=== PATIENT | male | born 1945 | race Caucasian/White ===

== ENCOUNTER 2016-05-08 12:20 | Inpatient (IN) | payer OTHER ==
[~2016-05-08] VITALS: Ht 175.3 cm; Wt 114.0 kg
[~2016-05-08 12:20] MED LIST: AMIO0.1T PO; BRIM0.15 OPB; CHOL2000 PO; FERR325T5 PO; MAGN400T6 PO; MULT-506 PO
[2016-05-08] MEDS ORDERED: HYDROmorphone INJ 1 MG/ML SYR IV STA ×2 (12:33→18:11)
--- NOTE | 2016-05-08 12:38 | EMERGENCY ROOM VISIT NOTE ---
History Report prepared by Karina: Thee Archer Under the Supervision of: Dr. Alethea Haddad M.D. First contact with patient: 12:27 Chief Complaint: FALL History of Present Illness The patient is a 70 year old male who presents to the Emergency Room with complaints of a sudden fall that occurred prior to arrival today. Per the nursing staff, the patient was reaching for a piece of toast, and then slipped and fell on his left knee. The patient now has left knee pain and the knee is more swollen that it previously was and he cannot walk. The patient adds that there were 3 boxes of oranges and grapefruit that he tripped over. He had both knees drained last week due to excess swelling. The patient denies any other pain, and did not hurt or hit his head. He denies any chest pain or shortness of breath. The patient does have history of a torn meniscus. He also has a history of heart problems. Source of History: patient Onset: Prior to arrival today Position: other (global - fall) Quality: other (tripped on boxes in kitchen) Timing: other (sudden) Associated Symptoms: No SOB, No chest pain Note: Associated symptoms: Left knee pain, left knee more swollen that it was before. Cannot walk. Denies any other pain and denies hitting his head. Review of Systems See HPI for pertinent positives & negatives. A total of 10 systems reviewed and were otherwise negative. Past Medical & Surgical Medical Problems: (1) Chronic combined systolic and diastolic CHF (congestive heart failure) (2) Dyslipidemia (3) Esophageal dysmotility (4) Frequent PVCs (5) GERD (gastroesophageal reflux disease) (6) History of DVT (deep vein thrombosis) (7) Hypertension (8) Non-ischemic cardiomyopathy (9) Nonischemic cardiomyopathy (10) Pulmonary HTN (11) Pulmonary hypertension (12) Severe mitral regurgitation Surgical Problems: (1) Appendectomy (2) H/O cardiac radiofrequency ablation (3) H/O colonoscopy (4) Hernia repair (5) History of implantable cardioverter-defibrillator (ICD) placement (6) Hx of cardiac cath (7) S/P cholecystectomy (8) S/P lumbar discectomy (9) S/P tendon repair (10) Shoulder surgery Family History CHF (congestive heart failure) FATHER Diabetes mellitus FH: cancer FH: heart disease Lung disease Valvular heart disease MOTHER No Family History of: Seizures Social History Smoking Status: Former Smoker Alcohol Use: none Drug Use: none Marital Status: Housing Status: lives with significant other Occupation Status: retired Current/Historical Medications Scheduled Allopurinol (Zyloprim), 100 MG PO QPM Amiodarone Hcl (Amiodarone Hcl), 100 MG PO w/lunch Aspirin (Aspirin Ec), 81 MG PO HS Atorvastatin (Atorvastatin Calcium), 20 MG PO QAM Brimonidine Tartrate Oph (Alphagan P Oph), 1 DROP OPB TID Budesonide/Formoterol Fumarate (Symbicort 160/4.5 Inhaler), 2 PUFFS INH QAM Cholecalciferol (Vitamin D3), 4,000 UNITS PO DAILY Digoxin (Digoxin), 0.125 MG PO QAM Ferrous Sulfate (Kp Ferrous Sulfate), 1 TAB PO DAILY Losartan Potassium (Cozaar), 12.5 MG PO QAM Magnesium Oxide (Magnesium Oxide), 1 CAP PO DAILY Metoprolol Succ (Toprol Xl) (Toprol-Xl ), 100 MG PO QAM Omeprazole (Prilosec), 40 MG PO QAM Warfarin Sod (Jantoven), 5 MG PO 5XWEEK Warfarin Sod (Jantoven), 2.5 MG PO 2XWEEK Scheduled PRN Albuterol (Ventolin), 2 PUFFS INH QID PRN for Wheezing Nitroglycerin (Nitrostat), 0.4 MG UT UD PRN for Chest Pain Torsemide (Demadex), 20 MG PO PRN PRN for fluid Tramadol (Ultram), 50 MG PO Q6H PRN for Pain Allergies Coded Allergies: Promethazine (Verified Adverse Reaction, Intermediate, DELIRIUM, 05/08/16) pt was confused after getting pheneargan Physical Exam Vital Signs Date Time Temp Pulse Resp B/P Pulse Ox O2 Delivery O2 Flow Rate FiO2 05/08/16 19:24 36.8 87 18 115/64 94 05/08/16 19:05 87 18 115/64 94 05/08/16 18:20 87 18 117/72 94 05/08/16 16:22 95 18 122/81 95 05/08/16 15:30 97 18 120/77 95 05/08/16 14:14 93 18 125/71 96 05/08/16 12:27 36.8 88 22 142/83 98 Physical Exam CONSTITUTIONAL: Moderate painful distress. HEENT: No icterus, moist mucous membranes NECK: No meningismus, trachea is midline. CARDIOVASCULAR: Regular rate, normal perfusion RESPIRATORY: Unlabored breathing. Clear to auscultation. GASTROINTESTINAL: Non-tender GENITOURINARY: No flank tenderness MUSCULOSKELETAL: Limited range of motion to left knee secondary to pain. NEUROLOGIC: No acute gross focal deficits. PSYCHIATRIC: Normal affect SKIN: Edematous bruise to left knee. Medical Decision & Procedures ER Provider Diagnostic Interpretation: X-ray results as stated below per interpretation by me and the radiologist. LEFT KNEE 3 VIEWS CLINICAL HISTORY: Left knee pain status post fall. COMPARISON: None FINDINGS: There is a large left knee joint effusion. Lucency projecting over the medial tibial plateau suggests an acute fracture. No additional fractures are identified. There is mild arthritis within the left knee. IMPRESSION: 1. Suspected medial tibial plateau fracture which is mildly displaced and depressed. 2. Large left knee joint effusion. Electronically signed by: Toi Davies M.D. 05/08/2016 1:34 PM Dictated Date/Time: 05/08/2016 1:31 PM Laboratory Results 05/08/16 12:57 Red Blood Count 4.35, Mean Corpuscular Volume 89.7, Mean Corpuscular Hemoglobin 31.3, Mean Corpuscular Hemoglobin Concent 34.9, Mean Platelet Volume 10.6, Neutrophils (%) (Auto) 75.4, Lymphocytes (%) (Auto) 12.1, Monocytes (%) (Auto) 8.0, Eosinophils (%) (Auto) 2.9, Basophils (%) (Auto) 0.3, Neutrophils # (Auto) 6.60, Lymphocytes # (Auto) 1.06, Monocytes # (Auto) 0.70, Eosinophils # (Auto) 0.25, Basophils # (Auto) 0.03 05/08/16 12:57 Test 05/08/16 12:57 White Blood Count 8.75 K/uL (4.8-10.8) Red Blood Count 4.35 M/uL (4.7-6.1) Hemoglobin 13.6 g/dL (14.0-18.0) Hematocrit 39.0 % (42-52) Mean Corpuscular Volume 89.7 fL (80-100) Mean Corpuscular Hemoglobin 31.3 pg (25-34) Mean Corpuscular Hemoglobin Concent 34.9 g/dl (32-36) Platelet Count 129 K/uL (130-400) Mean Platelet Volume 10.6 fL (7.4-10.4) Neutrophils (%) (Auto) 75.4 % Lymphocytes (%) (Auto) 12.1 % Monocytes (%) (Auto) 8.0 % Eosinophils (%) (Auto) 2.9 % Basophils (%) (Auto) 0.3 % Neutrophils # (Auto) 6.60 K/uL (1.4-6.5) Lymphocytes # (Auto) 1.06 K/uL (1.2-3.4) Monocytes # (Auto) 0.70 K/uL (0.11-0.59) Eosinophils # (Auto) 0.25 K/uL (0-0.5) Basophils # (Auto) 0.03 K/uL (0-0.2) RDW Standard Deviation 48.5 fL (36.4-46.3) RDW Coefficient of Variation 14.9 % (11.5-14.5) Immature Granulocyte % (Auto) 1.3 % Immature Granulocyte # (Auto) 0.11 K/uL (0.00-0.02) Prothrombin Time 31.9 SECONDS (9.0-12.0) Prothromb Time International Ratio 2.9 (0.9-1.1) Activated Partial Thromboplast Time 39.2 SECONDS (21.0-31.0) Partial Thromboplastin Ratio 1.5 Anion Gap 9.0 mmol/L (3-11) Est Creatinine Clear Calc Drug Dose 71.3 ml/min Estimated GFR () 70.6 Estimated GFR (Non- 60.9 BUN/Creatinine Ratio 13.3 (10-20) Calcium Level 8.8 mg/dl (8.5-10.1) Labs reviewed by ED physician. Medications Administered Medications (Trade) Dose Ordered Sig/Joao Route Start Time Stop Time Status Last Admin Dose Admin Hydromorphone HCl (Dilaudid Inj) 1 mg PRN STAT IV 05/08/16 12:33 05/08/16 12:35 DC 05/08/16 13:00 1 MG Hydromorphone HCl (Dilaudid Inj) 1 mg PRN STAT IV 1/9/17 18:11 05/08/16 18:12 DC 05/08/16 18:19 1 MG ED Course 1230: Past medical records reviewed. The patient was evaluated in room C6. A complete history and physical examination was performed. 1233: Ordered Dilaudid Inj 1 mg IV. 1632: I reevaluated the patient and discussed the imaging results with him. 1634: I discussed the patient with Dr. Mehdi DORMAN orthopedic surgery - he will see the patient tomorrow morning at 0800. 1639: I reevaluated the patient and he is resting comfortably. He will talk to his family and then decide what he wants to do. 1647: The patient notified me that he wants to evaluated for further treatment for pain control. The patient verbally expressed agreement and understanding of the treatment plan. 1715: Ordered Morphine Sulfate Inj 4 mg IV PRN. 1755: I discussed the patient with Dr. Kiera Dodd break and load operator - he will evaluate the patient for further treatment. Medical Decision Differential diagnoses include: fracture, hematoma, effusion, contusion. 70-year-old on Coumadin presented to the emergency room after mechanical fall during which he sustained a left knee contusion and has been unable to ambulate since. He notes a recent arthrocentesis with orthopedics secondary to chronic effusions. Review of systems was otherwise negative. X-ray was concerning for tibial plateau fracture. Case d/w Mehdi Herrera who offered to see patient first thing tomorrow morning at 8am. However, states she is unable to care for patient as he cannot walk safely and notes he is on coumadin. Patient also noted continued pain despite multiple doses of opiates. For these reasons observation arranged with hospitalist service and consultation to be obtained with orthopedics in morning. Patient/ in agreement with this plan. Consults Time Called: 163 Consulting Physician: Dr. Mehdi DORMAN orthopedic surgery Returned Call: [phone] I discussed the patient with Dr. Mehdi DORMAN orthopedic surgery - he will see the patient tomorrow morning at 0800. Additional Consults: Time Called: 1747 Consulted Physician: Dr. Kiera Dodd break and load operator Returned Call: [phone] Additional Comments: I discussed the patient with Dr. Kiera Dodd break and load operator - he will evaluate the patient for further treatment. Impression Primary Impression: Ambulatory dysfunction Additional Impression: Tibial plateau fracture Scribe Attestation The scribe's documentation has been prepared under my direction and personally reviewed by me in its entirety. I confirm that the note above accurately reflects all work, treatment, procedures, and medical decision making performed by me. Departure Information Dispostion Being Evaluated By Hospitalist Referrals Rebecca Lee (PCP) Patient Instructions A Signature Page, My [facility]
[2016-05-08 13:07] LABS: BASO % 0.3 %; BASO ABS # 0.03 K/uL (0-0.2); COMPLETE YES; EOS % 2.9 %; IG% 1.3 %; LYMPH % 12.1 %; LYMPH ABS # 1.06 K/uL (1.2-3.4); MEAN CELL VOLUME 89.7 fL (80-100); MEAN CORPUSCULAR HEMOGLOBIN 31.3 pg (25-34); MEAN CORPUSCULAR HGB CONC 34.9 g/dl (32-36); MEAN PLATELET VOLUME 10.6 fL (7.4-10.4); NEUT % 75.4 %; PLATELET COUNT 129 K/uL (130-400); RED BLOOD COUNT 4.35 M/uL (4.7-6.1); WHITE BLOOD COUNT 8.75 K/uL (4.8-10.8)
[2016-05-08 13:21] LABS: INR 2.9 (0.9-1.1); PARTIAL THROMBOPLASTIN RATIO 1.5; PROTHROMBIN TIME (PATIENT) 31.9 SECONDS (9.0-12.0)
[2016-05-08 13:24] LABS: BUN/CREATININE RATIO 13.3 (10-20); CALCIUM 8.8 mg/dl (8.5-10.1); CREATININE 1.2 mg/dl (0.60-1.40); POTASSIUM 4.5 mmol/L (3.5-5.1)
--- NOTE | 2016-05-08 13:35 | DIAGNOSTIC IMAGING REPORT ---
LEFT KNEE 3 VIEWS CLINICAL HISTORY: Left knee pain status post fall. COMPARISON: None FINDINGS: There is a large left knee joint effusion. Lucency projecting over the medial tibial plateau suggests an acute fracture. No additional fractures are identified. There is mild arthritis within the left knee. IMPRESSION: 1. Suspected medial tibial plateau fracture which is mildly displaced and depressed. 2. Large left knee joint effusion. Electronically signed by: Toi Davies M.D. 05/08/2016 1:34 PM Dictated Date/Time: 05/08/2016 1:31 PM
[2016-05-08] MEDS ORDERED: METO1TAB69 PO (16:35)
[2016-05-08] MEDS ORDERED: ALLO100T PO (16:35)
[2016-05-08] MEDS ORDERED: LNX125 PO (16:35)
[2016-05-08] MEDS ORDERED: WARF2.5T8 PO (16:35)
[2016-05-08] MEDS ORDERED: LOSA1TAB PO (16:35)
[2016-05-08] MEDS ORDERED: TRAM-10 PO (16:37)
[2016-05-08] MEDS ORDERED: MoRPHine SULFATE 4 MG/ML 1 ML CARP\\VIAL IV PRN ×3 (17:15→19:00)
[2016-05-08] MEDS ORDERED: ONDANSETRON INJ 2 MG/ML 2 ML VIAL IV PRN (18:45)
[2016-05-08] MEDS ORDERED: ACETAMINOPHEN 325 MG TAB PO PRN (18:45)
[2016-05-08] MEDS ORDERED: CHOL20007 PO (18:51)
[2016-05-08] MEDS ORDERED: TORS20TA2 PO (18:51)
[2016-05-08] MEDS ORDERED: MAGN400C2 PO (18:51)
[2016-05-08] MEDS ORDERED: FERR1TAB13 PO (18:51)
[2016-05-08] MEDS ORDERED: DIGOXIN 0.125 MG TAB PO ONE (18:53)
[2016-05-08] MEDS ORDERED: AMIODARONE HCL 100 MG PO SCH (19:00)
[2016-05-08] MEDS ORDERED: OMEP40CA PO (19:13)
[2016-05-08] MEDS ORDERED: WARF5TAB7 PO (19:13)
[2016-05-08] MEDS ORDERED: ALBUAER2 INH (19:13)
[2016-05-08] MEDS ORDERED: SYMIN160 INH (19:13)
[2016-05-08] MEDS ORDERED: LPT40 PO (19:17)
[2016-05-08 19:30] VITALS: BP 132/74; PULSE 92; TEMP 36.6; O2SAT 97; Ht 175.3 cm; Wt 114.0 kg
--- NOTE | 2016-05-08 19:35 | History and Physical ---
History & Physical Date & Time of Service: May 08, 2016 at 19:17 Chief Complaint: Fall, Left Leg Pain Primary Care Physician: RAIN Arita ([place]) History of Present Illness 70 year old male who presents to the ER for evaluation of left leg pain after a fall today. Patient reports this morning he was making breakfast and when he reached for a piece of toast, he machine stripper over a box of oranges and fell to the ground. He denies striking his head or loss of consciousness. Patient reports it took him a long time to get off of the floor and he was having significant left lower leg pain. He continued then to drive his car for 30 miles and also unloaded firewood. The pain was worsening to the point where he could not bear weight on his leg. Patient denies any chest pain, shortness of breath, lightheadedness, dizziness, or diaphoresis associated with the fall. He reports he has been feeling well recently. He has chronic shortness of breath on exertion which has remained at baseline. Patient has history of CHF and reports he takes diuretics on an as needed basis. He usually takes it one time per week. Weight has been stable and he denies lower extremity edema or orthopnea. He denies abdominal pain, nausea, vomiting, or diarrhea. No fever or chills. He denies any urinary symptoms. Patient had both knees drained last week by Dr. Jimenez. In the ER, patient is found to have a suspected medial tibial plateau fracture which is mildly displaced and depressed. Vitals are stable and labs are unremarkable. Past Medical/Surgical History Medical Problems: (1) Chronic combined systolic and diastolic CHF (congestive heart failure) Permanent Comment: echo 05/03/16 - EF 27%, moderate - severe mitral regurgitation , grade I diastolic dysfunction Status: Chronic (2) Dyslipidemia Status: Chronic (3) Esophageal dysmotility Status: Chronic (4) Frequent PVCs Status: Chronic (5) GERD (gastroesophageal reflux disease) Status: Chronic (6) History of DVT (deep vein thrombosis) Status: Chronic (7) Hypertension Status: Chronic (8) Non-ischemic cardiomyopathy Status: Chronic (9) Nonischemic cardiomyopathy Permanent Comment: s/p AICD placement EF as low as 15% in the past, on echo 05/03/16 EF 27% Status: Chronic (10) Pulmonary HTN Permanent Comment: on echo from 10/2014 Status: Chronic (11) Pulmonary hypertension Status: Chronic (12) Severe mitral regurgitation Status: Chronic Surgical Problems: (1) Appendectomy Status: Chronic (2) H/O cardiac radiofrequency ablation Permanent Comment: 12/2014, for PVCs Status: Chronic (3) H/O colonoscopy Permanent Comment: with polypectomy Status: Chronic (4) Hernia repair Status: Chronic (5) History of implantable cardioverter-defibrillator (ICD) placement Permanent Comment: Biventricular ICD placed 05/07/2013, with revisions in 12/2013 and 01/2014 Status: Chronic (6) Hx of cardiac cath Permanent Comment: 01/2013- non obstructive CAD Status: Chronic (7) S/P cholecystectomy Status: Chronic (8) S/P lumbar discectomy Status: Chronic (9) S/P tendon repair Permanent Comment: for ruptured EPL Status: Chronic (10) Shoulder surgery Status: Chronic Family History CHF (congestive heart failure) FATHER Valvular heart disease MOTHER Social History Smoking Status: Former Smoker Alcohol Use: none Marital Status: Housing status: lives with family Immunizations History of Influenza Vaccine: Yes Influenza Vaccine Date: Feb 28, 2013 History of Tetanus Vaccine?: Yes Tetanus Immunization Date: Nov 11, 2015 History of Pneumococcal: Yes Pneumococcal Date: Feb 06, 2013 Multi-Drug Resistant Organisms History of MDRO: No Allergies Coded Allergies: Promethazine (Verified Adverse Reaction, Intermediate, DELIRIUM, 05/08/16) pt was confused after getting pheneargan Home Medications Scheduled Allopurinol (Zyloprim), 100 MG PO QPM Amiodarone Hcl (Amiodarone Hcl), 100 MG PO w/lunch Aspirin (Aspirin Ec), 81 MG PO HS Atorvastatin (Atorvastatin Calcium), 20 MG PO QAM Brimonidine Tartrate Oph (Alphagan P Oph), 1 DROP OPB TID Budesonide/Formoterol Fumarate (Symbicort 160/4.5 Inhaler), 2 PUFFS INH QAM Cholecalciferol (Vitamin D3), 4,000 UNITS PO DAILY Digoxin (Digoxin), 0.125 MG PO QAM Ferrous Sulfate (Kp Ferrous Sulfate), 1 TAB PO DAILY Losartan Potassium (Cozaar), 12.5 MG PO QAM Magnesium Oxide (Magnesium Oxide), 1 CAP PO DAILY Metoprolol Succ (Toprol Xl) (Toprol-Xl ), 100 MG PO QAM Omeprazole (Prilosec), 40 MG PO QAM Warfarin Sod (Jantoven), 5 MG PO 5XWEEK Warfarin Sod (Jantoven), 2.5 MG PO 2XWEEK Scheduled PRN Albuterol (Ventolin), 2 PUFFS INH QID PRN for Wheezing Nitroglycerin (Nitrostat), 0.4 MG UT UD PRN for Chest Pain Torsemide (Demadex), 20 MG PO PRN PRN for fluid Tramadol (Ultram), 50 MG PO Q6H PRN for Pain Review of Systems 10 point review of systems was completed with the pertinent positives and negatives noted per the HPI Physical Exam Vital Signs Date Time Temp Pulse Resp B/P Pulse Ox O2 Delivery O2 Flow Rate FiO2 05/08/16 19:05 87 18 115/64 94 05/08/16 18:20 87 18 117/72 94 05/08/16 16:22 95 18 122/81 95 05/08/16 15:30 97 18 120/77 95 05/08/16 14:14 93 18 125/71 96 05/08/16 12:27 36.8 88 22 142/83 98 General Appearance: no apparent distress Head: normocephalic Eyes: normal inspection ENT: hearing grossly normal Neck: supple, no JVD Respiratory/Chest: lungs clear, normal breath sounds, no respiratory distress Cardiovascular: regular rate, rhythm, no edema, normal peripheral pulses Abdomen/GI: normal bowel sounds, non tender, soft Extremities/Musculoskelatal: + pertinent finding (LLE in brace, CSM checks intact to LLE ) Neurologic/Psych: no motor/sensory deficits, alert, normal mood/affect, oriented x 3 Skin: normal color, warm/dry Diagnostics Laboratory Results Results Past 24 Hours Test 05/08/16 12:57 Range/Units White Blood Count 8.75 4.8-10.8 K/uL Red Blood Count 4.35 4.7-6.1 M/uL Hemoglobin 13.6 14.0-18.0 g/dL Hematocrit 39.0 42-52 % Mean Corpuscular Volume 89.7 80-100 fL Mean Corpuscular Hemoglobin 31.3 25-34 pg Mean Corpuscular Hemoglobin Concent 34.9 32-36 g/dl Platelet Count 129 130-400 K/uL Mean Platelet Volume 10.6 7.4-10.4 fL Neutrophils (%) (Auto) 75.4 % Lymphocytes (%) (Auto) 12.1 % Monocytes (%) (Auto) 8.0 % Eosinophils (%) (Auto) 2.9 % Basophils (%) (Auto) 0.3 % Neutrophils # (Auto) 6.60 1.4-6.5 K/uL Lymphocytes # (Auto) 1.06 1.2-3.4 K/uL Monocytes # (Auto) 0.70 0.11-0.59 K/uL Eosinophils # (Auto) 0.25 0-0.5 K/uL Basophils # (Auto) 0.03 0-0.2 K/uL RDW Standard Deviation 48.5 36.4-46.3 fL RDW Coefficient of Variation 14.9 11.5-14.5 % Immature Granulocyte % (Auto) 1.3 % Immature Granulocyte # (Auto) 0.11 0.00-0.02 K/uL Prothrombin Time 31.9 9.0-12.0 SECONDS Prothromb Time International Ratio 2.9 0.9-1.1 Activated Partial Thromboplast Time 39.2 21.0-31.0 SECONDS Partial Thromboplastin Ratio 1.5 Sodium Level 143 136-145 mmol/L Potassium Level 4.5 3.5-5.1 mmol/L Chloride Level 108 98-107 mmol/L Carbon Dioxide Level 26 21-32 mmol/L Anion Gap 9.0 3-11 mmol/L Blood Urea Nitrogen 16 7-18 mg/dl Creatinine 1.20 0.60-1.40 mg/dl Est Creatinine Clear Calc Drug Dose 71.3 ml/min Estimated GFR () 70.6 Estimated GFR (Non- 60.9 BUN/Creatinine Ratio 13.3 10-20 Random Glucose 136 70-99 mg/dl Calcium Level 8.8 8.5-10.1 mg/dl Diagnostic Radiology LEFT KNEE XR IMPRESSION: 1. Suspected medial tibial plateau fracture which is mildly displaced and depressed. 2. Large left knee joint effusion. Impression Assessment and Plan LEFT TIBIAL PLATEAU FRACTURE - admit to med/surg - case discussed with Dr. Harding - no plan for surgical intervention tomorrow; may be non operative; if patient does need surgery, will need cardio evaluation before surgery due to nonischemic cardiomyopathy and low EF - fall was mechanical - pain control - PT/OT when appropriate NON ISCHEMIC CARDIOMYOPATHY S/P AICD - appears euvolemic - only uses diuretics on a PRN basis - echo 05/03/16 - EF 27% - continue beta tyler and ARB ATRIAL FIBRILLATION - heart auscultates regular on exam, will check EKG - rate controlled on beta tyler and dig, rhythm controlled on amiodarone - continue all - on Coumadin, INR therapeutic - continue for now until surgical plan decided DVT PROPHYLAXIS - on Coumadin with therapeutic INR DISPO - In my clinical judgment this beneficiary meets acute admission criteria, established by [facility], that includes being hospitalized through two midnights. VTE Prophylaxis VTE Risk Assessment Done? Y/N: Yes Risk Level: Moderate Note ATTENDING ADDENDUM Record reviewed. Patient interviewed and examined in ED. Care coordinated with RAIN Erazo. Please refer to her documentation for patient's history. Briefly, 70 YO male with history of CHF, hypertension, DVT, and other problems as noted. Suffered mechanical fall and injured his left knee; no associated cardiac or neuro symptoms. EXAM: General- no acute distress VS- as noted HEENT- atraumatic Neck- no JVD Lungs- clear Heart- RRR, no gallop appreciated Abdomen- + BS, soft, nontender Extremities- trace pretibial edema; LLE immobilized Neuro- alert, oriented DATA: INR 2.9. Other lab studies as noted. LEFT KNEE 3 VIEWS CLINICAL HISTORY: Left knee pain status post fall. COMPARISON: None FINDINGS: There is a large left knee joint effusion. Lucency projecting over the medial tibial plateau suggests an acute fracture. No additional fractures are identified. There is mild arthritis within the left knee. IMPRESSION: 1. Suspected medial tibial plateau fracture which is mildly displaced and depressed. 2. Large left knee joint effusion. Electronically signed by: Toi Davies M.D. ASSESSMENT AND PLAN: LEFT TIBIAL PLATEAU FRACTURE / POSSIBLE HEMARTHROSIS Immobilize. Analgesics. Consult Ortho. Cardiac status compensated. Please refer to ESTRELLA Barton's documentation for discussion of other issues. Tj Qureshi MD .
[2016-05-08 20:00] VITALS: O2SAT 97
[2016-05-08] MEDS ORDERED: WARFARIN SOD 2.5 MG TAB PO SCH (20:00)
[2016-05-08 20:53] VITALS: BP 118/69; PULSE 96; O2SAT 97
[2016-05-08] MEDS: AMIODARONE 200 MG TAB PO SCH (20:55)
[2016-05-08] MEDS ORDERED: ASPIRIN 81 MG ECTAB PO SCH (21:00)
[2016-05-08] MEDS ORDERED: ALLOPURINOL 100 MG TAB PO SCH (21:00)
[2016-05-08] MEDS: BRIMONIDINE TARTRATE-P 0.15% 5 ML BTL OPB SCH (21:23)
[2016-05-08] MEDS: OXYCODONE/ACETAMINOPHEN 7.5-325 TAB PO PRN (21:29)
[2016-05-08] MEDS ORDERED: NITR0.4S UT (22:27)
[2016-05-08] MEDS ORDERED: ASPI81TA28 PO (22:27)
[2016-05-08 23:15] VITALS: BP 105/70; PULSE 90; TEMP 37; O2SAT 95
[2016-05-09] MEDS: OXYCODONE/ACETAMINOPHEN 7.5-325 TAB PO PRN ×2 (02:50→09:29)
[2016-05-09] MEDS ORDERED: TRAMADOL HCL 50 MG TAB PO STA (04:28)
[2016-05-09] MEDS ORDERED: TRAMADOL HCL 50 MG TAB ONE (04:30)
[2016-05-09 07:22] LABS: HEMATOCRIT 40.9 % (42-52); MEAN CELL VOLUME 91.1 fL (80-100); MEAN PLATELET VOLUME 11.2 fL (7.4-10.4); PLATELET COUNT 144 K/uL (130-400); RED BLOOD COUNT 4.49 M/uL (4.7-6.1); WHITE BLOOD COUNT 7.76 K/uL (4.8-10.8)
[2016-05-09 07:28] LABS: INR 1.9 (0.9-1.1); PROTHROMBIN TIME (PATIENT) 21.2 SECONDS (9.0-12.0)
[2016-05-09 07:45] VITALS: BP 129/79; PULSE 100; TEMP 36.8; O2SAT 97
[2016-05-09 07:50] LABS: BUN/CREATININE RATIO 12.6 (10-20); CALCIUM 8.8 mg/dl (8.5-10.1); CREATININE 1.3 mg/dl (0.60-1.40); POTASSIUM 4.2 mmol/L (3.5-5.1)
--- NOTE | 2016-05-09 07:58 | ORTHOPEDIC CONSULTATION ---
DATE OF CONSULTATION: 05/09/2016 CHIEF COMPLAINT: Left knee pain. HISTORY OF PRESENT ILLNESS: Mr. Bowden was admitted last night to the medical service. He had a ground level fall, suffered acute injury to his left lower extremity, left knee, particularly. He came to the Emergency Room and was diagnosed with a tibial plateau fracture on the left hand side. I was going to treat him conservatively and get him discharged from the ER last evening. His thought she could not quite handle him at home, pain being a factor, and he was appropriately admitted then to the hospital by the hospitalist service. I am seeing him this morning for evaluation and treatment. He is comfortable here on rounds sitting up taking p.o. He has minimal left knee pain. His x-rays are fairly benign. He has a minimally displaced approximately 3 mm fracture medial aspect of the tibial plateau. PAST MEDICAL HISTORY: Heart failure in the past, lipidemia, GERD, history of DVT, hypertension, cardiomyopathy. PAST SURGICAL HISTORY: Appendectomy, radiofrequency ablation cardiac, colonoscopy, hernia repair. He also had a lumbar spine discectomy, shoulder surgery, cholecystectomy and tendon repair as well by various surgeons in town. Most recently, he has had several injections and aspirations by Dr. Herrera in our office for bilateral knee issues. OBJECTIVE: Examination is a moderately benign. He has medial joint line tenderness. The pain is moderate. Range of motion decreased. No gross instability, mild effusion, no discoloration. Neurosensory intact. Vascular structures intact. Dorsiflex and plantarflex appropriately. X-RAYS: Reviewed demonstrating minimally displaced medial tibial plateau fracture. DISPOSITION: Will keep them in knee immobilizer and he can ice this down about every 30 minutes through the course of the day. A walker is also appropriate. He is allowed touch weightbearing on the left. I also prescribed a prescription for [place] for pain on his chart. He can be discharged later on this morning. This is a nonsurgical problem and will be approached that way. He will follow up in the office with Dr. Herrera or Dr. Sher next week. He is to call; he knows were the office is and he has our phone numbers. Hopefully, we can get the patient home later on today or tomorrow would be appropriate if he needs other medical workup.
[2016-05-09] MEDS: BRIMONIDINE TARTRATE-P 0.15% 5 ML BTL OPB SCH ×2 (08:02→13:22)
[2016-05-09] MEDS: AMIODARONE 200 MG TAB PO SCH (08:02)
[2016-05-09] MEDS ORDERED: FERROUS SULFATE 325 MG TAB PO SCH (09:00)
[2016-05-09] MEDS ORDERED: MAGNESIUM OXIDE 400 MG TAB PO SCH (09:00)
[2016-05-09] MEDS ORDERED: ATORVASTATIN 20 MG TAB PO SCH (09:00)
[2016-05-09] MEDS ORDERED: LOSARTAN POTASSIUM 25 MG TAB PO SCH (09:00)
[2016-05-09] MEDS ORDERED: METOPROLOL SUCC 50MG EXT REL TAB PO SCH (09:00)
[2016-05-09] MEDS ORDERED: BUDESONIDE/FORMOTEROL FUMARATE 160/4.5 60 PUFFS/INHALER INH SCH (09:00)
[2016-05-09] MEDS ORDERED: CHOLECALCIFEROL 1000 INTER.UNIT TAB PO SCH (09:00)
[2016-05-09] MEDS ORDERED: PANTOprazole SOD 40 MG TAB PO SCH (09:00)
[2016-05-09 11:20] VITALS: BP 129/79; PULSE 100; TEMP 36.8; O2SAT 97
--- NOTE | 2016-05-09 14:28 | Discharge Instructions ---
Discharge Instructions Admission Reason for Admission: Tibial Plateau Fracture Discharge Discharge Diagnosis / Problem: Intractable pain, tibial plateau fracture Discharge Goals Goal(s): Decrease discomfort Activity Recommendations Activity Limitations: as noted below Lifting Limitations: gradually increase as tolerated Weightbearing Status: Left weightbearing (as tolerated) . Instructions / Follow-Up Instructions / Follow-Up Please follow up with Orthopedics as advised Please follow up with your Primary Care physician in the next 1 week Current Hospital Diet Patient's current hospital diet: AHA Diet (Heart Healthy), Low Sodium Diet (2gm Na) Discharge Diet Recommended Diet: AHA Diet (Heart Healthy), Low Sodium Diet (2gm Na) Pending Studies Studies pending at discharge: no Medical Emergencies . Who to Call and When: Medical Emergencies: If at any time you feel your situation is an emergency, please call 911 immediately. . Non-Emergent Contact Non-Emergency issues call your: Primary Care Provider, Surgeon . . "Provider Documentation" section prepared by Rhiannon Condon. VTE Core Measure Inpt VTE Proph given/why not?: Warfarin (Coumadin)
[2016-05-09] MEDS ORDERED: DIGOXIN 0.125 MG TAB PO SCH (16:00)
[2016-05-09] MEDS ORDERED: WARFARIN SOD 5 MG TAB PO SCH (16:00)
--- NOTE | 2016-05-22 08:13 | Discharge Summary ---
Discharge Summary Admission Date: May 08, 2016 at 18:43 Discharge Date: May 09, 2016 Discharge Disposition: Home Principal Diagnosis: Tibial plateau fracture, intractable pain Pending Studies/Follow-Up: Ortho Medication Reconciliation Continued Medications: Albuterol (Ventolin) Inh 2 PUFFS INH QID PRN for Wheezing Allopurinol (Zyloprim) 100 Mg Tab 100 MG PO QPM, TAB Amiodarone Hcl (Amiodarone Hcl) 100 Mg Tab 100 MG PO w/lunch Aspirin (Aspirin Ec) 81 Mg Tab 81 MG PO HS Atorvastatin (Atorvastatin Calcium) 40 Mg Tab 20 MG PO QAM Brimonidine Tartrate Oph (Alphagan P Oph) 0.15 % Astrid 1 DROP OPB TID, BTL Budesonide/Formoterol Fumarate (Symbicort 160/4.5 Inhaler) 120 Puffs/ Aero 2 PUFFS INH QAM Cholecalciferol (Vitamin D3) 2,000 Unit Tab 4000 UNITS PO DAILY for 30 Days, TAB 5 Refills Digoxin (Digoxin) 0.125 Mg Tab 0.125 MG PO QAM Ferrous Sulfate (Kp Ferrous Sulfate) 325 Mg Tab 1 TAB PO DAILY for 30 Days, #30 TAB 3 Refills Losartan Potassium (Cozaar) 25 Mg Tab 12.5 MG PO QAM, TAB Magnesium Oxide (Magnesium Oxide) 400 Mg Cap 1 CAP PO DAILY for 30 Days, #30 CAP 3 Refills Metoprolol Succ (Toprol Xl) (Toprol-Xl ) 100 Mg Tabcr 100 MG PO QAM, TAB Nitroglycerin (Nitrostat) 0.4 Mg Sub 0.4 MG UT UD PRN for Chest Pain, BTL PLACE ONE TABLET UNDER THE TONGUE EVERY 5 MINUTES FOR UP TO 3 DOSES. Omeprazole (Prilosec) 40 Mg Capcr 40 MG PO QAM, CAP Torsemide (Demadex) 20 Mg Tab 20 MG PO PRN PRN for fluid, TAB Tramadol (Ultram) 50 Mg Tab 50 MG PO Q6H PRN for Pain, TAB Warfarin Sod (Jantoven) 5 Mg Tab 5 MG PO 5XWEEK SUNDAY,,,SAT,SUN Warfarin Sod (Jantoven) 2.5 Mg Tab 2.5 MG PO 2XWEEK, TAB Mondays Admission Information HPI (per Admitting provider): 70 year old male who presents to the ER for evaluation of left leg pain after a fall today. Patient reports this morning he was making breakfast and when he reached for a piece of toast, he wire stripper over a box of oranges and fell to the ground. He denies striking his head or loss of consciousness. Patient reports it took him a long time to get off of the floor and he was having significant left lower leg pain. He continued then to drive his car for 30 miles and also unloaded firewood. The pain was worsening to the point where he could not bear weight on his leg. Patient denies any chest pain, shortness of breath, lightheadedness, dizziness, or diaphoresis associated with the fall. He reports he has been feeling well recently. He has chronic shortness of breath on exertion which has remained at baseline. Patient has history of CHF and reports he takes diuretics on an as needed basis. He usually takes it one time per week. Weight has been stable and he denies lower extremity edema or orthopnea. He denies abdominal pain, nausea, vomiting, or diarrhea. No fever or chills. He denies any urinary symptoms. Patient had both knees drained last week by Dr. Jimenez. In the ER, patient is found to have a suspected medial tibial plateau fracture which is mildly displaced and depressed. Vitals are stable and labs are unremarkable. Physical Exam (per Admitting): General Appearance: no apparent distress Head: normocephalic Eyes: normal inspection ENT: hearing grossly normal Neck: supple, no JVD Respiratory/Chest: lungs clear, normal breath sounds, no respiratory distress Cardiovascular: regular rate, rhythm, no edema, normal peripheral pulses Abdomen/GI: normal bowel sounds, non tender, soft Extremities/Musculoskelatal: + pertinent finding (LLE in brace, CSM checks intact to LLE ) Neurologic/Psych: no motor/sensory deficits, alert, normal mood/affect, oriented x 3 Skin: normal color, warm/dry Hospital Course LEFT TIBIAL PLATEAU FRACTURE: -no plan for surgical intervention; knee immobilizer as per Ortho -secondary to mechanical fall -continue PRN pain control -PT/OT NON ISCHEMIC CARDIOMYOPATHY: S/P AICD -appears euvolemic, not in exacerbation -only uses diuretics on a PRN basis -echo 05/03/16 - EF 27% -continue beta tyler and ARB ATRIAL FIBRILLATION: -rate controlled on beta tyler and dig -rhythm appears controlled on amiodarone -on Coumadin, INR therapeutic PHYSICAL EXAM ON DAY OF DISCHARGE: GENERAL: Patient is in no acute distress. HEENT: No acute trauma, mucous membranes moist, no nasal congestion, no scleral icterus. NECK: No stridor, trachea is midline. LUNGS: Clear to auscultation bilaterally, no wheeze, no rhonchi, breath sounds equal. HEART: Without murmurs gallops or rubs, regular rate and rhythm. ABDOMEN: Soft, nontender, bowel sounds positive EXTREMITIES: No cyanosis or edema, left knee in brace NEUROLOGIC: Oriented x 3, no acute motor or sensory deficits, no focal weakness. SKIN: No rash, no jaundice, no diaphoresis. Total time spent on discharge = 35 This includes examination of the patient, discharge planning, medication reconciliation, and communication with other providers. Discharge Instructions See patient instructions
[2016-08-17] MEDS ORDERED: SACU1TAB PO (12:28)
[2016-08-17] MEDS ORDERED: TORS20TA2 PO (12:28)
[2016-10-09] MEDS ORDERED: SACU1TAB PO (08:32)
[2016-11-23] MEDS ORDERED: SACU1TAB (08:58)
== END 2016-05-09 16:00 | disposition home health service (06) | DRG 563 ==
LOC: ENRESERVDT → ENRESERVTM → EDBD 12:20 → C.EDC 12:23 → C.3E 18:43
PROVIDERS: ADMIT Hospitalist; ATTEND Internal Medicine
DX: S82.142A Displaced bicondylar fracture of left tibia, initial encounter for closed fracture (principal); I50.42 Chronic combined systolic (congestive) and diastolic (congestive) heart failure; M25.062 Hemarthrosis, left knee; I42.0 Dilated cardiomyopathy; W01.0XXA Fall on same level from slipping, tripping and stumbling without subsequent striking against object, initial encounter; I48.91 Unspecified atrial fibrillation; E78.5 Hyperlipidemia, unspecified; K22.4 Dyskinesia of esophagus; K21.9 Gastro-esophageal reflux disease without esophagitis; R26.89 Other abnormalities of gait and mobility; I27.2 Other secondary pulmonary hypertension; I11.0 Hypertensive heart disease with heart failure; Z98.1 Arthrodesis status; Z79.82 Long term (current) use of aspirin; Z86.718 Personal history of other venous thrombosis and embolism; Z95.810 Presence of automatic (implantable) cardiac defibrillator; Z87.891 Personal history of nicotine dependence; Z79.51 Long term (current) use of inhaled steroids; Z79.01 Long term (current) use of anticoagulants; Z79.891 Long term (current) use of opiate analgesic; Z79.899 Other long term (current) drug therapy

== ENCOUNTER 2016-06-21 08:18 | Emergency (ER) | payer OTHER ==
[~2016-06-21] VITALS: Ht 177.8 cm; Wt 100.0 kg
[~2016-06-21 08:18] MED LIST changes: +ALBUAER2 INH; +ALLO100T PO; +ASPI81TA28 PO; -CHOL2000 PO; +CHOL20007 PO; +FERR1TAB13 PO; -FERR325T5 PO; +LNX125 PO; +LOSA1TAB PO; +LPT40 PO; +MAGN400C2 PO; -MAGN400T6 PO; +METO1TAB69 PO; -MULT-506 PO; +NITR0.4S UT; +OMEP40CA PO; +SYMIN160 INH; +TORS20TA2 PO; +TRAM-10 PO; +WARF2.5T8 PO; +WARF5TAB7 PO
[2016-06-21 08:24] VITALS: Ht 177.8 cm; Wt 100.0 kg
[2016-06-21] MEDS ORDERED: PRLSR20 PO (08:46)
[2016-06-21] MEDS ORDERED: NF406 PO (08:46)
--- NOTE | 2016-06-21 08:47 | EMERGENCY ROOM VISIT NOTE ---
History Report prepared by Karina: Curry Alcantara Under the Supervision of: Dr. Caesar Aguilera M.D. First contact with patient: 08:27 Chief Complaint: FLU LIKE SX Stated Complaint: FLU History of Present Illness The patient is a 70 year old male who presents to the Emergency Room with complaints of persistent flu symptoms since being diagnosed four days ago. The patient was diagnosed with influenza by flu swab at [facility] in [place]. He was started on Tamiflu. The patient has been experiencing intermittent fevers and chills with his cough. The patient has not been taking Tylenol. He is using inhalers which have not helped. The patient is on Coumadin. He has a pacemaker and cardiac defibrillator. The patient takes Ultram from Dr. Herrera for a patella injury. The patient has not been on Prednisone recently. Source of History: patient Onset: four days ago Position: other (respiratory) Quality: other (flu symptoms) Timing: other (persistent) Associated Symptoms: + chills, + cough, + fevers Review of Systems See HPI for pertinent positives & negatives. A total of 10 systems reviewed and were otherwise negative. Past Medical & Surgical Medical Problems: (1) Chronic combined systolic and diastolic CHF (congestive heart failure) (2) Dyslipidemia (3) Esophageal dysmotility (4) Frequent PVCs (5) GERD (gastroesophageal reflux disease) (6) History of DVT (deep vein thrombosis) (7) Hypertension (8) Non-ischemic cardiomyopathy (9) Nonischemic cardiomyopathy (10) Pulmonary HTN (11) Pulmonary hypertension (12) Severe mitral regurgitation Surgical Problems: (1) Appendectomy (2) H/O cardiac radiofrequency ablation (3) H/O colonoscopy (4) Hernia repair (5) History of implantable cardioverter-defibrillator (ICD) placement (6) Hx of cardiac cath (7) S/P cholecystectomy (8) S/P lumbar discectomy (9) S/P tendon repair (10) Shoulder surgery Family History CHF (congestive heart failure) FATHER Valvular heart disease MOTHER Social History Smoking Status: Former Smoker Alcohol Use: none Marital Status: Housing Status: lives with significant other Current/Historical Medications Scheduled Albuterol Hfa (Ventolin Hfa), 2 PUFFS INH QID Allopurinol (Zyloprim), 100 MG PO QPM Amiodarone Hcl (Amiodarone Hcl), 100 MG PO w/lunch Aspirin (Aspirin Ec), 81 MG PO HS Atorvastatin (Atorvastatin Calcium), 20 MG PO QAM Brimonidine Tartrate Oph (Alphagan P Oph), 1 DROP OPB TID Budesonide/Formoterol Fumarate (Symbicort 160/4.5 Inhaler), 2 PUFFS INH QAM Cholecalciferol (Vitamin D3), 4,000 UNITS PO DAILY Digoxin (Digoxin), 0.125 MG PO QAM Doxycycline Monohydrate (Monodox), 100 MG PO BID Ferrous Sulfate (Kp Ferrous Sulfate), 1 TAB PO DAILY Losartan Potassium (Cozaar), 12.5 MG PO QAM Magnesium Oxide (Magnesium Oxide), 1 CAP PO DAILY Metoprolol Succ (Toprol Xl) (Toprol-Xl ), 100 MG PO QAM Omeprazole (Prilosec), 40 MG PO DAILY Oseltamivir Phosphate (Tamiflu), 1 CAP PO BID Prednisone (Prednisone Tab), 0 PO DAILY Warfarin Sod (Jantoven), 5 MG PO 5XWEEK Warfarin Sod (Jantoven), 2.5 MG PO 3XWEEK Scheduled PRN Nitroglycerin (Nitrostat), 0.4 MG UT UD PRN for Chest Pain Torsemide (Demadex), 20 MG PO PRN PRN for fluid Tramadol (Ultram), 50 MG PO Q6H PRN for Pain Allergies Coded Allergies: Promethazine (Verified Adverse Reaction, Intermediate, DELIRIUM, 06/21/16) pt was confused after getting pheneargan Physical Exam Vital Signs Date Time Temp Pulse Resp B/P Pulse Ox O2 Delivery O2 Flow Rate FiO2 06/21/16 10:39 37.0 90 28 113/66 95 Room Air 06/21/16 09:17 83 18 106/71 98 Nebulizer 06/21/16 08:52 84 16 96 Room Air 06/21/16 08:43 89 06/21/16 08:24 36.4 99 18 110/77 96 Room Air Physical Exam GENERAL: Patient is a healthy-appearing well-nourished HEAD: Normocephalic atraumatic EYES: Ocular movements intact pupils equal and react to light OROPHARYNX mucous membranes are moist no exudates present no erythema or edema present NECK: Supple no nuchal rigidity CHEST: Good equal expansion LUNGS: Bilateral wheezing noted throughout. CARDIAC: Normal S1 and S2 ABDOMEN: Soft nontender no guarding BACK: No CVA tenderness EXTREMITIES: No pain upon palpation normal muscle strength in all groups no clubbing cyanosis or edema NEURO: Patient is following commands is answering questions appropriately. Alert and oriented x3 Cranial Nerves 2-12 grossly intact Medical Decision & Procedures ER Provider Diagnostic Interpretation: X-ray results as stated below per interpretation by me and the radiologist: CHEST ONE VIEW PORTABLE CLINICAL HISTORY: Shortness of breath. COMPARISON STUDY: Chest radiograph August 23, 2015. FINDINGS: A left subclavian biventricular pacer/AICD is in place. Cardiomegaly is unchanged. There is hazy left upper lung opacity. There is no evidence of pulmonary edema. Minimal right basilar opacity is suggestive of atelectasis. The appearance of the chest is unchanged. IMPRESSION: No acute findings. Stable cardiomegaly. 1. Apparent hazy left upper lung opacity. This could reflect artifact although pneumonia could appear similar. Short-term radiographic follow up is recommended. 2. Stable cardiomegaly without evidence of pulmonary edema. Electronically signed by: Toi Davies M.D. 06/21/2016 9:46 AM Dictated Date/Time: 06/21/2016 9:40 AM Laboratory Results 06/21/16 08:40 Red Blood Count 4.51, Mean Corpuscular Volume 88.0, Mean Corpuscular Hemoglobin 30.2, Mean Corpuscular Hemoglobin Concent 34.3, Mean Platelet Volume 9.9, Neutrophils (%) (Auto) 69.0, Lymphocytes (%) (Auto) 17.7, Monocytes (%) (Auto) 8.3, Eosinophils (%) (Auto) 4.1, Basophils (%) (Auto) 0.4, Neutrophils # (Auto) 5.20, Lymphocytes # (Auto) 1.34, Monocytes # (Auto) 0.63, Eosinophils # (Auto) 0.31, Basophils # (Auto) 0.03 06/21/16 08:40 Test 06/21/16 08:40 06/21/16 08:45 White Blood Count 7.55 K/uL (4.8-10.8) Red Blood Count 4.51 M/uL (4.7-6.1) Hemoglobin 13.6 g/dL (14.0-18.0) Hematocrit 39.7 % (42-52) Mean Corpuscular Volume 88.0 fL (80-100) Mean Corpuscular Hemoglobin 30.2 pg (25-34) Mean Corpuscular Hemoglobin Concent 34.3 g/dl (32-36) Platelet Count 146 K/uL (130-400) Mean Platelet Volume 9.9 fL (7.4-10.4) Neutrophils (%) (Auto) 69.0 % Lymphocytes (%) (Auto) 17.7 % Monocytes (%) (Auto) 8.3 % Eosinophils (%) (Auto) 4.1 % Basophils (%) (Auto) 0.4 % Neutrophils # (Auto) 5.20 K/uL (1.4-6.5) Lymphocytes # (Auto) 1.34 K/uL (1.2-3.4) Monocytes # (Auto) 0.63 K/uL (0.11-0.59) Eosinophils # (Auto) 0.31 K/uL (0-0.5) Basophils # (Auto) 0.03 K/uL (0-0.2) RDW Standard Deviation 48.3 fL (36.4-46.3) RDW Coefficient of Variation 15.0 % (11.5-14.5) Immature Granulocyte % (Auto) 0.5 % Immature Granulocyte # (Auto) 0.04 K/uL (0.00-0.02) Prothrombin Time 24.4 SECONDS (9.0-12.0) Prothromb Time International Ratio 2.2 (0.9-1.1) Anion Gap 11.0 mmol/L (3-11) Est Creatinine Clear Calc Drug Dose 74.1 ml/min Estimated GFR () 78.4 Estimated GFR (Non- 67.7 BUN/Creatinine Ratio 10.4 (10-20) Calcium Level 8.3 mg/dl (8.5-10.1) Total Bilirubin 0.6 mg/dl (0.2-1) Aspartate Amino Transf (AST/SGOT) 14 U/L (15-37) Alanine Aminotransferase (ALT/SGPT) 18 U/L (12-78) Alkaline Phosphatase 118 U/L (45-117) Total Creatine Kinase 88 U/L (39-308) Creatine Kinase MB 0.9 ng/ml (0.5-3.6) Creatine Kinase MB Ratio 1.0 (0-3.0) Troponin I 0.015 ng/ml (0-0.045) Total Protein 7.3 gm/dl (6.4-8.2) Albumin 3.2 gm/dl (3.4-5.0) Globulin 4.1 gm/dl (2.5-4.0) Albumin/Globulin Ratio 0.8 (0.9-2) Influenza Type A (RT-PCR) POS for Influ A (NEG) Influenza Type A Antigen Neg for Influ A (NEG) Influenza Type B Antigen Neg for Influ B (NEG) Influenza Type B (RT-PCR) Neg for Influ B (NEG) Labs reviewed by ED physician. Medications Administered Medications (Trade) Dose Ordered Sig/Joao Route Start Time Stop Time Status Last Admin Dose Admin Methylprednisolone Sodium Succinate 125 mg 125 mg NOW STAT IV 06/21/16 08:54 06/21/16 08:55 DC 06/21/16 09:15 125 MG Sodium Chloride (Nss 500ml) 500 ml @ 999 mls/hr Q31M STAT IV 06/21/16 08:54 06/21/16 09:24 DC 06/21/16 09:15 999 MLS/HR Doxycycline Hyclate (Vibramycin Cap) 100 mg ONE STAT PO 06/21/16 09:59 06/21/16 10:01 DC 06/21/16 10:46 100 MG ECG Indication: other (cardiac history) Rate (beats per minute): 89 Rhythm: other (paced rhythm) Findings: no acute ischemic change, paced rhythm, no ectopy ED Course 0834: Past medical records reviewed. The patient was evaluated in room A2. A complete history and physical examination was performed. 0854: NSS 500 ml @ 999 mls/hr, Solu-Medrol 125 mg IV. 0900: DuoNeb 12 ml INH. 0959: Vibramycin 100 mg PO. 1016: Reassessed the patient. Discussed the findings with him. He verbalized understanding and agreement. The patient is ready for discharge. Medical Decision Prior records/ancillary studies reviewed. Triage Nursing notes reviewed. The patient's history was concerning for fever. Differential diagnosis: Etiologies such as viral syndrome, otitis, pharyngitis, pneumonia, influenza, meningitis, urinary tract infection, sepsis, bacteremia, as well as others were entertained. This is a 70-year-old male who tested positive for the flu and is early on Tamiflu presents emergency department complaining of shortness of breath. Patient was given an hour-long breathing treatment started on Solu-Medrol. He may have a slight touch of pneumonia on his chest x-ray and for this reason the patient was started on doxycycline. I offered the patient admission to the hospital however he wishes to be discharged home. I believe that this is reasonable. He doesn't have an elevation in his white blood count is afebrile here. He is feeling much better after treatments. Patient and are in agreement with the treatment plan. Impression Primary Impression: Pneumonia Scribe Attestation The scribe's documentation has been prepared under my direction and personally reviewed by me in its entirety. I confirm that the note above accurately reflects all work, treatment, procedures, and medical decision making performed by me. Departure Information Dispostion Home / Self-Care Prescriptions Doxycycline Monohydrate (Monodox) 100 Mg Cap 100 MG PO BID for 10 Days, #20 CAP Prov: Caesar Aguilera MD 06/21/16 Prednisone (Prednisone Tab) 20 Mg Tab 0 PO DAILY, #7 TAB 2 TABS DAILY FOR 2 DAYS, THEN 1 TAB DAILY FOR 2 DAYS, THEN 1/2 TAB DAILY FOR 2 DAYS. Prov: Caesar Aguilera MD 06/21/16 Referrals No Doctor, Assigned (PCP) Forms HOME CARE DOCUMENTATION FORM, IMPORTANT VISIT INFORMATION, School Instructions, Work Instructions Patient Instructions My [facility], Pneumonia Dc Additional Instructions Use inhaler twice every 6 hours You have been examined and treated today on an emergency basis only. This is not a substitute for, or an effort to provide, complete comprehensive medical care. It is impossible to recognize and treat all injuries or illnesses in a single emergency department visit. It is therefore important that you follow up closely with your PCP. Call as soon as possible for an appointment. Thank you for your time and consideration. I look forward to speaking with you again soon. Please don't hesitate to call us if you have any questions. Problem Qualifiers Primary Impression: Pneumonia Pneumonia type: due to unspecified organism Laterality: left Lung location : upper lobe of lung Qualified Codes: J18.1 - Lobar pneumonia, unspecified organism
[2016-06-21] MEDS ORDERED: VNTHFA/IN INH (08:50)
[2016-06-21 08:52] VITALS: PULSE 84; O2SAT 96
[2016-06-21 08:53] LABS: BASO % 0.4 %; BASO ABS # 0.03 K/uL (0-0.2); COMPLETE YES; EOS % 4.1 %; HEMATOCRIT 39.7 % (42-52); IG% 0.5 %; LYMPH % 17.7 %; LYMPH ABS # 1.34 K/uL (1.2-3.4); MEAN CORPUSCULAR HEMOGLOBIN 30.2 pg (25-34); MEAN CORPUSCULAR HGB CONC 34.3 g/dl (32-36); MEAN PLATELET VOLUME 9.9 fL (7.4-10.4); MONO % 8.3 %; PLATELET COUNT 146 K/uL (130-400); RED BLOOD COUNT 4.51 M/uL (4.7-6.1); WHITE BLOOD COUNT 7.55 K/uL (4.8-10.8)
[2016-06-21] MEDS ORDERED: SODIUM CHLORIDE 0.9% 500ML 500 ML IV STA (08:54)
[2016-06-21] MEDS ORDERED: METHYLPREDNISOLONE 125 MG VIAL IV STA (08:54)
[2016-06-21 09:00] LABS: INR 2.2 (0.9-1.1); PROTHROMBIN TIME (PATIENT) 24.4 SECONDS (9.0-12.0)
[2016-06-21] MEDS ORDERED: ALBUT/IPRATROP 3MG/0.5MG NEB 3 ML VIAL INH ONE (09:00)
[2016-06-21 09:12] LABS: BUN/CREATININE RATIO 10.4 (10-20); CALCIUM 8.3 mg/dl (8.5-10.1); CREATININE 1.1 mg/dl (0.60-1.40); POTASSIUM 4.1 mmol/L (3.5-5.1)
[2016-06-21 09:17] LABS: ALB/GLOB RATIO 0.8 (0.9-2)
--- NOTE | 2016-06-21 09:47 | DIAGNOSTIC IMAGING REPORT ---
CHEST ONE VIEW PORTABLE CLINICAL HISTORY: Shortness of breath. COMPARISON STUDY: Chest radiograph August 23, 2015. FINDINGS: A left subclavian biventricular pacer/AICD is in place. Cardiomegaly is unchanged. There is hazy left upper lung opacity. There is no evidence of pulmonary edema. Minimal right basilar opacity is suggestive of atelectasis. The appearance of the chest is unchanged. IMPRESSION: No acute findings. Stable cardiomegaly. 1. Apparent hazy left upper lung opacity. This could reflect artifact although pneumonia could appear similar. Short-term radiographic follow up is recommended. 2. Stable cardiomegaly without evidence of pulmonary edema. Electronically signed by: Toi Davies M.D. 06/21/2016 9:46 AM Dictated Date/Time: 06/21/2016 9:40 AM
[2016-06-21] MEDS ORDERED: DOXYCYCLINE HYCLATE 100 MG CAP PO STA (09:59)
[2016-06-21] MEDS ORDERED: DOXY100C76 PO (10:20)
[2016-06-21] MEDS ORDERED: PRED20TA2 PO (10:20)
[2016-06-21 10:39] VITALS: BP 113/66; PULSE 90; TEMP 37; O2SAT 95
[2016-06-21 10:51] LABS: INFLUENZA B PCR Neg for Influ B (NEG)
[2016-06-21 10:53] LABS: INFLUENZA A PCR POS for Influ A (NEG)
[2016-08-17] MEDS ORDERED: TORS20TA2 PO (12:28)
[2016-08-17] MEDS ORDERED: SACU1TAB PO (12:28)
[2016-10-09] MEDS ORDERED: SACU1TAB PO (08:32)
[2016-11-23] MEDS ORDERED: SACU1TAB (08:58)
== END 2016-06-21 10:48 | disposition home or self-care (01) ==
LOC: C.EDB 08:20 → C.EDA 10:48
DX: J18.1 Lobar pneumonia, unspecified organism (principal); Z79.01 Long term (current) use of anticoagulants; Z95.810 Presence of automatic (implantable) cardiac defibrillator; E78.5 Hyperlipidemia, unspecified; K21.9 Gastro-esophageal reflux disease without esophagitis; Z86.718 Personal history of other venous thrombosis and embolism; I10 Essential (primary) hypertension; I27.2 Other secondary pulmonary hypertension; I34.0 Nonrheumatic mitral (valve) insufficiency; I50.42 Chronic combined systolic (congestive) and diastolic (congestive) heart failure; Z90.49 Acquired absence of other specified parts of digestive tract; F17.210 Nicotine dependence, cigarettes, uncomplicated; Z79.82 Long term (current) use of aspirin; Z79.899 Other long term (current) drug therapy

== ENCOUNTER 2016-08-15 21:47 | Inpatient (IN) | payer OTHER ==
[~2016-08-15] VITALS: Ht 177.8 cm; Wt 70.0 kg
[~2016-08-15 21:47] MED LIST changes: -ALBUAER2 INH; +METO100T44 PO; -METO1TAB69 PO; +NF406 PO; -OMEP40CA PO; +PRED20TA2 PO; +PRLSR20 PO; +VNTHFA/IN INH
--- NOTE | 2016-08-15 22:41 | EMERGENCY ROOM VISIT NOTE ---
History Report prepared by Karina: Noreen Marks Under the Supervision of: Dr. Diana Meade D.O. First contact with patient: 22:28 Chief Complaint: SHORTNESS OF BREATH Stated Complaint: SOB, FATIQUE, Nursing Triage Summary: Increased SOB. "I can't walk more than 20 feet without getting SOB". PAtient of Dr. Munguia. 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 The patient states that he has been having fluid retention recently due his left ventricle valve not working properly. He states he was started on a new diuretic about 1 week ago that initially helped his breathing but then it worsened over the last week. The patient states that his shortness of breath is worse with exertion and today his SOB was so bad he was unable to walk to the bathroom.. He states that today he also had some sharp chest pain. He states that he occasionally gets this sharp pain, and that he took a nitroglycerin tonight. The patient states that he also had pneumonia about 1 month ago. 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 A total of 10 systems reviewed and were otherwise negative. Past Medical & Surgical Medical Problems: (1) Chronic combined systolic and diastolic CHF (congestive heart failure) (2) Dyslipidemia (3) Esophageal dysmotility (4) Frequent PVCs (5) GERD (gastroesophageal reflux disease) (6) History of DVT (deep vein thrombosis) (7) Hypertension (8) Non-ischemic cardiomyopathy (9) Nonischemic cardiomyopathy (10) Pulmonary HTN (11) Pulmonary hypertension (12) Severe mitral regurgitation (13) SOB (shortness of breath) Surgical Problems: (1) Appendectomy (2) H/O cardiac radiofrequency ablation (3) H/O colonoscopy (4) Hernia repair (5) History of implantable cardioverter-defibrillator (ICD) placement (6) Hx of cardiac cath (7) S/P cholecystectomy (8) S/P lumbar discectomy (9) S/P tendon repair (10) Shoulder surgery Family History CHF (congestive heart failure) FATHER Valvular heart disease MOTHER Social History Smoking Status: Former Smoker Alcohol Use: none Marital Status: Housing Status: lives with significant other Current/Historical Medications Scheduled Allopurinol (Zyloprim), 100 MG PO QPM Amiodarone Hcl (Amiodarone Hcl), 100 MG PO w/lunch Aspirin (Aspirin Ec), 81 MG PO HS Atorvastatin (Atorvastatin Calcium), 20 MG PO QAM Brimonidine Tartrate Oph (Alphagan P Oph), 1 DROP OPB TID Budesonide/Formoterol Fumarate (Symbicort 160/4.5 Inhaler), 2 PUFFS INH QAM Cholecalciferol (Vitamin D3), 4,000 UNITS PO DAILY Digoxin (Digoxin), 0.125 MG PO QAM Ferrous Sulfate (Kp Ferrous Sulfate), 325 MG PO DAILY Levothyroxine Sodium (Levothyroxine Sodium), 1 TAB PO DAILY Losartan Potassium (Cozaar), 12.5 MG PO QAM Magnesium Oxide (Magnesium Oxide), 400 MG PO DAILY Metoprolol Succ (Toprol Xl) (Toprol-Xl), 50 MG PO BID Multiple Vitamin (Multivitamin), 1 TAB PO DAILY Omeprazole (Prilosec), 40 MG PO DAILY Spironolactone (Spironolactone), 12.5 MG PO DAILY Warfarin Sod (Jantoven), 5 MG PO 5XWEEK Warfarin Sod (Jantoven), 2.5 MG PO 3XWEEK Scheduled PRN Albuterol Hfa (Ventolin Hfa), 2 PUFFS INH QID PRN for SOB/Wheezing Nitroglycerin (Nitrostat), 0.4 MG UT UD PRN for Chest Pain Torsemide (Demadex), 20 MG PO DAILY PRN for fluid Tramadol (Ultram), 50 MG PO Q6H PRN for Pain Miscellaneous Medications Sennosides-Docusate Sodium (Eq Senna-S), 1 TAB PO Allergies Coded Allergies: Promethazine (Verified Adverse Reaction, Intermediate, DELIRIUM, 08/16/16) pt was confused after getting pheneargan Physical Exam Vital Signs Date Time Temp Pulse Resp B/P Pulse Ox O2 Delivery O2 Flow Rate FiO2 08/16/16 01:13 97 08/16/16 00:37 92 16 98/69 95 Room Air 08/15/16 23:00 93 20 95/58 96 Room Air 08/15/16 21:58 104 08/15/16 21:57 36.9 101 24 99/63 97 Room Air 08/15/16 21:57 95 Physical Exam HEENT: Head - normocephalic and atraumatic Pupils are equal, round, and reactive to light. Extraocular eye muscles are intact, and sclera are anicteric. Nose - moist nasal mucosa without discharge. Mouth - moist buccal mucosa. Oropharynx is nonerythematous and there is no tonsillar exudate or edema noted. Neck: Supple; no JVD, nuchal rigidity, cervical lymphadenopathy. Heart: Tachycardic rate and regular rhythm. There is a normal S1 and S2 with no murmurs, clicks, or gallops appreciated. Lungs: Dimished breath sounds at both bases. Abdomen: Soft, completely nontender, nondistended, with good bowel sounds. There are no palpable pulsatile masses or hepatosplenomegaly. There is no guarding, rigidity, or rebound noted. Extremities: No evidence of cyanosis, clubbing, or edema. There are easily palpable peripheral pulses. Skin: warm and dry with good turgor and no rashes. Medical Decision & Procedures ER Provider Diagnostic Interpretation: X-ray results as stated below per interpretation by me: Chest X-ray: Cardiac pacemaker in place Significant cardiomegaly Interstitial lung disease bilaterally with questionable consolidation in the right lower lung Laboratory Results Test 08/15/16 22:55 Immature Granulocyte % (Auto) 0.3 % White Blood Count 7.65 K/uL (4.8-10.8) Red Blood Count 3.73 M/uL (4.7-6.1) Hemoglobin 11.3 g/dL (14.0-18.0) Hematocrit 34.5 % (42-52) Mean Corpuscular Volume 92.5 fL (80-100) Mean Corpuscular Hemoglobin 30.3 pg (25-34) Mean Corpuscular Hemoglobin Concent 32.8 g/dl (32-36) Platelet Count 161 K/uL (130-400) Mean Platelet Volume 10.3 fL (7.4-10.4) Neutrophils (%) (Auto) 73.9 % Lymphocytes (%) (Auto) 12.0 % Monocytes (%) (Auto) 8.5 % Eosinophils (%) (Auto) 4.6 % Basophils (%) (Auto) 0.7 % Neutrophils # (Auto) 5.66 K/uL (1.4-6.5) Lymphocytes # (Auto) 0.92 K/uL (1.2-3.4) Monocytes # (Auto) 0.65 K/uL (0.11-0.59) Eosinophils # (Auto) 0.35 K/uL (0-0.5) Basophils # (Auto) 0.05 K/uL (0-0.2) Immature Granulocyte # (Auto) 0.02 K/uL (0.00-0.02) Total Bilirubin 1.0 mg/dl (0.2-1) Aspartate Amino Transf (AST/SGOT) 8 U/L (15-37) Alanine Aminotransferase (ALT/SGPT) 16 U/L (12-78) Alkaline Phosphatase 100 U/L (45-117) Total Creatine Kinase 106 U/L (39-308) Pro-B-Type Natriuretic Peptide 5897 pg/ml (0-900) Total Protein 6.9 gm/dl (6.4-8.2) Albumin 3.5 gm/dl (3.4-5.0) Globulin 3.4 gm/dl (2.5-4.0) Albumin/Globulin Ratio 1.0 (0.9-2) Laboratory results per my review. ECG Indication: SOB/dyspnea Rate (beats per minute): 102 Rhythm: other (Atrial paced rhythm. ) Comparison ECG Date: June 21 2016 Change: no significant change ED Course 2237: Past medical records reviewed. The patient was evaluated in room A12. A complete history and physical exam was performed. laboratory studies were drawn as above. A twelve-lead EKG was obtained as described above. The patient went for a chest x-ray as described above. 0015: I reevaluated the patient and he was resting comfortably. He has had no further episodes of chest pain while here in the emergency department. I updated him with his results and about the possibility of admission. 0020: I discussed the case with Dr. Felicita Dodd Hospitalist. He agreed to evaluate the patient for further management and care. Medical Decision The patient is a 70 year old female who presents to the ED with shortness of breath. Differential diagnosis includes cardiac ischemia, pleurisy, angina, CHF , pneumonia, and pleural effusion. Labs: White cell count 7.7 Hemoglobin 11.3 BNP 5897 Troponin 0.039 Creatinine 1.6 Glucose 116 This is a 70-year-old male patient presents to the emergency department with an episode of chest pain for which he took nitroglycerin this evening. He has also noted increased exertional first of breath over the past week despite taking a new diuretic. The patient is chest pain-free here in the emergency department. His EKG was unchanged. Cardiac enzymes were negative. Consults Time Called: 0015 Consulting Physician: Dr. Felicita Dodd Hospitalist Returned Call: 0020 I discussed the case with Dr. Felicita Dodd Hospitalist. He agreed to evaluate the patient for further management and care. Impression Primary Impression: Left sided chest pain Additional Impression: Shortness of breath Scribe Attestation The scribe's documentation has been prepared under my direction and personally reviewed by me in its entirety. I confirm that the note above accurately reflects all work, treatment, procedures, and medical decision making performed by me. Departure Information Dispostion Being Evaluated By Hospitalist Referrals No Doctor, Assigned (PCP) Patient Instructions My [facility] Problem Qualifiers
[2016-08-15 23:09] LABS: BASO % 0.7 %; BASO ABS # 0.05 K/uL (0-0.2); COMPLETE YES; EOS % 4.6 %; HEMATOCRIT 34.5 % (42-52); IG% 0.3 %; LYMPH ABS # 0.92 K/uL (1.2-3.4); MEAN CELL VOLUME 92.5 fL (80-100); MEAN CORPUSCULAR HEMOGLOBIN 30.3 pg (25-34); MEAN CORPUSCULAR HGB CONC 32.8 g/dl (32-36); MEAN PLATELET VOLUME 10.3 fL (7.4-10.4); MONO % 8.5 %; NEUT % 73.9 %; PLATELET COUNT 161 K/uL (130-400); RED BLOOD COUNT 3.73 M/uL (4.7-6.1); WHITE BLOOD COUNT 7.65 K/uL (4.8-10.8)
[2016-08-15 23:33] LABS: BUN/CREATININE RATIO 11.5 (10-20); CALCIUM 8.4 mg/dl (8.5-10.1); CREATININE 1.6 mg/dl (0.60-1.40); POTASSIUM 4.2 mmol/L (3.5-5.1)
[2016-08-15 23:38] LABS: CKMB/CK RATIO 0.8 (0-3.0)
[2016-08-16] VITALS (10 sets, daily range): BP systolic 91–106; BP diastolic 61–73; PULSE 77–103; TEMP 36.5–36.9; O2SAT 90–97; Ht 177.8 cm; Wt 70.0 kg
[2016-08-16] MEDS ORDERED: NITROGLYCERIN 0.4 MG SL PER TAB CHARGE SL PRN (01:30)
[2016-08-16] MEDS ORDERED: LEVO25TA5 PO (03:10)
[2016-08-16] MEDS ORDERED: SPR25 PO (03:10)
[2016-08-16] MEDS ORDERED: METO50TA7 PO (03:10)
[2016-08-16] MEDS ORDERED: MULTTAB58 PO (03:17)
[2016-08-16] MEDS ORDERED: SENN1TAB PO (03:17)
--- NOTE | 2016-08-16 03:40 | History and Physical ---
History & Physical Date & Time of Service: Aug 16, 2016 at 03:22 Chief Complaint: SOB Primary Care Physician: Rebecca Lee History of Present Illness Source: patient, clinic records, hospital records 70 year old male with PMH of systolic heart failure, CKD stage 3, Afib, Dyslipidemia presents to the Emergency Room with complaints of worsening shortness for the last few days.Pt said that he SOB got worst to day when he cannot even walk to the bathroom. Pt also said that he had a sharp pain in his mid epigastric area, non radiating, grade 7/10 that resolved with nitro. Pt also said that he has a coughing with dark yellowish sputum.Denies any fever, palpitation, dizziness. Pt saw his cardiology Ezra GARRISON on 08/09 that started him on torsemide and spironolactone. Right now pt is free of chest pain. Past Medical/Surgical History Medical Problems: (1) Chronic combined systolic and diastolic CHF (congestive heart failure) Permanent Comment: echo 05/03/16 - EF 27%, moderate - severe mitral regurgitation , grade I diastolic dysfunction Status: Chronic (2) Dyslipidemia Status: Chronic (3) Esophageal dysmotility Status: Chronic (4) Frequent PVCs Status: Chronic (5) GERD (gastroesophageal reflux disease) Status: Chronic (6) History of DVT (deep vein thrombosis) Status: Chronic (7) Hypertension Status: Chronic (8) Non-ischemic cardiomyopathy Status: Chronic (9) Nonischemic cardiomyopathy Permanent Comment: s/p AICD placement EF as low as 15% in the past, on echo 05/03/16 EF 27% Status: Chronic (10) Pulmonary HTN Permanent Comment: on echo from 10/2014 Status: Chronic (11) Pulmonary hypertension Status: Chronic (12) Severe mitral regurgitation Status: Chronic Surgical Problems: (1) Appendectomy Status: Chronic (2) H/O cardiac radiofrequency ablation Permanent Comment: 12/2014, for PVCs Status: Chronic (3) H/O colonoscopy Permanent Comment: with polypectomy Status: Chronic (4) Hernia repair Status: Chronic (5) History of implantable cardioverter-defibrillator (ICD) placement Permanent Comment: Biventricular ICD placed 05/07/2013, with revisions in 12/2013 and 01/2014 Status: Chronic (6) Hx of cardiac cath Permanent Comment: 01/2013- non obstructive CAD Status: Chronic (7) S/P cholecystectomy Status: Chronic (8) S/P lumbar discectomy Status: Chronic (9) S/P tendon repair Permanent Comment: for ruptured EPL Status: Chronic (10) Shoulder surgery Status: Chronic Family History CHF (congestive heart failure) FATHER Valvular heart disease MOTHER Social History Smoking Status: Former Smoker Drug Use: none Marital Status: Housing status: lives with family Immunizations History of Influenza Vaccine: Yes Influenza Vaccine Date: Feb 28, 2013 History of Tetanus Vaccine?: Yes Tetanus Immunization Date: Nov 11, 2015 History of Pneumococcal: Yes Pneumococcal Date: Feb 06, 2013 Multi-Drug Resistant Organisms History of MDRO: No Allergies Coded Allergies: Promethazine (Verified Adverse Reaction, Intermediate, DELIRIUM, 08/16/16) pt was confused after getting pheneargan Home Medications Scheduled Allopurinol (Zyloprim), 100 MG PO QPM Amiodarone Hcl (Amiodarone Hcl), 100 MG PO w/lunch Aspirin (Aspirin Ec), 81 MG PO HS Atorvastatin (Atorvastatin Calcium), 20 MG PO QAM Brimonidine Tartrate Oph (Alphagan P Oph), 1 DROP OPB TID Budesonide/Formoterol Fumarate (Symbicort 160/4.5 Inhaler), 2 PUFFS INH QAM Cholecalciferol (Vitamin D3), 4,000 UNITS PO DAILY Digoxin (Digoxin), 0.125 MG PO QAM Ferrous Sulfate (Kp Ferrous Sulfate), 325 MG PO DAILY Levothyroxine Sodium (Levothyroxine Sodium), 1 TAB PO DAILY Losartan Potassium (Cozaar), 12.5 MG PO QAM Magnesium Oxide (Magnesium Oxide), 400 MG PO DAILY Metoprolol Succ (Toprol Xl) (Toprol-Xl), 50 MG PO BID Multiple Vitamin (Multivitamin), 1 TAB PO DAILY Omeprazole (Prilosec), 40 MG PO DAILY Spironolactone (Spironolactone), 12.5 MG PO DAILY Warfarin Sod (Jantoven), 5 MG PO 5XWEEK Warfarin Sod (Jantoven), 2.5 MG PO 3XWEEK Scheduled PRN Albuterol Hfa (Ventolin Hfa), 2 PUFFS INH QID PRN for SOB/Wheezing Nitroglycerin (Nitrostat), 0.4 MG UT UD PRN for Chest Pain Torsemide (Demadex), 20 MG PO DAILY PRN for fluid Tramadol (Ultram), 50 MG PO Q6H PRN for Pain Miscellaneous Medications Sennosides-Docusate Sodium (Eq Senna-S), 1 TAB PO Review of Systems Constitutional: No chills, No fever Eyes: No redness, No worsening of vision ENT: No hearing loss, No nasal symptoms, No unusual epistaxis Respiratory: + cough, + dyspnea on exertion, + shortness of breath, + sputum Cardiovascular: + chest pain, No edema Abdomen: No nausea, No pain, No vomiting Musculoskeletal: No calf pain, No swelling Genitourinary - Male: No dysuria, No hematuria Neurologic: No paralysis, No weakness Psychiatric: No substance abuse Hematologic / Lymphatic: No night sweats Integumentary: No itch, No rash Physical Exam Vital Signs Date Time Temp Pulse Resp B/P Pulse Ox O2 Delivery O2 Flow Rate FiO2 08/16/16 01:47 95 20 104/82 95 Nasal Cannula 2.0 08/16/16 01:13 97 08/16/16 00:37 92 16 98/69 95 Room Air 08/15/16 23:00 93 20 95/58 96 Room Air 08/15/16 21:58 104 08/15/16 21:57 36.9 101 24 99/63 97 Room Air 08/15/16 21:57 95 General Appearance: WD/WN, no apparent distress Head: normocephalic, atraumatic Eyes: normal inspection, PERRL, EOMI ENT: normal ENT inspection, hearing grossly normal Neck: supple, no JVD Respiratory/Chest: no accessory muscle use, + pertinent finding (poor air entry ) Cardiovascular: regular rate, rhythm, no JVD, + tachycardia Abdomen/GI: normal bowel sounds, non tender Back: normal inspection, no CVA tenderness Extremities/Musculoskelatal: no calf tenderness Neurologic/Psych: no motor/sensory deficits, alert, normal mood/affect, oriented x 3 Skin: normal color, warm/dry, no rash Diagnostics Laboratory Results Results Past 24 Hours Test 08/15/16 22:55 Range/Units White Blood Count 7.65 4.8-10.8 K/uL Red Blood Count 3.73 4.7-6.1 M/uL Hemoglobin 11.3 14.0-18.0 g/dL Hematocrit 34.5 42-52 % Mean Corpuscular Volume 92.5 80-100 fL Mean Corpuscular Hemoglobin 30.3 25-34 pg Mean Corpuscular Hemoglobin Concent 32.8 32-36 g/dl Platelet Count 161 130-400 K/uL Mean Platelet Volume 10.3 7.4-10.4 fL Neutrophils (%) (Auto) 73.9 % Lymphocytes (%) (Auto) 12.0 % Monocytes (%) (Auto) 8.5 % Eosinophils (%) (Auto) 4.6 % Basophils (%) (Auto) 0.7 % Neutrophils # (Auto) 5.66 1.4-6.5 K/uL Lymphocytes # (Auto) 0.92 1.2-3.4 K/uL Monocytes # (Auto) 0.65 0.11-0.59 K/uL Eosinophils # (Auto) 0.35 0-0.5 K/uL Basophils # (Auto) 0.05 0-0.2 K/uL RDW Standard Deviation 56.0 36.4-46.3 fL RDW Coefficient of Variation 16.5 11.5-14.5 % Immature Granulocyte % (Auto) 0.3 % Immature Granulocyte # (Auto) 0.02 0.00-0.02 K/uL Sodium Level 143 136-145 mmol/L Potassium Level 4.2 3.5-5.1 mmol/L Chloride Level 109 98-107 mmol/L Carbon Dioxide Level 27 21-32 mmol/L Anion Gap 7.0 3-11 mmol/L Blood Urea Nitrogen 18 7-18 mg/dl Creatinine 1.60 0.60-1.40 mg/dl Est Creatinine Clear Calc Drug Dose 53.4 ml/min Estimated GFR () 49.9 Estimated GFR (Non- 43.0 BUN/Creatinine Ratio 11.5 10-20 Random Glucose 116 70-99 mg/dl Calcium Level 8.4 8.5-10.1 mg/dl Total Bilirubin 1.0 0.2-1 mg/dl Aspartate Amino Transf (AST/SGOT) 8 15-37 U/L Alanine Aminotransferase (ALT/SGPT) 16 12-78 U/L Alkaline Phosphatase 100 45-117 U/L Total Creatine Kinase 106 39-308 U/L Creatine Kinase MB 0.9 0.5-3.6 ng/ml Creatine Kinase MB Ratio 0.8 0-3.0 Troponin I 0.039 0-0.045 ng/ml Pro-B-Type Natriuretic Peptide 5897 0-900 pg/ml Total Protein 6.9 6.4-8.2 gm/dl Albumin 3.5 3.4-5.0 gm/dl Globulin 3.4 2.5-4.0 gm/dl Albumin/Globulin Ratio 1.0 0.9-2 Diagnostic Radiology CXR reviewed by me did not show any infiltrate or pneumothorax Impression Assessment and Plan Worsening SOB Acute Decompensated Systolic Heart Failure Elevated pro BNP Was started on torsemide and spironolactone Will give lasix 20mg x 1 for now Consult cardiology Continue metoprolol Last ECHO on 05/16: The left ventricular cavity is severely dilated (LVED volume >100 ml/m^2). The left ventricular systolic function is severely reduced. Calculated LV ejection Fraction = 27% (biplane method of discs). There is severe diffuse left ventricular hypokinesis. Moderate to severe mitral regurgitation. The mitral regurgitation jet is eccentric. The left atrium is severely enlarged. The left ventricular diastolic function is mildly abnormal (grade I). Compared to prior study of 04/26/2015, there is no significant change. Chest pain EKG did not shown any ischemic change 1st troponin negative follow up CM on aspirin, metoprolol and statin continue monitor in Telemetry Acute on CKD stage 3 Creatine baseline 1.3 creatine 1.6 on admission hold losartan and spironolactone for now will wait for am BMP before diuresis AFIB rate is controlled continue amiodarone, digoxin, metoprolol continue coumadin check INR in am Lung disease? Continue Symbicort duoneb for respiratory treatment Productive Cough possible related to bronchitis Chest Xray negative CT chest pending check procalcitonin Hypothyroidism continue levothyroxine DVT px on Coumadin CODE STATUS FULL CODE Level of Care Telemetry Resuscitation Status FULL RESUSCITATION VTE Prophylaxis VTE Risk Assessment Done? Y/N: Yes Risk Level: Moderate Given or contraindicated: Warfarin (Coumadin)
[2016-08-16] MEDS ORDERED: NITROGLYCERIN 0.4 MG SL PER TAB CHARGE UT PRN (03:45)
[2016-08-16] MEDS ORDERED: TRAMADOL HCL 50 MG TAB PO PRN (03:45)
[2016-08-16] MEDS ORDERED: FUROSEMIDE INJ 20 MG in SYRINGE 0 ML IV STA (05:08)
[2016-08-16] MEDS: LEVOTHYROXINE 25 MCG TAB PO SCH (05:44)
[2016-08-16 06:06] LABS: HEMATOCRIT 34.7 % (42-52); MEAN CELL VOLUME 93.5 fL (80-100); MEAN CORPUSCULAR HEMOGLOBIN 30.5 pg (25-34); MEAN CORPUSCULAR HGB CONC 32.6 g/dl (32-36); MEAN PLATELET VOLUME 10.5 fL (7.4-10.4); PLATELET COUNT 154 K/uL (130-400); RED BLOOD COUNT 3.71 M/uL (4.7-6.1); WHITE BLOOD COUNT 6.64 K/uL (4.8-10.8)
[2016-08-16 06:27] LABS: INR 1.6 (0.9-1.1); PROTHROMBIN TIME (PATIENT) 17.6 SECONDS (9.0-12.0)
[2016-08-16 06:35] LABS: BLOOD UREA NITROGEN 17 mg/dl (7-18); BUN/CREATININE RATIO 10.9 (10-20); CALCIUM 8.4 mg/dl (8.5-10.1); CARBON DIOXIDE 28 mmol/L (21-32); CHLORIDE 108 mmol/L (98-107); GLUCOSE 116 mg/dl (70-99); POTASSIUM 4.2 mmol/L (3.5-5.1); SODIUM 143 mmol/L (136-145)
--- NOTE | 2016-08-16 07:41 | DIAGNOSTIC IMAGING REPORT ---
CHEST 2 VIEWS ROUTINE HISTORY: Short of breath. COMPARISON: Chest 06/21/2016. FINDINGS: Left-sided pacemaker/defibrillator. The heart remains mildly enlarged. No pleural effusions. No pneumothorax. Mild diffuse interstitial thickening remains unchanged. This may be chronic. No new focal lung consolidations IMPRESSION: No change in the cardiomegaly and mild interstitial thickening which is likely chronic. No acute process within the chest. Electronically signed by: Jairo Fontaine M.D. 08/16/2016 7:39 AM Dictated Date/Time: 08/16/2016 7:37 AM
[2016-08-16] MEDS: CHOLECALCIFEROL 1000 INTER.UNIT TAB PO SCH (07:56)
[2016-08-16] MEDS: BUDESONIDE/FORMOTEROL FUMARATE 160/4.5 60 PUFFS/INHALER INH SCH (07:56)
[2016-08-16] MEDS: PANTOprazole SOD 40 MG TAB PO SCH (07:56)
[2016-08-16] MEDS: BRIMONIDINE TARTRATE-P 0.15% 5 ML BTL OPB SCH ×3 (07:56→21:19)
[2016-08-16] MEDS: MAGNESIUM OXIDE 400 MG TAB PO SCH (07:56)
[2016-08-16] MEDS: ATORVASTATIN 20 MG TAB PO SCH (07:57)
[2016-08-16] MEDS: MULTIVITAMIN TAB PO SCH (07:57)
[2016-08-16] MEDS: AMIODARONE 200 MG TAB PO SCH (07:57)
[2016-08-16] MEDS: METOPROLOL SUCC 50MG EXT REL TAB PO SCH ×2 (07:57→21:00)
[2016-08-16] MEDS: FERROUS SULFATE 325 MG TAB PO SCH (07:57)
[2016-08-16] MEDS: ALBUT/IPRATROP 3MG/0.5MG NEB 3 ML VIAL INH SCH ×2 (07:58→11:22)
--- NOTE | 2016-08-16 08:21 | DIAGNOSTIC IMAGING REPORT ---
CHEST CT WITHOUT CONTRAST CT DOSE: 624.55 mGy.cm HISTORY: Short of breath. TECHNIQUE: Multiaxial CT images of the chest were performed without contrast. COMPARISON: Chest CTA 08/11/2014. FINDINGS: Old right-sided rib fractures. A 4 mm lipoma within the left subscapularis muscle, unchanged. No pleural effusions. No pneumothorax. Stable cardiomegaly and left-sided pacemaker. Incidental note is made of a small right azygos lobe. Subpleural reticulation within the lungs most pronounced at the lung bases. This favors chronic interstitial changes. There is also a focal area of scarring within the left upper lobe anteriorly which is not significantly changed. No new focal lung consolidations to suggest pneumonia. A 7 mm hypodense lesion within the right hepatic lobe which is too small to characterize. A 2.5 cm hypodense lesion within the splenic dome. Normal adrenal glands. Normal caliber thoracic aorta. No change in the multiple prominent mediastinal lymph nodes. IMPRESSION: 1. Mild peripheral interstitial thickening which is likely chronic. No focal lung consolidations to suggest pneumonia. 2. Stable cardiomegaly. 3. Additional findings are described above. Electronically signed by: Jairo Fontaine M.D. 08/16/2016 8:19 AM Dictated Date/Time: 08/16/2016 8:14 AM
--- NOTE | 2016-08-16 10:50 | Cardiology Consultation ---
Cardiology Consultation Date of Consultation: Aug 16, 2016 Requesting Physician: Felicita Attending Community Ambassador: Carolyn (Josue Munguia PA-C) History of Present Illness Mr. Bowden is a complex 70 year old male who is being seen at the request of Dr. Mims. Reason for consultation is congestive heart failure. Mr. 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 He was seen in routine follow-up on 08/09/2016 presenting at that time with acute on chronic dyspnea that was felt to represent acute decompensation of his chronic heart failure. He was started on Torsemide 20 mg twice a day and Spironolactone 12.5 mg/day with plans to utilize outpatient IV diuretics if no significant response to the above.. Following initiation of diuretic therapy he began to feel better until yesterday when he developed acute dyspnea, stating "I just couldn't get my wind." He notes calling his son and daughter in law (daughter in law is a nurse) then calling the ambulance. It should be noted that he describes a rattle in his lung and a cough productive of "thick yellow junk" without fevers, chills, sweats, or change in appetite. In the ER he was evaluated by Dr. Meade. He notes considerable improvement in his presenting complaints after the nebulizer treatment and use of supplemental oxygen therapy. This morning he received 20 mg IV furosemide with consider diuresis. He is currently laying flat without difficulty. No abdominal bloating. No scrotal edema. He denies chest pain. No palpitations. No ICD discharges. Weight is down. No lightheadedness, dizziness, near syncope, or true syncope. (Josue Munguia PA-C) History Past Medical/Surgical History: Idiopathic dilated nonischemic cardiomyopathy with LVEF of 15% January 31, 2013 diagnostic cardiac catheterization performed at [facility] by Dr. Slim Hernández DO demonstrated mild nonobstructive coronary disease (luminal irregularities only), moderate pulmonary hypertension , and elevated left ventricular filling pressures. NYHA Class IIIb dyspnea Status post BiV ICD implantation with diaphragmatic stimulation s/p left anterior thoracotomy for left ventricular lead placement on 01/26/14 with subsequent dislodgement requiring redo left ventricular lead with a bipolar system 02/23/14; moderate pericardial effusion was evacuated at that time. No significant improvement in LV function s/p BiV implantation Mitral regurgitation Moderate pulmonary hypertension Frequent PVCs. Repeat Holter monitor in June 2014 demonstrating very frequent ( >21,000) PVC's with patient referred back to EP. Patient evaluated by Dr. Juan on 10/02/2014 with the following recommendation "No antiarrhythmic drugs for suppression of the premature ventricular systole. Status post 01/19/2015 successful catheter ablation of the unifocal premature ventricular systoles arising from the left ventricular outflow tract located anteriorly just below the aortic valve by Dr. Juan. Symptomatic atrial fibrillation with a RVR, resultant acute decompensated heart failure exacerbation, status post October 2014 GABRIELE guided cardioversion and initiation of amiodarone therapy. Mild sleep apnea with significant nocturnal hypoxemia Chronic kidney disease Hypertension Dyslipidemia Swallowing difficulty - resolved Laparoscopic cholecystectomy Umbilical hernia repair Lumbar discectomy Appendectomy Colonoscopy with cold force polypectomy on 01/05/14 Family History: Father with CHF at 74. Mother underwent valvular surgery, with CHF at 78. He has two brothers without cardiac history. Social History: Reformed smoker, quit in the s. Alcohol: Quit post service. No illegal drug use. . Three grown children without cardiac issues. 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 (Josue Munguia PA-C) Review Of Systems Complete Review of Systems: Influenza in May. Treated and released from the [facility] ER on 06/21/2016 with pneumonia. Easy bruising; no epistaxis, hemoptysis , melena, hematochezia, or hematuria. Left knee pain. Complete review of systems is as stated above, negative, or noncontributory. (Josue Munguia PA-C) Allergies Coded Allergies: Promethazine (Verified Adverse Reaction, Intermediate, DELIRIUM, 08/16/16) pt was confused after getting pheneargan Medications Reported Home Medications Medications Dose Route/Sig Max Daily Dose Days Date Category Dose Instructions Multivitamin (Multiple Vitamin) 1 Tab Tab 1 Tab PO DAILY 08/16/16 Reported Eq Senna-S (Sennosides-Docusate Sodium) 1 Tab Tab 1 Tab PO 08/16/16 Reported Levothyroxine Sodium 25 Mcg Tab 1 Tab PO DAILY 30 08/16/16 Reported Spironolactone 25 Mg Tab 12.5 Mg PO DAILY 08/16/16 Reported Toprol-Xl (Metoprolol Succinate) 50 Mg Tabcr 50 Mg PO BID 08/16/16 Reported Ventolin Hfa (Albuterol) 200 Puffs/57730 Mcg Aers 2 Puffs INH QID PRN 06/21/16 Reported Prilosec (Omeprazole) 20 Mg Capcr 40 Mg PO DAILY 06/21/16 Reported Kp Ferrous Sulfate (Ferrous Sulfate) 325 Mg Tab 325 Mg PO DAILY 05/08/16 Reported Vitamin D3 (Cholecalciferol) 2,000 Unit Tab 4,000 Units PO DAILY 05/08/16 Reported Magnesium Oxide 400 Mg Cap 400 Mg PO DAILY 05/08/16 Reported Demadex (Torsemide) 20 Mg Tab 20 Mg PO DAILY PRN 05/08/16 Reported Ultram (Tramadol HCl) 50 Mg Tab 50 Mg PO Q6H PRN 01/27/16 Reported Digoxin 0.125 Mg Tab 0.125 Mg PO QAM 01/27/16 Reported Zyloprim (Allopurinol) 100 Mg Tab 100 Mg PO QPM 01/27/16 Reported Jantoven (Warfarin Sodium) 2.5 Mg Tab 2.5 Mg PO 3XWEEK 01/27/16 Reported MONDAYS and FRIDAYS Cozaar (Losartan Potassium) 25 Mg Tab 12.5 Mg PO QAM 01/27/16 Reported Amiodarone Hcl 100 Mg Tab 100 Mg PO W/LUNCH 08/23/15 Reported Atorvastatin Calcium (Atorvastatin) 40 Mg Tab 20 Mg PO QAM 12/02/14 Reported Jantoven (Warfarin Sodium) 5 Mg Tab 5 Mg PO 5XWEEK 12/02/14 Reported SUNDAY,,SUN, ,SAT,SUN Symbicort 160/4.5 Inhaler (Budesonide/Formoterol Fumarate) 120 Puffs/ Aero 2 Puffs INH QAM 12/02/14 Reported Alphagan P Oph (Brimonidine Tartrate) 0.15 % Astrid 1 Drop OPB TID 07/14/14 Reported Nitrostat (Nitroglycerin) 0.4 Mg Sub 0.4 Mg UT UD PRN 02/15/[address] ONE TABLET UNDER THE TONGUE EVERY 5 MINUTES FOR UP TO 3 DOSES. Aspirin Ec (Aspirin) 81 Mg Tab 81 Mg PO HS 02/15/13 Reported (Josue Munguia PA-C) Physical Exam Vital Signs (Last 8hrs): Last 8 Hrs Date Time Temp Pulse Resp B/P Pulse Ox O2 Delivery O2 Flow Rate FiO2 08/16/16 07:58 84 14 95 Room Air 08/16/16 07:28 36.6 103 20 99/68 95 Room Air 08/16/16 04:41 36.8 88 18 106/63 92 Room Air 08/16/16 03:12 36.5 99 16 102/73 Room Air General Appearance: A&Ox3. NAD. He actually looks more comfortable than when I saw him in the clinic on 08/09/2016. Head: Normocephalic Atraumatic. Eyes: PER, EOMI, Conjunctiva pink. Sclera clear Neck: Supple. No carotid bruits noted. No JVD. + HJR. Respiratory: Left anterior rhonchi. Diffuse expiratory wheezing. Faint bibasilar rales. Cardiovascular: Regular at 90 bpm. Grade II/ apical systolic murmur. No rub Abdomen: Obese. +BS. Soft. Nontender. No masses. No organomegaly Extremities: No edema. No clubbing. No cyanosis. Distal pulses 2/4 bilaterally. Neuro: No focal deficits. Psychiatric: Normal affect. (Josue Munguia PA-C) Data Last 24 Hours Test 08/15/16 22:55 08/16/16 04:44 08/16/16 05:40 White Blood Count 7.65 K/uL 6.64 K/uL Red Blood Count 3.73 M/uL 3.71 M/uL Hemoglobin 11.3 g/dL 11.3 g/dL Hematocrit 34.5 % 34.7 % Mean Corpuscular Volume 92.5 fL 93.5 fL Mean Corpuscular Hemoglobin 30.3 pg 30.5 pg Mean Corpuscular Hemoglobin Concent 32.8 g/dl 32.6 g/dl Platelet Count 161 K/uL 154 K/uL Mean Platelet Volume 10.3 fL 10.5 fL Neutrophils (%) (Auto) 73.9 % Lymphocytes (%) (Auto) 12.0 % Monocytes (%) (Auto) 8.5 % Eosinophils (%) (Auto) 4.6 % Basophils (%) (Auto) 0.7 % Neutrophils # (Auto) 5.66 K/uL Lymphocytes # (Auto) 0.92 K/uL Monocytes # (Auto) 0.65 K/uL Eosinophils # (Auto) 0.35 K/uL Basophils # (Auto) 0.05 K/uL RDW Standard Deviation 56.0 fL 57.6 fL RDW Coefficient of Variation 16.5 % 16.7 % Immature Granulocyte % (Auto) 0.3 % Immature Granulocyte # (Auto) 0.02 K/uL Sodium Level 143 mmol/L 143 mmol/L Potassium Level 4.2 mmol/L 4.2 mmol/L Chloride Level 109 mmol/L 108 mmol/L Carbon Dioxide Level 27 mmol/L 28 mmol/L Anion Gap 7.0 mmol/L 7.0 mmol/L Blood Urea Nitrogen 18 mg/dl 17 mg/dl Creatinine 1.60 mg/dl 1.60 mg/dl Est Creatinine Clear Calc Drug Dose 53.4 ml/min 51.9 ml/min Estimated GFR () 49.9 49.9 Estimated GFR (Non- 43.0 43.0 BUN/Creatinine Ratio 11.5 10.9 Random Glucose 116 mg/dl 116 mg/dl Calcium Level 8.4 mg/dl 8.4 mg/dl Total Bilirubin 1.0 mg/dl Aspartate Amino Transf (AST/SGOT) 8 U/L Alanine Aminotransferase (ALT/SGPT) 16 U/L Alkaline Phosphatase 100 U/L Total Creatine Kinase 106 U/L Creatine Kinase MB 0.9 ng/ml 1.0 ng/ml Creatine Kinase MB Ratio 0.8 Troponin I 0.039 ng/ml 0.031 ng/ml Pro-B-Type Natriuretic Peptide 5897 pg/ml Total Protein 6.9 gm/dl Albumin 3.5 gm/dl Globulin 3.4 gm/dl Albumin/Globulin Ratio 1.0 Prothrombin Time 17.6 SECONDS Prothromb Time International Ratio 1.6 Procalcitonin 0.10 ng/mL Digoxin Level 0.1 ng/ml March 2015 TTE Interpretation Summary: No significant change compared to previous study. Moderately enlarged LV chamber size. Severely reduced LV systolic function with severe global hypokinesis. Calculated LV ejection Fraction = 24% (bi-plane method of discs). Grade I diastolic dysfunction. At least moderate mitral regurgitation with a posteriorly directed/wall impinging jet. Severe left atrial enlargement. May 03, 2016 TTE Interpretation Summary (as per Dr. Hernández): The left ventricular cavity is severely dilated (LVED volume >100 ml/m^2). The left ventricular systolic function is severely reduced. Calculated LV ejection Fraction = 27% (biplane method of discs). There is severe diffuse left ventricular hypokinesis. Moderate to severe mitral regurgitation. The mitral regurgitation jet is eccentric. The left atrium is severely enlarged. The left ventricular diastolic function is mildly abnormal (grade I).Compared to prior study of 04/26/2015, there is no significant change. Device interrogation on 08/09/2016 demonstrated appropriate function with adequate battery reserve. Estimated remaining longevity was 3.3 years. Bi-V pacing 99.7%. Six episodes of NS-VT. PVC Counter: 2.9 per hour. Admission CXR: No change in the cardiomegaly and mild interstitial thickening which is likely chronic. No acute process within the chest. As per Dr. Fontaine. Noncontrast Chest CT Impression: Mild peripheral interstitial thickening which is likely chronic. No focal lung consolidations to suggest pneumonia. Stable cardiomegaly. Additional findings are described above. As per Dr. Fontaine. Admission EKG: Atrial-sensed ventricular-paced rhythm. Biventricular pacemaker detected. When compared with ECG of 21-JUN-2016 08:33, vent. rate has increased BY [address] Ayala. Telemetry: Atrial sensed, ventricular paced rhythm in the 90s. Rare to occasional PVC's. Rare fusion beat. (Josue Munguia PA-C) Assessment & Plan Complex 70 year old male presenting via ambulance with acute on chronic dyspnea. History and physical examination suggest multifactorial acute dyspnea including a possible acute obstructive pulmonary exacerbation (acute bronchitis ) and mild acute decompensated systolic congestive heart failure. Patient has experienced prompt improvement in presenting symptoms following a nebulizer treatment, supplemental oxygen (has at home), and low dose IV furosemide (20 mg) . Losartan has been held on presenting due to the creatinine of 1.6. Acute decompensated systolic congestive heart failure signs and symptoms. 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 NYHA Class III dyspnea. Status post BiV ICD implantation (see above) Received 20 mg IV furosemide this morning with prompt diuresis and some improvement in dyspnea Reassess need for additional IV furosemide in AM Update resting echocardiogram Interrogate device to assess for inciting events, ie arrhythmias. Discontinue Losartan. Need to wash out for at least 36 hours Resume spironolactone, 12.5 mg/day Transition to Entresto (Sacubitril 24 mg, Valsartan 26 mg) twice a day Continue evidenced based beta-tyler and digoxin (? complaint at home) Mild nonobstructive coronary disease Asymptomatic EKG without acute changes Troponin negative x 2 Continue Toprol XL, ASA, and statin. Paroxysmal atrial fibrillation Sinus rhythm maintained with Toprol XL and low dose amiodarone Continue chronic Coumadin anticoagulation. INR goal 2.0 to 3.0 Chronic kidney disease, likely with an element of cardiorenal syndrome. Sleep apnea with significant nocturnal hypoxemia, treated with CPAP and supplemental oxygen therapy. Hypertension Dyslipidemia Further recommendations pending the above, evaluation by Dr. Leon, and his ongoing hospitalization. (Josue Munguia PA-C) CARDIOLOGY ATTENDING ADDENDUM: The patient was seen and personally examined. Agree with Josue Munguia PA-C's findings and plans as documented above. I agree with transitioning patient over to Entresto would benefit him. (Yon Leon, DO)
--- NOTE | 2016-08-16 15:15 | Progress Note ---
Medicine Progress Note Date & Time of Visit: Aug 16, 2016 at 15:02. Subjective Patient seen and examined. Feels that his breathing has improved since early this morning, but not yet back to baseline. Denies any chest pain. Objective Last 8 Hrs Date Time Temp Pulse Resp B/P Pulse Ox O2 Delivery O2 Flow Rate FiO2 08/16/16 12:00 95 Room Air 08/16/16 11:26 36.6 85 18 91/61 97 Room Air 08/16/16 11:22 77 14 95 Room Air 08/16/16 08:00 95 Room Air 08/16/16 07:58 84 14 95 Room Air 08/16/16 07:28 36.6 103 20 99/68 95 Room Air Physical Exam: General-awake; alert; NAD Eyes-EOMI; no scleral icterus Neck-no stridor; trachea midline Lungs-slightly coarse breath sounds; no wheezes/crackles Heart-RRR Abdomen-soft; NTND; nBS Extremities-no c/c/e; no deformity Neuro-no focal deficits Laboratory Results: Last 24 Hours Test 08/15/16 22:55 08/16/16 04:44 08/16/16 05:40 08/16/16 10:55 White Blood Count 7.65 K/uL 6.64 K/uL Red Blood Count 3.73 M/uL 3.71 M/uL Hemoglobin 11.3 g/dL 11.3 g/dL Hematocrit 34.5 % 34.7 % Mean Corpuscular Volume 92.5 fL 93.5 fL Mean Corpuscular Hemoglobin 30.3 pg 30.5 pg Mean Corpuscular Hemoglobin Concent 32.8 g/dl 32.6 g/dl Platelet Count 161 K/uL 154 K/uL Mean Platelet Volume 10.3 fL 10.5 fL Neutrophils (%) (Auto) 73.9 % Lymphocytes (%) (Auto) 12.0 % Monocytes (%) (Auto) 8.5 % Eosinophils (%) (Auto) 4.6 % Basophils (%) (Auto) 0.7 % Neutrophils # (Auto) 5.66 K/uL Lymphocytes # (Auto) 0.92 K/uL Monocytes # (Auto) 0.65 K/uL Eosinophils # (Auto) 0.35 K/uL Basophils # (Auto) 0.05 K/uL RDW Standard Deviation 56.0 fL 57.6 fL RDW Coefficient of Variation 16.5 % 16.7 % Immature Granulocyte % (Auto) 0.3 % Immature Granulocyte # (Auto) 0.02 K/uL Sodium Level 143 mmol/L 143 mmol/L Potassium Level 4.2 mmol/L 4.2 mmol/L Chloride Level 109 mmol/L 108 mmol/L Carbon Dioxide Level 27 mmol/L 28 mmol/L Anion Gap 7.0 mmol/L 7.0 mmol/L Blood Urea Nitrogen 18 mg/dl 17 mg/dl Creatinine 1.60 mg/dl 1.60 mg/dl Est Creatinine Clear Calc Drug Dose 53.4 ml/min 51.9 ml/min Estimated GFR () 49.9 49.9 Estimated GFR (Non- 43.0 43.0 BUN/Creatinine Ratio 11.5 10.9 Random Glucose 116 mg/dl 116 mg/dl Calcium Level 8.4 mg/dl 8.4 mg/dl Total Bilirubin 1.0 mg/dl Aspartate Amino Transf (AST/SGOT) 8 U/L Alanine Aminotransferase (ALT/SGPT) 16 U/L Alkaline Phosphatase 100 U/L Total Creatine Kinase 106 U/L Creatine Kinase MB 0.9 ng/ml 1.0 ng/ml 0.8 ng/ml Creatine Kinase MB Ratio 0.8 Troponin I 0.039 ng/ml 0.031 ng/ml 0.042 ng/ml Pro-B-Type Natriuretic Peptide 5897 pg/ml Total Protein 6.9 gm/dl Albumin 3.5 gm/dl Globulin 3.4 gm/dl Albumin/Globulin Ratio 1.0 Prothrombin Time 17.6 SECONDS Prothromb Time International Ratio 1.6 Procalcitonin 0.10 ng/mL Digoxin Level 0.1 ng/ml Assessment & Plan Chest pain - resolved - EKG without ischemic change - cardiac enzymes negative - continue aspirin, metoprolol and atorvastatin for mild nonobstructive CAD Acute systolic heart failure exacerbation - h/o dilated nonischemic cardiomyopathy s/p BiV ICD - received furosemide 20mg IV x1 - TTE pending - losartan discontinued with plans to transition to Entresto - continue spironolactone MAXIM - baseline CKD stage 3 with creatinine ~1.3 - gentle diuresis Paroxysmal A fib - continue amiodarone, digoxin, metoprolol - continue warfarin Productive Cough - possibly related to bronchitis? - CT chest negative for pneumonia; mild chronic interstitial thickening - procalcitonin negative - no indication for antibiotics - continue nebulizers - continue Symbicort (no pulmonary pathology documented in outpatient chart) Hypothyroidism - continue levothyroxine DVT prophylaxis with Coumadin. Consultants: Cardiology Procedures: CT Chest 1. Mild peripheral interstitial thickening which is likely chronic. No focal lung consolidations to suggest pneumonia. 2. Stable cardiomegaly. Current Inpatient Medications: Current Inpatient Medications Medications (Trade) Dose Ordered Sig/Joao Route Start Time Stop Time Status Last Admin Dose Admin Nitroglycerin (Nitrostat Tab) 0.4 mg UD PRN SL 08/16/16 01:30 09/15/16 01:29 Allopurinol (Zyloprim Tab) 100 mg QPM PO 08/16/16 21:00 09/15/16 20:59 Aspirin (Ecotrin Tab) 81 mg HS PO 08/16/16 21:00 09/15/16 20:59 Atorvastatin Calcium (Lipitor Tab) 20 mg QAM PO 08/16/16 09:00 09/15/16 08:59 08/16/16 07:57 20 MG Brimonidine Tartrate (Alphagan-P 0.15% Oph Soln) 1 drops TID OPB 08/16/16 09:00 09/15/16 08:59 08/16/16 14:33 1 DROPS Budesonide/ Formoterol Fumarate (Symbicort 160/ 4.5 Inh) 2 puffs QAM INH 08/16/16 09:00 09/15/16 08:59 08/16/16 07:56 2 PUFFS Digoxin (Lanoxin Tab) 0.125 mg DAILY@1600 PO 08/16/16 16:00 09/15/16 15:59 Levothyroxine Sodium (Synthroid Tab) 25 mcg DAILYBB PO 08/16/16 06:30 09/15/16 06:29 08/16/16 05:44 25 MCG Metoprolol Succinate (Toprol Xl Tab) 50 mg BID PO 08/16/16 09:00 09/15/16 08:59 08/16/16 07:57 50 MG Multivitamins (Multivitamin Tab) 1 tab DAILY PO 08/16/16 09:00 09/15/16 08:59 08/16/16 07:57 1 TAB Tramadol HCl (Ultram Tab) 50 mg Q6H PRN PO 08/16/16 03:45 09/15/16 03:44 Warfarin Sodium (Coumadin Tab) 2.5 mg MoFr@1600 PO 08/18/16 16:00 09/17/16 15:59 Warfarin Sodium (Coumadin Tab) 5 mg SuTuWeThSa@1600 PO 08/16/16 16:00 09/15/16 15:59 Amiodarone HCl (Cordarone Tab) 100 mg QDL PO 08/16/16 12:00 09/15/16 11:59 08/16/16 07:57 100 MG Cholecalciferol (Vitamin D Tab) 4,000 inter.unit DAILY PO 08/16/16 09:00 09/15/16 08:59 08/16/16 07:56 4,000 INTER.UNIT Ferrous Sulfate (Feosol Tab) 325 mg DAILY PO 08/16/16 09:00 09/15/16 08:59 08/16/16 07:57 325 MG Magnesium Oxide (Mag-Ox Tab) 400 mg DAILY PO 08/16/16 09:00 09/15/16 08:59 08/16/16 07:56 400 MG Pantoprazole Sodium (Protonix Tab) 40 mg DAILY PO 08/16/16 09:00 09/15/16 08:59 08/16/16 07:56 40 MG Albuterol/ Ipratropium (Duoneb) 3 ml QIDR INH 08/16/16 08:00 09/15/16 07:59 08/16/16 11:22 3 ML Spironolactone (Aldactone Tab) 12.5 mg QAM PO 08/17/16 09:00 09/16/16 08:59
[2016-08-16] MEDS ORDERED: DIGOXIN 0.125 MG TAB PO SCH (16:00)
[2016-08-16] MEDS ORDERED: ALBUT/IPRATROP 3MG/0.5MG NEB 3 ML VIAL INH PRN (16:00)
[2016-08-16] MEDS ORDERED: WARFARIN SOD 5 MG TAB PO SCH (16:00)
[2016-08-16] MEDS ORDERED: COUGH DROP (SUGAR FREE) LOZ 24 LOZ/1 BOX PO PRN (16:15)
[2016-08-16] MEDS ORDERED: COUGH DROP (SUGAR FREE) LOZ 24 LOZ/1 BOX ONE (16:17)
--- NOTE | 2016-08-16 17:36 | ECHOCARDIOGRAM REPORT ---
*NOTICE TO RECEIVING DEMOCRAT AGENCY This information is strictly Confidential and protected under [place] law. [place] law prohibits you from making any further disclosure of this information unless further disclosure is expressly permitted by the written consent of the person to whom it pertains or is authorized by law. A general authorization for the release of medical or other information is not sufficient for this purpose. Hospital accepts no responsibility if the information is made available to any other person, INCLUDING THE PATIENT. Interpretation Summary * Name: FERNANDO GUPTA Study Date: 08/16/2016 11:16 AM BP: 91/61 mmHg * Patient Location: .[facility]\S\N281\S\2 HR: 85 * : 1945 (M/d/yyyy) Gender: Male Height: 70 in * Age: 70 yrs Ethnicity: [place] Weight: 229 lb * Ordering Physician: Josue Munguia * Referring Physician: Self, Referred * Performed By: Saima Villaseñor RCS * * Reason For Study: CHF * BSA: 2.2 m2 * -- Conclusions -- * The left ventricle is severely dilated. * There is global thinning of the left ventricular chaudhry. * Ejection Fraction = 20-25%. * The right ventricle is mild to moderately dilated. * The right ventricular systolic function is mild to moderately reduced. * The left atrium is moderately dilated. * The right atrium is moderately dilated. * The mitral regurgitant jet is eccentrically directed. * There is severe mitral regurgitation. * There is mild tricuspid regurgitation. Procedure Details * A complete two-dimensional transthoracic echocardiogram was performed (2D, M-mode, Doppler and color flow Doppler). Left Ventricle * The left ventricle is severely dilated. * There is global thinning of the left ventricular chaudhry. * Ejection Fraction = 20-25%. Right Ventricle * The right ventricle is mild to moderately dilated. * The right ventricular systolic function is mild to moderately reduced. Atria * The left atrium is moderately dilated. * The right atrium is moderately dilated. * The interatrial septum is intact with no evidence for an atrial septal defect. Mitral Valve * The mitral valve leaflets appear thickened, but open well. * The mitral regurgitant jet is eccentrically directed. * There is severe mitral regurgitation. Tricuspid Valve * The tricuspid valve is not well visualized, but is grossly normal. * There is mild tricuspid regurgitation. Aortic Valve * The aortic valve is trileaflet. * No hemodynamically significant valvular aortic stenosis. * There is no significant aortic regurgitation. Pulmonic Valve * The pulmonic valve is not well visualized. Great Vessels * The aortic root and proximal ascending aorta are normal sized. Pericardium/Pleural * There is no pericardial effusion. MMode 2D Measurements and Calculations IVSd 1.0 cm IVSs 1.3 cm LVIDd 7.9 cm LVIDs 7.1 cm LVPWd 1.0 cm LVPWs 1.2 cm IVS/LVPW 1.0 FS 10.0 % EDV(Teich) 330.4 ml ESV(Teich) 261.1 ml EF(Teich) 21.0 % EDV(cubed) 483.8 ml ESV(cubed) 353.2 ml EF(cubed) 27.0 % % IVS thick 20.5 % % LVPW thick 12.1 % LV mass(C)d 413.1 grams LV mass(C)dI 186.8 grams/m\S\2 LV mass(C)s 417.6 grams LV mass(C)sI 188.9 grams/m\S\2 CO(Teich) 5.8 l/min CI(Teich) 2.6 l/min/m\S\2 SV(Teich) 69.2 ml SI(Teich) 31.3 ml/m\S\2 CO(cubed) 11.0 l/min CI(cubed) 5.0 l/min/m\S\2 SV(cubed) 130.5 ml SI(cubed) 59.0 ml/m\S\2 Ao root diam 3.7 cm Ao root area 10.8 cm\S\2 ACS 2.0 cm LA dimension 5.2 cm LA/Ao 1.4 LVAd ap4 66.3 cm\S\2 LVLd ap4 11.1 cm EDV(MOD-sp4) 328.0 ml LVAs ap4 50.6 cm\S\2 LVLs ap4 10.1 cm ESV(MOD-sp4) 215.0 ml EF(MOD-sp4) 34.5 % LVAd ap2 68.4 cm\S\2 LVLd ap2 11.4 cm EDV(MOD-sp2) 352.0 ml LVAs ap2 54.5 cm\S\2 LVLs ap2 9.9 cm ESV(MOD-sp2) 255.0 ml EF(MOD-sp2) 27.6 % CO(MOD-sp4) 9.5 l/min CI(MOD-sp4) 4.3 l/min/m\S\2 SV(MOD-sp4) 113.0 ml SI(MOD-sp4) 51.1 ml/m\S\2 CO(MOD-sp2) 8.1 l/min CI(MOD-sp2) 3.7 l/min/m\S\2 SV(MOD-sp2) 97.0 ml SI(MOD-sp2) 43.9 ml/m\S\2 Doppler Measurements and Calculations MV E max janae 150.0 cm/sec MV A max janae 50.8 cm/sec MV E/A 3.0 MV P1/2t max janae 174.5 cm/sec MV P1/2t 44.8 msec MVA(P1/2t) 4.9 cm\S\2 MV dec slope 1139.9 cm/sec\S\2 MV dec time 0.14 sec Ao V2 max 107.8 cm/sec Ao max PG 4.6 mmHg Ao max PG (full) 1.1 mmHg AI max janae 417.7 cm/sec AI max PG 69.8 mmHg AI dec slope 338.9 cm/sec\S\2 AI P1/2t 361.0 msec LV V1 max PG 3.5 mmHg LV V1 max 93.8 cm/sec PA V2 max 83.5 cm/sec PA max PG 2.8 mmHg TR max janae 317.1 cm/sec
[2016-08-16] MEDS ORDERED: ASPIRIN 81 MG ECTAB PO SCH (21:00)
[2016-08-16] MEDS ORDERED: ALLOPURINOL 100 MG TAB PO SCH (21:00)
[2016-08-16] MEDS ORDERED: ACETAMINOPHEN 325 MG TAB PO PRN (21:15)
[2016-08-16] MEDS ORDERED: ACETAMINOPHEN 325 MG TAB ONE (21:22)
[2016-08-16 21:56] LABS: INR 1.5 (0.9-1.1); PARTIAL THROMBOPLASTIN RATIO 1.3; PROTHROMBIN TIME (PATIENT) 16.2 SECONDS (9.0-12.0)
[2016-08-16 22:08] LABS: MAGNESIUM 2.3 mg/dl (1.8-2.4)
[2016-08-17] VITALS: BP 81/58; PULSE 77; TEMP 37.2; O2SAT 94
[2016-08-17 00:39] VITALS: BP 90/52; PULSE 78
[2016-08-17 04:00] VITALS: BP 94/61; PULSE 78; TEMP 36.8; O2SAT 95
[2016-08-17 05:42] LABS: HEMATOCRIT 33.3 % (42-52); MEAN CELL VOLUME 94.3 fL (80-100); MEAN CORPUSCULAR HEMOGLOBIN 30.6 pg (25-34); MEAN CORPUSCULAR HGB CONC 32.4 g/dl (32-36); MEAN PLATELET VOLUME 10.4 fL (7.4-10.4); PLATELET COUNT 144 K/uL (130-400); RED BLOOD COUNT 3.53 M/uL (4.7-6.1)
[2016-08-17 05:48] LABS: INR 1.6 (0.9-1.1); PROTHROMBIN TIME (PATIENT) 17.1 SECONDS (9.0-12.0)
[2016-08-17 06:09] LABS: BUN/CREATININE RATIO 12.5 (10-20); CALCIUM 8.3 mg/dl (8.5-10.1); CREATININE 1.6 mg/dl (0.60-1.40)
[2016-08-17] MEDS: LEVOTHYROXINE 25 MCG TAB PO SCH (06:16)
[2016-08-17 07:17] VITALS: BP 109/65; PULSE 82; TEMP 36.9; O2SAT 95
[2016-08-17] MEDS: BUDESONIDE/FORMOTEROL FUMARATE 160/4.5 60 PUFFS/INHALER INH SCH (07:44)
[2016-08-17] MEDS: BRIMONIDINE TARTRATE-P 0.15% 5 ML BTL OPB SCH (07:44)
[2016-08-17] MEDS: PANTOprazole SOD 40 MG TAB PO SCH (07:46)
[2016-08-17] MEDS: METOPROLOL SUCC 50MG EXT REL TAB PO SCH (07:46)
[2016-08-17] MEDS: MAGNESIUM OXIDE 400 MG TAB PO SCH (07:46)
[2016-08-17] MEDS: MULTIVITAMIN TAB PO SCH (07:46)
[2016-08-17] MEDS: CHOLECALCIFEROL 1000 INTER.UNIT TAB PO SCH (07:46)
[2016-08-17] MEDS: ATORVASTATIN 20 MG TAB PO SCH (07:47)
[2016-08-17] MEDS: FERROUS SULFATE 325 MG TAB PO SCH (07:47)
[2016-08-17 08:00] VITALS: O2SAT 95
[2016-08-17] MEDS ORDERED: SPIRONOLACTONE 25 MG TAB PO SCH (09:00)
--- NOTE | 2016-08-17 09:50 | Cardiology Follow-Up ---
Subjective General Date of Service: Aug 17, 2016. Chief Complaint: Shortness of breath Pt evaluation today including: conversation w/ patient, physical exam, chart review, lab review, review of studies, review of inpatient medication list History of Present Illness Chest pain last night aided by acetaminophen. Feels 100% better in regards to presenting symptoms. Sinus congestion No abdominal bloating, scrotal edema, orthopnea, PND, or peripheral edema Telemetry: Atrial sensed, ventricular paced rhythm predominately. Occasional fusion beats. Occasional PVC's. No ventricular runs. August 16, 2016 TTE Interpretation Summary ([facility], as per Dr. Leon): The left ventricle is severely dilated. There is global thinning of the left ventricular chaudhry. Ejection Fraction = 20-25%. The right ventricle is mild to moderately dilated. The right ventricular systolic function is mild to moderately reduced. The left atrium is moderately dilated. The right atrium is moderately dilated. The mitral regurgitant jet is eccentrically directed. There is severe mitral regurgitation. There is mild tricuspid regurgitation. Allergies Coded Allergies: Promethazine (Verified Adverse Reaction, Intermediate, DELIRIUM, 08/16/16) pt was confused after getting pheneargan Social History Smoking Status: Former Smoker Hx Tobacco Use In Past Year?: No Hx Alcohol Use - Type And Amou: No Hx Substance Use - Type And Am: No Problem List Medical Problems: (1) Left sided chest pain Status: Acute (2) Pneumonia Status: Acute (3) Shortness of breath Status: Acute Physical Exam Vital Signs Last Vital Signs Documentation Date Time Temp Pulse Resp B/P Pulse Ox O2 Delivery O2 Flow Rate FiO2 08/17/16 08:00 95 Room Air 08/17/16 07:17 36.9 82 18 109/65 08/16/16 01:47 2.0 Physical Exam Constitutional: General Apperance: overweight Level of Distress: NAD Psychiatric: Mental Status: active & alert Orientation: to time, to place, to person Memory: recent memory normal, remote memory normal Head: normocephalic, atraumatic Eyes: Pupils: PERRLA Neck: supple, trachea midline, pertinent finding (Mildly elevated JVP. +HJR. ) Lungs: Auscultation: no wheezing, no rhonchi, deminished air movement, decreased breath sounds, rales/crackles on the right Cardiovascular: Heart Auscultation: RRR, normal S1, normal S2, III/ MAHI Peripheral Pulses: Dorsalis Pedis Pulse: decreased on the left, decreased on the right Abdomen: Bowel Sounds: normal Inspection & Palpation: soft, non-distended, no tenderness, guarding & rebound, no masses Extremities: no cyanosis, no edema, no clubbing Neurologic: Cranial Nerves: grossly intact Assessment and Plan Assessment and Plan Complex 70 year old male presenting via ambulance with acute on chronic dyspnea. History and physical examination suggest multifactorial acute dyspnea including possible acute obstructive pulmonary exacerbation and mild acute decompensated systolic congestive heart failure. Patient experienced prompt improvement in presenting symptoms following a nebulizer treatment, supplemental oxygen (has at home), and one dose of 20 mg IV furosemide. Losartan held on presentation. Acute decompensated systolic congestive heart failure signs and symptoms. 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 NYHA Class III dyspnea. Status post BiV ICD implantation (see above) 20 mg IV furosemide now along with 10 mEq potassium chloride. Transition back to oral Torsemide in AM of 08/18/2016 No Losartan, washing out for at least 36 hours Initiate Entresto (Sacubitril 24 mg, Valsartan 26 mg) twice a day ($20/month ) as an outpatient. Continue spironolactone, 12.5 mg/day Continue evidenced based beta-tyler and digoxin Mild nonobstructive coronary disease Atypical chest pain EKG without acute changes Troponin negative x 4 Continue Toprol XL, ASA, and statin. Paroxysmal atrial fibrillation Sinus rhythm maintained with Toprol XL and low dose amiodarone Continue chronic Coumadin anticoagulation. INR goal 2.0 to 3.0 Chronic kidney disease, likely with an element of cardiorenal syndrome. Sleep apnea with significant nocturnal hypoxemia, treated with CPAP and supplemental oxygen therapy. Hypertension. Hypotensive throughout hospitalization. Dyslipidemia. Continue statin. CARDIOLOGY ATTENDING ADDENDUM: The patient was seen and personally examined. Agree with Josue Munguia PA-C's findings and plans as documented above. Laboratory Results Last 24 Hours Test 08/16/16 10:55 08/16/16 21:35 08/17/16 05:23 Creatine Kinase MB 0.8 ng/ml Creatine Kinase MB Ratio Troponin I 0.042 ng/ml 0.040 ng/ml Prothrombin Time 16.2 SECONDS 17.1 SECONDS Prothromb Time International Ratio 1.5 1.6 Activated Partial Thromboplast Time 33.4 SECONDS Partial Thromboplastin Ratio 1.3 Lactic Acid Level 1.4 mmol/L Magnesium Level 2.3 mg/dl White Blood Count 6.80 K/uL Red Blood Count 3.53 M/uL Hemoglobin 10.8 g/dL Hematocrit 33.3 % Mean Corpuscular Volume 94.3 fL Mean Corpuscular Hemoglobin 30.6 pg Mean Corpuscular Hemoglobin Concent 32.4 g/dl RDW Standard Deviation 57.3 fL RDW Coefficient of Variation 16.8 % Platelet Count 144 K/uL Mean Platelet Volume 10.4 fL Sodium Level 143 mmol/L Potassium Level 4.0 mmol/L Chloride Level 107 mmol/L Carbon Dioxide Level 29 mmol/L Anion Gap 7.0 mmol/L Blood Urea Nitrogen 20 mg/dl Creatinine 1.60 mg/dl Est Creatinine Clear Calc Drug Dose 51.9 ml/min Estimated GFR () 49.9 Estimated GFR (Non- 43.0 BUN/Creatinine Ratio 12.5 Random Glucose 119 mg/dl Calcium Level 8.3 mg/dl
[2016-08-17] MEDS ORDERED: FUROSEMIDE INJ 20 MG in SYRINGE 0 ML IV ONE (11:00)
[2016-08-17] MEDS ORDERED: POTASSIUM CHLORIDE 10 MEQ TABCR PO ONE (11:00)
[2016-08-17 11:20] VITALS: BP 91/54; PULSE 91; TEMP 36.3; O2SAT 95
[2016-08-17] MEDS: AMIODARONE 200 MG TAB PO SCH (11:40)
--- NOTE | 2016-08-17 12:21 | Discharge Instructions ---
Discharge Instructions Date of Service Aug 17, 2016. Admission Reason for Admission: SOB Discharge Discharge Diagnosis / Problem: Heart failure exacerbation Discharge Goals Goal(s): Decrease discomfort Activity Recommendations Activity Limitations: resume your previous activity . Instructions / Follow-Up Instructions / Follow-Up You will be contacted regarding a follow up appointment with Cardiology Josue Munguia. Please stop taking Losartan. This will be replaced with Entresto. Your pharmacy will contact you when this medication is ready. Current Hospital Diet Patient's current hospital diet: Low Sodium Diet (2gm Na), AHA Diet (Heart Healthy) Discharge Diet Recommended Diet: AHA Diet (Heart Healthy), Low Sodium Diet (2gm Na) Pending Studies Studies pending at discharge: no Medical Emergencies . Who to Call and When: Medical Emergencies: If at any time you feel your situation is an emergency, please call 911 immediately. . Non-Emergent Contact Non-Emergency issues call your: Primary Care Provider, Circulation Assistant . . "Provider Documentation" section prepared by Dee Dee Rivera. . VTE Core Measure Inpt VTE Proph given/why not?: Warfarin (Coumadin)
[2016-08-17] MEDS ORDERED: SACU1TAB PO (12:28)
[2016-08-17] MEDS ORDERED: TORS20TA2 PO (12:28)
--- NOTE | 2016-08-17 16:15 | Discharge Summary ---
Discharge Summary Date of Service Aug 17, 2016. Discharge Summary Admission Date: Aug 16, 2016 at 01:21 Discharge Date: Aug 17, 2016 Discharge Disposition: Home Principal Diagnosis: Systolic heart failure exacerbation Procedures: CT Chest 1. Mild peripheral interstitial thickening which is likely chronic. No focal lung consolidations to suggest pneumonia. 2. Stable cardiomegaly. TTE * The left ventricle is severely dilated. * There is global thinning of the left ventricular chaudhry. * Ejection Fraction = 20-25%. * The right ventricle is mild to moderately dilated. * The right ventricular systolic function is mild to moderately reduced. * The left atrium is moderately dilated. * The right atrium is moderately dilated. * The mitral regurgitant jet is eccentrically directed. * There is severe mitral regurgitation. * There is mild tricuspid regurgitation. Consultations: Cardiology Medication Reconciliation New Medications: Sacubitril-Valsartan (Entresto 24-26 mg) 1 Tab Tab 1 TAB PO BID for 30 Days, #60 TABS Changed Medications: Torsemide (Demadex) 20 Mg Tab 20 MG PO BID for 30 Days (Changed from: DAILY; Removed Reason) Continued Medications: Albuterol Hfa (Ventolin Hfa) 200 Puffs/51101 Mcg Aers 2 PUFFS INH QID PRN for SOB/Wheezing Allopurinol (Zyloprim) 100 Mg Tab 100 MG PO QPM, TAB Amiodarone Hcl (Amiodarone Hcl) 100 Mg Tab 100 MG PO w/lunch Aspirin (Aspirin Ec) 81 Mg Tab 81 MG PO HS Atorvastatin (Atorvastatin Calcium) 40 Mg Tab 20 MG PO QAM Brimonidine Tartrate Oph (Alphagan P Oph) 0.15 % Astrid 1 DROP OPB TID, BTL Budesonide/Formoterol Fumarate (Symbicort 160/4.5 Inhaler) 120 Puffs/ Aero 2 PUFFS INH QAM Cholecalciferol (Vitamin D3) 2,000 Unit Tab 4000 UNITS PO DAILY, 5 Refills Digoxin (Digoxin) 0.125 Mg Tab 0.125 MG PO QAM Ferrous Sulfate (Kp Ferrous Sulfate) 325 Mg Tab 325 MG PO DAILY, 3 Refills Levothyroxine Sodium (Levothyroxine Sodium) 25 Mcg Tab 1 TAB PO DAILY for 30 Days, #30 TAB 5 Refills Magnesium Oxide (Magnesium Oxide) 400 Mg Cap 400 MG PO DAILY, 3 Refills Metoprolol Succ (Toprol Xl) (Toprol-Xl) 50 Mg Tabcr 50 MG PO BID, #30 TAB Multiple Vitamin (Multivitamin) 1 Tab Tab 1 TAB PO DAILY, TAB Nitroglycerin (Nitrostat) 0.4 Mg Sub 0.4 MG UT UD PRN for Chest Pain, BTL PLACE ONE TABLET UNDER THE TONGUE EVERY 5 MINUTES FOR UP TO 3 DOSES. Omeprazole (Prilosec) 20 Mg Capcr 40 MG PO DAILY, CAP Sennosides-Docusate Sodium (Eq Senna-S) 1 Tab Tab 1 TAB PO Spironolactone (Spironolactone) 25 Mg Tab 12.5 MG PO DAILY, TAB Tramadol (Ultram) 50 Mg Tab 50 MG PO Q6H PRN for Pain Warfarin Sod (Jantoven) 5 Mg Tab 5 MG PO 5XWEEK SUNDAY,,SUN, ,SAT,SUN Warfarin Sod (Jantoven) 2.5 Mg Tab 2.5 MG PO 3XWEEK, TAB MONDAYS and FRIDAYS Discontinued Medications: Losartan Potassium (Cozaar) 25 Mg Tab 12.5 MG PO QAM, TAB Admission Information HPI (per Admitting provider): 70 year old male with PMH of systolic heart failure, CKD stage 3, Afib, Dyslipidemia presents to the Emergency Room with complaints of worsening shortness for the last few days.Pt said that he SOB got worst to day when he cannot even walk to the bathroom. Pt also said that he had a sharp pain in his mid epigastric area, non radiating, grade 7/10 that resolved with nitro. Pt also said that he has a coughing with dark yellowish sputum.Denies any fever, palpitation, dizziness. [facility] him on torsemide and spironolactone. Right now pt is free of chest pain. Physical Exam (per Admitting): General Appearance: WD/WN, no apparent distress Head: normocephalic, atraumatic Eyes: normal inspection, PERRL, EOMI ENT: normal ENT inspection, hearing grossly normal Neck: supple, no JVD Respiratory/Chest: no accessory muscle use, + pertinent finding (poor air entry) Cardiovascular: regular rate, rhythm, no JVD, + tachycardia Abdomen/GI: normal bowel sounds, non tender Back: normal inspection, no CVA tenderness Extremities/Musculoskelatal: no calf tenderness Neurologic/Psych: no motor/sensory deficits, alert, normal mood/affect, oriented x 3 Skin: normal color, warm/dry, no rash Hospital Course Patient presented with chest pain and SOB. Cardiology was consulted. EKG and cardiac enzymes were negative for ischemia. Patient was continued aspirin, metoprolol and atorvastatin for mild nonobstructive CAD. Patient was diuresed with IV Lasix for acute systolic heart failure exacerbation. Patient symptomatically improved. Losartan was discontinued and the plan is for patient to start Entresto as an outpatient. Patient c/o a productive cough prior to presentation. This may possibly be related to bronchitis and was managed conservatively with improvement. CT chest was negative for pneumonia and showed mild chronic interstitial thickening. Procalcitonin was negative. There was no indication for antibiotics. Symbicort was continued. Patient was continued on the remainder of his home medications. Patient deemed stable for discharge with Cardiology follow up. PE on discharge: General- awake; alert; NAD Eyes- EOMI; no scleral icterus Neck- no stridor; trachea midline Lungs- CTA bilaterally; no wheezes/crackles Heart- RRR Abdomen- soft; NTND; nBS Back- no gross abnormalities Extremities- no c/c/e; no deformity Neuro- no focal deficits Skin- no appreciable rash . Total time spent on discharge = This includes examination of the patient, discharge planning, medication reconciliation, and communication with other providers. Discharge Instructions Discharge Instructions Date of Service Aug 17, 2016. Admission Reason for Admission: SOB Discharge Discharge Diagnosis / Problem: Heart failure exacerbation Discharge Goals Goal(s): Decrease discomfort Activity Recommendations Activity Limitations: resume your previous activity . Instructions / Follow-Up Instructions / Follow-Up You will be contacted regarding a follow up appointment with Cardiology Josue Munguia. Please stop taking Losartan. This will be replaced with Entresto. Your pharmacy will contact you when this medication is ready. Current Hospital Diet Patient's current hospital diet: Low Sodium Diet (2gm Na), AHA Diet (Heart Healthy) Discharge Diet Recommended Diet: AHA Diet (Heart Healthy), Low Sodium Diet (2gm Na) Pending Studies Studies pending at discharge: no Medical Emergencies . Who to Call and When: Medical Emergencies: If at any time you feel your situation is an emergency, please call 911 immediately. . Non-Emergent Contact Non-Emergency issues call your: Primary Care Provider, Retail Aide . . "Provider Documentation" section prepared by Dee Dee Rivera. . VTE Core Measure Inpt VTE Proph given/why not?: Warfarin (Coumadin) Additional Copies To Rebecca Lee
[2016-08-18] MEDS ORDERED: WARFARIN SOD 2.5 MG TAB PO SCH (16:00)
[2016-10-09] MEDS ORDERED: SACU1TAB PO (08:32)
[2016-11-23] MEDS ORDERED: SACU1TAB (08:58)
[2017-02-09] MEDS ORDERED: ATOR-22 PO (15:30)
[2017-02-09] MEDS ORDERED: SPIR25TA PO (15:30)
[2017-02-09] MEDS ORDERED: VITRON C PO (15:30)
[2017-02-09] MEDS ORDERED: MAGN400T6 PO (15:30)
[2017-02-09] MEDS ORDERED: SACU1TAB PO (15:30)
[2017-02-09] MEDS ORDERED: ALLO100T PO (15:30)
[2017-02-09] MEDS ORDERED: SYMIN160 INH (15:33)
[2017-02-09] MEDS ORDERED: ASPI81TA28 PO (15:33)
[2017-02-09] MEDS ORDERED: VNTHFA/IN INH (15:33)
[2017-02-09] MEDS ORDERED: MULT-506 PO (15:33)
[2017-02-09] MEDS ORDERED: CHOL20007 PO (15:33)
[2017-02-09] MEDS ORDERED: SENN-65 PO (15:33)
[2017-02-09] MEDS ORDERED: OXGN (15:40)
[2017-03-05] MEDS ORDERED: HYDR-5688 PO (07:53)
== END 2016-08-17 13:55 | disposition home or self-care (01) | DRG 291 ==
LOC: ENRESERVDT → ENRESERVTM → EDBD 21:47 → C.EDA 21:53 → C.MED 08-16 01:21
PROVIDERS: ADMIT Internal Medicine; ATTEND Internal Medicine
DX: I13.0 Hypertensive heart and chronic kidney disease with heart failure and stage 1 through stage 4 chronic kidney disease, or unspecified chronic kidney disease (principal); I50.23 Acute on chronic systolic (congestive) heart failure; N17.9 Acute kidney failure, unspecified; I42.9 Cardiomyopathy, unspecified; N18.3 Chronic kidney disease, stage 3 (moderate); E03.9 Hypothyroidism, unspecified; E78.5 Hyperlipidemia, unspecified; I48.0 Paroxysmal atrial fibrillation; J20.9 Acute bronchitis, unspecified; I25.10 Atherosclerotic heart disease of native coronary artery without angina pectoris; R09.02 Hypoxemia; G47.30 Sleep apnea, unspecified; I08.1 Rheumatic disorders of both mitral and tricuspid valves; K21.9 Gastro-esophageal reflux disease without esophagitis; J98.4 Other disorders of lung; K22.4 Dyskinesia of esophagus; I49.3 Ventricular premature depolarization; R79.89 Other specified abnormal findings of blood chemistry; I27.2 Other secondary pulmonary hypertension; Z98.1 Arthrodesis status; Z79.82 Long term (current) use of aspirin; Z79.51 Long term (current) use of inhaled steroids; Z95.810 Presence of automatic (implantable) cardiac defibrillator; Z86.718 Personal history of other venous thrombosis and embolism; Z87.891 Personal history of nicotine dependence; Z79.899 Other long term (current) drug therapy; Z79.891 Long term (current) use of opiate analgesic; Z79.01 Long term (current) use of anticoagulants

== ENCOUNTER → 2016-11-23 | Outpatient (CLI) | payer OTHER ==
[~2016-11-23] MED LIST changes: +AMIO200T4 PO; +ATOR-22 PO; +BRIM0.1S OPB; +CEPH500C PO; +DMD20 PO; +LEVO25TA5 PO; -LOSA1TAB PO; +MAGN400T6 PO; +METO-217 PO; -METO100T44 PO; +METO50TA7 PO; +MULT-506 PO; +MULTTAB58 PO; -NF406 PO; +NTRGSL/4 UT; +OMEP40CA41 PO; +OXGN; -PRED20TA2 PO; +SACU1TAB; +SACU1TAB PO; +SENN-65 PO; +SENN1TAB PO; +SPIR25TA PO; +SPR25 PO; +SULF-183 PO; +VITRON C PO
[2016-11-23 08:34] LABS: PROTHROMBIN TIME (PATIENT) 10.7 SECONDS (9.0-12.0)
== END | disposition home or self-care (01) ==
LOC: C.LAB 08:00
PROVIDERS: ATTEND Physician Assistant
DX: Z01.818 Encounter for other preprocedural examination (principal); M25.562 Pain in left knee; Z79.01 Long term (current) use of anticoagulants; I25.2 Old myocardial infarction; Z95.810 Presence of automatic (implantable) cardiac defibrillator; K21.9 Gastro-esophageal reflux disease without esophagitis; E78.5 Hyperlipidemia, unspecified; G47.33 Obstructive sleep apnea (adult) (pediatric); I25.10 Atherosclerotic heart disease of native coronary artery without angina pectoris; I10 Essential (primary) hypertension; J44.9 Chronic obstructive pulmonary disease, unspecified; M10.9 Gout, unspecified; Z87.81 Personal history of (healed) traumatic fracture; Z90.89 Acquired absence of other organs; Z90.49 Acquired absence of other specified parts of digestive tract; Z87.891 Personal history of nicotine dependence; Z88.8 Allergy status to other drugs, medicaments and biological substances; I48.2 Chronic atrial fibrillation; Z51.81 Encounter for therapeutic drug level monitoring

== ENCOUNTER 2016-12-25 10:48 | Emergency (ER) | payer OTHER ==
[~2016-12-25] VITALS: Ht 177.8 cm; Wt 108.6 kg
[~2016-12-25 10:48] MED LIST changes: -AMIO200T4 PO; -ATOR-22 PO; -BRIM0.1S OPB; -CEPH500C PO; -DMD20 PO; -MAGN400T6 PO; -METO-217 PO; -MULT-506 PO; -NTRGSL/4 UT; -OMEP40CA41 PO; -OXGN; -SENN-65 PO; -SPIR25TA PO; -SULF-183 PO; -VITRON C PO
[2016-12-25 10:51] VITALS: TEMP 37; Ht 177.8 cm; Wt 108.6 kg
[2016-12-25] MEDS ORDERED: CEFTRIAXONE SOD INJ 1 GM ADDVIAL IV STA (11:18)
[2016-12-25 11:52] LABS: BASO % 0.4 %; BASO ABS # 0.04 K/uL (0-0.2); COMPLETE YES; EOS % 2.3 %; HEMATOCRIT 42.3 % (42-52); IG% 0.6 %; LYMPH ABS # 1.26 K/uL (1.2-3.4); MEAN CELL VOLUME 94.4 fL (80-100); MEAN CORPUSCULAR HEMOGLOBIN 32.6 pg (25-34); MEAN CORPUSCULAR HGB CONC 34.5 g/dl (32-36); MEAN PLATELET VOLUME 11.3 fL (7.4-10.4); MONO % 3.9 %; NEUT % 78.8 %; PLATELET COUNT 127 K/uL (130-400); RED BLOOD COUNT 4.48 M/uL (4.7-6.1); WHITE BLOOD COUNT 8.99 K/uL (4.8-10.8)
--- NOTE | 2016-12-25 11:58 | DIAGNOSTIC IMAGING REPORT ---
LEFT ELBOW MIN 3 VIEWS ROUTINE CLINICAL HISTORY: L elbow cellulitis COMPARISON STUDY: None. FINDINGS: Soft tissue swelling at the posterior elbow/olecranon. No joint effusion. No fracture or dislocation within the left elbow. Tiny ossific density adjacent to the radial head favors an intra-articular loose body. Small calcifications at the common flexor and common extensor tendon attachment. This is consistent with calcific tendinitis. IMPRESSION: Posterior/olecranon soft tissue swelling consistent with a cellulitis/bursitis. No elbow effusion. Electronically signed by: Jairo Fontaine M.D. 12/25/2016 11:57 AM Dictated Date/Time: 12/25/2016 11:55 AM
[2016-12-25] MEDS ORDERED: NTRGSL/4 UT (12:00)
[2016-12-25] MEDS ORDERED: METO-217 PO (12:00)
[2016-12-25] MEDS ORDERED: SACU1TAB PO (12:00)
[2016-12-25] MEDS ORDERED: AMIO200T4 PO (12:00)
[2016-12-25] MEDS ORDERED: BRIM0.1S OPB (12:00)
[2016-12-25] MEDS ORDERED: DMD20 PO (12:00)
[2016-12-25] MEDS ORDERED: LNX125 PO (12:00)
[2016-12-25] MEDS ORDERED: OMEP40CA41 PO (12:00)
[2016-12-25] MEDS ORDERED: LEVO25TA5 PO (12:00)
[2016-12-25] MEDS ORDERED: WARF5TAB7 PO (12:00)
[2016-12-25] MEDS ORDERED: TRAM-10 PO (12:00)
[2016-12-25 12:01] LABS: INR 1.3 (0.9-1.1); PROTHROMBIN TIME (PATIENT) 14.6 SECONDS (9.0-12.0)
[2016-12-25 12:11] LABS: BUN/CREATININE RATIO 14.1 (10-20); CALCIUM 8.7 mg/dl (8.5-10.1); CREATININE 1.4 mg/dl (0.60-1.40); POTASSIUM 4.5 mmol/L (3.5-5.1)
[2016-12-25] MEDS ORDERED: CEPH500C PO (12:35)
[2016-12-25 12:45] VITALS: BP 118/70; PULSE 63; O2SAT 97
--- NOTE | 2016-12-25 13:06 | EMERGENCY ROOM VISIT NOTE ---
History First contact with patient: 11:01 Chief Complaint: ELBOW PAIN/INJURY Stated Complaint: LEFT ELBOW History of Present Illness The patient is a 71 year old male who presents to the Emergency Room with complaints of a painful red left elbow. The patient reports that he bumped his left elbow 4 days ago, and sustained a wound to the lateral aspect of the elbow. The patient reports that he is on Coumadin and bruises easily. The patient started to notice swelling yesterday, and redness last evening. He denies any fevers or chills. He also denies any significant pain with flexion or extension of the elbow. He denies any recent injury to the elbow, or risk of foreign body wound. Patient is [id number]. Tetanus immunization is within 10 years, but the patient is uncertain of the exact date. He currently rates his discomfort a 9 out of 10. Review of Systems HEENT: Denies dizziness, visual problems, hearing loss, tinnitus. Denies difficulty swallowing or oral lesions. PULMONARY: Denies cough, shortness of breath, sputum production or hemoptysis. CARDIOVASCULAR: Denies chest pain, palpitations, dyspnea on exertion, orthopnea or peripheral edema. GASTROINTESTINAL: Denies diarrhea, constipation, nausea, vomiting, or abdominal pain. GENITOURINARY: Denies dysuria, frequency, urgency or nocturia. NEUROLOGIC: Denies history of epilepsy, CVA, TIA or chronic headaches. MUSCULOSKELETAL: Denies history of joint tenderness/swelling. SKIN: Denies rashes or lesions. PSYCHIATRIC: Denies history of depression or mental illness. ENDOCRINE: Denies history of diabetes or thyroid disorders. Past Medical/Surgical History Medical Problems: (1) Chronic combined systolic and diastolic CHF (congestive heart failure) (2) Dyslipidemia (3) Esophageal dysmotility (4) Frequent PVCs (5) GERD (gastroesophageal reflux disease) (6) History of DVT (deep vein thrombosis) (7) Hypertension (8) Non-ischemic cardiomyopathy (9) Nonischemic cardiomyopathy (10) Pulmonary HTN (11) Pulmonary hypertension (12) Severe mitral regurgitation (13) SOB (shortness of breath) Surgical Problems: (1) Appendectomy (2) H/O cardiac radiofrequency ablation (3) H/O colonoscopy (4) Hernia repair (5) History of implantable cardioverter-defibrillator (ICD) placement (6) Hx of cardiac cath (7) S/P cholecystectomy (8) S/P lumbar discectomy (9) S/P tendon repair (10) Shoulder surgery Family History CHF (congestive heart failure) FATHER Valvular heart disease MOTHER Social History Smoking Status: Former Smoker Alcohol Use: none Drug Use: none Marital Status: Housing Status: lives with significant other Current/Historical Medications Scheduled Amiodarone Hcl (Cordarone), 100 MG PO DAILY Brimonidine Tartrate (Alphagan P Oph), 1 DROP OPB TID Cephalexin Monohydrate (Keflex), 500 MG PO QID Digoxin (Digoxin), 0.125 MG PO MWF Levothyroxine Sodium (Levothyroxine Sodium), 25 MCG PO QAM Metoprolol Succinate (Toprol Xl), 50 MG PO BID Nitroglycerin (Nitrostat), 0.4 MG UT PRN Omeprazole (Prilosec), 40 MG PO DAILY Sacubitril-Valsartan (Entresto 24-26 mg), 2 TABS PO BID Torsemide (Torsemide), 20 MG PO BID Warfarin Sod (Jantoven), 5 MG PO DAILY Scheduled PRN Tramadol (Ultram), 50 MG PO UD PRN for Pain Physical Exam Vital Signs Date Time Temp Pulse Resp B/P (MAP) Pulse Ox O2 Delivery O2 Flow Rate FiO2 12/25/16 12:45 63 18 118/70 97 12/25/16 10:51 37.0 65 20 101/67 98 Room Air Physical Exam CONSTITUTIONAL: Healthy and well nourished. Alert and oriented X 3 with positive affect. Patient does not appear in any acute distress on exam. HEENT: Normocephalic, atraumatic. Pupils equal, round and reactive. NECK: Full active range of motion without discomfort. RESPIRATORY: Clear to auscultation bilaterally with no wheezing, crackles, rhonchi or stridor. CARDIOVASCULAR: Regular rate and rhythm with no murmurs, rubs or gallops. GASTROINTESTINAL: Bowel sounds present in all quadrants. Soft and nontender to palpation. MUSCULOSKELETAL: Examination of the left lower region shows several open wounds. One wound on the lateral aspect of the elbow does have mild erythema. The majority of erythema, however, appears over the lateral and posterior aspect of the proximal forearm. There is no tenderness to palpation or significant bogginess of the olecranon bursa. Flexion and extension of the elbow or wrist does not worsen the patient's discomfort. Distal pulses are intact with capillary refill less than 2 seconds. INTEGUMENTARY: No rash or other significant dermatologic conditions noted. NEUROLOGIC: No focal neurologic deficits noted. Left hand and fingers are sensory intact. Medical Decision & Procedures ER Provider Diagnostic Interpretation: My interpretation of left elbow x-rays does not show any obvious fractures, joint effusion or radiopaque foreign bodies. Radiologist report is as follows: LEFT ELBOW MIN 3 VIEWS ROUTINE CLINICAL HISTORY: L elbow cellulitis COMPARISON STUDY: None. FINDINGS: Soft tissue swelling at the posterior elbow/olecranon. No joint effusion. No fracture or dislocation within the left elbow. Tiny ossific density adjacent to the radial head favors an intra-articular loose body. Small calcifications at the common flexor and common extensor tendon attachment. This is consistent with calcific tendinitis. IMPRESSION: Posterior/olecranon soft tissue swelling consistent with a cellulitis/bursitis. No elbow effusion. Laboratory Results 12/25/16 11:20 Red Blood Count 4.48, Mean Corpuscular Volume 94.4, Mean Corpuscular Hemoglobin 32.6, Mean Corpuscular Hemoglobin Concent 34.5, Mean Platelet Volume 11.3, Neutrophils (%) (Auto) 78.8, Lymphocytes (%) (Auto) 14.0, Monocytes (%) (Auto) 3.9, Eosinophils (%) (Auto) 2.3, Basophils (%) (Auto) 0.4, Neutrophils # (Auto) 7.08, Lymphocytes # (Auto) 1.26, Monocytes # (Auto) 0.35, Eosinophils # (Auto) 0.21, Basophils # (Auto) 0.04 12/25/16 11:20 Test 12/25/16 11:20 White Blood Count 8.99 K/uL (4.8-10.8) Red Blood Count 4.48 M/uL (4.7-6.1) Hemoglobin 14.6 g/dL (14.0-18.0) Hematocrit 42.3 % (42-52) Mean Corpuscular Volume 94.4 fL (80-100) Mean Corpuscular Hemoglobin 32.6 pg (25-34) Mean Corpuscular Hemoglobin Concent 34.5 g/dl (32-36) Platelet Count 127 K/uL (130-400) Mean Platelet Volume 11.3 fL (7.4-10.4) Neutrophils (%) (Auto) 78.8 % Lymphocytes (%) (Auto) 14.0 % Monocytes (%) (Auto) 3.9 % Eosinophils (%) (Auto) 2.3 % Basophils (%) (Auto) 0.4 % Neutrophils # (Auto) 7.08 K/uL (1.4-6.5) Lymphocytes # (Auto) 1.26 K/uL (1.2-3.4) Monocytes # (Auto) 0.35 K/uL (0.11-0.59) Eosinophils # (Auto) 0.21 K/uL (0-0.5) Basophils # (Auto) 0.04 K/uL (0-0.2) RDW Standard Deviation 51.6 fL (36.4-46.3) RDW Coefficient of Variation 15.0 % (11.5-14.5) Immature Granulocyte % (Auto) 0.6 % Immature Granulocyte # (Auto) 0.05 K/uL (0.00-0.02) Prothrombin Time 14.6 SECONDS (9.0-12.0) Prothromb Time International Ratio 1.3 (0.9-1.1) Anion Gap 9.0 mmol/L (3-11) Est Creatinine Clear Calc Drug Dose 59.7 ml/min Estimated GFR () 58.2 Estimated GFR (Non- 50.2 BUN/Creatinine Ratio 14.1 (10-20) Calcium Level 8.7 mg/dl (8.5-10.1) The above labs were reviewed and were grossly unremarkable. Glucose is 157. The patient has no leukocytosis. Medications Administered Medications (Trade) Dose Ordered Sig/Joao Route Start Time Stop Time Status Last Admin Dose Admin Ceftriaxone Sodium (Rocephin Inj) 1 gm NOW STAT IV 12/25/16 11:18 12/25/16 11:20 DC 12/25/16 11:31 1 GM Procedure IV antibiotics: Rocephin 1 g IV infusion ED Course Patient history and physical exam were performed. Nurse's notes were reviewed. Vital signs were reviewed and normal. The patient is afebrile. The patient does not appear in any acute distress. Clinical exam is concerning for a cellulitis of the left posterior elbow. IV access was established, and labs were drawn. The patient was administered Rocephin 1 g IV infusion. He refused any analgesics while in the emergency department. Review of labs did not show any significant leukocytosis. Blood glucose is elevated. I did have our Welfare Officer talk with the patient regarding a PCP. The patient was previously a patient at the [facility]. On his last visit, the physician recommended that the patient stop all of his heart medications and Coumadin. The patient was concerned, and called his affiliate marketing coordinator, Dr. Hernández and Josue Munguia PA-C who advised against doing so. At this point, the patient therefore does not have a PCP. The patient has been seen in the past by Dr. Herrera for a patella fracture. The patient reports that he was seen this morning by Dr. Goodman at Dr. Herrera's office, and was told that he would need a referral to be evaluated. The patient therefore came to the emergency department for treatment. The patient was scheduled to see MARELY Glaser in Dr. Asif's office tomorrow at 11:15 AM. The patient was also seen and examined by Dr. De Anda, ED attending physician, who agrees with ED workup and outpatient plan of care with oral Keflex antibiotics. The patient was advised that if he cannot be reevaluated by his assigned PCP or orthopedics within the next 48 hours, he should return to the emergency department for recheck. He was instructed to return to the emergency department sooner for any progressively worsening infection, fever or other concerns. The patient was happy with plan of care, and voiced understanding of all discharge instructions. Medical Decision Head Trauma Medication Reconcilliation Current Medication List: was personally reviewed by me Blood Pressure Screening Patient's blood pressure: Normal blood pressure Impression Primary Impression: Cellulitis of left elbow Additional Impression: long term care pharmacist (current) use of anticoagulants Departure Information Prescriptions Cephalexin Monohydrate (Keflex) 500 Mg Cap 500 MG PO QID for 7 Days, #28 CAP Prov: Nick Rush PA 12/25/16 Referrals No Doctor, Assigned (PCP) Patient Instructions My [facility] Problem Qualifiers
--- NOTE | 2016-12-25 13:13 | EMERGENCY ROOM VISIT NOTE ---
ED Visit Note First contact with patient: 11:01 The patient was seen and examined with Nick Rush PA-C. I agree with the history, physical and findings. Please see the note for disposition and details.
[2017-02-09] MEDS ORDERED: SPIR25TA PO (15:30)
[2017-02-09] MEDS ORDERED: ATOR-22 PO (15:30)
[2017-02-09] MEDS ORDERED: ALLO100T PO (15:30)
[2017-02-09] MEDS ORDERED: VITRON C PO (15:30)
[2017-02-09] MEDS ORDERED: MAGN400T6 PO (15:30)
[2017-02-09] MEDS ORDERED: SACU1TAB PO (15:30)
[2017-02-09] MEDS ORDERED: CHOL20007 PO (15:33)
[2017-02-09] MEDS ORDERED: SENN-65 PO (15:33)
[2017-02-09] MEDS ORDERED: SYMIN160 INH (15:33)
[2017-02-09] MEDS ORDERED: ASPI81TA28 PO (15:33)
[2017-02-09] MEDS ORDERED: MULT-506 PO (15:33)
[2017-02-09] MEDS ORDERED: VNTHFA/IN INH (15:33)
[2017-02-09] MEDS ORDERED: OXGN (15:40)
== END 2016-12-25 13:05 | disposition home or self-care (01) ==
LOC: C.EDB 10:50 → C.EDD 13:05
DX: L03.114 Cellulitis of left upper limb (principal); Z79.01 Long term (current) use of anticoagulants; E78.5 Hyperlipidemia, unspecified; K21.9 Gastro-esophageal reflux disease without esophagitis; Z86.718 Personal history of other venous thrombosis and embolism; I10 Essential (primary) hypertension; I42.9 Cardiomyopathy, unspecified; I27.2 Other secondary pulmonary hypertension; Z95.810 Presence of automatic (implantable) cardiac defibrillator; Z90.49 Acquired absence of other specified parts of digestive tract; Z82.49 Family history of ischemic heart disease and other diseases of the circulatory system; Z87.891 Personal history of nicotine dependence; Z79.899 Other long term (current) drug therapy

== ENCOUNTER 2016-12-27 11:10 | Emergency (ER) | payer OTHER ==
[~2016-12-27] VITALS: Ht 177.8 cm; Wt 108.9 kg
[~2016-12-27 11:10] MED LIST changes: -ALLO100T PO; -AMIO0.1T PO; +AMIO200T4 PO; -ASPI81TA28 PO; -BRIM0.15 OPB; +BRIM0.1S OPB; +CEPH500C PO; -CHOL20007 PO; +DMD20 PO; -FERR1TAB13 PO; -LPT40 PO; -MAGN400C2 PO; +METO-217 PO; -METO50TA7 PO; -MULTTAB58 PO; -NITR0.4S UT; +NTRGSL/4 UT; +OMEP40CA41 PO; -PRLSR20 PO; -SACU1TAB; -SENN1TAB PO; -SPR25 PO; -SYMIN160 INH; -TORS20TA2 PO; -VNTHFA/IN INH; -WARF2.5T8 PO
[2016-12-27 11:19] VITALS: TEMP 36.3; Ht 177.8 cm; Wt 108.9 kg
--- NOTE | 2016-12-27 12:09 | EMERGENCY ROOM VISIT NOTE ---
History Report prepared by Karina: Dina Oropeza Under the Supervision of: Dr. Glimar Grace M.D. First contact with patient: 11:54 Chief Complaint: WOUND INFECTION Stated Complaint: LEFT ELBOW Nursing Triage Summary: Left elbow pain with redness, swelling and warmth. Outlined from previous visit with extension. Seen here two days ago, was told to see a PCP, but can't get in until end of Dec. History of Present Illness The patient is a 71 year old male who presents to the Emergency Room with complaints of a persistent wound infection to his left elbow that began several days ago. He currently rates his discomfort as a 9/10 in severity. The patient states that he was evaluated in the emergency department on Sunday for persistent swelling and pain to his left arm. He states that he was placed on antibiotics. Per case management, the patient was set up with a primary care physician for Sunday, but notes that the patient cancelled the appointment. The patient states that he did not cancel the appointment and was not aware of any appointment. He states that he cannot get in to see his PCP until the end of December. The patient states that he has been chilled since his symptoms began. He states that he is on Coumadin. The patient denies any cough, cold, fever, abdominal pain, nausea or vomiting. Source of History: patient Onset: several days ago Position: elbow (left) Symptom Intensity: 9/10 Quality: other (wound infeciton) Timing: other (persistent) Associated Symptoms: + chills, No fevers, No cough, No nausea, No vomiting, No abdominal pain Note: Associated Symptoms: swelling and pain to left arm Review of Systems See HPI for pertinent positives and negatives. A total of ten systems were reviewed and were otherwise negative. Past Medical & Surgical Medical Problems: (1) Chronic combined systolic and diastolic CHF (congestive heart failure) (2) Dyslipidemia (3) Esophageal dysmotility (4) Frequent PVCs (5) GERD (gastroesophageal reflux disease) (6) History of DVT (deep vein thrombosis) (7) Hypertension (8) Non-ischemic cardiomyopathy (9) Nonischemic cardiomyopathy (10) Pulmonary HTN (11) Pulmonary hypertension (12) Severe mitral regurgitation (13) SOB (shortness of breath) Surgical Problems: (1) Appendectomy (2) H/O cardiac radiofrequency ablation (3) H/O colonoscopy (4) Hernia repair (5) History of implantable cardioverter-defibrillator (ICD) placement (6) Hx of cardiac cath (7) S/P cholecystectomy (8) S/P lumbar discectomy (9) S/P tendon repair (10) Shoulder surgery Family History CHF (congestive heart failure) FATHER Valvular heart disease MOTHER Social History Smoking Status: Never Smoker Alcohol Use: none Drug Use: none Marital Status: Housing Status: lives with significant other Current/Historical Medications Scheduled Amiodarone Hcl (Cordarone), 100 MG PO DAILY Brimonidine Tartrate (Alphagan P Oph), 1 DROP OPB TID Cephalexin Monohydrate (Keflex), 500 MG PO QID Digoxin (Digoxin), 0.125 MG PO MWF Levothyroxine Sodium (Levothyroxine Sodium), 25 MCG PO QAM Metoprolol Succinate (Toprol Xl), 50 MG PO BID Nitroglycerin (Nitrostat), 0.4 MG UT PRN Omeprazole (Prilosec), 40 MG PO DAILY Sacubitril-Valsartan (Entresto 24-26 mg), 2 TABS PO BID Sulfamethoxazole-Trimethoprim (Smz-Tmp Ds), 2 TAB PO BID Torsemide (Torsemide), 20 MG PO BID Warfarin Sod (Jantoven), 5 MG PO UD Warfarin Sod (Jantoven), 2.5 MG PO UD Scheduled PRN Tramadol (Ultram), 50 MG PO UD PRN for Pain Allergies Coded Allergies: Promethazine (Verified Adverse Reaction, Intermediate, DELIRIUM, 12/27/16) pt was confused after getting pheneargan Physical Exam Vital Signs Date Time Temp Pulse Resp B/P (MAP) Pulse Ox O2 Delivery O2 Flow Rate FiO2 12/27/16 14:38 68 18 118/74 96 12/27/16 11:19 36.3 71 20 112/73 94 Room Air Physical Exam GENERAL: Awake, alert, well-appearing, in no distress HENT: Normocephalic, atraumatic. Oropharynx unremarkable. EYES: Normal conjunctiva. Sclera non-icteric. NECK: FROM. No JVD. RESPIRATORY: Clear to auscultation. CARDIAC: Regular rate, normal rhythm. Extremities warm and well perfused. Pulses equal. ABDOMEN: Soft, non-distended. No tenderness to palpation. No rebound or guarding. No masses. RECTAL: Deferred. MUSCULOSKELETAL: Chest examination reveals no tenderness. The back is symmetrical on inspection without obvious abnormality. There is no CVA tenderness to palpation. Mild edema in the proximal aspect of his left dorsal forearm with some induration, no fluctuance, mild warmth. Passive range of motion does not cause pain, distal pulses intact. LOWER EXTREMITIES: Calves are equal size bilaterally and non-tender. No edema. No discoloration. NEURO: Normal sensorium. No sensory or motor deficits noted. SKIN: No rash or jaundice noted. Medical Decision & Procedures ER Provider Diagnostic Interpretation: Bedside US EM ultrasound: +cobblestoning c/w cellulitis, no discrete fluid collection. Laboratory Results 12/27/16 12:22 Red Blood Count 4.30, Mean Corpuscular Volume 93.5, Mean Corpuscular Hemoglobin 32.8, Mean Corpuscular Hemoglobin Concent 35.1, Mean Platelet Volume 11.0, Neutrophils (%) (Auto) 75.9, Lymphocytes (%) (Auto) 13.1, Monocytes (%) (Auto) 7.3, Eosinophils (%) (Auto) 2.4, Basophils (%) (Auto) 0.6, Neutrophils # (Auto) 6.12, Lymphocytes # (Auto) 1.06, Monocytes # (Auto) 0.59, Eosinophils # (Auto) 0.19, Basophils # (Auto) 0.05 12/27/16 12:22 Test 12/27/16 12:22 White Blood Count 8.07 K/uL (4.8-10.8) Red Blood Count 4.30 M/uL (4.7-6.1) Hemoglobin 14.1 g/dL (14.0-18.0) Hematocrit 40.2 % (42-52) Mean Corpuscular Volume 93.5 fL (80-100) Mean Corpuscular Hemoglobin 32.8 pg (25-34) Mean Corpuscular Hemoglobin Concent 35.1 g/dl (32-36) Platelet Count 128 K/uL (130-400) Mean Platelet Volume 11.0 fL (7.4-10.4) Neutrophils (%) (Auto) 75.9 % Lymphocytes (%) (Auto) 13.1 % Monocytes (%) (Auto) 7.3 % Eosinophils (%) (Auto) 2.4 % Basophils (%) (Auto) 0.6 % Neutrophils # (Auto) 6.12 K/uL (1.4-6.5) Lymphocytes # (Auto) 1.06 K/uL (1.2-3.4) Monocytes # (Auto) 0.59 K/uL (0.11-0.59) Eosinophils # (Auto) 0.19 K/uL (0-0.5) Basophils # (Auto) 0.05 K/uL (0-0.2) RDW Standard Deviation 50.9 fL (36.4-46.3) RDW Coefficient of Variation 14.9 % (11.5-14.5) Immature Granulocyte % (Auto) 0.7 % Immature Granulocyte # (Auto) 0.06 K/uL (0.00-0.02) Prothrombin Time 13.2 SECONDS (9.0-12.0) Prothromb Time International Ratio 1.2 (0.9-1.1) Anion Gap 7.0 mmol/L (3-11) Est Creatinine Clear Calc Drug Dose 69.8 ml/min Estimated GFR () 70.1 Estimated GFR (Non- 60.5 BUN/Creatinine Ratio 14.9 (10-20) Calcium Level 8.9 mg/dl (8.5-10.1) Laboratory results reviewed by me Medications Administered Medications (Trade) Dose Ordered Sig/Joao Route Start Time Stop Time Status Last Admin Dose Admin Trimethoprim/ Sulfamethoxazole (Septra Ds 800/ 160MG Tab) 2 tab NOW STAT PO 12/27/16 13:45 12/27/16 13:47 DC 12/27/16 14:28 2 TAB ED Course 1158: The patient was evaluated in room B11B. A complete history and physical exam was performed. 1335: I did an ultrasound on the patients elbow at this time. See diagnostic testing for further detail. I discussed all the exam findings with him and I discussed the treatment plan. He verbalized complete understanding and agreement. He is ready to go home shortly. 1345: Ordered Trimethoprim/Sulfamethoxazole 2 tab PO. Medical Decision Triage Nursing notes reviewed. The patient's presentation and history were concerning for Bursitis, infectious bursitis, hematoma, septic joint, cellulitis. I reviewed the patient's past medical history, medications, and the nursing notes as described above. She is a 71-year-old gentleman with a past medical history of CHF, CAD, DVT on Coumadin who presents to emergency department with worsening left elbow pain and swelling after being seen in the emergency department several days ago for the same for history of present illness. The patient is in no acute distress. Afebrile stable vital signs. Examination patient has mild edema, erythema, warmth around the left elbow predominantly at the dorsal proximal forearm. WBC within normal limits. INR subtherapeutic 1.2. Bedside ultrasound shows cobblestoning consistent with cellulitis however no discrete fluid collection concerning for abscess or discrete bursa fluid collection for aspiration. Findings and plan additional antibiotic coverage with Bactrim and for follow-up with PCP tomorrow d/w patient. Patient agreeable and d/c'd per discharge instructions. Medication Reconcilliation Current Medication List: was personally reviewed by me Blood Pressure Screening Patient's blood pressure: Normal blood pressure Blood pressure disposition: Did not require urgent referral Impression Primary Impression: Cellulitis Scribe Attestation The scribe's documentation has been prepared under my direction and personally reviewed by me in its entirety. I confirm that the note above accurately reflects all work, treatment, procedures, and medical decision making performed by me. Departure Information Dispostion Home / Self-Care Prescriptions Sulfamethoxazole-Trimethoprim (SMZ-TMP DS) 1 Tab Tab 2 TAB PO BID for 7 Days, #28 TAB Prov: Gilmar Grace M.D. 12/27/16 Referrals No Doctor, Assigned (PCP) Forms HOME CARE DOCUMENTATION FORM, IMPORTANT VISIT INFORMATION, WORK / SCHOOL INSTRUCTIONS Patient Instructions Cellulitis - [facility], Cellulitis [place], My [facility] Additional Instructions Please follow up with your primary care physician tomorrow, you will be seen by Trish Sher, as scheduled at 9:15 AM for reevaluation. Otherwise, your exam, lab results, and bedside ultrasound did not show signs of an emergent condition at this time. Continue your current antibiotic as prescribed and also begin your new antibiotic. You should also discussed with your doctor your Coumadin level which is below therapeutic range. Return to the emergency department for worsening symptoms as described in the accompanying instructions.
[2016-12-27] MEDS ORDERED: WARF5TAB7 PO (12:41)
[2016-12-27 12:42] LABS: BASO % 0.6 %; BASO ABS # 0.05 K/uL (0-0.2); COMPLETE YES; EOS % 2.4 %; HEMATOCRIT 40.2 % (42-52); IG% 0.7 %; LYMPH % 13.1 %; LYMPH ABS # 1.06 K/uL (1.2-3.4); MEAN CELL VOLUME 93.5 fL (80-100); MEAN CORPUSCULAR HEMOGLOBIN 32.8 pg (25-34); MEAN CORPUSCULAR HGB CONC 35.1 g/dl (32-36); MONO % 7.3 %; NEUT % 75.9 %; PLATELET COUNT 128 K/uL (130-400); WHITE BLOOD COUNT 8.07 K/uL (4.8-10.8)
[2016-12-27 12:47] LABS: INR 1.2 (0.9-1.1); PROTHROMBIN TIME (PATIENT) 13.2 SECONDS (9.0-12.0)
[2016-12-27 13:01] LABS: BUN/CREATININE RATIO 14.9 (10-20); CALCIUM 8.9 mg/dl (8.5-10.1); CREATININE 1.2 mg/dl (0.60-1.40); POTASSIUM 4.4 mmol/L (3.5-5.1)
[2016-12-27] MEDS ORDERED: SULF-183 PO (13:44)
[2016-12-27] MEDS ORDERED: SULFAMETHOXAZOLE/TRIMETHOPRIM DS 800/160MG TAB PO STA (13:45)
[2016-12-27 14:38] VITALS: BP 118/74; PULSE 68; O2SAT 96
[2017-02-09] MEDS ORDERED: SACU1TAB PO (15:30)
[2017-02-09] MEDS ORDERED: ALLO100T PO (15:30)
[2017-02-09] MEDS ORDERED: ATOR-22 PO (15:30)
[2017-02-09] MEDS ORDERED: VITRON C PO (15:30)
[2017-02-09] MEDS ORDERED: MAGN400T6 PO (15:30)
[2017-02-09] MEDS ORDERED: SPIR25TA PO (15:30)
[2017-02-09] MEDS ORDERED: CHOL20007 PO (15:33)
[2017-02-09] MEDS ORDERED: SYMIN160 INH (15:33)
[2017-02-09] MEDS ORDERED: ASPI81TA28 PO (15:33)
[2017-02-09] MEDS ORDERED: VNTHFA/IN INH (15:33)
[2017-02-09] MEDS ORDERED: MULT-506 PO (15:33)
[2017-02-09] MEDS ORDERED: SENN-65 PO (15:33)
[2017-02-09] MEDS ORDERED: OXGN (15:40)
== END 2016-12-27 14:41 | disposition home or self-care (01) ==
LOC: C.EDB 11:13
DX: L03.114 Cellulitis of left upper limb (principal); Z86.718 Personal history of other venous thrombosis and embolism; I25.10 Atherosclerotic heart disease of native coronary artery without angina pectoris; E78.5 Hyperlipidemia, unspecified; K21.9 Gastro-esophageal reflux disease without esophagitis; I11.0 Hypertensive heart disease with heart failure; I27.2 Other secondary pulmonary hypertension; Z82.49 Family history of ischemic heart disease and other diseases of the circulatory system; Z79.01 Long term (current) use of anticoagulants; Z79.899 Other long term (current) drug therapy

== ENCOUNTER → 2016-12-28 | Outpatient (CLI) | payer OTHER ==
[~2016-12-28] MED LIST changes: +ALLO100T PO; +ASPI81TA28 PO; +ATOR-22 PO; +CHOL20007 PO; +MAGN400T6 PO; +MULT-506 PO; +OXGN; +SENN-65 PO; +SPIR25TA PO; +SULF-183 PO; +SYMIN160 INH; +VITRON C PO; +VNTHFA/IN INH
== END | disposition home or self-care (01) ==
LOC: C.LAB1850 10:36
PROVIDERS: ATTEND Nurse Practitioner Adult Health
DX: M25.442 Effusion, left hand (principal)

== ENCOUNTER → 2017-01-29 | Outpatient (CLI) | payer OTHER ==
[~2017-01-29] MED LIST changes: -ALLO100T PO; -ASPI81TA28 PO; -ATOR-22 PO; -CEPH500C PO; -CHOL20007 PO; -MAGN400T6 PO; -MULT-506 PO; -OXGN; -SENN-65 PO; -SPIR25TA PO; -SULF-183 PO; -SYMIN160 INH; -VITRON C PO; -VNTHFA/IN INH
== END | disposition home or self-care (01) ==
LOC: C.CPL 11:08
PROVIDERS: ATTEND Orthopaedic Surgery
DX: M24.022 Loose body in left elbow (principal)

== ENCOUNTER → 2017-03-08 | Day surgery (SDC) | payer OTHER ==
[2017-02-09 15:34] VITALS: BMI 32.0
[2017-02-09 15:57] LABS: BASO % 0.9 %; BASO ABS # 0.05 K/uL (0-0.2); EOS % 2.3 %; EOS ABS # 0.13 K/uL (0-0.5); HEMATOCRIT 37.3 % (42-52); HEMOGLOBIN 12.8 g/dL (14.0-18.0); IG# 0.05 K/uL (0.00-0.02); LYMPH ABS # 1.15 K/uL (1.2-3.4); MEAN CELL VOLUME 93.7 fL (80-100); MEAN CORPUSCULAR HEMOGLOBIN 32.2 pg (25-34); MEAN CORPUSCULAR HGB CONC 34.3 g/dl (32-36); MEAN PLATELET VOLUME 10.6 fL (7.4-10.4); MONO % 5.4 %; MONO ABS # 0.31 K/uL (0.11-0.59); NEUT % 70.5 %; NEUT ABS # 4.06 K/uL (1.4-6.5); PLATELET COUNT 145 K/uL (130-400); RED CELL DISTRIBUTION WIDTH CV 14.7 % (11.5-14.5); RED CELL DISTRIBUTION WIDTH SD 50.9 fL (36.4-46.3); WHITE BLOOD COUNT 5.75 K/uL (4.8-10.8)
[2017-02-09 16:15] LABS: INR 2.7 (0.9-1.1); PTT PATIENT 39.7 SECONDS (21.0-31.0)
--- NOTE | 2017-02-09 16:25 | PAT Medication Instructions ---
Service Date Feb 09, 2017. Current Home Medication List Albuterol Hfa (Ventolin Hfa), 2 PUFFS INH Q6H PRN for PRN Allopurinol (Zyloprim), 100 MG PO 1400 Amiodarone Hcl (Cordarone), 100 MG PO 1400 Aspirin (Aspirin Ec), 81 MG PO QPM Atorvastatin (Lipitor), 20 MG PO QAM Brimonidine Tartrate (Alphagan P Oph), 1 DROP OPB TID Budesonide/Formoterol Fumarate (Symbicort 160/4.5 Inhaler ), 2 PUFFS INH BID Cholecalciferol (Vitamin D3), 4,000 UNITS PO QPM Digoxin (Digoxin), 0.125 MG PO MWF Home O2 Therapy (Oxygen), 4 LITERS NA PRN Levothyroxine Sodium (Levothyroxine Sodium), 25 MCG PO QAM Magnesium Oxide (Mag-Ox), 400 MG PO QPM Metoprolol Succinate (Toprol Xl), 50 MG PO BID Multivitamin (Multivitamin), 1 TAB PO QPM Nitroglycerin (Nitrostat), 0.4 MG UT PRN Omeprazole (Prilosec), 40 MG PO QAM Sacubitril-Valsartan (Entresto 24-26 mg), 1 TAB PO BID Senna/Docusate Sod (Senokot S), 1 TAB PO PRN Spironolactone (Aldactone), 12.5 MG PO 3XWEEK Torsemide (Torsemide), 20 MG PO BID Tramadol (Ultram), 50 MG PO UD PRN for Pain Warfarin Sod (Jantoven), 5 MG PO UD Warfarin Sod (Jantoven), 2.5 MG PO UD [Vitron C], 1 TAB PO QPM Medication Instructions For Your Scheduled Surgery -Continue as directed Home O2 Therapy (Oxygen), 4 LITERS NA PRN Nitroglycerin (Nitrostat), 0.4 MG UT PRN - Follow your surgeon and your prescriber's instructions for: Warfarin Sod (Jantoven), 5 MG PO UD Warfarin Sod (Jantoven), 2.5 MG PO UD Aspirin (Aspirin Ec), 81 MG PO QPM - Hold the following medications 24 hours prior to surgery (DO NOT TAKE THE NIGHT BEFORE OR THE MORNING OF THE SURGERY): Sacubitril-Valsartan (Entresto 24-26 mg), 1 TAB PO BID - Hold the following medications the morning of surgery: Senna/Docusate Sod (Senokot S), 1 TAB PO PRN Spironolactone (Aldactone), 12.5 MG PO 3XWEEK Torsemide (Torsemide), 20 MG PO BID Digoxin (Digoxin), 0.125 MG PO MWF (surgery is on a ) - Take the following medications the morning of surgery with a sip of water: Tramadol (Ultram), 50 MG PO UD PRN for Pain (if needed, can be taken up to 4 hours before the surgery) Omeprazole (Prilosec), 40 MG PO QAM Metoprolol Succinate (Toprol Xl), 50 MG PO BID Levothyroxine Sodium (Levothyroxine Sodium), 25 MCG PO QAM Budesonide/Formoterol Fumarate (Symbicort 160/4.5 Inhaler ), 2 PUFFS INH BID Atorvastatin (Lipitor), 20 MG PO QAM Albuterol Hfa (Ventolin Hfa), 2 PUFFS INH Q6H PRN for PRN (if needed, AND BRING WITH YOU THE DAY OF SURGERY) Brimonidine Tartrate (Alphagan P Oph), 1 DROP OPB TID - Take the following medications as scheduled the night before surgery: Metoprolol Succinate (Toprol Xl), 50 MG PO BID Multivitamin (Multivitamin), 1 TAB PO QPM Amiodarone Hcl (Cordarone), 100 MG PO 1400 Budesonide/Formoterol Fumarate (Symbicort 160/4.5 Inhaler ), 2 PUFFS INH BID [Vitron C], 1 TAB PO QPM Magnesium Oxide (Mag-Ox), 400 MG PO QPM Allopurinol (Zyloprim), 100 MG PO 1400 Albuterol Hfa (Ventolin Hfa), 2 PUFFS INH Q6H PRN for PRN (if needed) Brimonidine Tartrate (Alphagan P Oph), 1 DROP OPB TID Cholecalciferol (Vitamin D3), 4,000 UNITS PO QPM Senna/Docusate Sod (Senokot S), 1 TAB PO PRN If you have any questions please call us at [phone] or [phone] or [phone]
--- NOTE | 2017-02-09 17:00 | DIAGNOSTIC IMAGING REPORT ---
CHEST 2 VIEWS ROUTINE CLINICAL HISTORY: 71 years-old Male presenting with preoperative assessment. TECHNIQUE: PA and lateral views of the chest were obtained. COMPARISON: 08/15/2016. FINDINGS: Left-sided implanted cardiac defibrillator with leads to the right atrium, coronary sinus, and right ventricular apex. An additional lead may be epicardial along the superior left heart border. Atherosclerosis of aortic arch. Enlargement of the cardiac silhouette, unchanged. Lungs and pleural spaces clear. Mild anterior vertebral body height loss of a lower thoracic vertebral body. Cholecystectomy clips. IMPRESSION: 1. No acute cardiopulmonary disease. 2. Cardiomegaly with ICD. Electronically signed by: Akbar Grant M.D. 02/09/2017 4:58 PM Dictated Date/Time: 02/09/2017 4:56 PM
[2017-02-16 14:11] VITALS: Ht 177.8 cm; Wt 103.3 kg
[~2017-03-08] VITALS: Ht 177.8 cm; Wt 103.3 kg
[~2017-03-08] MED LIST changes: +ALLO100T PO; +ASPI81TA28 PO; +ATOR-22 PO; +CHOL20007 PO; +HYDR-5688 PO; +MAGN400T6 PO; +MULT-506 PO; +OXGN; +SENN-65 PO; +SPIR25TA PO; +SYMIN160 INH; +VITRON C PO; +VNTHFA/IN INH
== END | disposition home or self-care (01) ==
LOC: EDSTATUS 07:00 → C.PAT 11:54
PROVIDERS: ATTEND Orthopaedic Surgery
DX: M17.9 Osteoarthritis of knee, unspecified (principal); Z99.81 Dependence on supplemental oxygen; Z79.01 Long term (current) use of anticoagulants; Z95.810 Presence of automatic (implantable) cardiac defibrillator; Z79.82 Long term (current) use of aspirin; Z53.8 Procedure and treatment not carried out for other reasons

== ENCOUNTER 2017-04-11 12:52 | Emergency (ER) | payer OTHER ==
[~2017-04-11] VITALS: Ht 175.3 cm; Wt 103.9 kg
[2017-04-11 12:55] VITALS: TEMP 36.6; Ht 175.3 cm; Wt 103.9 kg
[2017-04-11 13:19] VITALS: O2SAT 92
[2017-04-11 13:43] LABS: BASO % 0.4 %; BASO ABS # 0.03 K/uL (0-0.2); COMPLETE YES; HEMATOCRIT 40.1 % (42-52); LYMPH % 15.3 %; LYMPH ABS # 1.03 K/uL (1.2-3.4); MEAN CELL VOLUME 92.2 fL (80-100); MEAN CORPUSCULAR HEMOGLOBIN 31.7 pg (25-34); MEAN CORPUSCULAR HGB CONC 34.4 g/dl (32-36); MEAN PLATELET VOLUME 10.8 fL (7.4-10.4); NEUT % 70.3 %; PLATELET COUNT 194 K/uL (130-400); RED BLOOD COUNT 4.35 M/uL (4.7-6.1); WHITE BLOOD COUNT 6.75 K/uL (4.8-10.8)
--- NOTE | 2017-04-11 13:46 | DIAGNOSTIC IMAGING REPORT ---
RIGHT KNEE 2 VIEWS HISTORY: fall, right knee pain COMPARISON: None. FINDINGS: The bones are osteopenic. No acute fracture or dislocation. Moderate to severe osteoarthritis at the lateral compartment of the knee. Large knee effusion. No radiopaque foreign bodies. IMPRESSION: 1. Large knee effusion. 2. No fracture or dislocation within the right knee. Electronically signed by: Jairo Fontaine M.D. 04/11/2017 1:45 PM Dictated Date/Time: 04/11/2017 1:43 PM
[2017-04-11 13:54] LABS: INR 2.5 (0.9-1.1); PARTIAL THROMBOPLASTIN RATIO 1.5; PROTHROMBIN TIME (PATIENT) 25.8 SECONDS (9.0-12.0)
[2017-04-11 14:03] LABS: ALT/SGPT 15 U/L (12-78); AST/SGOT 10 U/L (15-37); BLOOD UREA NITROGEN 12 mg/dl (7-18); BUN/CREATININE RATIO 11.6 (10-20); CALCIUM 8.5 mg/dl (8.5-10.1); CARBON DIOXIDE 27 mmol/L (21-32); CHLORIDE 107 mmol/L (98-107); CREATININE 1.03 mg/dl (0.60-1.40); GLUCOSE 141 mg/dl (70-99); MAGNESIUM 1.9 mg/dl (1.8-2.4); POTASSIUM 4.3 mmol/L (3.5-5.1); SODIUM 139 mmol/L (136-145)
--- NOTE | 2017-04-11 14:03 | DIAGNOSTIC IMAGING REPORT ---
CHEST ONE VIEW PORTABLE CLINICAL HISTORY: Fall. Weakness. Possible stroke. COMPARISON STUDY: Chest CT August 16, 2016 and chest radiograph February 09, 2017. FINDINGS: A left subclavian biventricular pacer/AICD is in place. Marked cardiomegaly is unchanged. There is no evidence of pulmonary edema. There is no consolidation. No pneumothorax or pleural effusion is present. IMPRESSION: No acute cardiopulmonary findings. Stable marked cardiomegaly. Electronically signed by: Toi Davies M.D. 04/11/2017 2:02 PM Dictated Date/Time: 04/11/2017 2:01 PM
--- NOTE | 2017-04-11 14:03 | DIAGNOSTIC IMAGING REPORT ---
CT HEAD WITHOUT CONTRAST (CT) CLINICAL HISTORY: syncope, weakness COMPARISON STUDY: 05/04/2013 TECHNIQUE: Axial CT of the brain is performed from the vertex to the skull base. IV contrast was not administered for this examination. A dose lowering technique was utilized adhering to the principles of ALARA. CT DOSE: 1459.56 mGycm FINDINGS: No intra or extra-axial mass lesions are visualized. There is no CT evidence of acute cortical infarction. There is no evidence of midline shift. There is no acute hemorrhage. No calvarial fractures are visualized. There are patchy white matter hypodensities likely on a small vessel basis. There are old bifrontal areas of infarction/encephalomalacia. There is no evidence of pathologic ventricular dilatation. There is no evidence of acute sinusitis IMPRESSION: 1. No acute intracranial findings 2. Chronic bifrontal encephalomalacia. Electronically signed by: Miguel Coats M.D. 04/11/2017 2:02 PM Dictated Date/Time: 04/11/2017 1:58 PM
[2017-04-11 14:14] LABS: ALKALINE PHOSPHATASE 100 U/L (45-117); CKMB/CK RATIO 1.2 (0-3.0); THYROID STIMULATING HORMONE 0.005 uIu/ml (0.300-4.500)
[2017-04-11 15:41] LABS: URINE APPEARANCE CLEAR (CLEAR); URINE BILIRUBIN NEG (NEG); URINE COLOR YELLOW; URINE NITRITE NEG (NEG); UROBILINOGEN NEG (NEG)
[2017-04-11 15:50] LABS: MANUAL MICROSCOPIC REQUIRED? NO; REVIEW REQ? NO
[2017-04-11 18:19] VITALS: BP 110/72; PULSE 92; O2SAT 94
--- NOTE | 2017-04-11 21:53 | EMERGENCY ROOM VISIT NOTE ---
History Report prepared by Karina: Cathryn Russell Under the Supervision of: Dr. Tj Torres M.D. First contact with patient: 13:01 Chief Complaint: TIA Stated Complaint: POSSIBLE STROKE Nursing Triage Summary: "They wanted me evaluated to see if I had a stroke yesterday" no symptoms at present time. I am stiff and sore because I fell. I take coumadin because I have a bad heart History of Present Illness The patient is a 71 year old male who presents to the Emergency Room with complaints of a possible TIA that occurred yesterday. The patient states that yesterday around lunch time, he experienced generalized weakness, causing him to fall. He notes that he does remember falling, he only remembers waking up on the floor. The patient states he has some discomfort and bruising, due to his fall. He notes that he scraped his knee and it has been hurting since the fall.The patient called his manager new product today, who suggested he come to the Emergency Department for further evaluation. He notes that he has a pacemaker and a [employer] defibrillator in place. The patient states he takes Coumadin and Aspirin. Pt denies headache, fevers, chills, diaphoresis, visual changes, neck pain, chest pain, breathing difficulties, nausea, vomiting, abdominal pain, back pain , melena, hematochezia, urinary symptoms, numbness, lymphadenopathy, rash, or other complaints. Source of History: patient Onset: yesterday Position: other (global ) Quality: other (possible TIA ) Timing: other (resolved) Review of Systems See HPI for pertinent positives and negatives. A total of ten systems were reviewed and were otherwise negative. Past Medical & Surgical Medical Problems: (1) Chronic combined systolic and diastolic CHF (congestive heart failure) (2) Dyslipidemia (3) Esophageal dysmotility (4) Frequent PVCs (5) GERD (gastroesophageal reflux disease) (6) History of DVT (deep vein thrombosis) (7) Hypertension (8) Non-ischemic cardiomyopathy (9) Nonischemic cardiomyopathy (10) Pulmonary HTN (11) Pulmonary hypertension (12) Severe mitral regurgitation (13) SOB (shortness of breath) Surgical Problems: (1) Appendectomy (2) H/O cardiac radiofrequency ablation (3) H/O colonoscopy (4) Hernia repair (5) History of implantable cardioverter-defibrillator (ICD) placement (6) Hx of cardiac cath (7) S/P cholecystectomy (8) S/P lumbar discectomy (9) S/P tendon repair (10) Shoulder surgery Family History CHF (congestive heart failure) FATHER Valvular heart disease MOTHER Social History Smoking Status: Never Smoker Alcohol Use: none Drug Use: none Marital Status: Housing Status: lives with significant other Current/Historical Medications Scheduled Allopurinol (Zyloprim), 100 MG PO 1400 Amiodarone Hcl (Cordarone), 100 MG PO 1400 Aspirin (Aspirin Ec), 81 MG PO QPM Atorvastatin (Lipitor), 20 MG PO QAM Brimonidine Tartrate (Alphagan P Oph), 1 DROP OPB TID Budesonide/Formoterol Fumarate (Symbicort 160/4.5 Inhaler ), 2 PUFFS INH BID Cholecalciferol (Vitamin D3), 4,000 UNITS PO QPM Digoxin (Digoxin), 0.125 MG PO MWF Home O2 Therapy (Oxygen), 4 LITERS NA PRN Levothyroxine Sodium (Levothyroxine Sodium), 25 MCG PO QAM Magnesium Oxide (Mag-Ox), 400 MG PO QPM Metoprolol Succinate (Toprol Xl), 50 MG PO BID Multivitamin (Multivitamin), 1 TAB PO QPM Nitroglycerin (Nitrostat), 0.4 MG UT PRN Omeprazole (Prilosec), 40 MG PO QAM Sacubitril-Valsartan (Entresto 24-26 mg), 1 TAB PO BID Senna/Docusate Sod (Senokot S), 1 TAB PO PRN Spironolactone (Aldactone), 12.5 MG PO 3XWEEK Torsemide (Torsemide), 20 MG PO BID Warfarin Sod (Jantoven), 5 MG PO UD Warfarin Sod (Jantoven), 2.5 MG PO UD [Vitron C], 1 TAB PO QPM Scheduled PRN Albuterol Hfa (Ventolin Hfa), 2 PUFFS INH Q6H PRN for PRN Hydrocodone/Acetaminophen 5MG/325MG ([place] 5MG/325MG), 1 TABLET PO Q6 PRN for Pain Tramadol (Ultram), 50 MG PO UD PRN for Pain Allergies Coded Allergies: Promethazine (Verified Adverse Reaction, Intermediate, DELIRIUM, 03/05/17) pt was confused after getting pheneargan Physical Exam Vital Signs Date Time Temp Pulse Resp B/P (MAP) Pulse Ox O2 Delivery O2 Flow Rate FiO2 04/11/17 18:19 92 18 110/72 94 04/11/17 17:42 76 18 119/71 95 Room Air 04/11/17 17:21 72 04/11/17 16:59 68 20 91/62 96 Room Air 04/11/17 15:07 62 18 107/50 95 Room Air 04/11/17 14:04 65 18 105/63 97 Room Air 04/11/17 13:19 92 Room Air 04/11/17 13:15 66 04/11/17 12:55 36.6 80 16 105/67 97 Room Air Physical Exam GENERAL: Awake, alert, tired appearing, no distress HENT: Normocephalic, atraumatic. TM's normal. Oropharynx unremarkable. EYES: PERRL. EOMI. Normal conjunctiva. Sclera non-icteric. NECK: Supple. No nuchal rigidity. FROM. No JVD or bruit. RESPIRATORY: CTA CARDIAC: RRR. No murmur. ABDOMEN: Soft, non distended. No tenderness to palpation. No rebound or guarding. No masses. RECTAL: Deferred. MUSCULOSKELETAL: Unremarkable. No edema. No discoloration. Gross motor strength symmetric. NEURO: Cranial nerves 2-12 grossly intact. Normal sensorium. No sensory or motor deficits noted. Speech normal. No pronator drift. Normal finger to nose. Normal heel to ferro. SKIN: No rash or jaundice noted. LYMPH: No adenopathy. LOWER EXTREMITIES: Right knee tenderness, mild bruising, and abrasions. Medical Decision & Procedures ER Provider Diagnostic Interpretation: Radiology results as stated below per my review and radiologist interpretation: RIGHT KNEE 2 VIEWS HISTORY: fall, right knee pain COMPARISON: None. FINDINGS: The bones are osteopenic. No acute fracture or dislocation. Moderate to severe osteoarthritis at the lateral compartment of the knee. Large knee effusion. No radiopaque foreign bodies. IMPRESSION: 1. Large knee effusion. 2. No fracture or dislocation within the right knee. Electronically signed by: Jairo Fontaine M.D. 04/11/2017 1:45 PM CHEST ONE VIEW PORTABLE CLINICAL HISTORY: Fall. Weakness. Possible stroke. COMPARISON STUDY: Chest CT August 16, 2016 and chest radiograph February 09, 2017. FINDINGS: A left subclavian biventricular pacer/AICD is in place. Marked cardiomegaly is unchanged. There is no evidence of pulmonary edema. There is no consolidation. No pneumothorax or pleural effusion is present. IMPRESSION: No acute cardiopulmonary findings. Stable marked cardiomegaly. Electronically signed by: Toi Davies M.D. 04/11/2017 2:[address] HEAD WITHOUT CONTRAST (CT) CLINICAL HISTORY: syncope, weakness COMPARISON STUDY: 05/04/2013 TECHNIQUE: Axial CT of the brain is performed from the vertex to the skull base. IV contrast was not administered for this examination. A dose lowering technique was utilized adhering to the principles of ALARA. CT DOSE: 1459.56 mGycm FINDINGS: No intra or extra-axial mass lesions are visualized. There is no CT evidence of acute cortical infarction. There is no evidence of midline shift. There is no acute hemorrhage. No calvarial fractures are visualized. There are patchy white matter hypodensities likely on a small vessel basis. There are old bifrontal areas of infarction/encephalomalacia. There is no evidence of pathologic ventricular dilatation. There is no evidence of acute sinusitis IMPRESSION: 1. No acute intracranial findings 2. Chronic bifrontal encephalomalacia. Electronically signed by: Miguel Coats M.D. 04/11/2017 2:02 PM Laboratory Results 04/11/17 13:15 Red Blood Count 4.35, Mean Corpuscular Volume 92.2, Mean Corpuscular Hemoglobin 31.7, Mean Corpuscular Hemoglobin Concent 34.4, Mean Platelet Volume 10.8, Neutrophils (%) (Auto) 70.3, Lymphocytes (%) (Auto) 15.3, Monocytes (%) (Auto) 9.0, Eosinophils (%) (Auto) 4.0, Basophils (%) (Auto) 0.4, Neutrophils # (Auto) 4.74, Lymphocytes # (Auto) 1.03, Monocytes # (Auto) 0.61, Eosinophils # (Auto) 0.27, Basophils # (Auto) 0.03 04/11/17 13:15 Test 04/11/17 00:00 04/11/17 13:15 Urine Color YELLOW Urine Appearance CLEAR (CLEAR) Urine pH 5.0 (4.5-7.5) Urine Specific [place] 1.020 (1.000-1.030) Urine Protein NEG (NEG) Urine Glucose (UA) NEG (NEG) Urine Ketones NEG (NEG) Urine Occult Blood NEG (NEG) Urine Nitrite NEG (NEG) Urine Bilirubin NEG (NEG) Urine Urobilinogen NEG (NEG) Urine Leukocyte Esterase NEG (NEG) White Blood Count 6.75 K/uL (4.8-10.8) Red Blood Count 4.35 M/uL (4.7-6.1) Hemoglobin 13.8 g/dL (14.0-18.0) Hematocrit 40.1 % (42-52) Mean Corpuscular Volume 92.2 fL (80-100) Mean Corpuscular Hemoglobin 31.7 pg (25-34) Mean Corpuscular Hemoglobin Concent 34.4 g/dl (32-36) Platelet Count 194 K/uL (130-400) Mean Platelet Volume 10.8 fL (7.4-10.4) Neutrophils (%) (Auto) 70.3 % Lymphocytes (%) (Auto) 15.3 % Monocytes (%) (Auto) 9.0 % Eosinophils (%) (Auto) 4.0 % Basophils (%) (Auto) 0.4 % Neutrophils # (Auto) 4.74 K/uL (1.4-6.5) Lymphocytes # (Auto) 1.03 K/uL (1.2-3.4) Monocytes # (Auto) 0.61 K/uL (0.11-0.59) Eosinophils # (Auto) 0.27 K/uL (0-0.5) Basophils # (Auto) 0.03 K/uL (0-0.2) RDW Standard Deviation 45.1 fL (36.4-46.3) RDW Coefficient of Variation 13.2 % (11.5-14.5) Immature Granulocyte % (Auto) 1.0 % Immature Granulocyte # (Auto) 0.07 K/uL (0.00-0.02) Prothrombin Time 25.8 SECONDS (9.0-12.0) Prothromb Time International Ratio 2.5 (0.9-1.1) Activated Partial Thromboplast Time 38.3 SECONDS (21.0-31.0) Partial Thromboplastin Ratio 1.5 Anion Gap 5.0 mmol/L (3-11) Est Creatinine Clear Calc Drug Dose 78.2 ml/min Estimated GFR () 84.3 Estimated GFR (Non- 72.7 BUN/Creatinine Ratio 11.6 (10-20) Calcium Level 8.5 mg/dl (8.5-10.1) Magnesium Level 1.9 mg/dl (1.8-2.4) Total Bilirubin 0.5 mg/dl (0.2-1) Direct Bilirubin 0.1 mg/dl (0-0.2) Aspartate Amino Transf (AST/SGOT) 10 U/L (15-37) Alanine Aminotransferase (ALT/SGPT) 15 U/L (12-78) Alkaline Phosphatase 100 U/L (45-117) Total Creatine Kinase 102 U/L (39-308) Creatine Kinase MB 1.2 ng/ml (0.5-3.6) Creatine Kinase MB Ratio 1.2 (0-3.0) Troponin I < 0.015 ng/ml (0-0.045) Total Protein 7.5 gm/dl (6.4-8.2) Albumin 3.1 gm/dl (3.4-5.0) Thyroid Stimulating Hormone (TSH) 0.005 uIu/ml (0.300-4.500) Free Thyroxine 2.14 ng/dl (0.80-1.60) Free Triiodothyronine 5.52 pg/ml (2.30-4.20) Laboratory results reviewed by me ECG Indication: other (possible TIA) Rate (beats per minute): 69 Findings: PVC, no acute ischemic change, paced rhythm Comparison ECG Date: no prior available ED Course 1309: The patient was evaluated in room C7. A complete history and physical exam was performed. 1450: I reevaluated the patient and he was resting comfortably. 1734: Discussed the patient's case. Dr. Orellana thinks that from a cardiac stand point things look well and recommends that the patient follows up in office. 1740: I reevaluated the patient. He ambulated and feels well. Discussed results and discharge instructions: He verbalized understanding and agreement. The patient is ready for discharge. Medical Decision Triage Nursing notes reviewed. The patient's presentation and history were concerning for weakness and possible syncope. Etiologies such as metabolic, infection, hypo/hyperglycemia, electrolyte abnormalities, cardiac sources, intracerebral event, toxicologic, neurologic, as well as others were entertained. The patient was evaluated. Clinically he was doing well. He had a nonfocal examination. He notes he was feeling better than yesterday. He notes no real prodrome prior to the event. He noted that his symptoms were very brief in duration although he was generally weak and felt kind of bruised after the fall. CT imaging of his head did not reveal any acute findings. The patient had an unremarkable chest x-ray. His pacemaker was interrogated and there was no evidence of any recent dysrhythmias or pacemaker malfunction. The patient had an unremarkable urinalysis.Monitoring did not reveal any issues in the emergency department. The patient was ambulated and did very well. I did consult with cardiology. As he has unremarkable laboratory testing and imaging with resolution of symptoms combined with the normal pacemaker interrogation it was felt that close follow-up in the office was reasonable. The patient feels very comfortable with this. He was provided a copy of his labs as he has an appointment with his risk management internship tomorrow. By the evaluation outlined above other emergent etiologies such as those listed in the differential, as well as others, were deemed relatively unlikely. The exact etiology of his symptoms is not obvious at this time but it does not appear to be stroke or a significant cardiac event. The patient is anticoagulated and had no pulmonary symptoms to suggest PE. The patient was educated about the findings as listed above. All questions were answered and the patient was pleased with the treatment. Return instructions were outlined and the patient was discharged in stable condition. The patient was referred to Cardiology for follow-up for a recheck of the current condition. Medication Reconcilliation Current Medication List: was personally reviewed by me Blood Pressure Screening Patient's blood pressure: Low blood pressure Blood pressure disposition: Did not require urgent referral Consults Time Called: 173 Consulting Physician: Dr. Orellana, [employer] Student Coordinator Returned Call: [phone] Discussed the patient's case. Dr. Orellana thinks that from a cardiac stand point things look well and recommends that the patient follows up in office. Impression Primary Impression: Syncope Scribe Attestation The scribe's documentation has been prepared under my direction and personally reviewed by me in its entirety. I confirm that the note above accurately reflects all work, treatment, procedures, and medical decision making performed by me. Departure Information Dispostion Home / Self-Care Referrals Trish Sher CRNP (PCP) Forms HOME CARE DOCUMENTATION FORM, IMPORTANT VISIT INFORMATION, WORK / SCHOOL INSTRUCTIONS Patient Instructions My [facility] [employer] Additional Instructions Continue current medications. Call your manager new product office tomorrow morning to set up a follow-up appointment. Follow-up with your kidney specialist as scheduled. Return to the ER for chest pain, headache, passing out, difficulty breathing, fevers, numbness, tingling, worsening of your condition, or as needed.
== END 2017-04-11 18:24 | disposition home or self-care (01) ==
LOC: C.EDB 12:53 → C.EDC 18:24
DX: R55 Syncope and collapse (principal); S80.01XA Contusion of right knee, initial encounter; S80.211A Abrasion, right knee, initial encounter; W19.XXXA Unspecified fall, initial encounter; I50.40 Unspecified combined systolic (congestive) and diastolic (congestive) heart failure; I27.20 Pulmonary hypertension, unspecified; I34.0 Nonrheumatic mitral (valve) insufficiency; Z82.49 Family history of ischemic heart disease and other diseases of the circulatory system; K21.9 Gastro-esophageal reflux disease without esophagitis; E78.5 Hyperlipidemia, unspecified; R03.1 Nonspecific low blood-pressure reading; Z95.0 Presence of cardiac pacemaker; Z86.718 Personal history of other venous thrombosis and embolism; Z79.82 Long term (current) use of aspirin; Z79.01 Long term (current) use of anticoagulants

== ENCOUNTER 2017-09-22 07:53 | Emergency (ER) | payer OTHER ==
[~2017-09-22 07:53] MED LIST changes: -HYDR-5688 PO
[2017-09-22 07:55] VITALS: TEMP 36.4; Ht 175.3 cm
[2017-09-22] MEDS ORDERED: OXYCODONE/ACETAMINOPHEN 5-325 TAB PO STA (08:15)
--- NOTE | 2017-09-22 08:22 | EMERGENCY ROOM VISIT NOTE ---
ED Visit Note First contact with patient: 08:03 CHIEF COMPLAINT: Left knee pain and swelling 2 days HISTORY OF PRESENT ILLNESS: Patient is a 77-year-old white male who presents the emergency department for evaluation of left knee pain and swelling. His symptoms started 2 days ago, he states after he was outside on his riding lawnmower for most of the day. 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 That evening, he noted that the knee became swollen. It was stiff and generally sore. He states that he applied ice, and took tramadol. He has had to use a cane for ambulation. He presently rates his discomfort a 9/10. He states that the pain radiates down into his calf and up into his medial thigh. He has a history of a left patellar fracture that was treated nonsurgically, he has also had multiple aspirations of the left knee and also states that he had a steroid injection in the bursa at one point. He has problems with both of his knees, but denies any other joint pain or swelling. No fever, chills or malaise. No unusual skin rashes. No recent tick bites. Patient is on warfarin for extensive cardiac history including atrial fibrillation, valvular heart disease, coronary artery disease and, and does have a history of DVT. He states that his last INR was checked about 2 weeks ago but he does not know the result. REVIEW OF SYSTEMS: Review of systems as per HPI. All other systems reviewed were negative. 10 systems reviewed. PMH: Electronic medical records are reviewed and summarized as above/below. See Problem List. SOCIAL HISTORY: Patient lives at home with his spouse. Retired. PHYSICAL EXAM: Vital Signs: Reviewed Nurse's notes. MENTAL STATUS: Patient is a pleasant well-appearing 71-year-old male who is awake and alert and in mild distress due to his knee pain. He is ambulatory with an antalgic gait using a cane. MUSCULOSKELETAL:Examination of the left knee notes moderate to large joint effusion, primarily suprapatellarly. The knee is globally tender to palpation, slightly warm although non-erythematous, non-cellulitic and not hot to the touch. He can extend fully, only flex to roughly 90 due to joint effusion. The patient has large, prominent varicosities noted the entire length of the left lower extremity, they are slightly tender to palpation in the medial thigh , across the medial aspect of the knee and into the proximal aspect of the calf. Calf itself is soft, but slightly tender. Trace pitting edema is noted in the pretibial area. In all, no overt cellulitic changes are appreciated. Skin is intact, no chronic venous stasis changes appreciated. Distal pulses are easily palpable. Left hip and ankle range of motion are full. EMERGENCY DEPARTMENT COURSE: The patient was seen and assessed as above. His old records were reviewed. His last INR was 1.7 on September 01. Old records also note that the patient sustained a left tibial plateau fracture in April 2016, not a patellar fracture as stated by him. Patient was medicated with 2 Percocet tablets orally. Left knee x-ray and left lower extremity ultrasounds were performed. X-rays noted marked degenerative changes and a joint effusion. Ultrasound noted a popliteal cyst, but no evidence for DVT. The patient was reassessed. He was made aware of the results of his diagnostic imaging studies. He did report good relief with the Percocet. Supportive care measures were discussed. Patient has had problems with joint effusions in the past, likely related to underlying osteoarthritis. The patient was wrapped with Dre wrap. He was given Percocet for pain. He is advised to follow-up with his established orthopedic surgeon for further care and evaluation. He may benefit from joint aspiration for symptomatic relief, but given his warfarin therapy it was felt that this would be best performed by orthopedics. He is established with Drs. Sher/Sharon/Rex and was advised to call them this week for follow-up. Differential diagnoses include sprain, osteoarthritis, synovitis, hemarthrosis, among others. DVT was felt to be less likely, and was excluded by ultrasound. Superficial thrombophlebitis was also considered. Medication reconciliation: I attest that I have personally reviewed the patient' s current medication list. Blood pressure screening : Patient was found to have low blood pressure on screening and does not require follow-up. Patient was reviewed in the [facility] Prescription Drug Monitoring Program, and there were no red flags noted. LEFT KNEE 3 VIEWS HISTORY: LEFT KNEE, PAIN AND SWELLING COMPARISON: Left knee 05/08/2016. FINDINGS: No acute fracture or dislocation. Chondrocalcinosis. Moderate knee effusion. No change in the small cortical defect seen within the medial femoral condyle measuring 6 mm. This is consistent with an osteochondral defect. No radiopaque foreign bodies. Old, healed medial tibial plateau fracture. IMPRESSION: 1. No acute fracture or dislocation within the left knee. 2. Moderate knee effusion. 3. No change in the 6 mm osteochondral defect at the medial femoral condyle. LEFT LOWER EXTREMITY VENOUS DOPPLER HISTORY: LEFT, EVAL DVT, LEG PAIN COMPARISON STUDY: None. FINDINGS: There is normal compressibility, flow, and augmentation within the left lower extremity deep venous system. Septated cystic lesion within the popliteal fossa measuring 8.2 x 3.2 x 2.2 cm. No associated color flow. This is consistent with a complex popliteal cyst. IMPRESSION: No DVT within the left lower extremity. Complex popliteal cyst. Problem List Medical Problems: (1) Chronic combined systolic and diastolic CHF (congestive heart failure) Permanent Comment: echo 05/03/16 - EF 27%, moderate - severe mitral regurgitation , grade I diastolic dysfunction Status: Chronic (2) Dyslipidemia Status: Chronic (3) Esophageal dysmotility Status: Chronic (4) Frequent PVCs Status: Chronic (5) GERD (gastroesophageal reflux disease) Status: Chronic (6) History of DVT (deep vein thrombosis) Status: Chronic (7) Hypertension Status: Chronic (8) Non-ischemic cardiomyopathy Status: Chronic (9) Nonischemic cardiomyopathy Permanent Comment: s/p AICD placement EF as low as 15% in the past, on echo 05/03/16 EF 27% Status: Chronic (10) Pulmonary HTN Permanent Comment: on echo from 10/2014 Status: Chronic (11) Pulmonary hypertension Status: Chronic (12) Severe mitral regurgitation Status: Chronic (13) Syncope Status: Resolved Surgical Problems: (1) Appendectomy Status: Chronic (2) H/O cardiac radiofrequency ablation Permanent Comment: 12/2014, for PVCs Status: Chronic (3) H/O colonoscopy Permanent Comment: with polypectomy Status: Chronic (4) Hernia repair Status: Chronic (5) History of implantable cardioverter-defibrillator (ICD) placement Permanent Comment: Biventricular ICD placed 05/07/2013, with revisions in 12/2013 and 01/2014 Status: Chronic (6) Hx of cardiac cath Permanent Comment: 01/2013- non obstructive CAD Status: Chronic (7) S/P cholecystectomy Status: Chronic (8) S/P lumbar discectomy Status: Chronic (9) S/P tendon repair Permanent Comment: for ruptured EPL Status: Chronic (10) Shoulder surgery Status: Chronic Current/Historical Medications Scheduled Allopurinol (Zyloprim), 100 MG PO 1400 Amiodarone Hcl (Cordarone), 100 MG PO 1400 Ascorbic Acid (Vitamin C), 1 TAB PO DAILY Aspirin (Aspirin Ec), 81 MG PO QPM Atorvastatin (Lipitor), 20 MG PO QAM Bimatoprost (Lumigan), 1 DROP OPB DAILY Budesonide/Formoterol Fumarate (Symbicort 160/4.5 Inhaler ), 2 PUFFS INH BID Cholecalciferol (Vitamin D3), 4,000 UNITS PO QPM Digoxin (Digoxin), 0.125 MG PO MWF Home O2 Therapy (Oxygen), 4 LITERS NA PRN Levothyroxine Sodium (Levothyroxine Sodium), 25 MCG PO QAM Magnesium Oxide (Mag-Ox), 400 MG PO QPM Metoprolol Succinate (Toprol Xl), 50 MG PO BID Multivitamin (Multivitamin), 1 TAB PO QPM Nitroglycerin (Nitrostat), 0.4 MG UT PRN Omeprazole (Prilosec), 40 MG PO QAM Sacubitril-Valsartan (Entresto 24-26 mg), 1 TAB PO BID Senna/Docusate Sod (Senokot S), 1 TAB PO PRN Spironolactone (Aldactone), 12.5 MG PO 3XWEEK Torsemide (Torsemide), 20 MG PO BID Warfarin Sod (Jantoven), 5 MG PO UD Warfarin Sod (Jantoven), 2.5 MG PO UD Scheduled PRN Albuterol Hfa (Ventolin Hfa), 2 PUFFS INH Q6H PRN for PRN Oxycodone/Acetaminophen 5MG/325MG (Percocet 5MG/325MG), 1-2 TABS PO Q4 PRN for Pain Tramadol (Ultram), 50 MG PO UD PRN for Pain Allergies Coded Allergies: Promethazine (Verified Adverse Reaction, Intermediate, DELIRIUM, 09/22/17) pt was confused after getting pheneargan Vital Signs Date Time Temp Pulse Resp B/P (MAP) Pulse Ox O2 Delivery O2 Flow Rate FiO2 09/22/17 10:19 66 89/49 96 Room Air 09/22/17 09:06 70 20 99/56 100 09/22/17 07:55 36.4 68 20 98/65 94 Room Air Medications Administered Medications (Trade) Dose Ordered Sig/Joao Route Start Time Stop Time Status Last Admin Dose Admin Oxycodone/ Acetaminophen (Percocet 5-325mg Tab) 2 tab NOW STAT PO 09/22/17 08:15 09/22/17 08:17 DC 09/22/17 08:22 2 TAB Departure Information Impression Primary Impression: Left knee pain Additional Impression: Effusion of left knee joint Prescriptions Oxycodone/Acetaminophen 5MG/325MG (PERCOCET 5MG/325MG) Tab 1-2 TABS PO Q4 Y for Pain, #20 TAB For Initial Treatment Prov: Ghislaine Luz PA 09/22/17 Referrals Trish Sher CRNP (PCP) Patient Instructions [facility] Additional Instructions DO NOT drive, drink alcohol, operate machinery, or perform dangerous activities today. You were given medications in the ER that can affect your ability to safely function or operate a vehicle. Percocet 5/325 mg: Take 1-2 pills every four hours as needed for breakthrough pain. Avoid alcohol, operating machinery or dangerous equipment, working on ladders or roofs, DRIVING, making important decisions, or situations where being under the influence may be dangerous. It is recommended to use an [id number] stool softener such as Colace, 100mg twice daily while taking this medication to avoid constipation. Read all the package inserts or medication information paperwork provided. If you have any questions or concerns call your primary provider, pharmacist or the ER for assistance. Ice compresses for 20 minutes at a time four times daily for 2-3 days. Use the cane as instructed. Rest and elevate your injury as discussed. Continue current medications. Return to the ER immediately for any numbness, tingling, severe pain, extreme swelling in the extremity or as needed. Follow up with [facility] next week for recheck of your knee pain. Problem Qualifiers Primary Impression: Left knee pain
--- NOTE | 2017-09-22 08:58 | DIAGNOSTIC IMAGING REPORT ---
LEFT KNEE 3 VIEWS HISTORY: LEFT KNEE, PAIN AND SWELLING COMPARISON: Left knee 05/08/2016. FINDINGS: No acute fracture or dislocation. Chondrocalcinosis. Moderate knee effusion. No change in the small cortical defect seen within the medial femoral condyle measuring 6 mm. This is consistent with an osteochondral defect. No radiopaque foreign bodies. Old, healed medial tibial plateau fracture. IMPRESSION: 1. No acute fracture or dislocation within the left knee. 2. Moderate knee effusion. 3. No change in the 6 mm osteochondral defect at the medial femoral condyle. Electronically signed by: Jairo Fontaine M.D. 09/22/2017 8:57 AM Dictated Date/Time: 09/22/2017 8:55 AM
--- NOTE | 2017-09-22 09:08 | DIAGNOSTIC IMAGING REPORT ---
LEFT LOWER EXTREMITY VENOUS DOPPLER HISTORY: LEFT, EVAL DVT, LEG PAIN COMPARISON STUDY: None. FINDINGS: There is normal compressibility, flow, and augmentation within the left lower extremity deep venous system. Septated cystic lesion within the popliteal fossa measuring 8.2 x 3.2 x 2.2 cm. No associated color flow. This is consistent with a complex popliteal cyst. IMPRESSION: No DVT within the left lower extremity. Complex popliteal cyst. Electronically signed by: Jairo Fontaine M.D. 09/22/2017 9:07 AM Dictated Date/Time: 09/22/2017 9:05 AM
[2017-09-22] MEDS ORDERED: BIMA0.01 OPB (09:13)
[2017-09-22] MEDS ORDERED: ASCO10003 PO (09:13)
[2017-09-22] MEDS ORDERED: OXYC-57 PO (09:52)
--- NOTE | 2017-09-22 10:09 | EMERGENCY ROOM VISIT NOTE ---
ED Visit Note First contact with patient: 10:03 The patient was seen and examined with lina. I agree with the history, physical and findings. Please see the note for disposition and details.
[2017-09-22 10:19] VITALS: BP 89/49; PULSE 66; O2SAT 96
== END 2017-09-22 10:33 | disposition home or self-care (01) ==
LOC: C.EDB 07:54
DX: M25.462 Effusion, left knee (principal); R03.1 Nonspecific low blood-pressure reading; I48.91 Unspecified atrial fibrillation; I50.40 Unspecified combined systolic (congestive) and diastolic (congestive) heart failure; I11.0 Hypertensive heart disease with heart failure; I25.10 Atherosclerotic heart disease of native coronary artery without angina pectoris; K21.9 Gastro-esophageal reflux disease without esophagitis; Z87.828 Personal history of other (healed) physical injury and trauma; Z86.718 Personal history of other venous thrombosis and embolism; Z79.01 Long term (current) use of anticoagulants; Z79.82 Long term (current) use of aspirin; Z79.899 Other long term (current) drug therapy

== ENCOUNTER 2018-10-02 10:15 | Inpatient (IN) ==
[2018-10-02 10:53] LABS: Basophils # (auto) 0.04 K/uL (0-0.2); Basophils % (auto) 0.5 %; Eosinophils # (auto) 0.07 K/uL (0-0.5); Eosinophils % (auto) 0.9 %; Hematocrit (blood only) 40.8 % (42-52); Hemoglobin 13.2 g/dL (14.0-18.0); Immature Granulocytes # (auto) 0.02 K/uL (0.00-0.02); Immature Granulocytes % (auto) 0.3 %; Lymphocytes # (auto) 0.95 K/uL (1.2-3.4); Mean Corpuscular Hgb Conc 32.4 g/dL (32-36); Mean Corpuscular Volume 88.5 fL (80-100); Mean Platelet Volume 12.4 fL (7.4-10.4); Monocytes # (auto) 0.62 K/uL (0.11-0.59); Monocytes % (auto) 7.8 %; Neutrophils # (auto) 6.21 K/uL (1.4-6.5); Neutrophils % (auto) 78.5 %; Platelet Count 165 K/uL (130-400); RDW Coefficient of Variation 17.5 % (11.5-14.5); RDW Standard Deviation 56.3 fL (36.4-46.3); Red Blood Count 4.61 M/uL (4.7-6.1); White Blood Count 7.91 K/uL (4.8-10.8)
--- NOTE | 2018-10-02 10:59 | XRay Report ---
XR chest 1V portable HISTORY: 72 years-old Male Dyspnea acute shortness of breath COMPARISON: Chest radiograph 09/21/2017 TECHNIQUE: Portable AP view of the chest FINDINGS: Cardiac silhouette is enlarged, unchanged. Stable positioning of left subclavian pacer/AICD. Mild pul monary vascular congestion. Mild blunting of the costophrenic angles without large pleural effusion. Minimal subsegmental bibasilar densities without pneumothorax. Degenerative changes of the shoulders and spine. IMPRESSION: 1. Cardiomegaly with pulmonary vascular congestion. 2. Suggestion of trace pleural effusions with mild bibasilar atelectasis. The above report was generated using voice recognition software. It may contain grammatical, syntax o r spelling errors. Electronically signed by: Arian Amador M.D. 10/02/2018 10:57 AM
[2018-10-02 11:01] LABS: Albumin Globulin Ratio 0.9 (0.9-2); Albumin Level 3.6 gm/dl (3.4-5.0); Bilirubin,Total 2.4 mg/dl (0.2-1); Calcium 9.5 mg/dl (8.5-10.1); Creatinine Clr Calc Pharmacy 35.5 ml/min; Est GFR (African American) 31.9; Est GFR (Non-African American) 27.5; Globulin 3.8 gm/dl (2.5-4.0); Magnesium 2.1 mg/dl (1.8-2.4); Potassium 4.6 mmol/L (3.5-5.1); Total Protein 7.4 gm/dl (6.4-8.2)
[2018-10-02 11:03] LABS: INR 1.3 (0.9-1.1); Partial Thromboplastin Ratio 0.9; Partial Thromboplastin Time 25.3 Seconds (21.0-31.0); Prothrombin Time 12.7 Seconds (9.0-12.0)
[2018-10-02 11:04] LABS: Troponin I 0.03 ng/ml (0-0.045)
--- NOTE | 2018-10-02 11:41 | CT Scan Report ---
HEAD CT NONCONTRAST CT DOSE: 729.78 mGycm HISTORY: syncope TECHNIQUE: Multiaxial CT images of the head were performed without the use of intravenous contrast. A utomated exposure control was utilized for this study. A dose lowering technique was utilized adheri ng to the principles of ALARA. Comparison: Head CT 04/11/2017. Findings: The paranasal sinuses and mastoid air cells are clear. The calvarium and skull base are int act. There is no mass, hematoma, midline shift, acute infarct. White matter hypodensity is nonspecifi c but suggestive of microvascular ischemic change. The ventricles and sulci demonstrate mild age-rela delfina involutional changes. Scattered areas of encephalomalacia seen within the frontal lobes and high convexities remain unchanged. This may be due to old trauma or old infarct. Impression: No significant change compared to the prior study. No acute intracranial abnormality. Electronically signed by: Jairo Fontaine M.D. 10/02/2018 11:40 AM
[2018-10-02] MEDS ORDERED: SODIUM CHLORIDE 0.9% 500 ML IV ONE ×3 (12:15→23:00)
--- NOTE | 2018-10-02 13:16 | History & Physical Report ---
Date of Service October 02, 2018 Assessment & Plan (1) Syncope: Syncope: CT head: No significant change compared to the prior study. No acute intracranial abnormality. Monitor in Telemetry for arrhythmia Check Orthostatics Received IV fluids in ED. Check ECHO Fall precautions Atrial Fib RVR H/O amiodarone induced lung toxicity Digoxin levels low Received IV cardizem en route to ER Missed his Morning meds Restart Metoprolol, Digoxin INR Subtherapeutic: 1.3 Continue Coumadin Heparin SQ till INR is therapeutic Cardiology consulted Acute Kidney Injury on CKD III Likely secondary to medications Hold home diuretics, JING/ARB Baseline Cr:1.4-1.5 Cr:2.29 Avoid nephro toxic agents Received IV fluids in ED Monitor renal function Dysphagia: H/O esophageal dysmotility Ongoing dysphagia since 1 year with both solids/liquids No Odynophagia Continue PPI Speech eval GI consulted Chronic systolic heart failure H/O Nonischemic cardiomyopathy H/O Severe Mitral regurgitation, Pulm.HTN ECHO on 03/26/19: EF: 20-25% Pacemaker interrogation done in ED unremarkable CXR:Cardiomegaly with pulmonary vascular congestion Clinically no signs of volume overload Diuretics/JING/ARB held due to MAXIM COPD Chronic Oxygen dependency--On 4 liters of Oxygen PRN No signs of exacerbation Continue home inhalers Nebs PRN Hypothyroidism: Continue levothyroxine Check TSH, Free T4 Prolonged QTC: Avoid QTC prolonging meds as able DVT Px: Coumadin Heparin SQ till INR is therapeutic Code Status Full Code Disposition: Monitor in Tele (2) MAXIM (acute kidney injury): (3) Dysphagia: History of Present Illness Chief Complaint: Dyspnea on exertion Syncope Primary Care Provider: Josue Munguia Patient is a 72-year-old male with 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 Patient is very poor historian. He also states having an episode of syncope--he states that he fell out of bed overnight when he was trying to go to the bathroom lost consciousness. Episode was unwitnessed. He currently does not remember any events of syncope. He denies any head trauma. Also denies any bowel bladder incontinence, tongue bite. He reports having dysphagia " food sticks" which has been ongoing since last 1 year. He has been drinking more fluids to help with swallowing. He denies any pain with swallowing. States solids or liquids can cause difficulty swallowing. He uses 4 L of supplemental oxygen as needed and currently has been using regularly due to difficulty breathing. He was found to be in A. fib RVR at the time of admission. He received IV Cardizem and fluids given by EMS which improved his heart rate. Denies any history of chest pain, SOB, palpitations, dizziness, pedal edema, cough, wheezing, fever, chills, head trauma, headache, weakness, numbness, change in vision, nausea, vomiting, abdominal pain, diarrhea, dysuria, hematuria. Allergies Allergy/AdvReac Type Severity Reaction Status Date / Time promethazine AdvReac Intermediate DELIRIUM Verified 10/02/18 10:57 Home Medications Home Medications Medication Instructions Recorded Confirmed Type albuterol sulfate 2 puff INHALATION Q6H PRN 09/21/18 10/02/18 History allopurinol 100 mg PO BID 09/21/18 10/02/18 History aspirin [Aspirin Low Dose] 81 mg PO DAILY 09/21/18 10/02/18 History atorvastatin 20 mg PO DAILY 09/21/18 10/02/18 History budesonide-formoterol [Symbicort] 2 puff INHALATION BID 09/21/18 10/02/18 History cholecalciferol (vitamin D3) 4,000 unit PO DAILY 09/21/18 10/02/18 History [Vitamin D3] digoxin [Digox] 125 mcg PO .Sun09/21/18 10/02/18 History levothyroxine 25 mcg PO DAILY 09/21/18 10/02/18 History magnesium oxide 400 mg PO DAILY 09/21/18 10/02/18 History metoprolol succinate 50 mg PO BID 09/21/18 10/02/18 History multivitamin 1 tab PO DAILY 09/21/18 10/02/18 History nitroglycerin 0.4 mg SUBLINGUAL DIRECTED 09/21/18 10/02/18 History omeprazole 40 mg PO DAILY 09/21/18 10/02/18 History sacubitril-valsartan 1 tab PO BID 09/21/18 10/02/18 History sennosides [senna] 8.6 mg PO BID 09/21/18 10/02/18 History spironolactone 12.5 mg PO .MON WED Sun09/21/18 10/02/18 History torsemide 20 mg PO DAILY 09/21/18 10/02/18 History warfarin [Jantoven] 5 mg PO DAILY 09/21/18 10/02/18 History Past Med/Surg History Medical History Chronic combined systolic and diastolic CHF (congestive heart failure) (Chronic) "echo 05/03/16 - EF 27%, moderate - severe mitral regurgitation, grade I diastolic dysfunction" On 11/22/14 15:23 Sharmaine Barton wrote "echo 10/2014 - EF 25-25%, severe mitral regurgitation, moderate tricuspid regurgitation" On 10/29/14 10:44 Rosalie Joseph wrote "EF 15-20%, grade III diastolic dysfunction, by echo 06/2014" On 10/29/14 10:34 Rosalie Joseph wrote "EF 15-20%" Nonischemic cardiomyopathy (Chronic) "s/p AICD placement EF as low as 15% in the past, on echo 05/03/16 EF 27%" On 11/22/14 15:22 Sharmaine Barton wrote "s/p AICD placement" On 10/29/14 10:54 Rosalie Joseph wrote "EF 15-20%, s/p ICD placement" On 10/29/14 10:44 Rosalie Joseph wrote On 10/29/14 10:35 Rosalie Joseph wrote "EF 15-20%" Severe mitral regurgitation (Chronic) On 10/29/14 10:44 Rosalie Joseph wrote "by echo 06/2014" Pulmonary hypertension (Chronic) Hypertension (Chronic) Frequent PVCs (Chronic) Dyslipidemia (Chronic) History of DVT (deep vein thrombosis) (Chronic) GERD (gastroesophageal reflux disease) (Chronic) Esophageal dysmotility (Chronic) Non-ischemic cardiomyopathy (Chronic) Pulmonary HTN (Chronic) "on echo from 10/2014" SOB (shortness of breath) Effusion of left knee joint (Acute) Left knee pain (Acute) Syncope (Resolved) Surgical History Hx of cardiac cath (Chronic) "01/2013- non obstructive CAD" History of implantable cardioverter-defibrillator (ICD) placement (Chronic) "Biventricular ICD placed 05/07/2013, with revisions in 12/2013 and 01/2014" On 10/29/14 10:33 Rosalie Juliusalicia wrote "05/07/2013" S/P cholecystectomy (Chronic) H/O colonoscopy (Chronic) "with polypectomy" S/P lumbar discectomy (Chronic) S/P tendon repair (Chronic) "for ruptured EPL" H/O cardiac radiofrequency ablation (Chronic) "12/2014, for PVCs" Family History Other Family history non-contributory Social History Preferred Language: Turkmen Communication Ability: Effective Travel Coordinator Required: No Beliefs That Will Affect Care: None marital status: Current Living Situation: Spouse current occupational status: retired Other Information That Helps Us Care for You: No Feels Safe at Home: Yes Safety Concerns: Feels Safe At This Time and Afraid for Self Smoking Status: Former smoker Hx Alcohol Use: No Hx Substance Use: No Review of Systems Review of Systems: All systems reviewed & are unremarkable except as noted in HPI & below Physical Exam Physical Exam: Physical Exam: Vitals signs as noted above General Appearance:Moderately built and nourished, no apparent distress Head: normocephalic, Atraumatic Eyes: normal inspection, EOMI Neck: supple, Trachea midline Respiratory/Chest: Normal breath sounds, CTA Cardiovascular: Irregularly Irregular, + murmur Abdomen/GI:Soft, Non tender, +abd hernia, Bowel sounds present Extremities/Musculoskelatal:normal inspection, Trace Pedal edema Neurologic/Psych:AAOX3, grossly no focal neurological deficits Skin: normal color, warm Results & Data Vital Signs (Past 12 Hours) Vital Signs Temp Pulse Pulse Resp BP BP Pulse Ox 10/02/18 12:59 110 H 24 95/56 L 96 06/05/19 11:45 98 H 18 79/55 L 98 10/02/18 10:44 98 10/02/18 10:15 37 C 102 H 24 80/56 L 98 Laboratory Results Short CBC 10/02/18 Range/Units 09:40 WBC 7.91 (4.8-10.8) K/uL Hgb 13.2 L (14.0-18.0) g/dL Hct 40.8 L (42-52) % Plt Count 165 (130-400) K/uL BMP 10/02/18 09:40 Sodium 141 Potassium 4.6 Chloride 108 H Carbon Dioxide 23 BUN 41 H Creatinine 2.29 H Glucose 117 H Calcium 9.5 Cardiac Enzymes 10/02/18 Range/Units 09:40 Troponin I 0.030 (0-0.045) ng/ml Liver Function 10/02/18 Range/Units 09:40 Total Bilirubin 2.4 H (0.2-1) mg/dl AST 33 (15-37) U/L ALT 40 (12-78) U/L Alkaline Phosphatase 111 (45-117) U/L Albumin 3.6 (3.4-5.0) gm/dl Diagnostic Findings CT head: No significant change compared to the prior study. No acute intracranial abnormality. CXR: 1. Cardiomegaly with pulmonary vascular congestion. 2. Suggestion of trace pleural effusions with mild bibasilar atelectasis. ECG Additional Comments: EKG: Ventricular paced rhythm, QTC :541 (1) Syncope Syncope type: unspecified Qualified Code(s): R55 - Syncope and collapse
--- NOTE | 2018-10-02 14:48 | Emergency Department Note ---
Entered by Aviva Lilly acting as a scribe for History of Present Illness General Chief complaint: Syncope Time Seen by Provider: 10/02/18 10:16 Source: patient Mode of arrival: EMS Limitations: no limitations History of Present Illness Onset (ago): hour(s) (0200) Location: head (syncope) Pain Consistency: + other (episode) Quality: + other (syncope) Associated symptoms: + shortness of breath, + syncope and + other (The patient complains of abdominal pain for 1 week. The patient denies rhinorrhea and diarrhea. ); no cough and no nausea/vomiting Treatments prior to arrival: other (Per EMS, the patient received 300 of fluid and 10 of Cardizem. ) The patient is a 72 year old male with a history of CHF, hypertension, atrial fibrillation, DVT, GERD, and ICD who presents to the ED via EMS with complaints of an episode of syncope that onset at 0200. Per nursing staff, the patient got up in the middle of the night to go bathroom and lost consciousness. He states that he does not remember this episode. The patient denies hitting his head. The patient reports that he has been increasingly short of breath for 2 weeks. The patient complains of abdominal pain for 1 week. The patient denies cough, rhi norrhea, nausea, vomiting, and diarrhea. Per EMS, the patient received 300 of fluid and 10mg of Cardizem. Home Medications Home Medications Medication Instructions Recorded Confirmed Type albuterol sulfate 2 puff INHALATION Q6H PRN 09/21/18 10/02/18 History allopurinol 100 mg PO BID 09/21/18 10/02/18 History aspirin [Aspirin Low Dose] 81 mg PO DAILY 09/21/18 10/02/18 History atorvastatin 20 mg PO DAILY 09/21/18 10/02/18 History budesonide-formoterol [Symbicort] 2 puff INHALATION BID 09/21/18 10/02/18 History cholecalciferol (vitamin D3) 4,000 unit PO DAILY 09/21/18 10/02/18 History [Vitamin D3] digoxin [Digox] 125 mcg PO .MON Sun09/21/18 10/02/18 History levothyroxine 25 mcg PO DAILY 09/21/18 10/02/18 History magnesium oxide 400 mg PO DAILY 09/21/18 10/02/18 History metoprolol succinate 50 mg PO BID 09/21/18 10/02/18 History multivitamin 1 tab PO DAILY 09/21/18 10/02/18 History nitroglycerin 0.4 mg SUBLINGUAL DIRECTED 09/21/18 10/02/18 History omeprazole 40 mg PO DAILY 09/21/18 10/02/18 History sacubitril-valsartan 1 tab PO BID 09/21/18 10/02/18 History sennosides [senna] 8.6 mg PO BID 09/21/18 10/02/18 History spironolactone 12.5 mg PO .MON Sun09/21/18 10/02/18 History torsemide 20 mg PO DAILY 09/21/18 10/02/18 History warfarin [Jantoven] 5 mg PO DAILY 09/21/18 10/02/18 History Allergies Allergy/AdvReac Type Severity Reaction Status Date / Time promethazine AdvReac Intermediate DELIRIUM Verified 10/02/18 10:57 Past Med/Surg History Medical History Chronic combined systolic and diastolic CHF (congestive heart failure) (Chronic) "echo 05/03/16 - EF 27%, moderate - severe mitral regurgitation, grade I diastolic dysfunction" On 11/22/14 15:23 Sharmaine Barton wrote "echo 10/2014 - EF 25-25%, severe mitral regurgitation, moderate tricuspid regurgitation" On 10/29/14 10:44 Rosalie Joseph wrote "EF 15-20%, grade III diastolic dysfunction, by echo 06/2014" On 10/29/14 10:34 Rosalie Joseph wrote "EF 15-20%" Nonischemic cardiomyopathy (Chronic) "s/p AICD placement EF as low as 15% in the past, on echo 05/03/16 EF 27%" On 11/22/14 15:22 Sharmaine Barton wrote "s/p AICD placement" On 10/29/14 10:54 Rosalie Joseph wrote "EF 15-20%, s/p ICD placement" On 10/29/14 10:44 Rosalie Joseph wrote On 10/29/14 10:35 Rosalie Joseph wrote "EF 15-20%" Severe mitral regurgitation (Chronic) On 10/29/14 10:44 Rosalie Joseph wrote "by echo 06/2014" Pulmonary hypertension (Chronic) Hypertension (Chronic) Frequent PVCs (Chronic) Dyslipidemia (Chronic) History of DVT (deep vein thrombosis) (Chronic) GERD (gastroesophageal reflux disease) (Chronic) Esophageal dysmotility (Chronic) Non-ischemic cardiomyopathy (Chronic) Pulmonary HTN (Chronic) "on echo from 10/2014" SOB (shortness of breath) Effusion of left knee joint (Acute) Left knee pain (Acute) Syncope (Resolved) Surgical History Hx of cardiac cath (Chronic) "01/2013- non obstructive CAD" History of implantable cardioverter-defibrillator (ICD) placement (Chronic) "Biventricular ICD placed 05/07/2013, with revisions in 12/2013 and 01/2014" On 10/29/14 10:33 Rosalie Joseph wrote "05/07/2013" S/P cholecystectomy (Chronic) H/O colonoscopy (Chronic) "with polypectomy" S/P lumbar discectomy (Chronic) S/P tendon repair (Chronic) "for ruptured EPL" H/O cardiac radiofrequency ablation (Chronic) "12/2014, for PVCs" Family History Other Family history non-contributory Social History marital status: Current Living Situation: Spouse current occupational status: retired Feels Safe at Home: Yes Smoking Status: Former smoker Review of Systems See HPI for pertinent positives & negatives. and A total of 10 systems reviewed and were otherwise negative Physical Exam Vital Signs Vital Signs - 24 hr 10/02/18 10:15 10/02/18 10:44 10/02/18 11:45 Temperature 37 C Temperature Source Oral Sepsis Recent Fever Within 48 Hours No Sepsis Action Taken by Nursing No Action Required Pulse Rate 102 H Pulse Rate [Left] 98 H Pulse Rhythm [Left] Irregular Pulse Strength [Left] Normal Respiratory Rate 24 18 Respiratory Effort / Characteristics Spontaneous Non-Labored Spontaneous Respiratory Depth Normal Normal Respiratory Pattern Regular Blood Pressure 80/56 L Blood Pressure [Right Arm] 79/55 L Blood Pressure Mean 64 Blood Pressure Mean [Right Arm] 63 Blood Pressure Position Lying Blood Pressure Position [Right Arm] Lying Pulse Oximetry 98 98 98 Oxygen Delivery Method Nasal Cannula Nasal Cannula Nasal Cannula Oxygen Flow Rate 2 2 2 10/02/18 12:59 Temperature Temperature Source Sepsis Recent Fever Within 48 Hours Sepsis Action Taken by Nursing Pulse Rate 110 H Pulse Rate [Left] Pulse Rhythm [Left] Pulse Strength [Left] Respiratory Rate 24 Respiratory Effort / Characteristics Respiratory Depth Respiratory Pattern Blood Pressure 95/56 L Blood Pressure [Right Arm] Blood Pressure Mean 69 Blood Pressure Mean [Right Arm] Blood Pressure Position Blood Pressure Position [Right Arm] Pulse Oximetry 96 Oxygen Delivery Method Nasal Cannula Oxygen Flow Rate 2 GENERAL: Sitting up in bed. Alert, chronically ill-appearing, well nourished, no acute distress, non-toxic HEAD: Normocephalic, atraumatic. EYE EXAM: Normal conjunctiva. OROPHARYNX: no exudate, no erythema, lips, buccal mucosa, and tongue normal and mucous membranes are moist NECK: supple, no nuchal rigidity, no adenopathy, non-tender CHEST: Pacemaker located in left upper chest wall. LUNGS: Clear to auscultation. Normal chest wall mechanics HEART: no murmurs, S1 normal and S2 normal ABDOMEN: abdomen soft, non-tender, normo-active bowel sounds, no masses, no rebound or guarding. BACK: Back is symmetrical on inspection and there is no deformity, no midline tenderness, no CVA tenderness. SKIN: no rashes and no bruising UPPER EXTREMITIES: upper extremities are grossly normal. LOWER EXTREMITIES: No pitting edema. NEURO EXAM: Normal sensorium, cranial nerves II-XII grossly intact, normal speech, no gross weakness of arms, no gross weakness of legs. Course 1020: Past medical records reviewed. The patient was evaluated in room B09. A complete history and physical examination was performed. 1235: The pacer has been resent for interrogation. 1236: I reviewed the patient's case with Dr. Reji Dodd. He will evaluate the patient for further management. 1323: I reviewed the patient's case with Dr. Ezra Leon - Cardiology. He recomm ends to not change anything at this point. Consultations Consultation #1: [id number]: I reviewed the patient's case with Dr. Mendoza Hospitalist Moncho Dodd. He will evaluate the patient for further management. Time: 12:36 Consultation #2: [id number]: I reviewed the patient's case with Dr. Ezra Leon - Cardiology. He recommends to not change anything at this point. Time: 13:23 Administered Medications Discontinued Medications Sodium Chloride (Nss) 500 mls @ 999 mls/hr IV .Q31M ONE Stop: 10/02/18 12:45 Last Infusion: 10/02/18 13:06 Dose: 0 mls/hr Documented by: [id number] Admin: 10/02/18 12:35 Dose: 999 mls/hr Documented by: [id number] Medical Decision Making Differential Diagnosis Differential diagnosis Vasovagal event, infection, hypoglycemia, electrolyte abnormalities, cardiac sources, intracerebral event, toxicologic, neurologic, as well as others etiologies were entertained. Medical Records Attestation: I reviewed the patient's medical records. Home Medications Current Medication List: was personally reviewed by me Laboratory Data Attestation: I reviewed the patient's lab results. Result diagrams: 10/02/18 09:40 10/02/18 09:40 Lab Results 10/02/18 10/02/18 10/02/18 Range/Units 09:40 09:40 09:40 WBC 7.91 (4.8-10.8) K/uL RBC 4.61 L (4.7-6.1) M/uL Hgb 13.2 L (14.0-18.0) g/dL Hct 40.8 L (42-52) % MCV 88.5 (80-100) fL MCH 28.6 (25-34) pg MCHC 32.4 (32-36) g/dL RDW Std Deviation 56.3 H (36.4-46.3) fL RDW Coeff of Amalia 17.5 H (11.5-14.5) % Plt Count 165 (130-400) K/uL MPV 12.4 H (7.4-10.4) fL Immature Gran % (Auto) 0.3 % Neut % (Auto) 78.5 % Lymph % (Auto) 12.0 % [place] % (Auto) 7.8 % Eos % (Auto) 0.9 % Baso % (Auto) 0.5 % Immature Gran # (Auto) 0.02 (0.00-0.02) K/uL Neut # (Auto) 6.21 (1.4-6.5) K/uL Lymph # (Auto) 0.95 L (1.2-3.4) K/uL [place] # (Auto) 0.62 H (0.11-0.59) K/uL Eos # (Auto) 0.07 (0-0.5) K/uL Baso # (Auto) 0.04 (0-0.2) K/uL PT 12.7 H (9.0-12.0) Seconds INR 1.3 H (0.9-1.1) APTT 25.3 (21.0-31.0) Seconds PTT Ratio 0.9 Sodium 141 (136-145) mmol/L Potassium 4.6 (3.5-5.1) mmol/L Chloride 108 H (98-107) mmol/L Carbon Dioxide 23 (21-32) mmol/L Anion Gap 11.0 (3-11) BUN 41 H (7-18) mg/dl Creatinine 2.29 H (0.6-1.4) mg/dl Est Cr Clr Drug Dosing 35.5 ml/min Est GFR ( Amer) 31.9 Est GFR (Non-Af Amer) 27.5 BUN/Creatinine Ratio 18.0 (10-20) Glucose 117 H (70-99) mg/dl Calcium 9.5 (8.5-10.1) mg/dl Magnesium 2.1 (1.8-2.4) mg/dl Total Bilirubin 2.4 H (0.2-1) mg/dl AST 33 (15-37) U/L ALT 40 (12-78) U/L Alkaline Phosphatase 111 (45-117) U/L Troponin I 0.030 (0-0.045) ng/ml Total Protein 7.4 (6.4-8.2) gm/dl Albumin 3.6 (3.4-5.0) gm/dl Globulin 3.8 (2.5-4.0) gm/dl Albumin/Globulin Ratio 0.9 (0.9-2) Digoxin (0.8-2.0) ng/ml 06/05/19 Range/Units 09:40 WBC (4.8-10.8) K/uL RBC (4.7-6.1) M/uL Hgb (14.0-18.0) g/dL Hct (42-52) % MCV (80-100) fL MCH (25-34) pg MCHC (32-36) g/dL RDW Std Deviation (36.4-46.3) fL RDW Coeff of Amalia (11.5-14.5) % Plt Count (130-400) K/uL MPV (7.4-10.4) fL Immature Gran % (Auto) % Neut % (Auto) % Lymph % (Auto) % [place] % (Auto) % Eos % (Auto) % Baso % (Auto) % Immature Gran # (Auto) (0.00-0.02) K/uL Neut # (Auto) (1.4-6.5) K/uL Lymph # (Auto) (1.2-3.4) K/uL [place] # (Auto) (0.11-0.59) K/uL Eos # (Auto) (0-0.5) K/uL Baso # (Auto) (0-0.2) K/uL PT (9.0-12.0) Seconds INR (0.9-1.1) APTT (21.0-31.0) Seconds PTT Ratio Sodium (136-145) mmol/L Potassium (3.5-5.1) mmol/L Chloride (98-107) mmol/L Carbon Dioxide (21-32) mmol/L Anion Gap (3-11) BUN (7-18) mg/dl Creatinine (0.6-1.4) mg/dl Est Cr Clr Drug Dosing ml/min Est GFR ( Amer) Est GFR (Non-Af Amer) BUN/Creatinine Ratio (10-20) Glucose (70-99) mg/dl Calcium (8.5-10.1) mg/dl Magnesium (1.8-2.4) mg/dl Total Bilirubin (0.2-1) mg/dl AST (15-37) U/L ALT (12-78) U/L Alkaline Phosphatase (45-117) U/L Troponin I (0-0.045) ng/ml Total Protein (6.4-8.2) gm/dl Albumin (3.4-5.0) gm/dl Globulin (2.5-4.0) gm/dl Albumin/Globulin Ratio (0.9-2) Digoxin 0.1 L (0.8-2.0) ng/ml Imaging Data Radiologist's Impression: Radiology results as stated below per my review and the radiologist's interpretation: XR chest 1V portable HISTORY: 72 years-old Male Dyspnea acute shortness of breath COMPARISON: Chest radiograph 09/21/2017 TECHNIQUE: Portable AP view of the chest FINDINGS: Cardiac silhouette is enlarged, unchanged. Stable positioning of left subclavian pacer/AICD. Mild pulmonary vascular congestion. Mild blunting of the costophrenic angles without large pleural effusion. Minimal subsegmental bibasilar densities without pneumothorax. Degenerative changes of the shoulders and spine. IMPRESSION: 1. Cardiomegaly with pulmonary vascular congestion. 2. Suggestion of trace pleural effusions with mild bibasilar atelectasis. The above report was generated using voice recognition software. It may contain grammatical, syntax or spelling errors. Electronically signed by: Arian Amador M.D. 10/02/2018 10:57 AM Dictated: 10/02/18 1056 Transcribed: 10/02/[address]AST CT DOSE: 729.78 mGycm HISTORY: syncope TECHNIQUE: Multiaxial CT images of the head were performed without the use of intravenous contrast. Automated exposure control was utilized for this study. A dose lowering technique was utilized adhering to the principles of ALARA. Comparison: Head CT 04/11/2017. Findings: The paranasal sinuses and mastoid air cells are clear. The calvarium and skull base are intact. There is no mass, hematoma, midline shift, acute infarct. White matter hypodensity is nonspecific but suggestive of microvascular ischemic change. The ventricles and sulci demonstrate mild age-related involutional changes. Scattered areas of encephalomalacia seen within the frontal lobes and high convexities remain unchanged. This may be due to old trauma or old infarct. Impression: No significant change compared to the prior study. No acute intracranial abnormality. Electronically signed by: Jairo Fontaine M.D. 10/02/2018 11:40 AM Dictated: 10/02/18 1134 Transcribed: 10/02/18 1134 ECG Data Attestation: I personally reviewed and interpreted this ECG as follows: Indication: syncope Rate (beats per minute): 99 Rhythm: atrial fibrillation Findings: + other (left axis deviation, nonspecific T wave depressions in the lateral and highlateral.) and + LBBB Comparison ECG Date: from (09/21/18) Change: no significant change (highlateral and lateral is old) Blood Pressure Blood Pressure Findings: Low blood pressure Blood Pressure Disposition: further management by hospitalist JEFFREY Narrative Patient is a 72-year-old male past medical history of nonischemic cardiomyopathy with CHF and pulmonary hypertension that presents the ER following a syncopal episode when he was getting up to go the bathroom at 2 AM in the morning. He denies any other complaints at this time with exception of feeling weak. Labs were obtained and showed no significant leukocytosis or anemia. INR was subtherapeutic at 1.3. BMP with a creatinine of 2.29 up from last month at 1.6 and a baseline of which appears to be around 1. LFTs and bilirubin show a T bili of 2.4. No transaminitis. Troponin was detectable but negative. Digoxin was low at 0.1. Chest x-ray shows mild congestive changes. Discussed with cardiology and the hospitalist. Will hold on any current med changes. Interrogation of pacemaker was unremarkable. Patient was given IV present 10 mg prior to arrival via EMS. Systolic blood pressures in the ER were in the low 80s to high 90s. Impression & Plan Syncope, MAXIM (acute kidney injury), Hypotension Discharge Plan Visit Data Chief Complaint: Syncope Other Complaint: Shortness of Breath/Dyspnea ED Provider: Fortino Willard Discharge Problem: Syncope, MAXIM (acute kidney injury), Hypotension Patient Disposition: Being Evaluated by Hospitalist Forms Stand Alone Forms: My [facility] Data Prescriptions Prescriptions: No Action multivitamin Tablet 1 tab PO DAILY RF: 0 sennosides [senna] 8.6 mg Tablet 8.6 mg PO BID RF: 0 atorvastatin 20 mg Tablet 20 mg PO DAILY RF: 0 torsemide 20 mg Tablet 20 mg PO DAILY RF: 0 metoprolol succinate 50 mg Tablet Extended Release 24 Hr 50 mg PO BID RF: 0 allopurinol 100 mg Tablet 100 mg PO BID RF: 0 omeprazole 40 mg Capsule,Delayed Release(Dr/Ec) 40 mg PO DAILY RF: 0 aspirin [Aspirin Low Dose] 81 mg Tablet,Delayed Release (Dr/Ec) 81 mg PO DAILY RF: 0 spironolactone 25 mg Tablet 12.5 mg PO .Sun RF: 0 levothyroxine 25 mcg Tablet 25 mcg PO DAILY RF: 0 warfarin [Jantoven] 5 mg Tablet 5 mg PO DAILY RF: 0 nitroglycerin 0.4 mg Tablet, Sublingual 0.4 mg sublingual DIRECTED RF: 0 digoxin [Digox] 125 mcg tablet 125 mcg PO .Sun RF: 0 albuterol sulfate 90 mcg/actuation Hfa Aerosol Inhaler 2 puff INHALATION Q6H PRN (Reason: Shortness Of Breath) RF: 0 Symbicort 160-4.5 mcg/actuation Hfa Aerosol Inhaler 2 puff INHALATION BID RF: 0 cholecalciferol (vitamin D3) [Vitamin D3] 2,000 unit Capsule 4,000 unit PO DAILY RF: 0 sacubitril-valsartan 24-26 mg Tablet 1 tab PO BID RF: 0 magnesium oxide 400 mg magnesium Tablet 400 mg PO DAILY RF: 0 Referrals Referrals: Josue Munguia [Primary Care Provider] - Discharge Problem: Syncope Qualifiers: Syncope type: unspecified Qualified Code(s): R55 - Syncope and collapse Hypotension Qualifiers: Hypotension type: unspecified hypotension type Qualified Code(s): I95.9 - Hypotension, unspecified The scribe's documentation has been prepared under my direction and personally reviewed by me in its entirety. I confirm that the note above accurately reflects all work, treatment, procedures, and medical decision making performed by me.
--- NOTE | 2018-10-02 16:21 | Cardiology Consultation ---
Date of Consultation October 02, 2018 Assessment & Plan (1) Nonischemic cardiomyopathy: (2) Systolic heart failure, ACC/AHA stage D: This patient has end-stage heart disease with dyspnea and shortness of breath with minimal activity. He has been treated extensively including evaluation at [facility] through the learning support specialist program. I do not believe that he is in extremis or in congestive heart failure. I think he is here today because he is having problems swallowing. (3) NYHA class 4 acute on chronic systolic heart failure: (4) Biventricular cardiac pacemaker in situ: (5) Dysphagia: At times during end-stage heart disease the heart becomes dilated and puts pressure on the esophagus and makes it difficult for patients to pass food. We will have the GI service see him for an evaluation. History of Present Illness History of Present Illness 72-year-old male patient follows with Josue Munguia and Dr. Ball through our office. He has a history of severe nonischemic cardiomyopathy diagnosed 6 to 7 years ago. His history is outlined as below. Recently he has been struggling with shortness of breath with minimal activity. He also has had difficulty swallowing and states that he has to drink a lot of water in order to get anything down through to his stomach. He has no history of esophagitis or GERD. No previous history of esophageal stricture. He does relate a history of previous back surgery in the when he had severe gastritis and peptic ulcer disease. He did have an EGD at that time. He has had no increased weight. In fact, he is actually lost about 30 pounds because he states that he has not been able to eat. He has had no lower extremity edema or increasing abdominal girth. Past Medical/Surgical History: 1. Idiopathic dilated nonischemic cardiomyopathy with LVEF initially 15% 2. January 31, 2013 diagnostic cardiac catheterization performed at [facility] by Dr. Slim Hernández DO demonstrated mild nonobstructive coronary disease (luminal irregularities only), moderate pulmonary hypertension, and elevated left ventricular filling pressures. 3. NYHA Class IIIb dyspnea 4. Status post BiV ICD implantation with diaphragmatic stimulation s/p left anterior thoracotomy for left ventricular lead placement on 01/26/14 with subsequent dislodgement requiring redo left ventricular lead with a bipolar system 02/23/14; moderate pericardial effusion was evacuated at that time. 5. No significant improvement in LV function s/p BiV implantation 6. Mitral regurgitation 7. Moderate pulmonary hypertension 8. Frequent PVCs. Repeat Holter monitor in June 2014 demonstrating very frequent (>21,000) PVC's. Status post 01/19/2015 successful catheter ablation of the unifocal premature ventricular systoles arising from the left ventricular outflow tract located anteriorly just below the aortic valve by Dr. Juan. 9. Symptomatic atrial fibrillation with a RVR, resultant acute decompensated heart failure exacerbation, status post October 2014 GABRIELE guided cardioversion and initiation of amiodarone therapy. Discontinuation of amiodarone therapy in January 2018 secondary to amiodarone induced pulmonary toxicity. 10. Mild sleep apnea with significant nocturnal hypoxemia. Intermittent noncompliance with CPAP and supplemental oxygen therapy. 11. Chronic kidney disease 12. Hypertension 13. Dyslipidemia 14. Laparoscopic cholecystectomy 15. Umbilical hernia repair 16. Lumbar discetomy 17. Appendectomy 18. Colonsocopy with cold force polypectomy on 01/05/14 Allergies Allergy/AdvReac Type Severity Reaction Status Date / Time promethazine AdvReac Intermediate DELIRIUM Verified 10/02/18 10:57 Home Medications Home Medications Medication Instructions Recorded Confirmed Type albuterol sulfate 2 puff INHALATION Q6H PRN 09/21/18 10/02/18 History allopurinol 100 mg PO BID 09/21/18 10/02/18 History aspirin [Aspirin Low Dose] 81 mg PO DAILY 09/21/18 10/02/18 History atorvastatin 20 mg PO DAILY 09/21/18 10/02/18 History budesonide-formoterol [Symbicort] 2 puff INHALATION BID 09/21/18 10/02/18 History cholecalciferol (vitamin D3) 4,000 unit PO DAILY 09/21/18 10/02/18 History [Vitamin D3] digoxin [Digox] 125 mcg PO .Sun09/21/18 10/02/18 History levothyroxine 25 mcg PO DAILY 09/21/18 10/02/18 History magnesium oxide 400 mg PO DAILY 09/21/18 10/02/18 History metoprolol succinate 50 mg PO BID 09/21/18 10/02/18 History multivitamin 1 tab PO DAILY 09/21/18 10/02/18 History nitroglycerin 0.4 mg SUBLINGUAL DIRECTED 09/21/18 10/02/18 History omeprazole 40 mg PO DAILY 09/21/18 10/02/18 History sacubitril-valsartan 1 tab PO BID 09/21/18 10/02/18 History sennosides [senna] 8.6 mg PO BID 09/21/18 10/02/18 History spironolactone 12.5 mg PO .MON WED Sun09/21/18 10/02/18 History torsemide 20 mg PO DAILY 09/21/18 10/02/18 History warfarin [Jantoven] 5 mg PO DAILY 09/21/18 10/02/18 History Patient History Medical History Chronic combined systolic and diastolic CHF (congestive heart failure) (Chronic) "echo 05/03/16 - EF 27%, moderate - severe mitral regurgitation, grade I diastolic dysfunction" On 11/22/14 15:23 Sharmaine Barton wrote "echo 10/2014 - EF 25-25%, severe mitral regurgitation, moderate tricuspid regurgitation" On 10/29/14 10:44 Rosalie Joseph wrote "EF 15-20%, grade III diastolic dysfunction, by echo 06/2014" On 10/29/14 10:34 Rosalie Joseph wrote "EF 15-20%" Nonischemic cardiomyopathy (Chronic) "s/p AICD placement EF as low as 15% in the past, on echo 05/03/16 EF 27%" On 11/22/14 15:22 Sharmaine Barton wrote "s/p AICD placement" On 10/29/14 10:54 Rosalie Joseph wrote "EF 15-20%, s/p ICD placement" On 10/29/14 10:44 Rosalie Joseph wrote On 10/29/14 10:35 Rosalie Joseph wrote "EF 15-20%" Severe mitral regurgitation (Chronic) On 10/29/14 10:44 Rosalie Joseph wrote "by echo 06/2014" Pulmonary hypertension (Chronic) Hypertension (Chronic) Frequent PVCs (Chronic) Dyslipidemia (Chronic) History of DVT (deep vein thrombosis) (Chronic) GERD (gastroesophageal reflux disease) (Chronic) Esophageal dysmotility (Chronic) Non-ischemic cardiomyopathy (Chronic) Pulmonary HTN (Chronic) "on echo from 10/2014" SOB (shortness of breath) Effusion of left knee joint (Acute) Left knee pain (Acute) Syncope (Resolved) Surgical History Hx of cardiac cath (Chronic) "01/2013- non obstructive CAD" History of implantable cardioverter-defibrillator (ICD) placement (Chronic) "Biventricular ICD placed 05/07/2013, with revisions in 12/2013 and 01/2014" On 10/29/14 10:33 Rosalie Opal wrote "05/07/2013" S/P cholecystectomy (Chronic) H/O colonoscopy (Chronic) "with polypectomy" S/P lumbar discectomy (Chronic) S/P tendon repair (Chronic) "for ruptured EPL" H/O cardiac radiofrequency ablation (Chronic) "12/2014, for PVCs" Family History Other Family history non-contributory Social History Preferred Language: Armenian Communication Ability: Effective Sales Representatives Required: No Beliefs That Will Affect Care: None marital status: Current Living Situation: Spouse current occupational status: retired Other Information That Helps Us Care for You: No Feels Safe at Home: Yes Safety Concerns: Feels Safe At This Time and Afraid for Self Smoking Status: Former smoker Hx Alcohol Use: No Hx Substance Use: No Review of Systems Review of Systems: All systems reviewed & are unremarkable except as noted in HPI & below Nothing additional Physical Exam Physical Exam: General: no acute distress and stated age Head: normocephalic, no masses, lesions, tenderness or abnormalities Eyes: conjunctiva are pink and non-injected, sclera clear Neck: supple, no adenopathy, no bruits, normal jugular venous pulse, no hepatojugular reflux Chest: normal shape and normal respiratory effort Lungs: clear to auscultation and percussion Cardiac Exam: - regular rate & rhythm, no murmurs gallops or rubs - normal S1, normal S2 Pulses: 2(+) throughout Abdomen: abdomen soft, non-tender, no abnormal masses and no hepatosplenomegaly Musculoskeletal: no gait disturbance, no joint inflammation, no deforming arthritis Extremities: no edema and no cyanosis Neuro: grossly normal exam Results & Data Vital Signs (Past 12 Hours) Vital Signs Temp Pulse Pulse Resp BP BP Pulse Ox 10/02/18 16:10 132 H 21 92 10/02/18 16:01 107 H 26 H 104/76 95 10/02/18 16:00 106 H 25 H 97 10/02/18 15:50 119 H 31 H 10/02/18 15:40 107 H 21 95 10/02/18 15:30 101 H 23 93/60 L 97 10/02/18 15:24 114 H 25 H 95/54 L 98 10/02/18 15:20 124 H 10/02/18 15:10 113 H 28 H 97 10/02/18 15:00 120 H 22 92 10/02/18 14:50 115 H 28 H 96 10/02/18 14:40 106 H 17 97 10/02/18 14:30 95 H 15 96 10/02/18 14:20 109 H 18 96 10/02/18 14:10 115 H 28 H 96 10/02/18 14:00 103 H 23 96 10/02/18 13:50 97 H 18 95 10/02/18 13:48 115 H 12 10/02/18 13:00 109 H 17 10/02/18 12:59 110 H 24 95/56 L 96 10/02/18 12:58 103 H 28 H 95/56 L 10/02/18 12:50 112 H 26 H 10/02/18 12:40 98 H 43 H 10/02/18 12:30 112 H 22 10/02/18 12:20 99 H 18 10/02/18 12:14 103 H 23 79/64 L 10/02/18 11:45 98 H 18 79/55 L 98 10/02/18 11:10 104 H 25 H 96 10/02/18 11:00 93 H 21 95 10/02/18 10:50 92 H 27 H 97 10/02/18 10:44 98 10/02/18 10:42 100 H 23 80/56 L 97 10/02/18 10:41 98 H 16 79/65 L 96 10/02/18 10:40 98 H 23 92 10/02/18 10:30 92 H 25 H 99 10/02/18 10:20 100 H 27 H 99 10/02/18 10:18 100 H 27 H 100 10/02/18 10:15 37 C 102 H 24 80/56 L 98 10/02/18 10:13 99 H 28 H 86/56 L 100 Laboratory Results Laboratory Results - last 24 hr 10/02/18 10/02/18 10/02/18 09:40 09:40 09:40 WBC 7.91 RBC 4.61 L Hgb 13.2 L Hct 40.8 L MCV 88.5 MCH 28.6 MCHC 32.4 RDW Std Deviation 56.3 H RDW Coeff of Amalia 17.5 H Plt Count 165 MPV 12.4 H Immature Gran % (Auto) 0.3 Neut % (Auto) 78.5 Lymph % (Auto) 12.0 [place] % (Auto) 7.8 Eos % (Auto) 0.9 Baso % (Auto) 0.5 Immature Gran # (Auto) 0.02 Neut # (Auto) 6.21 Lymph # (Auto) 0.95 L [place] # (Auto) 0.62 H Eos # (Auto) 0.07 Baso # (Auto) 0.04 PT 12.7 H INR 1.3 H APTT 25.3 PTT Ratio 0.9 Sodium 141 Potassium 4.6 Chloride 108 H Carbon Dioxide 23 Anion Gap 11.0 BUN 41 H Creatinine 2.29 H Est Cr Clr Drug Dosing 35.5 Est GFR ( Amer) 31.9 Est GFR (Non-Af Amer) 27.5 BUN/Creatinine Ratio 18.0 Glucose 117 H Calcium 9.5 Magnesium 2.1 Total Bilirubin 2.4 H AST 33 ALT 40 Alkaline Phosphatase 111 Troponin I 0.030 Total Protein 7.4 Albumin 3.6 Globulin 3.8 Albumin/Globulin Ratio 0.9 Digoxin 10/02/18 09:40 WBC RBC Hgb Hct MCV MCH MCHC RDW Std Deviation RDW Coeff of Amalia Plt Count MPV Immature Gran % (Auto) Neut % (Auto) Lymph % (Auto) [place] % (Auto) Eos % (Auto) Baso % (Auto) Immature Gran # (Auto) Neut # (Auto) Lymph # (Auto) [place] # (Auto) Eos # (Auto) Baso # (Auto) PT INR APTT PTT Ratio Sodium Potassium Chloride Carbon Dioxide Anion Gap BUN Creatinine Est Cr Clr Drug Dosing Est GFR ( Amer) Est GFR (Non-Af Amer) BUN/Creatinine Ratio Glucose Calcium Magnesium Total Bilirubin AST ALT Alkaline Phosphatase Troponin I Total Protein Albumin Globulin Albumin/Globulin Ratio Digoxin 0.1 L
[2018-10-02] MEDS ORDERED: ACETAMINOPHEN 325 MG TAB PO PRN (17:06)
[2018-10-02] MEDS ORDERED: NITROGLYCERIN SL 0.4 MG/TAB TAB SL PRN (17:06)
[2018-10-02] MEDS ORDERED: LEVALBUTEROL HCL 0.63 MG/3 ML NEB NEB PRN (17:06)
[2018-10-02] MEDS ORDERED: DIGOXIN 0.125 MG TAB PO ONE (17:06)
[2018-10-02] MEDS ORDERED: POLYETHYLENE (MIRALAX) 17 GM PACK PO PRN (17:06)
[2018-10-02] MEDS: LEVOTHYROXINE SODIUM 25 MCG TABLET PO SCH (17:39)
[2018-10-02] MEDS: METOPROLOL SUCC 50MG EXT REL TAB PO SCH ×3 (17:39→21:11)
[2018-10-02] MEDS: WARFARIN SOD 5 MG TAB PO SCH (18:35)
[2018-10-02 18:56] LABS: Appearance Urine Clear (Clear); Bacteria Urine Automated Negative (Negative); Bilirubin Urine Negative (Negative); Blood Urine Negative (Negative); Color Urine Yellow; Epithelial Cell Urine Auto 0-5 /lpf (0-5); Glucose Urine UA Negative (Negative); Ketones Urine Negative (Negative); Leukocyte Esterase Urine Negative (Negative); Nitrite Urine Negative (Negative); Protein Urine Trace (Negative); RBC Urine Automated 0-4 /hpf (0-4); Specific Gravity Urine 1.017 (1.000-1.030); Urobilinogen Urine Negative (Negative)
[2018-10-02] MEDS ORDERED: ALBUMIN 25% 50 ML IV ONE ×2 (20:31→21:42)
[2018-10-02] MEDS: SENNA 8.6 MG TAB PO SCH (20:58)
[2018-10-02] MEDS: ALLOPURINOL 100 MG TAB PO SCH (20:59)
[2018-10-02] MEDS: BUDESONIDE/FORMOTEROL FUMARATE 160/4.5 60 PUFFS/INHALER INH SCH (21:00)
[2018-10-02] MEDS: HEPARIN SOD 5,000 UNIT/0.5 ML VIAL SQ SCH (21:11)
[2018-10-02] MEDS ORDERED: DIGOXIN 250 MCG in SYRINGE 9 ML IV ONE (21:30)
[2018-10-03 02:16] LABS: Basophils # (auto) 0.04 K/uL (0-0.2); Basophils % (auto) 0.5 %; Eosinophils % (auto) 1.2 %; Hematocrit (blood only) 38.1 % (42-52); Hemoglobin 12.1 g/dL (14.0-18.0); Immature Granulocytes # (auto) 0.02 K/uL (0.00-0.02); Immature Granulocytes % (auto) 0.2 %; Lymphocytes # (auto) 1.15 K/uL (1.2-3.4); Lymphocytes % (auto) 14.3 %; Mean Corpuscular Hgb Conc 31.8 g/dL (32-36); Mean Corpuscular Volume 88.2 fL (80-100); Mean Platelet Volume 12.3 fL (7.4-10.4); Monocytes # (auto) 0.78 K/uL (0.11-0.59); Monocytes % (auto) 9.7 %; Neutrophils # (auto) 5.98 K/uL (1.4-6.5); Neutrophils % (auto) 74.1 %; Platelet Count 158 K/uL (130-400); RDW Coefficient of Variation 17.3 % (11.5-14.5); RDW Standard Deviation 55.8 fL (36.4-46.3); Red Blood Count 4.32 M/uL (4.7-6.1); White Blood Count 8.07 K/uL (4.8-10.8)
[2018-10-03 02:34] LABS: Calcium 8.6 mg/dl (8.5-10.1); Creatinine Clr Calc Pharmacy 30.3 ml/min; Est GFR (African American) 26.3; Est GFR (Non-African American) 22.7; Magnesium 2.1 mg/dl (1.8-2.4); Potassium 5.2 mmol/L (3.5-5.1)
[2018-10-03 02:37] LABS: INR 1.5 (0.9-1.1); Prothrombin Time 15.1 Seconds (9.0-12.0)
[2018-10-03 02:58] LABS: T4 Free Thyroxine 1.12 ng/dl (0.8-1.6)
[2018-10-03] MEDS: LEVOTHYROXINE SODIUM 25 MCG TABLET PO SCH (06:47)
[2018-10-03] MEDS: HEPARIN SOD 5,000 UNIT/0.5 ML VIAL SQ SCH ×3 (06:48→20:30)
[2018-10-03 06:49] LABS: BUN Creatinine Ratio 19.7 (10-20); Calcium 8.4 mg/dl (8.5-10.1); Creatinine Clr Calc Pharmacy 30.5 ml/min; Est GFR (African American) 26.5; Est GFR (Non-African American) 22.8; Potassium 5.3 mmol/L (3.5-5.1)
[2018-10-03] MEDS: CHOLECALCIFEROL 1,000 UNITS TAB PO SCH (07:51)
[2018-10-03] MEDS: MAGNESIUM OXIDE 400 MG TAB PO SCH (07:51)
[2018-10-03] MEDS: ALLOPURINOL 100 MG TAB PO SCH ×2 (07:51→20:30)
[2018-10-03] MEDS: SENNA 8.6 MG TAB PO SCH ×2 (07:52→20:30)
[2018-10-03] MEDS: PANTOprazole 40 MG TAB PO SCH (07:53)
[2018-10-03] MEDS: ASPIRIN 81 MG ECTAB PO SCH (07:53)
[2018-10-03] MEDS: METOPROLOL SUCC 50MG EXT REL TAB PO SCH ×2 (07:54→20:29)
[2018-10-03] MEDS: BUDESONIDE/FORMOTEROL FUMARATE 160/4.5 60 PUFFS/INHALER INH SCH ×2 (07:54→20:29)
[2018-10-03] MEDS: ATORVASTATIN 20 MG TAB PO SCH (07:54)
--- NOTE | 2018-10-03 09:21 | Gastrointestinal Consultation ---
Date of Consultation October 03, 2018 Assessment & Plan (1) Dysphagia: 72 year old male with history of CKD, HTN, dyslipidemia, AFIB, ischemic cardiomyopathy w/ EF 15 s/p biventricular pacer who presets through the ED w/ syncopal event, SOB admitted w/ afib in [facility] - GI asked to evaluate for dys phagia. This was last evaluated in 2014 endoscopically without any abnormality. He tolerated breakfast this AM. He is extremely high risk for endoscopic evaluation, I would recommend conservative management at this time. He is agreeable to [facility] evaluation and imaging. - Would recommend [facility] evaluation - Consider UGI series, barium swallow - Soft, slippery diet - Continue Omeprazole 40 mg daily Thank you for allowing us to participate in the care of this patient. Please call with any acute changes, questions or concerns. Please see addendum below with additional recommendation from my supervising physician. Present on Admission?: Yes Supervising Physician Co-Signing Physician Notes I have seen and examined the patient with RAIN Islas whose note reflects our findings and plan. 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 Pt was seen and evaluated, chart reviewed. Currently eating breakfast which he notes was tolerated well. For the past 5/6 years has had dysphagia. This is worse with solids but can occur with liquds. Will have sensation of food sticking (pointint to sternum) with nearly all solids. Does not last long. Typically passes spontaneously or with liquid. No cough after eating. No nausea, vomiting. Does have a history of GERD, maintained on PPI. No change in BM. No black/bloody stools. No unintentional weight loss. EGD 2014: normal Allergies Allergy/AdvReac Type Severity Reaction Status Date / Time promethazine AdvReac Intermediate DELIRIUM Verified 10/02/18 10:57 Home Medications Home Medications Medication Instructions Recorded Confirmed Type albuterol sulfate 2 puff INHALATION Q6H PRN 09/21/18 10/02/18 History allopurinol 100 mg PO BID 09/21/18 10/02/18 History aspirin [Aspirin Low Dose] 81 mg PO DAILY 09/21/18 10/02/18 History atorvastatin 20 mg PO DAILY 09/21/18 10/02/18 History budesonide-formoterol [Symbicort] 2 puff INHALATION BID 09/21/18 10/02/18 History cholecalciferol (vitamin D3) 4,000 unit PO DAILY 09/21/18 10/02/18 History [Vitamin D3] digoxin [Digox] 125 mcg PO .Sun09/21/18 10/02/18 History levothyroxine 25 mcg PO DAILY 09/21/18 10/02/18 History magnesium oxide 400 mg PO DAILY 09/21/18 10/02/18 History metoprolol succinate 50 mg PO BID 09/21/18 10/02/18 History multivitamin 1 tab PO DAILY 09/21/18 10/02/18 History nitroglycerin 0.4 mg SUBLINGUAL DIRECTED 09/21/18 10/02/18 History omeprazole 40 mg PO DAILY 09/21/18 10/02/18 History sacubitril-valsartan 1 tab PO BID 09/21/18 10/02/18 History sennosides [senna] 8.6 mg PO BID 09/21/18 10/02/18 History spironolactone 12.5 mg PO .Sun09/21/18 10/02/18 History torsemide 20 mg PO DAILY 09/21/18 10/02/18 History warfarin [Jantoven] 5 mg PO DAILY 09/21/18 10/02/18 History Patient History Medical History Chronic combined systolic and diastolic CHF (congestive heart failure) (Chronic) "echo 05/03/16 - EF 27%, moderate - severe mitral regurgitation, grade I diastolic dysfunction" On 11/22/14 15:23 Sharmaine Barton wrote "echo 10/2014 - EF 25-25%, severe mitral regurgitation, moderate tricuspid regurgitation" On 10/29/14 10:44 Rosalie Joseph wrote "EF 15-20%, grade III diastolic dysfunction, by echo 06/2014" On 10/29/14 10:34 Rosalie Joseph wrote "EF 15-20%" Nonischemic cardiomyopathy (Chronic) "s/p AICD placement EF as low as 15% in the past, on echo 05/03/16 EF 27%" On 11/22/14 15:22 Sharmaine Barton wrote "s/p AICD placement" On 10/29/14 10:54 Rosalie Jospeh wrote "EF 15-20%, s/p ICD placement" On 10/29/14 10:44 Rosalie Joseph wrote On 10/29/14 10:35 Rosalie Joseph wrote "EF 15-20%" Severe mitral regurgitation (Chronic) On 10/29/14 10:44 Rosalie Joseph wrote "by echo 06/2014" Pulmonary hypertension (Chronic) Hypertension (Chronic) Frequent PVCs (Chronic) Dyslipidemia (Chronic) History of DVT (deep vein thrombosis) (Chronic) GERD (gastroesophageal reflux disease) (Chronic) Esophageal dysmotility (Chronic) Non-ischemic cardiomyopathy (Chronic) Pulmonary HTN (Chronic) "on echo from 10/2014" SOB (shortness of breath) Effusion of left knee joint (Acute) Left knee pain (Acute) Syncope (Resolved) Surgical History Hx of cardiac cath (Chronic) "01/2013- non obstructive CAD" History of implantable cardioverter-defibrillator (ICD) placement (Chronic) "Biventricular ICD placed 05/07/2013, with revisions in 12/2013 and 01/2014" On 10/29/14 10:33 Rosalie Joseph wrote "05/07/2013" S/P cholecystectomy (Chronic) H/O colonoscopy (Chronic) "with polypectomy" S/P lumbar discectomy (Chronic) S/P tendon repair (Chronic) "for ruptured EPL" H/O cardiac radiofrequency ablation (Chronic) "12/2014, for PVCs" Family History Other Family history non-contributory Social History Preferred Language: Greenlandic Communication Ability: Effective Litigation Paralegal Required: No Beliefs That Will Affect Care: None marital status: Current Living Situation: Spouse current occupational status: retired Other Information That Helps Us Care for You: No Feels Safe at Home: Yes Safety Concerns: Feels Safe At This Time and Afraid for Self Smoking Status: Former smoker Hx Alcohol Use: No Hx Substance Use: No Review of Systems Constitutional: no fever and no chills Respiratory: + cough and + dyspnea Cardiovascular: no chest pain, no radiating jaw, neck or arm pain and no dyspnea on exertion Gastrointestinal: + dysphagia; no abdominal pain, no belching, no bloating, no early satiety, no heartburn, no nausea, no vomiting, no coffee ground emesis, no hematemesis, no cramping, no blood in stools and no melena Physical Exam Constitutional: + obese; no acute distress Neck: trachea midline Respiratory: normal respiratory effort; no respiratory distress Auscultation: + diminished lung sounds Cardiovascular: Rate/Rhythm: regular rate and regular rhythm Gastrointestinal (Abdomen): Inspection/Auscultation: normal bowel sounds Percussion/Palpation: abdomen soft; abdomen nontender, no guarding and abdomen not rigid Skin: no rashes, warm and dry Results & Data Vital Signs (Past 12 Hours) Vital Signs Temp Pulse Pulse Resp BP Pulse Ox 10/03/18 07:55 94/63 L 10/03/18 06:51 36.4 C L 99 H 24 84/66 L 93 10/03/18 04:00 36.4 C L 84 20 94/60 L 94 10/03/18 01:05 36.6 C 75 20 89/60 L 93 10/03/18 00:00 92 H 10/02/18 21:43 105 H Laboratory Results 10/03/18 10/03/18 10/03/18 Range/Units 06:09 06:06 02:04 WBC (4.8-10.8) K/uL RBC (4.7-6.1) M/uL Hgb (14.0-18.0) g/dL Hct (42-52) % MCV (80-100) fL MCH (25-34) pg MCHC (32-36) g/dL RDW Std Deviation (36.4-46.3) fL RDW Coeff of Amalia (11.5-14.5) % Plt Count (130-400) K/uL MPV (7.4-10.4) fL Immature Gran % (Auto) % Neut % (Auto) % Lymph % (Auto) % Leon % (Auto) % Eos % (Auto) % Baso % (Auto) % Immature Gran # (Auto) (0.00-0.02) K/uL Neut # (Auto) (1.4-6.5) K/uL Lymph # (Auto) (1.2-3.4) K/uL Leon # (Auto) (0.11-0.59) K/uL Eos # (Auto) (0-0.5) K/uL Baso # (Auto) (0-0.2) K/uL PT (9.0-12.0) Seconds INR (0.9-1.1) APTT (21.0-31.0) Seconds PTT Ratio Sodium 139 (136-145) mmol/L Potassium 5.3 H (3.5-5.1) mmol/L Chloride 108 H (98-107) mmol/L Carbon Dioxide 23 (21-32) mmol/L Anion Gap 8.0 (3-11) BUN 53 H (7-18) mg/dl Creatinine 2.67 H (0.6-1.4) mg/dl Est Cr Clr Drug Dosing 30.5 ml/min Est GFR ( Amer) 26.5 Est GFR (Non-Af Amer) 22.8 BUN/Creatinine Ratio 19.7 (10-20) Glucose 102 H (70-99) mg/dl Lactate 2.0 2.1 H* (0.4-2.0) mmol/L Calcium 8.4 L (8.5-10.1) mg/dl Magnesium (1.8-2.4) mg/dl Total Bilirubin (0.2-1) mg/dl AST (15-37) U/L ALT (12-78) U/L Alkaline Phosphatase (45-117) U/L Troponin I (0-0.045) ng/ml Total Protein (6.4-8.2) gm/dl Albumin (3.4-5.0) gm/dl Globulin (2.5-4.0) gm/dl Albumin/Globulin Ratio (0.9-2) TSH (0.300-4.500) uIu/ml Free T4 (0.8-1.6) ng/dl Urine Color Urine Appearance (Clear) Urine pH (4.5-7.5) Ur Specific [place] (1.000-1.030) Urine Protein (Negative) Urine Glucose (UA) (Negative) Urine Ketones (Negative) Urine Blood (Negative) Urine Nitrite (Negative) Urine Bilirubin (Negative) Urine Urobilinogen (Negative) Ur Leukocyte Esterase (Negative) Urine WBC (Auto) (0-5) /hpf Urine RBC (Auto) (0-4) /hpf U Hyaline Cast (Auto) (0-5) /lpf U Epithel Cells (Auto) (0-5) /lpf Urine Bacteria (Auto) (Negative) Digoxin (0.8-2.0) ng/ml 10/03/18 10/03/18 10/03/18 Range/Units 02:04 02:04 02:04 WBC 8.07 (4.8-10.8) K/uL RBC 4.32 L (4.7-6.1) M/uL Hgb 12.1 L (14.0-18.0) g/dL Hct 38.1 L (42-52) % MCV 88.2 (80-100) fL MCH 28.0 (25-34) pg MCHC 31.8 L (32-36) g/dL RDW Std Deviation 55.8 H (36.4-46.3) fL RDW Coeff of Amalia 17.3 H (11.5-14.5) % Plt Count 158 (130-400) K/uL MPV 12.3 H (7.4-10.4) fL Immature Gran % (Auto) 0.2 % Neut % (Auto) 74.1 % Lymph % (Auto) 14.3 % Leon % (Auto) 9.7 % Eos % (Auto) 1.2 % Baso % (Auto) 0.5 % Immature Gran # (Auto) 0.02 (0.00-0.02) K/uL Neut # (Auto) 5.98 (1.4-6.5) K/uL Lymph # (Auto) 1.15 L (1.2-3.4) K/uL Leon # (Auto) 0.78 H (0.11-0.59) K/uL Eos # (Auto) 0.10 (0-0.5) K/uL Baso # (Auto) 0.04 (0-0.2) K/uL PT 15.1 H (9.0-12.0) Seconds INR 1.5 H (0.9-1.1) APTT (21.0-31.0) Seconds PTT Ratio Sodium 138 (136-145) mmol/L Potassium 5.2 H (3.5-5.1) mmol/L Chloride 107 (98-107) mmol/L Carbon Dioxide 24 (21-32) mmol/L Anion Gap 7.0 (3-11) BUN 51 H (7-18) mg/dl Creatinine 2.68 H D (0.6-1.4) mg/dl Est Cr Clr Drug Dosing 30.3 ml/min Est GFR ( Amer) 26.3 Est GFR (Non-Af Amer) 22.7 BUN/Creatinine Ratio 19.0 (10-20) Glucose 82 (70-99) mg/dl Lactate (0.4-2.0) mmol/L Calcium 8.6 (8.5-10.1) mg/dl Magnesium 2.1 (1.8-2.4) mg/dl Total Bilirubin (0.2-1) mg/dl AST (15-37) U/L ALT (12-78) U/L Alkaline Phosphatase (45-117) U/L Troponin I (0-0.045) ng/ml Total Protein (6.4-8.2) gm/dl Albumin (3.4-5.0) gm/dl Globulin (2.5-4.0) gm/dl Albumin/Globulin Ratio (0.9-2) TSH 7.380 H (0.300-4.500) uIu/ml Free T4 1.12 (0.8-1.6) ng/dl Urine Color Urine Appearance (Clear) Urine pH (4.5-7.5) Ur Specific [place] (1.000-1.030) Urine Protein (Negative) Urine Glucose (UA) (Negative) Urine Ketones (Negative) Urine Blood (Negative) Urine Nitrite (Negative) Urine Bilirubin (Negative) Urine Urobilinogen (Negative) Ur Leukocyte Esterase (Negative) Urine WBC (Auto) (0-5) /hpf Urine RBC (Auto) (0-4) /hpf U Hyaline Cast (Auto) (0-5) /lpf U Epithel Cells (Auto) (0-5) /lpf Urine Bacteria (Auto) (Negative) Digoxin (0.8-2.0) ng/ml 10/02/18 10/02/18 10/02/18 Range/Units 20:54 18:36 09:40 WBC (4.8-10.8) K/uL RBC (4.7-6.1) M/uL Hgb (14.0-18.0) g/dL Hct (42-52) % MCV (80-100) fL MCH (25-34) pg MCHC (32-36) g/dL RDW Std Deviation (36.4-46.3) fL RDW Coeff of Amalia (11.5-14.5) % Plt Count (130-400) K/uL MPV (7.4-10.4) fL Immature Gran % (Auto) % Neut % (Auto) % Lymph % (Auto) % [place] % (Auto) % Eos % (Auto) % Baso % (Auto) % Immature Gran # (Auto) (0.00-0.02) K/uL Neut # (Auto) (1.4-6.5) K/uL Lymph # (Auto) (1.2-3.4) K/uL Leon # (Auto) (0.11-0.59) K/uL Eos # (Auto) (0-0.5) K/uL Baso # (Auto) (0-0.2) K/uL PT (9.0-12.0) Seconds INR (0.9-1.1) APTT (21.0-31.0) Seconds PTT Ratio Sodium (136-145) mmol/L Potassium (3.5-5.1) mmol/L Chloride (98-107) mmol/L Carbon Dioxide (21-32) mmol/L Anion Gap (3-11) BUN (7-18) mg/dl Creatinine (0.6-1.4) mg/dl Est Cr Clr Drug Dosing ml/min Est GFR ( Amer) Est GFR (Non-Af Amer) BUN/Creatinine Ratio (10-20) Glucose (70-99) mg/dl Lactate 2.8 H* (0.4-2.0) mmol/L Calcium (8.5-10.1) mg/dl Magnesium (1.8-2.4) mg/dl Total Bilirubin (0.2-1) mg/dl AST (15-37) U/L ALT (12-78) U/L Alkaline Phosphatase (45-117) U/L Troponin I (0-0.045) ng/ml Total Protein (6.4-8.2) gm/dl Albumin (3.4-5.0) gm/dl Globulin (2.5-4.0) gm/dl Albumin/Globulin Ratio (0.9-2) TSH 11.300 H (0.300-4.500) uIu/ml Free T4 (0.8-1.6) ng/dl Urine Color Yellow Urine Appearance Clear (Clear) Urine pH 5.0 (4.5-7.5) Ur Specific [place] 1.017 (1.000-1.030) Urine Protein Trace H (Negative) Urine Glucose (UA) Negative (Negative) Urine Ketones Negative (Negative) Urine Blood Negative (Negative) Urine Nitrite Negative (Negative) Urine Bilirubin Negative (Negative) Urine Urobilinogen Negative (Negative) Ur Leukocyte Esterase Negative (Negative) Urine WBC (Auto) 1-5 (0-5) /hpf Urine RBC (Auto) 0-4 (0-4) /hpf U Hyaline Cast (Auto) 1-5 (0-5) /lpf U Epithel Cells (Auto) 0-5 (0-5) /lpf Urine Bacteria (Auto) Negative (Negative) Digoxin (0.8-2.0) ng/ml 10/02/18 10/02/18 10/02/18 Range/Units 09:40 09:40 09:40 WBC (4.8-10.8) K/uL RBC (4.7-6.1) M/uL Hgb (14.0-18.0) g/dL Hct (42-52) % MCV (80-100) fL MCH (25-34) pg MCHC (32-36) g/dL RDW Std Deviation (36.4-46.3) fL RDW Coeff of Amalia (11.5-14.5) % Plt Count (130-400) K/uL MPV (7.4-10.4) fL Immature Gran % (Auto) % Neut % (Auto) % Lymph % (Auto) % [place] % (Auto) % Eos % (Auto) % Baso % (Auto) % Immature Gran # (Auto) (0.00-0.02) K/uL Neut # (Auto) (1.4-6.5) K/uL Lymph # (Auto) (1.2-3.4) K/uL Leon # (Auto) (0.11-0.59) K/uL Eos # (Auto) (0-0.5) K/uL Baso # (Auto) (0-0.2) K/uL PT 12.7 H (9.0-12.0) Seconds INR 1.3 H (0.9-1.1) APTT 25.3 (21.0-31.0) Seconds PTT Ratio 0.9 Sodium 141 (136-145) mmol/L Potassium 4.6 (3.5-5.1) mmol/L Chloride 108 H (98-107) mmol/L Carbon Dioxide 23 (21-32) mmol/L Anion Gap 11.0 (3-11) BUN 41 H (7-18) mg/dl Creatinine 2.29 H (0.6-1.4) mg/dl Est Cr Clr Drug Dosing 35.5 ml/min Est GFR ( Amer) 31.9 Est GFR (Non-Af Amer) 27.5 BUN/Creatinine Ratio 18.0 (10-20) Glucose 117 H (70-99) mg/dl Lactate (0.4-2.0) mmol/L Calcium 9.5 (8.5-10.1) mg/dl Magnesium 2.1 (1.8-2.4) mg/dl Total Bilirubin 2.4 H (0.2-1) mg/dl AST 33 (15-37) U/L ALT 40 (12-78) U/L Alkaline Phosphatase 111 (45-117) U/L Troponin I 0.030 (0-0.045) ng/ml Total Protein 7.4 (6.4-8.2) gm/dl Albumin 3.6 (3.4-5.0) gm/dl Globulin 3.8 (2.5-4.0) gm/dl Albumin/Globulin Ratio 0.9 (0.9-2) TSH (0.300-4.500) uIu/ml Free T4 (0.8-1.6) ng/dl Urine Color Urine Appearance (Clear) Urine pH (4.5-7.5) Ur Specific [place] (1.000-1.030) Urine Protein (Negative) Urine Glucose (UA) (Negative) Urine Ketones (Negative) Urine Blood (Negative) Urine Nitrite (Negative) Urine Bilirubin (Negative) Urine Urobilinogen (Negative) Ur Leukocyte Esterase (Negative) Urine WBC (Auto) (0-5) /hpf Urine RBC (Auto) (0-4) /hpf U Hyaline Cast (Auto) (0-5) /lpf U Epithel Cells (Auto) (0-5) /lpf Urine Bacteria (Auto) (Negative) Digoxin 0.1 L (0.8-2.0) ng/ml 10/02/18 Range/Units 09:40 WBC 7.91 (4.8-10.8) K/uL RBC 4.61 L (4.7-6.1) M/uL Hgb 13.2 L (14.0-18.0) g/dL Hct 40.8 L (42-52) % MCV 88.5 (80-100) fL MCH 28.6 (25-34) pg MCHC 32.4 (32-36) g/dL RDW Std Deviation 56.3 H (36.4-46.3) fL RDW Coeff of Amalia 17.5 H (11.5-14.5) % Plt Count 165 (130-400) K/uL MPV 12.4 H (7.4-10.4) fL Immature Gran % (Auto) 0.3 % Neut % (Auto) 78.5 % Lymph % (Auto) 12.0 % Leon % (Auto) 7.8 % Eos % (Auto) 0.9 % Baso % (Auto) 0.5 % Immature Gran # (Auto) 0.02 (0.00-0.02) K/uL Neut # (Auto) 6.21 (1.4-6.5) K/uL Lymph # (Auto) 0.95 L (1.2-3.4) K/uL Leon # (Auto) 0.62 H (0.11-0.59) K/uL Eos # (Auto) 0.07 (0-0.5) K/uL Baso # (Auto) 0.04 (0-0.2) K/uL PT (9.0-12.0) Seconds INR (0.9-1.1) APTT (21.0-31.0) Seconds PTT Ratio Sodium (136-145) mmol/L Potassium (3.5-5.1) mmol/L Chloride (98-107) mmol/L Carbon Dioxide (21-32) mmol/L Anion Gap (3-11) BUN (7-18) mg/dl Creatinine (0.6-1.4) mg/dl Est Cr Clr Drug Dosing ml/min Est GFR ( Amer) Est GFR (Non-Af Amer) BUN/Creatinine Ratio (10-20) Glucose (70-99) mg/dl Lactate (0.4-2.0) mmol/L Calcium (8.5-10.1) mg/dl Magnesium (1.8-2.4) mg/dl Total Bilirubin (0.2-1) mg/dl AST (15-37) U/L ALT (12-78) U/L Alkaline Phosphatase (45-117) U/L Troponin I (0-0.045) ng/ml Total Protein (6.4-8.2) gm/dl Albumin (3.4-5.0) gm/dl Globulin (2.5-4.0) gm/dl Albumin/Globulin Ratio (0.9-2) TSH (0.300-4.500) uIu/ml Free T4 (0.8-1.6) ng/dl Urine Color Urine Appearance (Clear) Urine pH (4.5-7.5) Ur Specific [place] (1.000-1.030) Urine Protein (Negative) Urine Glucose (UA) (Negative) Urine Ketones (Negative) Urine Blood (Negative) Urine Nitrite (Negative) Urine Bilirubin (Negative) Urine Urobilinogen (Negative) Ur Leukocyte Esterase (Negative) Urine WBC (Auto) (0-5) /hpf Urine RBC (Auto) (0-4) /hpf U Hyaline Cast (Auto) (0-5) /lpf U Epithel Cells (Auto) (0-5) /lpf Urine Bacteria (Auto) (Negative) Digoxin (0.8-2.0) ng/ml
--- NOTE | 2018-10-03 11:47 | Cardiology Progress Note ---
Date of Service October 03, 2018 Assessment & Plan (1) Nonischemic cardiomyopathy: (2) Systolic heart failure, ACC/AHA stage D: This patient has end-stage heart disease with dyspnea and shortness of breath with minimal activity. He is doing better today and actually ambulating in the hallway. I think we could discharge him today and have outpatient follow-up through our heart failure clinic. (3) NYHA class 4 acute on chronic systolic heart failure: (4) Biventricular cardiac pacemaker in situ: (5) Dysphagia: GI consult appreciated. He seems to be eating fine today. Subjective The patient is ambulating in the [place] today. He ate his breakfast and is currently having lunch. No new complaints today. Review of Systems Review of Systems: All systems reviewed & are unremarkable except as noted in HPI & below Nothing additional Physical Exam Physical Exam: General: no acute distress and stated age Head: normocephalic, no masses, lesions, tenderness or abnormalities Eyes: conjunctiva are pink and non-injected, sclera clear Neck: supple, no adenopathy, no bruits, normal jugular venous pulse, no hepatojugular reflux Chest: normal shape and normal respiratory effort Lungs: clear to auscultation and percussion Cardiac Exam: - regular rate & rhythm, no murmurs gallops or rubs - normal S1, normal S2 Pulses: 2(+) throughout Abdomen: abdomen soft, non-tender, no abnormal masses and no hepatosplenomegaly Musculoskeletal: no gait disturbance, no joint inflammation, no deforming arthritis Extremities: no edema and no cyanosis Neuro: grossly normal exam Results & Data Vital Signs (Past 12 Hours) Vital Signs Temp Pulse Pulse Resp BP BP Pulse Ox 10/03/18 11:14 36.5 C 75 18 81/56 L 97 10/03/18 10:34 10/03/18 07:55 94/63 L 10/03/18 06:51 36.4 C L 99 H 24 84/66 L 93 10/03/18 04:00 36.4 C L 84 20 94/60 L 94 10/03/18 01:05 36.6 C 75 20 89/60 L 93 10/03/18 00:00 92 H Pulse Ox 10/03/18 11:14 10/03/18 10:34 98 10/03/18 07:55 10/03/18 06:51 10/03/18 04:00 10/03/18 01:05 10/03/18 00:00 Laboratory Results Laboratory Results - last 24 hr 10/02/18 10/02/18 10/02/18 09:40 18:36 20:54 WBC RBC Hgb Hct MCV MCH MCHC RDW Std Deviation RDW Coeff of Amalia Plt Count MPV Immature Gran % (Auto) Neut % (Auto) Lymph % (Auto) [place] % (Auto) Eos % (Auto) Baso % (Auto) Immature Gran # (Auto) Neut # (Auto) Lymph # (Auto) [place] # (Auto) Eos # (Auto) Baso # (Auto) PT INR Sodium Potassium Chloride Carbon Dioxide Anion Gap BUN Creatinine Est Cr Clr Drug Dosing Est GFR ( Amer) Est GFR (Non-Af Amer) BUN/Creatinine Ratio Glucose Lactate 2.8 H* Calcium Magnesium TSH 11.300 H Free T4 Urine Color Yellow Urine Appearance Clear Urine pH 5.0 Ur Specific [place] 1.017 Urine Protein Trace H Urine Glucose (UA) Negative Urine Ketones Negative Urine Blood Negative Urine Nitrite Negative Urine Bilirubin Negative Urine Urobilinogen Negative Ur Leukocyte Esterase Negative Urine WBC (Auto) 1-5 Urine RBC (Auto) 0-4 U Hyaline Cast (Auto) 1-5 U Epithel Cells (Auto) 0-5 Urine Bacteria (Auto) Negative 10/03/18 10/03/18 10/03/18 02:04 02:04 02:04 WBC 8.07 RBC 4.32 L Hgb 12.1 L Hct 38.1 L MCV 88.2 MCH 28.0 MCHC 31.8 L RDW Std Deviation 55.8 H RDW Coeff of Amalia 17.3 H Plt Count 158 MPV 12.3 H Immature Gran % (Auto) 0.2 Neut % (Auto) 74.1 Lymph % (Auto) 14.3 [place] % (Auto) 9.7 Eos % (Auto) 1.2 Baso % (Auto) 0.5 Immature Gran # (Auto) 0.02 Neut # (Auto) 5.98 Lymph # (Auto) 1.15 L [place] # (Auto) 0.78 H Eos # (Auto) 0.10 Baso # (Auto) 0.04 PT 15.1 H INR 1.5 H Sodium 138 Potassium 5.2 H Chloride 107 Carbon Dioxide 24 Anion Gap 7.0 BUN 51 H Creatinine 2.68 H D Est Cr Clr Drug Dosing 30.3 Est GFR ( Amer) 26.3 Est GFR (Non-Af Amer) 22.7 BUN/Creatinine Ratio 19.0 Glucose 82 Lactate Calcium 8.6 Magnesium 2.1 TSH 7.380 H Free T4 1.12 Urine Color Urine Appearance Urine pH Ur Specific [place] Urine Protein Urine Glucose (UA) Urine Ketones Urine Blood Urine Nitrite Urine Bilirubin Urine Urobilinogen Ur Leukocyte Esterase Urine WBC (Auto) Urine RBC (Auto) U Hyaline Cast (Auto) U Epithel Cells (Auto) Urine Bacteria (Auto) 10/03/18 10/03/18 10/03/18 02:04 06:06 06:09 WBC RBC Hgb Hct MCV MCH MCHC RDW Std Deviation RDW Coeff of Amalia Plt Count MPV Immature Gran % (Auto) Neut % (Auto) Lymph % (Auto) [place] % (Auto) Eos % (Auto) Baso % (Auto) Immature Gran # (Auto) Neut # (Auto) Lymph # (Auto) [place] # (Auto) Eos # (Auto) Baso # (Auto) PT INR Sodium 139 Potassium 5.3 H Chloride 108 H Carbon Dioxide 23 Anion Gap 8.0 BUN 53 H Creatinine 2.67 H Est Cr Clr Drug Dosing 30.5 Est GFR ( Amer) 26.5 Est GFR (Non-Af Amer) 22.8 BUN/Creatinine Ratio 19.7 Glucose 102 H Lactate 2.1 H* 2.0 Calcium 8.4 L Magnesium TSH Free T4 Urine Color Urine Appearance Urine pH Ur Specific [place] Urine Protein Urine Glucose (UA) Urine Ketones Urine Blood Urine Nitrite Urine Bilirubin Urine Urobilinogen Ur Leukocyte Esterase Urine WBC (Auto) Urine RBC (Auto) U Hyaline Cast (Auto) U Epithel Cells (Auto) Urine Bacteria (Auto) Medications Administered Current Inpatient Medications Acetaminophen (Tylenol) 650 mg PO Q4H PRN PRN Reason: Pain or Fever Stop: 11/01/18 17:05 Allopurinol (Zyloprim) 100 mg PO BID [facility] Stop: 11/01/18 20:59 Last Admin: 10/03/18 07:51 Dose: 100 mg Documented by: Aspirin (Ecotrin Ectab) 81 mg PO DAILY [facility] Stop: 11/02/18 08:59 Last Admin: 10/03/18 07:53 Dose: 81 mg Documented by: Atorvastatin Calcium (Lipitor) 20 mg PO DAILY [facility] Stop: 11/02/18 08:59 Last Admin: 10/03/18 07:54 Dose: 20 mg Documented by: Budesonide/Formoterol Fumarate (Symbicort 160mcg/4.5mcg) 2 puffs INH BID [facility] Stop: 11/01/18 20:59 Last Admin: 10/03/18 07:54 Dose: 2 puffs Documented by: Digoxin (Lanoxin) 0.125 mg PO MoWeFr@1600 [facility] Stop: 11/03/18 15:59 Heparin Sodium (Porcine) (Heparin Sodium (Porcine)) 5,000 units SQ Q8 [facility] Stop: 11/01/18 21:59 Last Admin: 10/03/18 06:48 Dose: 5,000 units Documented by: Levalbuterol HCl (Xopenex 0.63 Mg/3 Ml Neb) 0.63 mg NEB Q6R PRN PRN Reason: Shortness Of Breath Or Wheezing Stop: 11/01/18 17:05 Levothyroxine Sodium (Synthroid) 25 mcg PO DAILYBB [facility] Stop: 11/01/18 17:05 Last Admin: 10/03/18 06:47 Dose: 25 mcg Documented by: Magnesium Oxide (Mag-Ox) 400 mg PO DAILY [facility] Stop: 11/02/18 08:59 Last Admin: 10/03/18 07:51 Dose: 400 mg Documented by: Metoprolol Succinate (Toprol Xl) 50 mg PO BID [facility] Stop: 11/01/18 17:05 Last Admin: 10/03/18 07:54 Dose: Not Given Documented by: Nitroglycerin (Nitrostat) 0.4 mg SL UD PRN PRN Reason: CHEST PAIN Stop: 11/01/18 17:05 Pantoprazole Sodium (Protonix) 40 mg PO DAILY [facility] Stop: 11/02/18 08:59 Last Admin: 10/03/18 07:53 Dose: 40 mg Documented by: Polyethylene Glycol (Miralax Powder Packet) 17 gm PO DAILY PRN PRN Reason: Constipation Stop: 11/01/18 17:05 Sennosides (Senokot) 8.6 mg PO BID [facility] Stop: 11/01/18 20:59 Last Admin: 10/03/18 07:52 Dose: 8.6 mg Documented by: Vitamin D (Vitamin D3) 4,000 units PO DAILY [facility] Stop: 11/02/18 08:59 Last Admin: 10/03/18 07:51 Dose: 4,000 units Documented by: Warfarin Sodium (Coumadin) 5 mg PO DAILY@1600 [facility] Stop: 11/01/18 17:05 Last Admin: 10/02/18 18:35 Dose: 5 mg Documented by:
[2018-10-03] MEDS: WARFARIN SOD 5 MG TAB PO SCH (15:45)
--- NOTE | 2018-10-03 16:16 | Discharge Summary ---
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 Patient is very poor historian. He also states having an episode of syncope--he states that he fell out of bed overnight when he was trying to go to the bathroom lost consciousness. Episode was unwitnessed. He currently does not remember any events of syncope. He denies any head trauma. Also denies any bowel bladder incontinence, tongue bite. He reports having dysphagia " food sticks" which has been ongoing since last 1 year. He has been drinking more fluids to help with swallowing. He denies any pain with swallowing. States solids or liquids can cause difficulty swallowing. He uses 4 L of supplemental oxygen as needed and currently has been using regularly due to difficulty breathing. He was found to be in A. fib RVR at the time of admission. He received IV Cardizem and fluids given by EMS which improved his heart rate. Denies any history of chest pain, SOB, palpitations, dizziness, pedal edema, cough, wheezing, fever, chills, head trauma, headache, weakness, numbness, change in vision, nausea, vomiting, abdominal pain, diarrhea, dysuria, hematuria. Admission Exam Per Admitting Provider General: chronic ill appearing, obese, mild distress with conversational SOB Head: normocephalic, atraumatic Eyes: PERRL, EOM's intact, conjunctiva non-injected, anicteric ENT: normal inspection external ears, nose, mucous membranes moist Neck: supple, trachea midline Lungs: clear, no respiratory distress CV: RRR, + JVD, 3+pretibial edema Abd: normal BS, soft, +ecchymosis lower abdomen, non-tender to palpation by this provider Ext: no cyanosis, no calf tenderness Neuro: A&O x 3, no focal deficits noted, normal affect Skin: warm, dry Principal Diagnosis Cardiorenal syndrome Atrial fibrillation Discharge Data Allergies Allergy/AdvReac Type Severity Reaction Status Date / Time promethazine AdvReac Intermediate DELIRIUM Verified 10/08/18 08:26 Consultations 10/02/18 12:15 ED Decision to Admit Stat 10/02/18 16:53 Consult Gastroenterology Routine 10/02/18 17:06 Consult Cardiology Routine Consult Case Management - Discharge Planning Routine Ordered Studies 10/02/18 10:36 CT head/brain wo con Stat Hospital Course (1) Cardiorenal syndrome: (2) Syncope: (3) MAXIM (acute kidney injury): (4) NYHA class 4 acute on chronic systolic heart failure: (5) Atrial fibrillation: (6) Dysphagia: 72-year-old man with severe 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 He was found to have acute kidney injury in the setting of CKD stage III thought secondary to medications versus end-stage heart disease. His creatinine was elevated to 2.3 with a baseline creatinine of 1.4- 1.7. He received some IV fluids overnight, however, his creatinine continue to rise with a peak of 2.68. Nephrology was consulted and recommended this was likely his new normal in the setting of cardiorenal syndrome. During the hospitalization he was found to be in atrial fibrillation which was a known issue for him in the past. He was therefore started on amiodarone prior to discharge home. He had been treated with amiodarone in 2014 secondary to frequent PVCs and this was subsequently discontinued secondary to nauseousness in August 2014. In October 2014 he developed new onset atrial fibrillation with rapid ventricular response and underwent transesophageal echocardiogram-guided cardioversion and was placed on amiodarone again. He subsequently underwent PVC ablation of the left ventricular outflow tract in December 2014 and improved significantly after this ablation. However, he had ongoing left ventricular systolic dysfunction and remained on amiodarone for PVC suppression and atrial fibrillation suppression up until fall 2017 at which time he was seen by pulmonary medicine and amiodarone was discontinued due to concerns of pulmonary toxicity. Device interrogation performed this hospital stay revealed the patient had reverted to atrial fibrillation 14 to 16 days prior to the admission. His overall biventric ular pacing frequency had reduced having been 99% of the past it was now down to 81% in the last few days. This was thought to be having a negative impact on him in terms of loss of atrial kick as well as the hemodynamic benefit of cardiac resynchronization therapy through biventricular pacing. He was started on an oral load of amiodarone and sent home in stable condition. He was euvolemic on physical exam. As an aside he also reported some dysphasia which cardiology felt was secondary to his enlarged heart in its end-stage pushing on the esophagus. Gastroenterology was consulted and recommended speech pathology evaluation. Speech pathology did make diet modification recommendations. They also recommended consideration of an upper GI series or barium swallow. He was continued on omeprazole 40 mg p.o. daily and no further work-up was pursued with resolution of symptoms per patient. At time of discharge he was hemodynamically stable and afebrile. He was oxygenating well on room air and was ambulating and mentating at baseline and tolerating p.o. He was sent home in stable condition with close cardiac and primary care follow-up recommended. Of note, there is also a social piece here which is likely playing a role. He had recently taken his into a residential, however, she was very unhappy and called him daily. At some point he brought her back into the home and is caring for her himself and his poor condition. Per family members this is likely taking a negative toll on the patient. Total Time Total Time Spent Total Time Spent (In Minutes): 60 Total Time Includes: Examination of the Patient, Discharge Planning, Medication Reconciliation, Communication With Other Providers and Other (schedule follow- up) Discharge Plan Discharge Items Patient Disposition: Home - Home Health Services Reason For Visit: AFIB RVR,SYNCOPE Discharge Diagnosis: Cardiorenal syndrome Atrial fibrillation Discharge Goals: Improve disease control and Improve function Activity: Resume your previous activity Non-emergency contact: Primary Care Provider Call non-emergency contact if: you have any medication questions, your symptoms worsen, your pain is not controlled and you have a fever Follow-up/Referrals: Yon Leon DO [Cafe Operator] - Addtl Provider Instructions: Please take all medications as instructed on discharge list below. You are being placed on amiodarone, which is a drug to help control your atrial fibrillation rhythm. This will require a loading dose of 400mg twice daily, followed by 200mg twice daily, then 200mg daily. You are being given the first 14 days and cardiology will provide further prescriptions for this medicine when they see you in follow-up next week. You have the following appointment with [facility] Cardiology next week: 10/07/2018 9:15 AM Yon Leon DO Cardiology, [facility] It is recommended that you follow-up with your primary care provider within 1 week of discharge. Please ensure close follow-up with the Coumadin clinic as you have been placed on amiodarone which can alter your INR. I would recommend an early follow-up no later than Sunday of next week. Prescriptions: New amiodarone 200 mg Tablet 400 mg PO BID 14 Days Qty: 56 RF: 0 Continued multivitamin Tablet 1 tab PO DAILY RF: 0 sennosides [senna] 8.6 mg Tablet 8.6 mg PO BID RF: 0 atorvastatin 20 mg Tablet 20 mg PO DAILY RF: 0 torsemide 20 mg Tablet 20 mg PO DAILY RF: 0 metoprolol succinate 50 mg Tablet Extended Release 24 Hr 50 mg PO BID RF: 0 allopurinol 100 mg Tablet 100 mg PO BID RF: 0 omeprazole 40 mg Capsule,Delayed Release(Dr/Ec) 40 mg PO DAILY RF: 0 aspirin [Aspirin Low Dose] 81 mg Tablet,Delayed Release (Dr/Ec) 81 mg PO DAILY RF: 0 levothyroxine 25 mcg Tablet 25 mcg PO DAILY RF: 0 warfarin [Jantoven] 5 mg Tablet 5 mg PO UD RF: 0 nitroglycerin 0.4 mg Tablet, Sublingual 0.4 mg sublingual DIRECTED RF: 0 albuterol sulfate 90 mcg/actuation Hfa Aerosol Inhaler 2 puff INHALATION Q6H PRN (Reason: Shortness Of Breath) RF: 0 Symbicort 160-4.5 mcg/actuation Hfa Aerosol Inhaler 2 puff INHALATION BID RF: 0 cholecalciferol (vitamin D3) [Vitamin D3] 2,000 unit Capsule 4,000 unit PO DAILY RF: 0 magnesium oxide 400 mg magnesium Tablet 400 mg PO DAILY RF: 0 Discontinued spironolactone 25 mg Tablet 12.5 mg PO .Sun RF: 0 digoxin [Digox] 125 mcg tablet 125 mcg PO .Sun RF: 0 sacubitril-valsartan 24-26 mg Tablet 1 tab PO BID RF: 0 No Action metolazone 5 mg Tablet 5 mg PO UD RF: 0 Vitron-C 65 mg iron- 125 mg Tablet,Delayed Release (Dr/Ec) 1 tab PO DAILY RF: 0 Stand-Alone Forms: My [facility] Discharge Orders: Discharge Order (Routine); Ordered 10/05/18 Ordered By: Mary Underwood Admission Data Admit Date/Time: 10/02/18 14:37 Attending Provider: Mary Underwood Admit Provider: Manuel Mendoza Primary Care Provider: Josue Munguia Other Providers: Yon Leon Service: Telemetry Other Interventions: Discharge Summary Assessment (RN) Last Done: 10/05/18 14:34 DC Date/Time DO NOT enter until pt leaves facility: 10/05/18 15:00
--- NOTE | 2018-10-03 16:26 | Hospitalist Progress Note ---
Date of Service October 03, 2018 Assessment & Plan (1) MAXIM (acute kidney injury): Rapid heart rate on arrival to the ER after a stressful event with a lactic acidosis . Suspect this caused the kidney injury seen via ATN or MAXIM. Cont to hold diuretics and Entresto at this time. Creat appears to have peaked on labwork this am. Trend in am. Will not add fluids at this time because of his end stage heart disease. (2) Syncope: resolved, uncertain etiology. Event was unwitnessed and there doesn't appear to be a sequelae. Telemetry monitoring has revealed chronic afib with a paced rhythm. Echo performed with chronic end-stage heart disease and known valvulopathies. Overall, with clinical improvement and these assessments, no further workup will be performed. He is ambulating at baseline without symptoms. (3) Dysphagia: Evaluated by GI who recommends daily protonix. RACK PULLER evaluation with diet modifications learned by the patient today. May be related to end stage heart disease as described above. (4) NYHA class 4 acute on chronic systolic heart failure: compensated, cleared by Cardiology for discharge with heart failure clinic follow-up. Holding Entresto, torsemide, metolazone. Cont lipitor, ASA, Toprol XL, digoxin. (5) Atrial fibrillation: RVR on admission improved with IV cardizem and IVF. Rate controlled with Toprol XL. Cont warfarin-INR subtherapeutic. (6) DVT prophylaxis: Heparin while INR subtherapeutic, warfarin daily Full Code Dispo-to home when renal function improves. Mary Underwood DO [facility] Hospitalist Subjective 72-year-old man with history of severe nonischemic cardia myopathy diagnosed 6 to 7 years ago presented to the emergency room with some worsening shortness of breath for the past couple of weeks in addition to difficulty swallowing. He was noted to have some weight loss because of his inability to eat. He also reported a syncopal episode and was admitted to telemetry for monitoring. Cardiology was consulted suggested his swallowing issue may be from the dilation of his end-stage heart putting pressure on the esophagus making it difficult for the patient's food to pass. The GI service was consulted to evaluate him and they recommended a speech pathology evaluation, consideration of upper GI series and consideration of barium swallow study. Speech pathology evaluated him and made recommendations for modification of diet and types of foods to eat. He verbalized understanding of these recommendations. Gastroenterology recommended omeprazole 40 mg every day. Regarding his syncopal episode, this took place overnight when the patient fell out of his bed and was an unwitnessed event. CT of head revealed no significant change compared to the prior study with no acute intracranial abnormality. There were no arrhythmias noted on telemetry during admission. An echocardiogram was performed revealing ejection fraction less than 15% with a dilated right ventricle severely reduced right ventricular systolic function biatrial dilation and severe mitral and tricuspid regurgitation. Today the patient was able to ambulate in the hallways and his shortness of breath was improved. Cardiology felt he was cleared for discharge from a cardiac perspective and can follow-up through the heart failure clinic as outpatient. After speech pathology evaluation the patient was able to eat without any difficulties and demonstrated understanding of the instructions. Regarding his shortness of breath is unclear why this was the case but he feels this issue is better. He did have a chest x-ray revealing some pulmonary vascular congestion but did not appear hypervolemic on exam. In the setting of MAXIM home diuretics and Entresto have been held. He was noted to be in atrial fibrillation with RVR and did receive IV Cardizem on route to the ER as well as some IV fluids ED after a syncopal episode. He reports feeling an improvement of shortness of breath after his heart rate was controlled. He does use home oxygen periodically and has a history of amiodarone induced lung toxicity. He had been using it more often in the last 2 weeks. Today he is feeling better and can be discharged from cardiac perspective however, he still has an MAXIM and will stay until this improves. He otherwise reports no symptoms and overall improvement since admission. Review of Systems Review of Systems: All systems reviewed & are unremarkable except as noted in HPI & below Physical Exam Physical Exam: CONSTITUTIONAL: WNWD, vitals as above, generally well- appearing EYES: normal conjuctivae, no scleral icterus ENT: MMM RESPIRATORY: clear to auscultation bilaterally, no crackles, rales or wheezes, normal respiratory effort CARDIOVASCULAR: regular rate and rhythm, S1 and 2 heard without murmurs, gallops or rubs, no JVD, no peripheral edema GASTROINTESTINAL: normal bowel sounds, soft, nontender, nondistended MUSCULOSKELETAL: strength 5/5 throughout, head is normocephalic and atraumatic, ambulatory SKIN: warm and dry NEUROLOGIC: no gross focal deficits. PSYCHIATRIC: alert cooperative and oriented to person, place and time. Results & Data Vital Signs (Past 12 Hours) Vital Signs Temp Pulse Resp BP BP Pulse Ox Pulse Ox 10/03/18 15:36 36.5 C 76 18 83/65 L 99 10/03/18 13:31 97 10/03/18 11:14 36.5 C 75 18 81/56 L 97 10/03/18 10:34 98 10/03/18 07:55 94/63 L 10/03/18 06:51 36.4 C L 99 H 24 84/66 L 93 Laboratory Results Short CBC 10/03/18 Range/Units 02:04 WBC 8.07 (4.8-10.8) K/uL Hgb 12.1 L (14.0-18.0) g/dL Hct 38.1 L (42-52) % Plt Count 158 (130-400) K/uL BMP 10/03/18 10/03/18 02:04 06:06 Sodium 138 139 Potassium 5.2 H 5.3 H Chloride 107 108 H Carbon Dioxide 24 23 BUN 51 H 53 H Creatinine 2.68 H D 2.67 H Glucose 82 102 H Calcium 8.6 8.4 L Urine 10/02/18 Range/Units 18:36 Urine Color Yellow Urine Appearance Clear (Clear) Urine pH 5.0 (4.5-7.5) Ur Specific [place] 1.017 (1.000-1.030) Urine Protein Trace H (Negative) Urine Glucose (UA) Negative (Negative) Medications Administered Current Inpatient Medications Acetaminophen (Tylenol) 650 mg PO Q4H PRN PRN Reason: Pain or Fever Stop: 11/01/18 17:05 Allopurinol (Zyloprim) 100 mg PO BID [facility] Stop: 11/01/18 20:59 Last Admin: 10/03/18 07:51 Dose: 100 mg Documented by: Aspirin (Ecotrin Ectab) 81 mg PO DAILY [facility] Stop: 11/02/18 08:59 Last Admin: 10/03/18 07:53 Dose: 81 mg Documented by: Atorvastatin Calcium (Lipitor) 20 mg PO DAILY [facility] Stop: 11/02/18 08:59 Last Admin: 10/03/18 07:54 Dose: 20 mg Documented by: Budesonide/Formoterol Fumarate (Symbicort 160mcg/4.5mcg) 2 puffs INH BID [facility] Stop: 11/01/18 20:59 Last Admin: 10/03/18 07:54 Dose: 2 puffs Documented by: Digoxin (Lanoxin) 0.125 mg PO MoWeFr@1600 [facility] Stop: 11/03/18 15:59 Heparin Sodium (Porcine) (Heparin Sodium (Porcine)) 5,000 units SQ Q8 [facility] Stop: 11/01/18 21:59 Last Admin: 10/03/18 13:29 Dose: 5,000 units Documented by: Levalbuterol HCl (Xopenex 0.63 Mg/3 Ml Neb) 0.63 mg NEB Q6R PRN PRN Reason: Shortness Of Breath Or Wheezing Stop: 11/01/18 17:05 Levothyroxine Sodium (Synthroid) 25 mcg PO DAILYBB [facility] Stop: 11/01/18 17:05 Last Admin: 10/03/18 06:47 Dose: 25 mcg Documented by: Magnesium Oxide (Mag-Ox) 400 mg PO DAILY [facility] Stop: 11/02/18 08:59 Last Admin: 10/03/18 07:51 Dose: 400 mg Documented by: Metoprolol Succinate (Toprol Xl) 50 mg PO BID [facility] Stop: 11/01/18 17:05 Last Admin: 10/03/18 07:54 Dose: Not Given Documented by: Nitroglycerin (Nitrostat) 0.4 mg SL UD PRN PRN Reason: CHEST PAIN Stop: 11/01/18 17:05 Pantoprazole Sodium (Protonix) 40 mg PO DAILY [facility] Stop: 11/02/18 08:59 Last Admin: 10/03/18 07:53 Dose: 40 mg Documented by: Polyethylene Glycol (Miralax Powder Packet) 17 gm PO DAILY PRN PRN Reason: Constipation Stop: 11/01/18 17:05 Sennosides (Senokot) 8.6 mg PO BID [facility] Stop: 11/01/18 20:59 Last Admin: 10/03/18 07:52 Dose: 8.6 mg Documented by: Vitamin D (Vitamin D3) 4,000 units PO DAILY [facility] Stop: 11/02/18 08:59 Last Admin: 10/03/18 07:51 Dose: 4,000 units Documented by: Warfarin Sodium (Coumadin) 5 mg PO DAILY@1600 [facility] Stop: 11/01/18 17:05 Last Admin: 10/03/18 15:45 Dose: 5 mg Documented by: (1) Syncope Syncope type: unspecified Qualified Code(s): R55 - Syncope and collapse
[2018-10-04 06:00] LABS: Hematocrit (blood only) 36.7 % (42-52); Hemoglobin 11.7 g/dL (14.0-18.0); Mean Corpuscular Hgb Conc 31.9 g/dL (32-36); Mean Corpuscular Volume 88.9 fL (80-100); Mean Platelet Volume 11.6 fL (7.4-10.4); Platelet Count 140 K/uL (130-400); RDW Coefficient of Variation 17.4 % (11.5-14.5); Red Blood Count 4.13 M/uL (4.7-6.1); White Blood Count 6.66 K/uL (4.8-10.8)
[2018-10-04] MEDS: HEPARIN SOD 5,000 UNIT/0.5 ML VIAL SQ SCH ×3 (06:02→22:50)
[2018-10-04] MEDS: LEVOTHYROXINE SODIUM 25 MCG TABLET PO SCH (06:02)
[2018-10-04 06:11] LABS: INR 1.8 (0.9-1.1); Prothrombin Time 17.3 Seconds (9.0-12.0)
[2018-10-04 06:40] LABS: BUN Creatinine Ratio 22.1 (10-20); Calcium 8.6 mg/dl (8.5-10.1); Creatinine Clr Calc Pharmacy 31.8 ml/min; Est GFR (African American) 27.7; Est GFR (Non-African American) 23.9; Potassium 4.7 mmol/L (3.5-5.1)
[2018-10-04] MEDS: SENNA 8.6 MG TAB PO SCH ×2 (07:33→20:59)
[2018-10-04] MEDS: ATORVASTATIN 20 MG TAB PO SCH (07:34)
[2018-10-04] MEDS: ASPIRIN 81 MG ECTAB PO SCH (07:34)
[2018-10-04] MEDS: MAGNESIUM OXIDE 400 MG TAB PO SCH (07:34)
[2018-10-04] MEDS: METOPROLOL SUCC 50MG EXT REL TAB PO SCH ×2 (07:35→20:57)
[2018-10-04] MEDS: PANTOprazole 40 MG TAB PO SCH (07:35)
[2018-10-04] MEDS: CHOLECALCIFEROL 1,000 UNITS TAB PO SCH (07:35)
[2018-10-04] MEDS: ALLOPURINOL 100 MG TAB PO SCH (07:36)
[2018-10-04] MEDS: BUDESONIDE/FORMOTEROL FUMARATE 160/4.5 60 PUFFS/INHALER INH SCH ×2 (07:36→20:58)
--- NOTE | 2018-10-04 11:09 | Gastroenterology Progress Note ---
Date of Service October 04, 2018 Assessment & Plan (1) Dysphagia: 72 year old male with history of CKD, HTN, dyslipidemia, AFIB, ischemic cardiomyopathy w/ EF 15 s/p biventricular pacer who presets through the ED w/ syncopal event, SOB admitted w/ afib in RVR - GI asked to evaluate for dysphagi a. This was last evaluated in 2014 endoscopically without any abnormality. He was evaluated by speech, tolerating slippery diet. He is extremely high risk for endoscopic evaluation, I would recommend conservative management at this time. 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 Thank you for allowing us to participate in the care of this patient. Please call with any acute changes, questions or concerns. Please see addendum below with additional recommendation from my supervising physician. Supervising Physician Co-Signing Physician Notes I have seen and examined our patient with RAIN Kovacs whose note reflects our findings and plan. Subjective Pt was seen and evaluated, chart reviewed. Less SOB today but still present. No abd pain. No nausea, vomiting. ROLLER MILL OPERATOR evaluated, recommend slippery diet. Denies any issues with swallowing since yesterday evaluation. Review of Systems Respiratory: + cough and + dyspnea Gastrointestinal: + dysphagia; no abdominal pain, no belching, no bloating, no early satiety, no heartburn, no nausea, no vomiting, no coffee ground emesis, no hematemesis, no cramping, no blood in stools and no melena Physical Exam Constitutional: + obese; no acute distress Neck: trachea midline Respiratory: normal respiratory effort; no respiratory distress Auscultation: + diminished lung sounds Cardiovascular: Rate/Rhythm: regular rate and regular rhythm Gastrointestinal (Abdomen): Inspection/Auscultation: normal bowel sounds Percussion/Palpation: abdomen soft; abdomen nontender, no guarding and abdomen not rigid Skin: no rashes, warm and dry Results & Data Vital Signs (Past 12 Hours) Vital Signs Temp Pulse Pulse Resp BP BP Pulse Ox 10/04/18 08:04 36.8 C 84 18 106/46 L 96 10/04/18 03:23 36.6 C 73 18 101/65 92 10/04/18 00:34 77
--- NOTE | 2018-10-04 11:43 | Cardiology Progress Note ---
Date of Service October 04, 2018 Assessment & Plan (1) Nonischemic cardiomyopathy: (2) Systolic heart failure, ACC/AHA stage D: This patient has end-stage heart disease with dyspnea and shortness of breath with minimal activity. He is doing better today and actually ambulating in the hallway. I think we could discharge him today and have outpatient follow-up through our heart failure clinic. (3) NYHA class 4 acute on chronic systolic heart failure: (4) Biventricular cardiac pacemaker in situ: (5) Dysphagia: GI consult appreciated. He seems to be eating fine today. (6) Cardiorenal syndrome: Nephrology was consulted by the hospitalist service today. Subjective The patient had an uneventful night. He has been ambulating in the hallways. Tolerating his diet. Review of Systems Review of Systems: All systems reviewed & are unremarkable except as noted in HPI & below No additional Physical Exam Physical Exam: General: no acute distress and stated age Head: normocephalic, no masses, lesions, tenderness or abnormalities Eyes: conjunctiva are pink and non-injected, sclera clear Neck: supple, no adenopathy, no bruits, normal jugular venous pulse, no hep atojugular reflux Chest: normal shape and normal respiratory effort Lungs: clear to auscultation and percussion Cardiac Exam: - regular rate & rhythm, no murmurs gallops or rubs - normal S1, normal S2 Pulses: 2(+) throughout Abdomen: abdomen soft, non-tender, no abnormal masses and no hepatosplenomegaly Musculoskeletal: no gait disturbance, no joint inflammation, no deforming arthritis Extremities: no edema and no cyanosis Neuro: grossly normal exam Results & Data Vital Signs (Past 12 Hours) Vital Signs Temp Pulse Pulse Resp BP BP Pulse Ox 10/04/18 08:04 36.8 C 84 18 106/46 L 96 10/04/18 03:23 36.6 C 73 18 101/65 92 10/04/18 00:34 77 Laboratory Results Laboratory Results - last 24 hr 10/04/18 10/04/18 10/04/18 05:45 05:45 05:45 WBC 6.66 RBC 4.13 L Hgb 11.7 L Hct 36.7 L MCV 88.9 MCH 28.3 MCHC 31.9 L RDW Std Deviation 56.0 H RDW Coeff of Amalia 17.4 H Plt Count 140 MPV 11.6 H PT 17.3 H INR 1.8 H Sodium 138 Potassium 4.7 Chloride 107 Carbon Dioxide 24 Anion Gap 7.0 BUN 57 H Creatinine 2.57 H Est Cr Clr Drug Dosing 31.8 Est GFR ( Amer) 27.7 Est GFR (Non-Af Amer) 23.9 BUN/Creatinine Ratio 22.1 H Glucose 88 Calcium 8.6 Medications Administered Current Inpatient Medications Acetaminophen (Tylenol) 650 mg PO Q4H PRN PRN Reason: Pain or Fever Stop: 11/01/18 17:05 Allopurinol (Zyloprim) 100 mg PO BID [facility] Stop: 11/01/18 20:59 Last Admin: 10/04/18 07:36 Dose: 100 mg Documented by: Aspirin (Ecotrin Ectab) 81 mg PO DAILY [facility] Stop: 11/02/18 08:59 Last Admin: 10/04/18 07:34 Dose: 81 mg Documented by: Atorvastatin Calcium (Lipitor) 20 mg PO DAILY [facility] Stop: 11/02/18 08:59 Last Admin: 10/04/18 07:34 Dose: 20 mg Documented by: Budesonide/Formoterol Fumarate (Symbicort 160mcg/4.5mcg) 2 puffs INH BID [facility] Stop: 11/01/18 20:59 Last Admin: 10/04/18 07:36 Dose: 2 puffs Documented by: Digoxin (Lanoxin) 0.125 mg PO MoWeFr@1600 [facility] Stop: 11/03/18 15:59 Heparin Sodium (Porcine) (Heparin Sodium (Porcine)) 5,000 units SQ Q8 [facility] Stop: 11/01/18 21:59 Last Admin: 10/04/18 06:02 Dose: Not Given Documented by: Levalbuterol HCl (Xopenex 0.63 Mg/3 Ml Neb) 0.63 mg NEB Q6R PRN PRN Reason: Shortness Of Breath Or Wheezing Stop: 11/01/18 17:05 Levothyroxine Sodium (Synthroid) 25 mcg PO DAILYBB [facility] Stop: 11/01/18 17:05 Last Admin: 10/04/18 06:02 Dose: 25 mcg Documented by: Magnesium Oxide (Mag-Ox) 400 mg PO DAILY [facility] Stop: 11/02/18 08:59 Last Admin: 10/04/18 07:34 Dose: 400 mg Documented by: Metoprolol Succinate (Toprol Xl) 50 mg PO BID [facility] Stop: 11/01/18 17:05 Last Admin: 10/04/18 07:35 Dose: 50 mg Documented by: Nitroglycerin (Nitrostat) 0.4 mg SL UD PRN PRN Reason: CHEST PAIN Stop: 11/01/18 17:05 Pantoprazole Sodium (Protonix) 40 mg PO DAILY [facility] Stop: 11/02/18 08:59 Last Admin: 10/04/18 07:35 Dose: 40 mg Documented by: Polyethylene Glycol (Miralax Powder Packet) 17 gm PO DAILY PRN PRN Reason: Constipation Stop: 11/01/18 17:05 Sennosides (Senokot) 8.6 mg PO BID [facility] Stop: 11/01/18 20:59 Last Admin: 10/04/18 07:33 Dose: 8.6 mg Documented by: Vitamin D (Vitamin D3) 4,000 units PO DAILY [facility] Stop: 11/02/18 08:59 Last Admin: 10/04/18 07:35 Dose: 4,000 units Documented by: Warfarin Sodium (Coumadin) 5 mg PO DAILY@1600 [facility] Stop: 11/01/18 17:05 Last Admin: 10/03/18 15:45 Dose: 5 mg Documented by:
[2018-10-04 11:48] LABS: Bacteria Urine Automated Negative (Negative); Epithelial Cell Urine Auto 0-5 /lpf (0-5); RBC Urine Automated 0-4 /hpf (0-4)
[2018-10-04] MEDS: WARFARIN SOD 5 MG TAB PO SCH (15:45)
[2018-10-04] MEDS ORDERED: DIGOXIN 0.125 MG TAB PO SCH (16:00)
--- NOTE | 2018-10-04 18:21 | Hospitalist Progress Note ---
Date of Service October 04, 2018 Assessment & Plan (1) MAXIM (acute kidney injury): Creat plateaued, Nephro recommends this may be a new baseline in setting of end stage heart failure. Pt is feeling well and is asymptomatic. Will restart his torsemide and cont to hold other diuretics until followed up as outpatient. (2) Syncope: Unwitnessed event. He has had stress related to taking care of his ill . He has also is noncompliant with medications and severe end stage heart disease. Event was unwitnessed and there doesn't appear to be a sequelae. Telemetry monitoring has revealed chronic afib with a paced rhythm. Echo performed with chronic end-stage heart disease and known valvulopathies. Overall, with clinical improvement and these assessments, no further workup will be performed. He is ambulating at baseline without symptoms. (3) Dysphagia: Evaluated by GI who recommends daily protonix. GUN NUMBER evaluation with diet modifications learned by the patient. May be related to end stage heart disease as described above. (4) NYHA class 4 acute on chronic systolic heart failure: compensated, cleared by Cardiology for discharge with heart failure clinic follow-up. Holding Entresto, torsemide, metolazone. Cont lipitor, ASA, Toprol XL, digoxin. Will plan to restart torsemide in the morning. (5) Atrial fibrillation: RVR on admission improved with IV cardizem and IVF. Rate controlled with Toprol XL. Cont warfarin-INR subtherapeutic. H/o noncompliance. (6) DVT prophylaxis: Heparin while INR subtherapeutic, warfarin daily Full Code Dispo-to home in am. Mary Underwood DO [facility] Hospitalist Subjective Feeling well Creatinine still elevated Nephro to see patient Review of Systems Review of Systems: All systems reviewed & are unremarkable except as noted in HPI & below Physical Exam Physical Exam: CONSTITUTIONAL: WNWD, vitals as above, generally well- appearing EYES: normal conjunctivae, no scleral icterus ENT: MMM RESPIRATORY: clear to auscultation bilaterally, no crackles, rales or wheezes, normal respiratory effort CARDIOVASCULAR: regular rate and rhythm, S1 and 2 heard without murmurs, gallops or rubs, no JVD, no peripheral edema GASTROINTESTINAL: normal bowel sounds, soft, nontender, nondistended MUSCULOSKELETAL: strength 5/5 throughout, head is normocephalic and atraumatic, ambulatory SKIN: warm and dry NEUROLOGIC: no gross focal deficits. PSYCHIATRIC: alert cooperative and oriented to person, place and time. Results & Data Vital Signs (Past 12 Hours) Vital Signs Temp Pulse Resp BP BP Pulse Ox 10/04/18 15:38 81 18 89/62 L 99 10/04/18 12:05 36.5 C 77 18 105/68 99 10/04/18 08:04 36.8 C 84 18 106/46 L 96 Laboratory Results Short CBC 10/04/18 Range/Units 05:45 WBC 6.66 (4.8-10.8) K/uL Hgb 11.7 L (14.0-18.0) g/dL Hct 36.7 L (42-52) % Plt Count 140 (130-400) K/uL BMP 10/04/18 05:45 Sodium 138 Potassium 4.7 Chloride 107 Carbon Dioxide 24 BUN 57 H Creatinine 2.57 H Glucose 88 Calcium 8.6 Medications Administered Current Inpatient Medications Acetaminophen (Tylenol) 650 mg PO Q4H PRN PRN Reason: Pain or Fever Stop: 11/01/18 17:05 Allopurinol (Zyloprim) 100 mg PO BID [facility] Stop: 11/01/18 20:59 Last Admin: 10/04/18 07:36 Dose: 100 mg Documented by: Aspirin (Ecotrin Ectab) 81 mg PO DAILY [facility] Stop: 11/02/18 08:59 Last Admin: 10/04/18 07:34 Dose: 81 mg Documented by: Atorvastatin Calcium (Lipitor) 20 mg PO DAILY [facility] Stop: 11/02/18 08:59 Last Admin: 10/04/18 07:34 Dose: 20 mg Documented by: Budesonide/Formoterol Fumarate (Symbicort 160mcg/4.5mcg) 2 puffs INH BID [facility] Stop: 11/01/18 20:59 Last Admin: 10/04/18 07:36 Dose: 2 puffs Documented by: Digoxin (Lanoxin) 0.125 mg PO MoWeFr@1600 [facility] Stop: 11/03/18 15:59 Heparin Sodium (Porcine) (Heparin Sodium (Porcine)) 5,000 units SQ Q8 [facility] Stop: 11/01/18 21:59 Last Admin: 10/04/18 15:45 Dose: 5,000 units Documented by: Levalbuterol HCl (Xopenex 0.63 Mg/3 Ml Neb) 0.63 mg NEB Q6R PRN PRN Reason: Shortness Of Breath Or Wheezing Stop: 11/01/18 17:05 Levothyroxine Sodium (Synthroid) 25 mcg PO DAILYBB [facility] Stop: 11/01/18 17:05 Last Admin: 10/04/18 06:02 Dose: 25 mcg Documented by: Magnesium Oxide (Mag-Ox) 400 mg PO DAILY [facility] Stop: 11/02/18 08:59 Last Admin: 10/04/18 07:34 Dose: 400 mg Documented by: Metoprolol Succinate (Toprol Xl) 50 mg PO BID [facility] Stop: 11/01/18 17:05 Last Admin: 10/04/18 07:35 Dose: 50 mg Documented by: Nitroglycerin (Nitrostat) 0.4 mg SL UD PRN PRN Reason: CHEST PAIN Stop: 11/01/18 17:05 Pantoprazole Sodium (Protonix) 40 mg PO DAILY [facility] Stop: 11/02/18 08:59 Last Admin: 10/04/18 07:35 Dose: 40 mg Documented by: Polyethylene Glycol (Miralax Powder Packet) 17 gm PO DAILY PRN PRN Reason: Constipation Stop: 11/01/18 17:05 Sennosides (Senokot) 8.6 mg PO BID [facility] Stop: 11/01/18 20:59 Last Admin: 10/04/18 07:33 Dose: 8.6 mg Documented by: Vitamin D (Vitamin D3) 4,000 units PO DAILY [facility] Stop: 11/02/18 08:59 Last Admin: 10/04/18 07:35 Dose: 4,000 units Documented by: Warfarin Sodium (Coumadin) 5 mg PO DAILY@1600 [facility] Stop: 11/01/18 17:05 Last Admin: 10/04/18 15:45 Dose: 5 mg Documented by: (1) Syncope Syncope type: unspecified Qualified Code(s): R55 - Syncope and collapse
--- NOTE | 2018-10-04 19:06 | Nephrology Consultation ---
Date of Consultation October 04, 2018 Assessment & Plan (1) MAXIM (acute kidney injury): Patient with MAXIM likely due to cardiorenal syndrome. He has end stage heart failure and an EF of less than 15% given pulmonary HTN and regurgitant valves. I reviewed his urine sediment and it was bland with a few WBCs/hpf and occasional granular casts. Sediment does not support ATN. Patient's renal function is likely going to get worse with worsening CHF. His electrolytes are stable. No indication INDUSTRIAL HYGIENE MANAGER and patient is not a good candidate for INDUSTRIAL HYGIENE MANAGER due to endstage CHF. Reintroduce his home diuretics one a time as BP allows. Patient can be discharged to follow up with nephrology outpatient (2) Congestive heart failure: Recommend resuming home torsemide 20mg po daily and BP allows he can be discharged on the same (3) Hypotension: Due to cardiomyopathy. Consider midodrine when systolic is below 70. History of Present Illness Reason for Consultation: MAXIM on CKD Requesting Physician: Mary Underwood DO Attending Physician: Mary Underwood, History of Present Illness This is a 72-year-old male with history of CKD 3, baseline cr of 1.4 being seen in consult for worsening renal function. He was admitted on 10/02/18 with worsening SOB. 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 Echo this admission showing markedly dilated heart chambers, multiple regurgitant valves and EF of 15%. He has been quite hypotensive since admission. Cr was 2.2 on 10/02, increased to 2.68 yesterday and at 2.57 today. he has been off his diuretics. I saw the patient during morning rounds. he denied SOB. He has been ambulating in the halls. No leg edema. No urinary symptoms. He wants to be discharged. Allergies Allergy/AdvReac Type Severity Reaction Status Date / Time promethazine AdvReac Intermediate DELIRIUM Verified 10/02/18 10:57 Home Medications Home Medications Medication Instructions Recorded Confirmed Type albuterol sulfate 2 puff INHALATION Q6H PRN 09/21/18 10/02/18 History allopurinol 100 mg PO BID 09/21/18 10/02/18 History aspirin [Aspirin Low Dose] 81 mg PO DAILY 09/21/18 10/02/18 History atorvastatin 20 mg PO DAILY 09/21/18 10/02/18 History budesonide-formoterol [Symbicort] 2 puff INHALATION BID 09/21/18 10/02/18 History cholecalciferol (vitamin D3) 4,000 unit PO DAILY 09/21/18 10/02/18 History [Vitamin D3] digoxin [Digox] 125 mcg PO .Sun09/21/18 10/02/18 History levothyroxine 25 mcg PO DAILY 09/21/18 10/02/18 History magnesium oxide 400 mg PO DAILY 09/21/18 10/02/18 History metoprolol succinate 50 mg PO BID 09/21/18 10/02/18 History multivitamin 1 tab PO DAILY 09/21/18 10/02/18 History nitroglycerin 0.4 mg SUBLINGUAL DIRECTED 09/21/18 10/02/18 History omeprazole 40 mg PO DAILY 09/21/18 10/02/18 History sacubitril-valsartan 1 tab PO BID 09/21/18 10/02/18 History sennosides [senna] 8.6 mg PO BID 09/21/18 10/02/18 History spironolactone 12.5 mg PO .Sun09/21/18 10/02/18 History torsemide 20 mg PO DAILY 09/21/18 10/02/18 History warfarin [Jantoven] 5 mg PO DAILY 09/21/18 10/02/18 History Patient History Medical History Chronic combined systolic and diastolic CHF (congestive heart failure) (Chronic) "echo 05/03/16 - EF 27%, moderate - severe mitral regurgitation, grade I diastolic dysfunction" On 11/22/14 15:23 Sharmaine Barton wrote "echo 10/2014 - EF 25-25%, severe mitral regurgitation, moderate tricuspid regurgitation" On 10/29/14 10:44 Rosalie Joseph wrote "EF 15-20%, grade III diastolic dysfunction, by echo 06/2014" On 10/29/14 10:34 Rosalie Joseph wrote "EF 15-20%" Nonischemic cardiomyopathy (Chronic) "s/p AICD placement EF as low as 15% in the past, on echo 05/03/16 EF 27%" On 11/22/14 15:22 Sharmaine Barton wrote "s/p AICD placement" On 10/29/14 10:54 Rosalie Joseph wrote "EF 15-20%, s/p ICD placement" On 10/29/14 10:44 Rosalie Joseph wrote On 10/29/14 10:35 Rosalie Joseph wrote "EF 15-20%" Severe mitral regurgitation (Chronic) On 10/29/14 10:44 Rosalie Joseph wrote "by echo 06/2014" Pulmonary hypertension (Chronic) Hypertension (Chronic) Frequent PVCs (Chronic) Dyslipidemia (Chronic) History of DVT (deep vein thrombosis) (Chronic) GERD (gastroesophageal reflux disease) (Chronic) Esophageal dysmotility (Chronic) Non-ischemic cardiomyopathy (Chronic) Pulmonary HTN (Chronic) "on echo from 10/2014" SOB (shortness of breath) Effusion of left knee joint (Acute) Left knee pain (Acute) Syncope (Resolved) Surgical History Hx of cardiac cath (Chronic) "01/2013- non obstructive CAD" History of implantable cardioverter-defibrillator (ICD) placement (Chronic) "Biventricular ICD placed 05/07/2013, with revisions in 12/2013 and 01/2014" On 10/29/14 10:33 Rosalie Joseph wrote "05/07/2013" S/P cholecystectomy (Chronic) H/O colonoscopy (Chronic) "with polypectomy" S/P lumbar discectomy (Chronic) S/P tendon repair (Chronic) "for ruptured EPL" H/O cardiac radiofrequency ablation (Chronic) "12/2014, for PVCs" Family History Other Family history non-contributory Social History Preferred Language: Kyrgyz Communication Ability: Effective Software Solutions Architect Required: No Beliefs That Will Affect Care: None marital status: Current Living Situation: Spouse current occupational status: retired Other Information That Helps Us Care for You: No Feels Safe at Home: Yes Safety Concerns: Feels Safe At This Time and Afraid for Self Smoking Status: Former smoker Hx Alcohol Use: No Hx Substance Use: No Review of Systems Review of Systems: All systems reviewed & are unremarkable except as noted in HPI & below Physical Exam Physical Exam: General exam: Appears comfortable, no acute distress HEENT: Pupils are equal and reactive to light Neck: No JVD, neck is supple trachea is midline Respiratory system: Crackles bilaterally. Gastrointestinal: Abdomen is soft, non distended, non tender, bowel sounds are present CVS: Regular rate and rhythm. No murmurs, rubs or gallops Musculoskeletal: No joint or muscle tenderness Extremities: Non tender, trace edema, peripheral pulses are present Neuro: Oriented, no tremors, no focal neurological deficits Skin: No rashes Results & Data Vital Signs (Past 12 Hours) Vital Signs Temp Pulse Resp BP BP Pulse Ox 10/04/18 15:38 81 18 89/62 L 99 10/04/18 12:05 36.5 C 77 18 105/68 99 10/04/18 08:04 36.8 C 84 18 106/46 L 96 Laboratory Results Laboratory Results - last 24 hr 10/04/18 10/04/18 10/04/18 05:45 05:45 05:45 WBC 6.66 RBC 4.13 L Hgb 11.7 L Hct 36.7 L MCV 88.9 MCH 28.3 MCHC 31.9 L RDW Std Deviation 56.0 H RDW Coeff of Amalia 17.4 H Plt Count 140 MPV 11.6 H PT 17.3 H INR 1.8 H Sodium 138 Potassium 4.7 Chloride 107 Carbon Dioxide 24 Anion Gap 7.0 BUN 57 H Creatinine 2.57 H Est Cr Clr Drug Dosing 31.8 Est GFR ( Amer) 27.7 Est GFR (Non-Af Amer) 23.9 BUN/Creatinine Ratio 22.1 H Glucose 88 Calcium 8.6 Urine WBC (Auto) Urine RBC (Auto) U Hyaline Cast (Auto) U Epithel Cells (Auto) Urine Bacteria (Auto) 10/04/18 10:30 WBC RBC Hgb Hct MCV MCH MCHC RDW Std Deviation RDW Coeff of Amalia Plt Count MPV PT INR Sodium Potassium Chloride Carbon Dioxide Anion Gap BUN Creatinine Est Cr Clr Drug Dosing Est GFR ( Amer) Est GFR (Non-Af Amer) BUN/Creatinine Ratio Glucose Calcium Urine WBC (Auto) 1-5 Urine RBC (Auto) 0-4 U Hyaline Cast (Auto) 1-5 U Epithel Cells (Auto) 0-5 Urine Bacteria (Auto) Negative (1) Congestive heart failure Heart failure chronicity: unspecified Heart failure type: unspecified Hernandez lified Code(s): I50.9 - Heart failure, unspecified (2) Hypotension Hypotension type: unspecified hypotension type Qualified Code(s): I95.9 - Hypotension, unspecified
[2018-10-05] MEDS: LEVOTHYROXINE SODIUM 25 MCG TABLET PO SCH (05:41)
[2018-10-05] MEDS: HEPARIN SOD 5,000 UNIT/0.5 ML VIAL SQ SCH ×2 (05:41→13:54)
[2018-10-05 06:48] LABS: INR 2.2 (0.9-1.1); Prothrombin Time 21.3 Seconds (9.0-12.0)
[2018-10-05 06:57] LABS: BUN Creatinine Ratio 22.9 (10-20); Calcium 8.7 mg/dl (8.5-10.1); Est GFR (African American) 25.9; Est GFR (Non-African American) 22.3; Potassium 4.4 mmol/L (3.5-5.1)
[2018-10-05] MEDS: MAGNESIUM OXIDE 400 MG TAB PO SCH (08:44)
[2018-10-05] MEDS: PANTOprazole 40 MG TAB PO SCH (08:44)
[2018-10-05] MEDS: ASPIRIN 81 MG ECTAB PO SCH (08:44)
[2018-10-05] MEDS: ATORVASTATIN 20 MG TAB PO SCH (08:45)
[2018-10-05] MEDS: METOPROLOL SUCC 50MG EXT REL TAB PO SCH (08:45)
[2018-10-05] MEDS: BUDESONIDE/FORMOTEROL FUMARATE 160/4.5 60 PUFFS/INHALER INH SCH (08:45)
[2018-10-05] MEDS: CHOLECALCIFEROL 1,000 UNITS TAB PO SCH (08:45)
[2018-10-05] MEDS: SENNA 8.6 MG TAB PO SCH (08:45)
[2018-10-05] MEDS ORDERED: TORSEMIDE 10 MG TAB PO SCH (09:00)
[2018-10-05] MEDS ORDERED: AMIODARONE 200 MG TAB PO SCH (10:30)
--- NOTE | 2018-10-05 11:30 | Cardiology Progress Note ---
Date of Service October 05, 2018 Assessment & Plan (1) Chronic combined systolic and diastolic CHF (congestive heart failure): (2) Atrial fibrillation: (3) Cardiorenal syndrome: (4) Severe mitral regurgitation: Mr. Bowden has an extremely complex cardiac history dating back to 2012. He has a long-standing history of a nonischemic dilated myopathy with cardiac catheterization in 2012 demonstrating mild nonobstructive coronary heart disease. Echocardiogram performed within the frestyl system in February 2019 revealed severe left ventricular systolic dysfunction with severe MR and TR, ejection fraction in the range of 20%. Repeat during this admission revealed ongoing severe left ventricular systolic dysfunction ejection fraction less than 20%. In 2013 he suffered a witnessed cardiac arrest and subsequently a biventricular AICD was implanted. He had difficulty with phrenic nerve stimulation and multiple left ventricular pacing configurations were utilized to try to avoid the phrenic nerve stimulation but ultimately he required transition to a left ventricular epicardial lead in December 2013. He once again developed phrenic nerve stimulation and underwent a second epicardial lead revision in 2014. He had been treated with amiodarone in 2014 due to frequent PVCs and amiodarone was subsequently discontinued due to nauseousness in August 2014. In October 2014 he developed new onset atrial fibrillation with rapid ventricular response. He underwent transesophageal echocardiogram guided cardioversion and was placed back on amiodarone. He subsequently underwent PVC ablation of the left ventricular outflow tract in December 2014. He improved significantly after this ablation. But has had ongoing severe left ventricular systolic dysfunction. He remained on amiodarone for PVC suppression and A. fib suppression up until the fall 2017 at which time he was seen by pulmonary medicine and amiodarone was discontinued due to concerns of amiodarone related pulmonary toxicity. Device interrogation performed this hospital stay reveals that the patient had reverted to atrial fibrillation 14 to 16 days prior to admission. His overall biventricular pacing frequency had reduced having been 99% in the past and is now down to 81% in the last few days. This is likely having a negative impact on him in terms of loss of atrial kick as well as the hemodynamic benefit of cardiac resynchronization through biventricular pacing. The patient is not a good candidate for repeat cardioversion, due to his severe LV systolic dysfunction, I would be very concerned with cardiac collapse with electrical cardioversion. In terms of rhythm control medications. Due to his underlying cardiomyopathy dofetilide and amiodarone are the only options. He is not a candidate for dofetilide due to his kidney insufficiency. We will therefore cautiously place him back on amiodarone. His TSH was elevated to 7 on admission. He is already on levothyroxine. There have been concerns regarding adherence. I think we can just follow this closely as an outpatient. We will start him on amiodarone 400 mg twice daily, with plans to transition him to 200 mg twice daily and then 200 mg daily after loading interval is completed. He will need close outpatient follow-up with the anticoagulation clinic to ensure that his INR does not become supratherapeutic on the amiodarone. Amiodarone is being utilized as possible rhythm control, and even if the ventricular rate is better controlled his frequency of biventricular pacing may subsequently increase. Other considerations include turning up his basal rate from 60 bpm to 65 bpm to promote more frequent pacing/cardiac resynchronization therapy. Acute kidney insufficiency is noted this admission. His baseline creatinine as an outpatient has been in the range of 1.3-1.8. He is 2.7 today. This is likely due to low cardiac output syndrome, cardiorenal syndrome. In addition his blood pressure is relatively low with systolic reading in the 90s. At this time, we will plan to place patient back on torsemide 20 mg daily as I believe he will become volume overloaded without diuretic therapy. His prior to hospital treatment with digoxin is on hold. Given his degree of kidney insufficiency, I do not think he will be a candidate for digoxin in the future. Spironolactone and Entresto are also on hold. Overall, patient has end-stage systolic heart failure. This has been a progressive illness for 5 years now. His prognosis is poor. Proceed with the medication changes as above. Patient states he is eager for discharge. He already has a follow-up visit tentatively plan with Dr. Leon next week. Case discussed with Dr Underwood. Subjective Chief complaint: Follow-up easy fatigability, difficulty swallowing Subjective: Patient seen and examined. He had been followed by Dr. Leon of our practice earlier this hospital stay. He has been followed closely in congestive heart failure clinic by Josue Munguia PA-C more recently. He has also been followed by Ju MANRIQUEZ and [place] [facility] [place] [facility] [place] states he feels better this morning. He tolerated breakfast without any swallowing difficulty and went for a brief walk in the unit. He denies lightheadedness or dizziness. Review of Systems Review of Systems: All systems reviewed & are unremarkable except as noted in HPI & below Physical Exam Physical Exam: General: no acute distress and stated age Eyes: conjunctiva are pink and non-injected, sclera clear Neck: normal jugular venous pulse, no hepatojugular reflux Chest: normal shape and normal respiratory effort Lungs: clear to auscultation and percussion Cardiac Exam: -Irregular rhythm, no murmur Abdomen: abdomen soft, non-tender, no abnormal masses and no hepatosplenomegaly Extremities: no edema and no cyanosis Neuro:awake, coversant, follows commands, no focal motor deficits Psych: appropriate affect and insight. Results & Data Vital Signs (Past 12 Hours) Vital Signs Temp Pulse Pulse Resp BP BP Pulse Ox 10/05/18 09:00 79 95/65 L 10/05/18 07:04 36.8 C 95 H 16 84/51 L 97 10/05/18 03:45 36.5 C 85 16 94/62 L 99 10/04/18 23:39 36.5 C 74 16 92/63 L 95 Laboratory Results Coagulation INR this morning 2.2, increased from 1.8 yesterday. 10/05/18 Range/Units 06:08 PT 21.3 H (9.0-12.0) Seconds Comprehensive Metabolic Panel 10/05/18 Range/Units 06:08 Sodium 136 (136-145) mmol/L Potassium 4.4 (3.5-5.1) mmol/L Chloride 106 (98-107) mmol/L Carbon Dioxide 22 (21-32) mmol/L BUN 62 H (7-18) mg/dl Creatinine 2.72 H (0.6-1.4) mg/dl Glucose 103 H (70-99) mg/dl Calcium 8.7 (8.5-10.1) mg/dl Intake and Output 10/04/18 10/05/18 10/05/18 22:59 06:59 14:59 Intake Total 120 / 600 Balance 120 / 100 Intake: Oral 120 / 600 Other: Weight 108.4 kg
== END 2018-10-05 15:00 | disposition home health service (06) | DRG 292 ==
LOC: ED 10:15 → 2E 14:37
DX: E03.9 Hypothyroidism, unspecified; I13.0 Hypertensive heart and chronic kidney disease with heart failure and stage 1 through stage 4 chronic kidney disease, or unspecified chronic kidney disease; Z79.82 Long term (current) use of aspirin; N17.9 Acute kidney failure, unspecified; I50.42 Chronic combined systolic (congestive) and diastolic (congestive) heart failure; Z99.81 Dependence on supplemental oxygen; N18.3 Chronic kidney disease, stage 3 (moderate); Z79.01 Long term (current) use of anticoagulants; I45.81 Long QT syndrome; R13.10 Dysphagia, unspecified; J44.9 Chronic obstructive pulmonary disease, unspecified; I48.91 Unspecified atrial fibrillation; R55 Syncope and collapse

== ENCOUNTER 2018-10-08 07:52 | Inpatient (IN) ==
[2018-10-08] MEDS ORDERED: HYDROmorphone INJ 0.5 MG/0.5 ML SYR IV PRN (08:16)
[2018-10-08 08:27] LABS: Basophils # (auto) 0.03 K/uL (0-0.2); Basophils % (auto) 0.4 %; Eosinophils # (auto) 0.12 K/uL (0-0.5); Eosinophils % (auto) 1.7 %; Hematocrit (blood only) 36.7 % (42-52); Hemoglobin 12.1 g/dL (14.0-18.0); Immature Granulocytes # (auto) 0.02 K/uL (0.00-0.02); Immature Granulocytes % (auto) 0.3 %; Lymphocytes # (auto) 0.93 K/uL (1.2-3.4); Lymphocytes % (auto) 13.2 %; Mean Corpuscular Volume 87.4 fL (80-100); Mean Platelet Volume 12.1 fL (7.4-10.4); Monocytes # (auto) 0.71 K/uL (0.11-0.59); Monocytes % (auto) 10.1 %; Neutrophils # (auto) 5.21 K/uL (1.4-6.5); Neutrophils % (auto) 74.3 %; Platelet Count 139 K/uL (130-400); RDW Coefficient of Variation 17.6 % (11.5-14.5); RDW Standard Deviation 55.8 fL (36.4-46.3); White Blood Count 7.02 K/uL (4.8-10.8)
[2018-10-08 08:33] LABS: INR 2.3 (0.9-1.1); Prothrombin Time 22.2 Seconds (9.0-12.0)
[2018-10-08 08:34] LABS: Albumin Level 3.6 gm/dl (3.4-5.0); BUN Creatinine Ratio 26.9 (10-20); Calcium 9.3 mg/dl (8.5-10.1); Creatinine Clr Calc Pharmacy 35.8 ml/min; Est GFR (Non-African American) 27.6; Potassium 4.4 mmol/L (3.5-5.1)
--- NOTE | 2018-10-08 08:35 | XRay Report ---
XR chest 1V portable CLINICAL HISTORY: Chest pain and shortness of breath. COMPARISON STUDY: Chest radiograph October 02, 2018. FINDINGS: Left subclavian biventricular pacer/AICD is in place. Marked cardiomegaly is again noted. T here is a trace right pleural effusion. No pneumothorax is present. There is minimal left midlung opa city. There is pulmonary vascular congestion. IMPRESSION: 1. Marked cardiomegaly with pulmonary vascular congestion. 2. Trace right pleural effusion. 3. Minimal left midlung opacity. Electronically signed by: Toi Davies M.D. 10/08/2018 8:34 AM
[2018-10-08 08:39] LABS: Bilirubin,Total 3.3 mg/dl (0.2-1); Globulin 3.4 gm/dl (2.5-4.0); Troponin I 0.045 ng/ml (0-0.045)
[2018-10-08 08:44] LABS: iSTAT Creatinine 2.2 mg/dl (0.6-1.3); iSTAT Hemoglobin 12.2 g/dl (14.0-18.0); iSTAT Ionized Calcium 1.12 mmol/l (1.12-1.32); iSTAT Potassium 4.4 mEq/L (3.3-5.0)
[2018-10-08 08:44] LABS: iSTAT Creatinine 2.2 mg/dl (0.6-1.3); iSTAT Hemoglobin 12.9 g/dl (14.0-18.0); iSTAT Ionized Calcium 1.14 mmol/l (1.12-1.32); iSTAT Potassium 4.4 mEq/L (3.3-5.0)
[2018-10-08] MEDS ORDERED: FUROSEMIDE 40 MG/4 ML VIAL IV STA (09:34)
--- NOTE | 2018-10-08 10:08 | CT Scan Report ---
CT abd pelvis wo con CLINICAL HISTORY: 72 years-old Male presenting with Pt c/o left sided abd pain, left upper and lower abdominal pain since 6:00 PM yesterday, history of pancreatitis and diverticulitis, history of cardia c arrest. TECHNIQUE: Multidetector CT of the abdomen and pelvis was performed without the use of intravenous co ntrast. IV contrast: None. One or more dose lowering techniques were used consistent with the princip les of ALA (as low as reasonably achievable), including automatic exposure control, mA or kV adjust ment to individual patient size, and/or use of iterative reconstruction. COMPARISON: 10/28/2014. CT DOSE (mGy.cm): The estimated cumulative dose is 1584.62. FINDINGS: [employer] topogram: Left subclavian implanted cardiac defibrillator with leads to the right atrium, coron shahab sinus, and right ventricular apex. Epicardial pacing wires may also be present. Cardiomegaly. Cho lecystectomy clips. Lung bases: Multichamber enlargement of the heart. Coronary artery calcification. Small right pleural effusion. Dependent groundglass and reticular opacities. Interlobular septal thickening. Added densi ty of the lung parenchyma the lung bases. Liver: Normal morphology. Density consistent with hepatic steatosis. Biliary: No gross biliary ductal dilatation allowing for noncontrast technique. Gallbladder surgicall y absent. Pancreas: Moderate parenchymal atrophy. Spleen: Round hypodense 3.4 cm lesion in the spleen is new from prior exam. Adrenal glands: Normal noncontrast appearance. Kidneys and ureters: Multiple renal cysts suggested. No nephrolithiasis or hydronephrosis. Nonspecifi c moderate perinephric fat infiltration. Ureters nondistended. Bladder: Incompletely evaluated secondary to underdistention. Circumferential bladder wall thickening may be present. Pelvic organs: Normal noncontrast appearance. Bowel: Diverticulosis of the sigmoid and descending colon. No wall thickening or pericolonic inflamma tory change. The appendix is not visualized. No bowel obstruction. Peritoneal cavity: Small perihepatic ascites, which is grossly simple appearing. Trace ascites in the superior pelvis. No free intraperitoneal gas. Lymph nodes: No gross lymphadenopathy allowing for noncontrast technique. Vasculature: Atherosclerosis of the normal caliber abdominal aorta. Abdominal wall: Mild diffuse body wall edema. Fat-containing inguinal hernias, right greater than lef t. Musculoskeletal: Degenerative changes of the spine. Old posterior right rib fractures noted. Minimal height loss of L1. Superior endplate concavity of L3. The finding at L1 is unchanged since prior exam . The appearance of the superior plate of L3 is new. IMPRESSION: 1. Interval development of a 3.4 cm lesion in the spleen. Given the history of pancreatitis, one of the primary differential considerations include a pseudocyst. No current evidence of pancreatitis. Be nign lesions are largely congenital, and the interval appearance of the lesion is not compatible with these entities. Other differential considerations are significantly less likely, including metastasi s if there is a history of malignancy, or lymphoma. 2. Small right pleural effusion. 3. Cardiomegaly with congestive change and mild pulmonary edema at the lung bases. 4. Hepatic steatosis. 5. Small ascites and body wall edema. This likely is a manifestation of volume overload. 6. Diverticulosis coli. No evidence of diverticulitis. 7. Superior endplate compression deformity of L3 new since 2014. Correlate for point tenderness to a ssess for acuity. Electronically signed by: Akbar Grant M.D. 10/08/2018 10:07 AM
--- NOTE | 2018-10-08 10:15 | CT Scan Report ---
CT chest wo con CT DOSE: 1584.62 mGy.cm CLINICAL HISTORY: 72 years-old Male with Pt c/o left sided chest pain. Acute left-sided chest pain TECHNIQUE: Multiaxial CT images of the chest were performed without contrast. A dose lowering techni que was utilized adhering to the principles of ALARA. COMPARISON: CT abdomen and pelvis of same day, chest CT 08/16/2016 FINDINGS: No focal thyroid nodule. Enlarged mediastinal and hilar lymph nodes. Right paratracheal lymph node me asures 1.5 cm, image 113 series 6, previously 8 mm. 1.9 cm subcarinal lymph node previously measured 1.2 cm. Moderate to extensive multichamber cardiac enlargement. Left subclavian pacer is noted with l shannan overlying the atria and right ventricle. Coronary arterial calcifications are noted. No thoracic aortic aneurysm. Dilation of the pulmonary arteries suggestive arterial hypertension. Trace left and small right pleural effusions. Azygos lobe and fissure. No pneumothorax. Subpleural re ticular opacities bilaterally are suggestive of chronic fibrosis, not significantly changed from comp arison. Mild bilateral bronchial wall thickening. Mild bilateral mosaic attenuation. Mild bilateral t racheobronchial secretions with subsegmental bibasilar atelectasis. No lobar airspace consolidation t o suggest pneumonia. Mild intralobular septal thickening. Suggested hepatic steatosis. Trace. Hepatic ascites. Mild generalized body wall edema. Bones appear t o be intact. Subscapularis lipoma on the left, 4.7 x 3.7 x 6.2 cm. IMPRESSION: 1. Cardiomegaly with suggestion of mild pulmonary edema. 2. Small right and trace left pleural effusions with minimal subsegmental bibasilar atelectasis. 3. Suggested pulmonary arterial hypertension. 4. Subpleural bilateral reticular opacities are unchanged suggestive of chronic fibrosis. 5. Nonspecific mediastinal adenopathy, progressed from comparison. 6. Additional findings as above. Electronically signed by: Arian Amador M.D. 10/08/2018 10:14 AM
[2018-10-08] MEDS: METOPROLOL SUCC 50MG EXT REL TAB PO SCH ×2 (11:38→20:39)
--- NOTE | 2018-10-08 11:59 | History & Physical Report ---
Date of Service October 08, 2018 Assessment & Plan (1) NYHA class 4 acute on chronic systolic heart failure: (2) SOB (shortness of breath): (3) Nonischemic cardiomyopathy: 72 yo M with hx of systolic and diastolic heart failure presented with increased SOB over the last few days, today noticed edema of b/l LE. 10/03/18 ECHO EF : < 15% Pt has pacemaker/defibrillator In ER: afebrile, pulse 102-116, BP 94/66 up to 103/71, Resp 25, O2 97% RA, no leukocytosis CT Chest: 1. Cardiomegaly with suggestion of mild pulmonary edema. 2. Small right and trace left pleural effusions with minimal subsegmental bibasilar atelectasis. 3. Suggested pulmonary arterial hypertension. 4. Subpleural bilateral reticular opacities are unchanged suggestive of chronic fibrosis. In ER pt was given lasix 40 mg IV. Lasix 40 mg IV BID Hold home torsemide, metolazone Monitor I&Os, daily weights Low sodium diet Supplemental Oxygen PRN Cardiology consult Monitor CBC, BMP (4) Chest pain: Reports chronic chest pain, worse with swallowing In ER no complaints of chest pain EKG without acute changes Initial troponin: 0.045 (last admission 0.03) Continue ASA, metoprolol Hold home statin with elevated LFTs, further recommendation per cardiology (5) Abdominal pain: Reported left sided mid abdominal pain that radiates to right side since last night Denies N/V/D/constipation, urinary complaints. CT ABD/PELVIS: -Interval development of a 3.4 cm lesion in the spleen. Given the history of pancreatitis, one of the primary differential considerations include a pseudocyst. No current evidence of pancreatitis. Benign lesions are largely congenital, and the interval appearance of the lesion is not compatible with these entities. Other differential considerations are significantly less likely, including metastasis if there is a history of malignancy, or lymphoma. -Hepatic steatosis. -Small ascites and body wall edema. This likely is a manifestation of volume overload. -Diverticulosis coli. No evidence of diverticulitis. No acute distress, no leukocytosis, lipase WNL Monitor and reassess (6) Elevated LFTs: (7) Amiodarone toxicity: Pt started on Amiodarone during recent admission, he was to take 400 mg BID however pt has just been taking 400 mg daily. Pt did not have today's dose of med. Bili 3.3 (2.4 on 10/02/18), AST 186 (was 33), ALT 529 (was 40), Alk Phos 185 (was 111) HOLD amiodarone Monitor LFTs (8) Renal insufficiency: Cr 2.28 (was 2.7 on 10/05/18), prior to recent admission baseline in the 1's, last admission nephrology was consulted and this is felt to be pt's new baseline Monitor renal functions Avoid nephrotoxic agents when possible If worsening consider nephrology consult (9) Atrial fibrillation: Pt had atrial fibrillation during recent admission. On coumadin. Current rate 102-116 Paced rhythm on EKG INR 2.3 Continue metoprolol, coumadin Monitor INR and adjust coumadin as appropriate HOLD amiodarone (10) Dysphagia: Hx of dysphagia, had speech eval last admission. Continue bite sized and slippery diet. Continue PPI (11) Lesion of spleen: CT abd/pelvis : Interval development of a 3.4 cm lesion in the spleen. Given the history of pancreatitis, one of the primary differential considerations include a pseudocyst. No current evidence of pancreatitis. Benign lesions are largely congenital, and the interval appearance of the lesion is not compatible with these entities. Other differential considerations are significantly less likely, including metastasis if there is a history of malignancy, or lymphoma. Monitor, will hold on further work up at this time. (12) Hypothyroidism: TSH 7.3 on 10/03/18 Continue Levothyroxine DVT Prophylaxis -On coumadin, INR therapuetic, monitor Full Code as per discussion with pt Follows with Dr. Thelma Lee for routine care Pt was seen and care coordinated with Dr Underwood See addendum History of Present Illness Chief Complaint: SOB, abdominal pain Primary Care Provider: Dr. Thelma Lee Patient is a 72-year-old male with complex PMHx including cardiomyopathy, CHF, A-fib, MAXIM, hypothyroidism, and others below who presents to the ED via EMS today with increasing shortness of breath from baseline and generalized abdominal pain. He had a recent hospital admission from 10/02/2018 to 10/05/2018 for syncope, shortness of breath, a-fib, and MAXIM and was started on amiodarone. He notes since discharge that he has noticed increased shortness of breath from his baseline both at rest and with activities. He is normally able to walk [address] before getting SOB but now only able to walk about 20 feet before becoming SOB. He also noticed increased edema in bilateral lower extremities since yesterday. He has PRN oxygen at home which he uses at 4L generally 3-4 times daily for about 15 minutes a time when he feels SOB. He does not sleep with oxygen though sometimes wakes in the middle the night with SOB and uses oxygen for a short time, as well which he reports is chronic. He does have a hospital bed at home when he sleeps with head of bed elevated and 2 pillows chronically. Reports has some intermittent left sided chest pain for "awhile" and reports had during last admission also and is worse with eating. Patient reports late afternoon yesterday started with some mid left-sided abdominal pain and radiates across the stomach to the right side. He notes large area of ecchymosis on abdomen that has been present since last admission from heparin injections. He does not feel more abdominal bloating from baseline. Since discharge he notes he has been eating a healthier diet as he was given a handout upon discharge. States took metolazone 2 days ago and has been taking torsemide daily. Did not have morning meds yet today. He denies nausea, vomiting, diarrhea, constipation, change in urination, fevers, chills, [place], dizziness, syncope, vision changes, neck pain, palpitations, cough, sore throat, choking, otalgia, rhinorrhea, paresthesias, rashes, urinary symptoms. Allergies Allergy/AdvReac Type Severity Reaction Status Date / Time promethazine AdvReac Intermediate DELIRIUM Verified 10/08/18 08:26 Home Medications Home Medications Medication Instructions Recorded Confirmed Type Symbicort 2 puff INHALATION BID 09/21/18 10/08/18 History albuterol sulfate 2 puff INHALATION Q6H PRN 09/21/18 10/08/18 History allopurinol 100 mg PO BID 09/21/18 10/08/18 History aspirin [Aspirin Low Dose] 81 mg PO DAILY 09/21/18 10/08/18 History atorvastatin 20 mg PO DAILY 09/21/18 10/08/18 History cholecalciferol (vitamin D3) 4,000 unit PO DAILY 09/21/18 10/08/18 History [Vitamin D3] levothyroxine 25 mcg PO DAILY 09/21/18 10/08/18 History magnesium oxide 400 mg PO DAILY 09/21/18 10/08/18 History metoprolol succinate 50 mg PO BID 09/21/18 10/08/18 History multivitamin 1 tab PO DAILY 09/21/18 10/08/18 History nitroglycerin 0.4 mg SUBLINGUAL DIRECTED 09/21/18 10/08/18 History omeprazole 40 mg PO DAILY 09/21/18 10/08/18 History sennosides [senna] 8.6 mg PO BID 09/21/18 10/08/18 History torsemide 20 mg PO DAILY 09/21/18 10/08/18 History warfarin [Jantoven] 5 mg PO UD 09/21/18 10/08/18 History amiodarone 400 mg PO BID 14 Days #56 tab 10/05/18 10/08/18 Rx iron,carbonyl-vitamin C [Vitron-C] 1 tab PO DAILY 10/08/18 10/08/18 History metolazone 5 mg PO UD 10/08/18 10/08/18 History Past Med/Surg History Medical History Atrial fibrillation (Chronic) Biventricular cardiac pacemaker in situ (Chronic) Systolic heart failure, ACC/AHA stage D (Chronic) Syncope (Resolved) MAXIM (acute kidney injury) (Resolved) Chronic combined systolic and diastolic CHF (congestive heart failure) (Chronic) "echo 05/03/16 - EF 27%, moderate - severe mitral regurgitation, grade I diastolic dysfunction" On 11/22/14 15:23 Sharmaine Barton wrote "echo 10/2014 - EF 25-25%, severe mitral regurgitation, moderate tricuspid regurgitation" On 10/29/14 10:44 Rosalie Joseph wrote "EF 15-20%, grade III diastolic dysfunction, by echo 06/2014" On 10/29/14 10:34 Rosalie Joseph wrote "EF 15-20%" Nonischemic cardiomyopathy (Chronic) "s/p AICD placement EF as low as 15% in the past, on echo 05/03/16 EF 27%" On 11/22/14 15:22 Sharmaine Barton wrote "s/p AICD placement" On 10/29/14 10:54 Rosalie Joseph wrote "EF 15-20%, s/p ICD placement" On 10/29/14 10:44 Rosalie Joseph wrote On 10/29/14 10:35 Rosalie Joseph wrote "EF 15-20%" Severe mitral regurgitation (Chronic) On 10/29/14 10:44 Rosalie Joseph wrote "by echo 06/2014" Pulmonary hypertension (Chronic) Hypertension (Chronic) Frequent PVCs (Chronic) Dyslipidemia (Chronic) History of DVT (deep vein thrombosis) (Chronic) GERD (gastroesophageal reflux disease) (Chronic) Esophageal dysmotility (Chronic) Non-ischemic cardiomyopathy (Chronic) Pulmonary HTN (Chronic) "on echo from 10/2014" SOB (shortness of breath) Effusion of left knee joint (Resolved) Left knee pain (Resolved) Syncope (Resolved) Surgical History Hx of cardiac cath (Chronic) "01/2013- non obstructive CAD" History of implantable cardioverter-defibrillator (ICD) placement (Chronic) "Biventricular ICD placed 05/07/2013, with revisions in 12/2013 and 01/2014" On 10/29/14 10:33 Rosalie Joseph wrote "05/07/2013" S/P cholecystectomy (Chronic) H/O colonoscopy (Chronic) "with polypectomy" S/P lumbar discectomy (Chronic) S/P tendon repair (Chronic) "for ruptured EPL" H/O cardiac radiofrequency ablation (Chronic) "12/2014, for PVCs" Family History Other Cancer Coronary heart disease Diabetes Social History Preferred Language: Venezuelan Communication Ability: Effective Finance Vice President Required: No Beliefs That Will Affect Care: None marital status: Current Living Situation: Spouse current occupational status: retired Other Information That Helps Us Care for You: No Feels Safe at Home: Yes Safety Concerns: Feels Safe At This Time Smoking Status: Former smoker Do You Dip or Chew Tobacco: No Smoking End Date: 1967 Hx Alcohol Use: No Hx Substance Use: No Review of Systems Review of Systems: All systems reviewed & are unremarkable except as noted in HPI & below Physical Exam Physical Exam: General: chronic ill appearing, obese, mild distress with conversational SOB Head: normocephalic, atraumatic Eyes: PERRL, EOM's intact, conjunctiva non-injected, anicteric ENT: normal inspection external ears, nose, mucous membranes moist Neck: supple, trachea midline Lungs: clear, no respiratory distress CV: RRR, + JVD, 3+pretibial edema Abd: normal BS, soft, +ecchymosis lower abdomen, non-tender to palpation by this provider Ext: no cyanosis, no calf tenderness Neuro: A&O x 3, no focal deficits noted, normal affect Skin: warm, dry Results & Data Vital Signs (Past 12 Hours) Vital Signs Temp Pulse Pulse Resp BP BP Pulse Ox 10/08/18 11:36 75 20 110/77 99 10/08/18 11:07 103 H 23 108/76 92 10/08/18 10:30 23 L 107/78 92 10/08/18 10:22 105 H 21 103/68 95 10/08/18 10:00 96 H 26 H 95/71 L 95 10/08/18 09:14 116 H 20 103/71 94 10/08/18 08:16 96 10/08/18 08:09 101 H 26 H 113/75 96 10/08/18 07:59 36.9 C 102 H 25 H 94/66 L 97 Laboratory Results Short CBC 10/08/18 Range/Units 07:31 WBC 7.02 (4.8-10.8) K/uL Hgb 12.1 L (14.0-18.0) g/dL Hct 36.7 L (42-52) % Plt Count 139 (130-400) K/uL BMP 10/08/18 07:31 Sodium 140 Potassium 4.4 Chloride 104 Carbon Dioxide 21 BUN 61 H Creatinine 2.28 H Glucose 129 H Calcium 9.3 Cardiac Enzymes 10/08/18 Range/Units 07:31 Total Creatine Kinase 95 (39-308) U/L CK-MB (CK-2) 3.0 (0.5-3.6) ng/ml Troponin I 0.045 (0-0.045) ng/ml Liver Function 10/08/18 Range/Units 07:31 Total Bilirubin 3.3 H (0.2-1) mg/dl AST 186 H (15-37) U/L ALT 529 H (12-78) U/L Alkaline Phosphatase 185 H (45-117) U/L Albumin 3.6 (3.4-5.0) gm/dl Diagnostic Findings CXR IMPRESSION: 1. Marked cardiomegaly with pulmonary vascular congestion. 2. Trace right pleural effusion. 3. Minimal left midlung opacity. CT ABD/PELVIS IMPRESSION: 1. Interval development of a 3.4 cm lesion in the spleen. Given the history of pancreatitis, one of the primary differential considerations include a pseudocyst. No current evidence of pancreatitis. Benign lesions are largely congenital, and the interval appearance of the lesion is not compatible with these entities. Other differential considerations are significantly less likely, including metastasis if there is a history of malignancy, or lymphoma. 2. Small right pleural effusion. 3. Cardiomegaly with congestive change and mild pulmonary edema at the lung bases. 4. Hepatic steatosis. 5. Small ascites and body wall edema. This likely is a manifestation of volume overload. 6. Diverticulosis coli. No evidence of diverticulitis. 7. Superior endplate compression deformity of L3 new since 2015. Correlate for point tenderness to assess for acuity. CT CHEST IMPRESSION: 1. Cardiomegaly with suggestion of mild pulmonary edema. 2. Small right and trace left pleural effusions with minimal subsegmental bibasilar atelectasis. 3. Suggested pulmonary arterial hypertension. 4. Subpleural bilateral reticular opacities are unchanged suggestive of chronic fibrosis. 5. Nonspecific mediastinal adenopathy, progressed from comparison. 6. Additional findings as above. ECG Rate (beats per minute): 115 Findings: + paced rhythm Supervising Physician Co-Signing Physician Notes 72-year-old man with acute on chronic systolic heart failure recently discharged from the hospital 3 days ago. He was recently noted to be in atrial fibrillation and cardiology had plans of possibly performing a cardioversion on him. However the more conservative route seem to be starting amiodarone which was started at discharge. Since that time he reported feeling well but developed some acute shortness of breath overnight last night. He does report a decrease in exercise tolerance and some generalized abdominal pain. Although he reports the pain is in the left side, on exam it is generalized. He has pitting edema and distended neck veins all consistent with a heart failure exacerbation. Elevated LFTs are either from amiodarone or passive congestion on the liver. He was given IV diuresis in the ER with minimal output. After discussion with cardiology he was thought to be too high risk for this facility and will be transferred to a tertiary care center for further consideration of cardioversion and cardiac optimization.
[2018-10-08] MEDS ORDERED: LEVALBUTEROL HCL 0.63 MG/3 ML NEB NEB PRN (12:50)
[2018-10-08] MEDS ORDERED: POLYETHYLENE (MIRALAX) 17 GM PACK PO PRN (12:50)
[2018-10-08] MEDS ORDERED: ASPIRIN 81 MG ECTAB PO SCH (12:50)
[2018-10-08] MEDS ORDERED: ALLOPURINOL 100 MG TAB PO SCH (12:50)
[2018-10-08] MEDS ORDERED: ACETAMINOPHEN 325 MG TAB PO PRN (12:50)
[2018-10-08] MEDS ORDERED: PANTOprazole 40 MG TAB PO SCH (13:30)
--- NOTE | 2018-10-08 13:46 | Palliative Care Consultation ---
Date of Consultation October 08, 2018 Assessment & Plan (1) Palliative care encounter: This is a 72 year old pleasant male who presented to the [facility] from home with increased SOB and increased B/L LE edema over the past few days. Patient has been recently admitted three (3) times over the past one month with similar symptoms and complications related to his NYHA Class IV acute on chronic CHF. Patient has a PM/AED and most recent ECHO from 10/03/18 EF: < 15%. Additional PMH includes MAXIM, QUALITY INTERNSHIP, renal insufficiency. Creatinine baseline 2.28. Recent abdominal/pelvic CT did reveal a splenic lesion of 3.4 cm. In speaking with the hospitalist, the main goal for palliative care consult is to discuss goals of care, code status and help provide guidance towards discussing home services for him to remain at home and avoid additional hospitalizations. Palliative Care was consulted. -Met with patient in room 208 with CREATIVE SERVICES INTERN leslie Turcios. Patient was sitting on the side of the bed in NAD. Pt daughter, Milena and son-in-law entered towards the end of the encounter. -We discussed how things were going at home since his discharge on Tuesday 10/03 until now. He said that he "did too much" and should have taken it more easy. -He said he felt fine until yesterday and then became more SOB, possibly anxiety could be related to his symptoms. -We talked briefly about code status; however, the patient was resilient and non-directive with providing an answer. He said, "all of that is listed some where on the chart and I have a living will" Based on review, last admission he did remain a Full Code. -Pt stated that Cardiology mentioned the possibility of cardioversion or pacemaker interrogation. -Patient ultimately stated that he has a goal of returning home and staying out of the hospital. -We started to discuss services that could be available to him upon discharge. This patient ultimately would likely qualify for Hospice services at home AEB his EF < 15% and NYHA Class IV CHF. -We will continue to follow throughout his hospitalization and based on his clinical progression, assist as needed. -PPS: 50% (2) Renal insufficiency: (3) CHF exacerbation: Heart failure type: unspecified Qualified Code(s): I50.9 - Heart failure, unspecified (4) Atrial fibrillation: (5) Pulmonary hypertension: History of Present Illness Reason for Consultation: Goals of Care Requesting Physician: Faustino GRAVES Attending Physician: Mary Underwood DO History of Present Illness This is a 72 year old pleasant male who presented to the [facility] from home with increased SOB and increased B/L LE edema over the past few days. Patient has been recently admitted three (3) times over the past one month with similar symptoms and complications related to his NYHA Class IV acute on chronic CHF. Patient has a PM/AED and most recent ECHO from 10/03/18 EF: < 15%. Additional PMH includes MAXIM, pHTN, QUALITY INTERNSHIP, renal insufficiency. Creatinine baseline 2.28. Recent abdominal/pelvic CT did reveal a splenic lesion of 3.4 cm. In speaking with the hospitalist, the main goal for palliative care consult is to discuss goals of care, code status and help provide guidance towards discussing home services for him to remain at home and avoid additional hospitalizations. Palliative Care was consulted. Please see A/P for additional information. Thank you kindly for involving the Palliative Care Services. We will follow throughout the hospitalization. Allergies Allergy/AdvReac Type Severity Reaction Status Date / Time promethazine AdvReac Intermediate DELIRIUM Verified 10/08/18 08:26 Home Medications Home Medications Medication Instructions Recorded Confirmed Type Symbicort 2 puff INHALATION BID 09/21/18 10/08/18 History albuterol sulfate 2 puff INHALATION Q6H PRN 09/21/18 10/08/18 History allopurinol 100 mg PO BID 09/21/18 10/08/18 History aspirin [Aspirin Low Dose] 81 mg PO DAILY 09/21/18 10/08/18 History atorvastatin 20 mg PO DAILY 09/21/18 10/08/18 History cholecalciferol (vitamin D3) 4,000 unit PO DAILY 09/21/18 10/08/18 History [Vitamin D3] levothyroxine 25 mcg PO DAILY 09/21/18 10/08/18 History magnesium oxide 400 mg PO DAILY 09/21/18 10/08/18 History metoprolol succinate 50 mg PO BID 09/21/18 10/08/18 History multivitamin 1 tab PO DAILY 09/21/18 10/08/18 History nitroglycerin 0.4 mg SUBLINGUAL DIRECTED 09/21/18 10/08/18 History omeprazole 40 mg PO DAILY 09/21/18 10/08/18 History sennosides [senna] 8.6 mg PO BID 09/21/18 10/08/18 History torsemide 20 mg PO DAILY 09/21/18 10/08/18 History warfarin [Jantoven] 5 mg PO UD 09/21/18 10/08/18 History amiodarone 400 mg PO BID 14 Days #56 tab 10/05/18 10/08/18 Rx iron,carbonyl-vitamin C [Vitron-C] 1 tab PO DAILY 10/08/18 10/08/18 History metolazone 5 mg PO UD 10/08/18 10/08/18 History Patient History Medical History Atrial fibrillation (Chronic) Biventricular cardiac pacemaker in situ (Chronic) Systolic heart failure, ACC/AHA stage D (Chronic) Syncope (Resolved) MAXIM (acute kidney injury) (Resolved) Chronic combined systolic and diastolic CHF (congestive heart failure) (Chronic) "echo 05/03/16 - EF 27%, moderate - severe mitral regurgitation, grade I diastolic dysfunction" On 11/22/14 15:23 Sharmaine Barton wrote "echo 10/2014 - EF 25-25%, severe mitral regurgitation, moderate tricuspid regurgitation" On 10/29/14 10:44 Rosalie Joseph wrote "EF 15-20%, grade III diastolic dysfunction, by echo 06/2014" On 10/29/14 10:34 Rosalie Joseph wrote "EF 15-20%" Nonischemic cardiomyopathy (Chronic) "s/p AICD placement EF as low as 15% in the past, on echo 05/03/16 EF 27%" On 11/22/14 15:22 Sharmaine Barton wrote "s/p AICD placement" On 10/29/14 10:54 oRsalie Joseph wrote "EF 15-20%, s/p ICD placement" On 10/29/14 10:44 Rosalie Joseph wrote On 10/29/14 10:35 Rosalie Joseph wrote "EF 15-20%" Severe mitral regurgitation (Chronic) On 10/29/14 10:44 Rosalie Joseph wrote "by echo 06/2014" Pulmonary hypertension (Chronic) Hypertension (Chronic) Frequent PVCs (Chronic) Dyslipidemia (Chronic) History of DVT (deep vein thrombosis) (Chronic) GERD (gastroesophageal reflux disease) (Chronic) Esophageal dysmotility (Chronic) Non-ischemic cardiomyopathy (Chronic) Pulmonary HTN (Chronic) "on echo from 10/2014" SOB (shortness of breath) Effusion of left knee joint (Resolved) Left knee pain (Resolved) Syncope (Resolved) Surgical History Hx of cardiac cath (Chronic) "01/2013- non obstructive CAD" History of implantable cardioverter-defibrillator (ICD) placement (Chronic) "Biventricular ICD placed 05/07/2013, with revisions in 12/2013 and 01/2014" On 10/29/14 10:33 Rosalie Joseph wrote "05/07/2013" S/P cholecystectomy (Chronic) H/O colonoscopy (Chronic) "with polypectomy" S/P lumbar discectomy (Chronic) S/P tendon repair (Chronic) "for ruptured EPL" H/O cardiac radiofrequency ablation (Chronic) "12/2014, for PVCs" Family History Other Cancer Coronary heart disease Diabetes Social History Preferred Language: Maldivian Communication Ability: Effective Inserter Operator Required: No Beliefs That Will Affect Care: None marital status: Current Living Situation: Spouse current occupational status: retired Other Information That Helps Us Care for You: No Feels Safe at Home: Yes Safety Concerns: Feels Safe At This Time Smoking Status: Former smoker Do You Dip or Chew Tobacco: No Smoking End Date: 1967 Hx Alcohol Use: No Hx Substance Use: No Review of Systems 2 Review of Systems: All systems reviewed & are unremarkable except as noted in HPI & below (Pt reports increased edema and SOB. Pt denies [place], dizziness, visual changes, appetite changes) Physical Exam Constitutional: well developed, well nourished, + well hydrated and healthy appearing Eyes: PERRL, conjunctivae normal, anicteric sclerae ENMT: external ear and nose normal, oropharynx normal Neck: trachea midline, no thyromegaly Respiratory: Auscultation: + diminished lung sounds, + crackles (left lung morley ), + rhonchi (left lung morley ) and + wheezes (expiratory wheezes left sided lung morley ) Cardiovascular: Heart Sounds: normal S1, normal S2 and + murmur Extremities: normal capillary refill and + edema (+2 B/L LE ) PM Gastrointestinal (Abdomen): normal bowel sounds, soft, nontender, no hepatosplenomegaly Skin: no rashes, warm and dry + dry skin (B/L LE) Psychiatric: Orientation: oriented x 3 Apperance: appropriately groomed Affect: + depressed affect and + flat affect Insight: good insight Judgement: good judgement Genitourinary: deferred voiding Lymphatic: no cervical or axillary lymphadenopathy Results & Data Vital Signs (Past 12 Hours) Vital Signs Temp Pulse Pulse Resp BP BP Pulse Ox 10/08/18 12:22 108 H 25 H 120/67 100 10/08/18 11:36 75 20 110/77 99 10/08/18 11:07 103 H 23 108/76 92 10/08/18 10:30 23 L 107/78 92 10/08/18 10:22 105 H 21 103/68 95 10/08/18 10:00 96 H 26 H 95/71 L 95 10/08/18 09:14 116 H 20 103/71 94 10/08/18 08:16 96 10/08/18 08:09 101 H 26 H 113/75 96 10/08/18 07:59 36.9 C 102 H 25 H 94/66 L 97
[2018-10-08 14:18] LABS: Magnesium 2.3 mg/dl (1.8-2.4); Troponin I 0.047 ng/ml (0-0.045)
[2018-10-08] MEDS ORDERED: WARFARIN SOD 7.5 MG TAB PO SCH (16:00)
--- NOTE | 2018-10-08 16:17 | Cardiology Consultation ---
Date of Consultation October 08, 2018 Assessment & Plan (1) Chronic combined systolic and diastolic CHF (congestive heart failure): Patient has received 40 mg of IV furosemide this morning the serum is tentatively scheduled to receive 40 mg every 12. Unfortunately, his systolic blood pressure is low, consistent with what is clinically felt to be low cardiac output syndrome. He therefore does not have much room for aggressive additional afterload reduction, AV myke blockers, or diuretic therapy. At the time of his most recent discharge he was discharged on his prior to hospital dose of 20 mg of torsemide daily however his prior to hospital treatment with digoxin, spironolactone, and Entresto were held at the time of recent hospital discharge. At this time I recommend transfer to [facility] [place], for EP consultation, and consideration of consultation with the advanced heart failure team who is followed him in the past for further consideration of his advanced heart failure. I am not certain if there is further intervention to offer him, or if he is end-stage. (2) Atrial fibrillation: A formal device check had been performed with the help of the [employer] patient account representative at the bedside this afternoon 10/08/2018. I reviewed the data at the bedside. His most recent right atrial lead threshold has been on 09/16/2018, and therefore it suggests that this is the day when he reverted to atrial fibrillation. It appears that he had been in and out of atrial fibrillation for several days, and that he has been in atrial fibrillation 100% the time since 10/02/2018. Since he had reverted to atrial fibrillation, his overall biventricular pacing and decreased from a previous frequency of 99% down to 81%. Since 10/02/2018, he has biventricular pacing has been down to 19%. He is pacing from the right ventricle 76% the time. This may of course be contributing to his clinical compromise. It is however difficult to tell what came first, the atrial fibrillation with subsequent decline or has he declined overall, and has now reverted atrial fibrillation. Considerations include proceeding with a transesophageal echocardiogram guided cardioversion as his INR is been below goal, but this of course is considered to be high risk given his overall severe LV systolic function. Amiodarone has been discontinued by pulmonary medicine in February 2018 due to concerns of pulmonary toxicity. Chest CT performed today does reveal pulmonary fibrosis. (3) Cardiorenal syndrome: Worsening renal function is noted. His creatinine has been denies 2.68 during his recent hospital stay and is 2.2 today. This is improved but not back to his baseline. He has however noted to be volume overloaded today, and he was not volume overloaded when I had seen him several days ago. He is currently on IV diuretic therapy. (4) Severe mitral regurgitation: Based on prior echocardiogram dated, as well as the most recent study, the mechanism of the mitral regurgitation appears to be due to the dilated cardiomyopathy with left ventricular chamber dilatation and resultant mild coaptation of the mitral valve apparatus. (5) Elevated LFTs: Although the admitting team had made reference that this may be due to amiodarone, the patient had only received 400 mg prior to discharge several days ago, and he had not picked up the medication until yesterday and only taken 1 or 2 doses at home. I therefore think his elevated LFTs are just due to passive hepatic congestion. (6) Lesion of spleen: CT of the chest abdomen pelvis was performed today 10/08/2018. There was interval development of a 3.4 cm lesion in the spleen. He has a history of pancreatitis, and the CT report by radiology raises possibility of possible pancreatic pseudocyst. No current evidence of pancreatitis. A small right pleural effusion was noted as well as mild pulmonary interstitial edema, hepatic steatosis, ascites, subpleural bilateral reticular opacities suggestive of chronic pulmonary fibrosis. History of Present Illness Attending Physician: Mary Underwood, History of Present Illness Jhonny Bowden is a 72 year old male seen in cardiology consultation per the request of Danae Renee PA-C for the management of congestive heart failure. The patient is well-known to our service having recently been admitted last week, and I actually had seen him in follow-up the day he was discharged on 10/05/2018. Patient has a complex history of nonischemic cardiomyopathy dating back to 2012 when he presented with severe left ventricular systolic dysfunction. Cardiac catheterization at that time revealed mild nonobstructive CAD with mild luminal irregularities described on Dr. Hernández's report from January 2013. In 2013 he experienced a cardiac arrest and subsequently underwent biventricular pacemaker AICD performed at [facility]. His left ventricular lead caused phrenic nerve stimulation for which he had an epicardial lead placed and that this was subsequently revised. In August 2014 he had PVC ablation at [facility] with significant symptomatic improvement. He then developed atrial fibrillation about 2 months later requiring direct-current cardioversion and had been on amiodarone in the meantime up until February 2018 when it was discontinued due to concerns of amiodarone related lung toxicity. A year ago, the patient was doing well from a cardiac perspective clinically. An echocardiogram performed in September 2017 as an outpatient at [facility] revealed left ventricular ejection fraction of 29% with moderate to severe mitral regurgitation noted. More recently the patient has been feeling poor. He feels his health has declined, and he is also with lots of social stressors at home. His spouse apparently is suffering from dementia. She was placed in a prison but did not do well and she is back at home. He has been struggling to care for her. Last week he initially presented on 10/02/2018 with sensation of generalized fatigue and difficulty swallowing. He did not appear volume overloaded at that time but acute kidney insufficiency was noted with a creatinine of 2.68 on 10/16, increased compared to his typical baseline of 1�1.7 as per review of his recent inpatient and outpatient laboratory studies. Findings on his most recent hospital stay included was felt to be low output congestive heart failure. An echocardiogram performed at the [facility] dated 10/03/2018 revealed severe dilatation of the left ventricle with severe left ventricular global hypokinesis ejection fraction less than 50%. The right ventricular systolic function was also severely reduced. Severe biatrial enlargement was present with severe mitral regurgitation and severe tricuspid regurgitation. The patient was discharged on 10/05/2017 with a plan to start amiodarone as an outpatient as was felt that his recent conversion to atrial fibrillation, and decreased frequency of biventricular pacing may be contributing to his clinical decline. The patient was seen as an outpatient yesterday by Dr. Leon, and was feeling poorly. He subsequently presented to the emergency department today. His chief complaint today is generalized fatigue, he felt short of breath with minimal activity such as minimal walking and slept poorly last night despite the use of supplemental oxygen. Allergies Allergy/AdvReac Type Severity Reaction Status Date / Time promethazine AdvReac Intermediate DELIRIUM Verified 10/08/18 08:26 Home Medications Home Medications Medication Instructions Recorded Confirmed Type Symbicort 2 puff INHALATION BID 09/21/18 10/08/18 History albuterol sulfate 2 puff INHALATION Q6H PRN 09/21/18 10/08/18 History allopurinol 100 mg PO BID 09/21/18 10/08/18 History aspirin [Aspirin Low Dose] 81 mg PO DAILY 09/21/18 10/08/18 History atorvastatin 20 mg PO DAILY 09/21/18 10/08/18 History cholecalciferol (vitamin D3) 4,000 unit PO DAILY 09/21/18 10/08/18 History [Vitamin D3] levothyroxine 25 mcg PO DAILY 09/21/18 10/08/18 History magnesium oxide 400 mg PO DAILY 09/21/18 10/08/18 History metoprolol succinate 50 mg PO BID 09/21/18 10/08/18 History multivitamin 1 tab PO DAILY 09/21/18 10/08/18 History nitroglycerin 0.4 mg SUBLINGUAL DIRECTED 09/21/18 10/08/18 History omeprazole 40 mg PO DAILY 09/21/18 10/08/18 History sennosides [senna] 8.6 mg PO BID 09/21/18 10/08/18 History torsemide 20 mg PO DAILY 09/21/18 10/08/18 History warfarin [Jantoven] 5 mg PO UD 09/21/18 10/08/18 History amiodarone 400 mg PO BID 14 Days #56 tab 10/05/18 10/08/18 Rx iron,carbonyl-vitamin C [Vitron-C] 1 tab PO DAILY 10/08/18 10/08/18 History metolazone 5 mg PO UD 10/08/18 10/08/18 History Patient History Medical History Atrial fibrillation (Chronic) Biventricular cardiac pacemaker in situ (Chronic) Systolic heart failure, ACC/AHA stage D (Chronic) Syncope (Resolved) MAXIM (acute kidney injury) (Resolved) Chronic combined systolic and diastolic CHF (congestive heart failure) (Chronic) "echo 05/03/16 - EF 27%, moderate - severe mitral regurgitation, grade I diastolic dysfunction" On 11/22/14 15:23 Sharmaine Barton wrote "echo 10/2014 - EF 25-25%, severe mitral regurgitation, moderate tricuspid regurgitation" On 10/29/14 10:44 Rosalie Joseph wrote "EF 15-20%, grade III diastolic dysfunction, by echo 06/2014" On 10/29/14 10:34 Rosalie Joseph wrote "EF 15-20%" Nonischemic cardiomyopathy (Chronic) "s/p AICD placement EF as low as 15% in the past, on echo 05/03/16 EF 27%" On 11/22/14 15:22 Sharmaine Barton wrote "s/p AICD placement" On 10/29/14 10:54 Rosalie Joseph wrote "EF 15-20%, s/p ICD placement" On 10/29/14 10:44 Rosalie Joseph wrote On 10/29/14 10:35 Rosalie Joseph wrote "EF 15-20%" Severe mitral regurgitation (Chronic) On 10/29/14 10:44 Rosalie Joseph wrote "by echo 06/2014" Pulmonary hypertension (Chronic) Hypertension (Chronic) Frequent PVCs (Chronic) Dyslipidemia (Chronic) History of DVT (deep vein thrombosis) (Chronic) GERD (gastroesophageal reflux disease) (Chronic) Esophageal dysmotility (Chronic) Non-ischemic cardiomyopathy (Chronic) Pulmonary HTN (Chronic) "on echo from 10/2014" SOB (shortness of breath) Effusion of left knee joint (Resolved) Left knee pain (Resolved) Syncope (Resolved) Surgical History Hx of cardiac cath (Chronic) "01/2013- non obstructive CAD" History of implantable cardioverter-defibrillator (ICD) placement (Chronic) "Biventricular ICD placed 05/07/2013, with revisions in 12/2013 and 01/2014" On 10/29/14 10:33 Rosalie Joseph wrote "05/07/2013" S/P cholecystectomy (Chronic) H/O colonoscopy (Chronic) "with polypectomy" S/P lumbar discectomy (Chronic) S/P tendon repair (Chronic) "for ruptured EPL" H/O cardiac radiofrequency ablation (Chronic) "12/2014, for PVCs" Family History Other Cancer Coronary heart disease Diabetes Social History Preferred Language: [place]ib[place]ian Communication Ability: Effective Catering Administrative Assistant Required: No Beliefs That Will Affect Care: None marital status: Current Living Situation: Spouse current occupational status: retired Other Information That Helps Us Care for You: No Feels Safe at Home: Yes Safety Concerns: Feels Safe At This Time Smoking Status: Former smoker Do You Dip or Chew Tobacco: No Smoking End Date: 1967 Hx Alcohol Use: No Hx Substance Use: No Review of Systems Review of Systems: All systems reviewed & are unremarkable except as noted in HPI & below Physical Exam Physical Exam: General: Chronically ill in appearance, no acute distress Eyes: conjunctiva are pink and non-injected, sclera clear, facial edema noted Neck: Elevated jugular venous pressure Chest: normal shape and normal respiratory effort Lungs: Decreased breath sounds bilaterally at the bases Cardiac Exam: - regular heart sounds, II/mineral 6 systolic murmur Abdomen: abdomen soft, non-tender,, mild abdominal bloating noted Musculoskeletal: no gait disturbance Extremities: 1+ lower extremity edema to the sock line Neuro:awake, coversant, follows commands, no focal motor deficits Psych: appropriate affect and insight. Results & Data Vital Signs (Past 12 Hours) Vital Signs Temp Pulse Pulse Pulse Resp BP BP 10/08/18 15:29 36.6 C 71 18 98/76 L 10/08/18 13:40 36.6 C 88 20 10/08/18 12:22 108 H 25 H 120/67 10/08/18 11:36 75 20 10/08/18 11:07 103 H 23 10/08/18 10:30 23 L 10/08/18 10:22 105 H 21 10/08/18 10:00 96 H 26 H 10/08/18 09:14 116 H 20 10/08/18 08:16 10/08/18 08:09 101 H 26 H 10/08/18 07:59 36.9 C 102 H 25 H 94/66 L BP Pulse Ox 10/08/18 15:29 95 10/08/18 13:40 94/65 L 97 10/08/18 12:22 100 10/08/18 11:36 110/77 99 10/08/18 11:07 108/76 92 10/08/18 10:30 107/78 92 10/08/18 10:22 103/68 95 10/08/18 10:00 95/71 L 95 10/08/18 09:14 103/71 94 10/08/18 08:16 96 10/08/18 08:09 113/75 96 10/08/18 07:59 97 Laboratory Results Cardiac Enzymes INR 10/08/2018 2.3 INR 10/05/2018 2.2 INR 10/04/2018 1.8 INR 10/03/2018 0.5 INR 10/02/1989 1.3 10/08/18 10/08/18 Range/Units 07:31 12:57 AST 186 H (15-37) U/L CK-MB (CK-2) 3.0 (0.5-3.6) ng/ml Troponin I 0.045 0.047 H* (0-0.045) ng/ml Coagulation 10/08/18 Range/Units 07:31 PT 22.2 H (9.0-12.0) Seconds CBC 10/08/18 Range/Units 07:31 WBC 7.02 (4.8-10.8) K/uL RBC 4.20 L (4.7-6.1) M/uL Hgb 12.1 L (14.0-18.0) g/dL Hct 36.7 L (42-52) % Plt Count 139 (130-400) K/uL Neut # (Auto) 5.21 (1.4-6.5) K/uL Lymph # (Auto) 0.93 L (1.2-3.4) K/uL [place] # (Auto) 0.71 H (0.11-0.59) K/uL Eos # (Auto) 0.12 (0-0.5) K/uL Baso # (Auto) 0.03 (0-0.2) K/uL Comprehensive Metabolic Panel 10/08/18 Range/Units 07:31 Sodium 140 (136-145) mmol/L Potassium 4.4 (3.5-5.1) mmol/L Chloride 104 (98-107) mmol/L Carbon Dioxide 21 (21-32) mmol/L BUN 61 H (7-18) mg/dl Creatinine 2.28 H (0.6-1.4) mg/dl Glucose 129 H (70-99) mg/dl Calcium 9.3 (8.5-10.1) mg/dl AST 186 H (15-37) U/L ALT 529 H (12-78) U/L Alkaline Phosphatase 185 H (45-117) U/L Total Protein 7.0 (6.4-8.2) gm/dl Albumin 3.6 (3.4-5.0) gm/dl Intake and Output 10/08/18 10/08/18 10/08/18 06:59 14:59 22:59 Other: Weight 107.6 kg Patient Weight 10/09/18 06:59 Weight 107.6 kg Diagnostic Findings EKG performed today 10/08/2018 at 7:50 AM revealed atrial fibrillation with ventricular paced QRS complexes at 150 bpm per Medications Administered Current Inpatient Medications Acetaminophen (Tylenol) 650 mg PO Q4H PRN PRN Reason: Pain or Fever Stop: 11/07/18 12:49 Allopurinol (Zyloprim) 100 mg PO BID VÍCTOR Stop: 11/07/18 12:49 Aspirin (Ecotrin Ectab) 81 mg PO DAILY VÍCTOR Stop: 11/07/18 12:49 Last Admin: 10/08/18 13:23 Dose: 81 mg Documented by: Budesonide/Formoterol Fumarate (Symbicort 160mcg/4.5mcg) 2 puffs INH BID VÍCTOR Stop: 11/07/18 20:59 Furosemide 40 mg/ Syringe 4 mls @ 4 mls/min IV [id number] VÍCTOR Stop: 11/07/18 16:59 Levalbuterol HCl (Xopenex 0.63 Mg/3 Ml Neb) 0.63 mg NEB Q6R PRN PRN Reason: Shortness Of Breath Or Wheezin Stop: 11/07/18 12:49 Levothyroxine Sodium (Synthroid) 25 mcg PO DAILYBB [facility] Stop: 11/08/18 06:29 Magnesium Oxide (Mag-Ox) 400 mg PO DAILY VÍCTOR Stop: 11/08/18 08:59 Metoprolol Succinate (Toprol Xl) 50 mg PO BID VÍCTOR Stop: 11/07/18 11:29 Last Admin: 10/08/18 11:38 Dose: 50 mg Documented by: Miscellaneous (Order Awaiting Action) 1 ea N/A QS [facility] Stop: 11/07/18 15:59 Multivitamins (Multivitamin Tab) 1 tab PO DAILY [facility] Stop: 11/08/18 08:59 Pantoprazole Sodium (Protonix) 40 mg PO DAILY [facility] Stop: 11/07/18 13:29 Polyethylene Glycol (Miralax Powder Packet) 17 gm PO DAILY PRN PRN Reason: Constipation Stop: 11/07/18 12:49 Sennosides (Senokot) 8.6 mg PO BID [facility] Stop: 11/07/18 20:59 Vitamin D (Vitamin D3) 4,000 units PO DAILY [facility] Stop: 11/08/18 08:59 Warfarin Sodium (Coumadin) 5 mg PO [email or web address] [facility] Stop: 11/08/18 15:59 Warfarin Sodium (Coumadin) 7.5 mg PO [email or web address] [facility] Stop: 11/07/18 15:59
--- NOTE | 2018-10-08 16:31 | Discharge Summary ---
Date of Service October 08, 2018 Admission HPI Per Admitting Provider Patient is a 72-year-old male with complex PMHx including cardiomyopathy, CHF, A-fib, MAXIM, hypothyroidism, and others below who presents to the ED via EMS today with increasing shortness of breath from baseline and generalized abdominal pain. He had a recent hospital admission from 10/02/2018 to 10/05/2018 for syncope, shortness of breath, a-fib, and MAXIM and was started on amiodarone. He notes since discharge that he has noticed increased shortness of breath from his baseline both at rest and with activities. He is normally able to walk [address] before getting SOB but now only able to walk about 20 feet before becoming SOB. He also noticed increased edema in bilateral lower extremities since yesterday. He has PRN oxygen at home which he uses at 4L generally 3-4 times daily for about 15 minutes a time when he feels SOB. He does not sleep with oxygen though sometimes wakes in the middle the night with SOB and uses oxygen for a short time, as well which he reports is chronic. He does have a hospital bed at home when he sleeps with head of bed elevated and 2 pillows chronically. Reports has some intermittent left sided chest pain for "awhile" and reports had during last admission also and is worse with eating. Patient reports late afternoon yesterday started with some mid left-sided abdominal pain and radiates across the stomach to the right side. He notes large area of ecchymosis on abdomen that has been present since last admission from heparin injections. He does not feel more abdominal bloating from baseline. Since discharge he notes he has been eating a healthier diet as he was given a handout upon discharge. States took metolazone 2 days ago and has been taking torsemide daily. Did not have morning meds yet today. He denies nausea, vomiting, diarrhea, constipation, change in urination, fevers, chills, [place], dizziness, syncope, vision changes, neck pain, palpitations, cough, sore throat, choking, otalgia, rhinorrhea, paresthesias, rashes, urinary symptoms. Admission Exam Per Admitting Provider General: chronic ill appearing, obese, mild distress with conversational SOB Head: normocephalic, atraumatic Eyes: PERRL, EOM's intact, conjunctiva non-injected, anicteric ENT: normal inspection external ears, nose, mucous membranes moist Neck: supple, trachea midline Lungs: clear, no respiratory distress CV: RRR, + JVD, 3+pretibial edema Abd: normal BS, soft, +ecchymosis lower abdomen, non-tender to palpation by this provider Ext: no cyanosis, no calf tenderness Neuro: A&O x 3, no focal deficits noted, normal affect Skin: warm, dry Principal Diagnosis acute on chronic systolic heart failure exacerbation paroxysmal atrial fibrillation elevated LFTs Discharge Data Allergies Allergy/AdvReac Type Severity Reaction Status Date / Time promethazine AdvReac Intermediate DELIRIUM Verified 10/08/18 08:26 Consultations 10/08/18 10:17 ED Decision to Admit Stat 10/08/18 12:50 Consult Cardiology Routine Consult Case Management - Discharge Planning Routine Consult Palliative Care Routine Ordered Studies 10/08/18 09:05 CT abd pelvis wo con Stat CT chest wo con Stat Hospital Course (1) NYHA class 4 acute on chronic systolic heart failure: (2) Chest pain: (3) Elevated LFTs: 72-year-old man with acute on chronic systolic heart failure recently discharged from the hospital 3 days ago. He was recently noted to be in atrial fibrillation and cardiology had plans of possibly performing a cardioversion on him. However, taking a more conservative approach first, amiodarone was started at discharge. Since that time he reported feeling well but developed some acute shortness of breath overnight last night. He does report a decrease in exercise tolerance and some generalized abdominal pain. Although he reports the pain is in the left side, on exam it is generalized. He has pitting edema and distended neck veins all consistent with a heart failure exacerbation. Elevated LFTs are either from amiodarone or passive congestion on the liver and amiodarone was stopped. He was given IV diuresis in the ER with minimal output. After discussion with cardiology he was thought to be too high risk for cardioversion at this facility and will be transferred to a tertiary care center for further consideration of cardioversion and cardiac optimization. Total Time Total Time Spent Total Time Spent (In Minutes): 60 Total Time Includes: Examination of the Patient, Discharge Planning, Medication Reconciliation and Communication With Other Providers Discharge Plan Discharge Items Patient Disposition: Transfer Acute Care Hospital Reason For Visit: ACUTE CHRONIC HF Discharge Diagnosis: acute on chronic systolic heart failure exacerbation paroxysmal atrial fibrillation elevated LFTs Condition: Serious Discharge Goals: Therapeutic intervention Activity: Resume your previous activity Non-emergency contact: Primary Care Provider Call non-emergency contact if: you have any medication questions, your symptoms worsen, your pain is not controlled and you have a fever Follow-up/Referrals: PCP,NO [Primary Care Provider] - Diet: Low Sodium (2gm) Diet Texture: Dental soft (bite-sized) Addtl Provider Instructions: You are being transferred to an acute care facility. It is recommended that you follow-up with your primary care doctor within 1 week of discharge from this hospital. It was a pleasure taking care of you! Please call if you have any questions or problems. You can reach a [facility] hospitalist on duty at [facility] [address] 24 hours a day by calling [phone]. Take care of yourself. Mary Underwood, [facility] Hospitalist Prescriptions: Continued multivitamin Tablet 1 tab PO DAILY RF: 0 sennosides [senna] 8.6 mg Tablet 8.6 mg PO BID RF: 0 atorvastatin 20 mg Tablet 20 mg PO DAILY RF: 0 torsemide 20 mg Tablet 20 mg PO DAILY RF: 0 metoprolol succinate 50 mg Tablet Extended Release 24 Hr 50 mg PO BID RF: 0 allopurinol 100 mg Tablet 100 mg PO BID RF: 0 omeprazole 40 mg Capsule,Delayed Release(Dr/Ec) 40 mg PO DAILY RF: 0 aspirin [Aspirin Low Dose] 81 mg Tablet,Delayed Release (Dr/Ec) 81 mg PO DAILY RF: 0 levothyroxine 25 mcg Tablet 25 mcg PO DAILY RF: 0 warfarin [Jantoven] 5 mg Tablet 5 mg PO UD RF: 0 nitroglycerin 0.4 mg Tablet, Sublingual 0.4 mg sublingual DIRECTED RF: 0 albuterol sulfate 90 mcg/actuation Hfa Aerosol Inhaler 2 puff INHALATION Q6H PRN (Reason: Shortness Of Breath) RF: 0 Symbicort 160-4.5 mcg/actuation Hfa Aerosol Inhaler 2 puff INHALATION BID RF: 0 cholecalciferol (vitamin D3) [Vitamin D3] 2,000 unit Capsule 4,000 unit PO DAILY RF: 0 magnesium oxide 400 mg magnesium Tablet 400 mg PO DAILY RF: 0 metolazone 5 mg Tablet 5 mg PO UD RF: 0 Vitron-C 65 mg iron- 125 mg Tablet,Delayed Release (Dr/Ec) 1 tab PO DAILY RF: 0 amiodarone 200 mg Tablet 400 mg PO BID 14 Days Qty: 56 RF: 0 Stand-Alone Forms: Call Back Authorization, [facility] Discharge Orders: Discharge Order (Routine); Ordered 10/08/18 Ordered By: Mary Underwood Admission Data Admit Date/Time: 10/08/18 11:25 Attending Provider: Mary Underwood Admit Provider: Mary Underwood Primary Care Provider: PCP,NO Other Providers: Manuel Mendoza ; Lani Solomon ; Markus Jain Service: Telemetry Medical
[2018-10-08] MEDS ORDERED: FUROSEMIDE 40 MG in SYRINGE 0 ML IV SCH (17:00)
--- NOTE | 2018-10-08 19:09 | Hospitalist Progress Note ---
Date of Service October 08, 2018 Results & Data Vital Signs (Past 12 Hours) Vital Signs Temp Pulse Pulse Pulse Resp BP BP 10/08/18 15:29 36.6 C 71 18 98/76 L 10/08/18 13:40 36.6 C 88 20 10/08/18 12:22 108 H 25 H 120/67 10/08/18 11:36 75 20 10/08/18 11:07 103 H 23 10/08/18 10:30 23 L 10/08/18 10:22 105 H 21 10/08/18 10:00 96 H 26 H 10/08/18 09:14 116 H 20 10/08/18 08:16 10/08/18 08:09 101 H 26 H 10/08/18 07:59 36.9 C 102 H 25 H 94/66 L BP Pulse Ox 10/08/18 15:29 95 10/08/18 13:40 94/65 L 97 10/08/18 12:22 100 10/08/18 11:36 110/77 99 10/08/18 11:07 108/76 92 10/08/18 10:30 107/78 92 10/08/18 10:22 103/68 95 10/08/18 10:00 95/71 L 95 10/08/18 09:14 103/71 94 10/08/18 08:16 96 10/08/18 08:09 113/75 96 10/08/18 07:59 97 Laboratory Results Short CBC 10/08/18 Range/Units 07:31 WBC 7.02 (4.8-10.8) K/uL Hgb 12.1 L (14.0-18.0) g/dL Hct 36.7 L (42-52) % Plt Count 139 (130-400) K/uL BMP 10/08/18 07:31 Sodium 140 Potassium 4.4 Chloride 104 Carbon Dioxide 21 BUN 61 H Creatinine 2.28 H Glucose 129 H Calcium 9.3 Cardiac Enzymes 10/08/18 10/08/18 Range/Units 07:31 12:57 Total Creatine Kinase 95 (39-308) U/L CK-MB (CK-2) 3.0 (0.5-3.6) ng/ml Troponin I 0.045 0.047 H* (0-0.045) ng/ml Liver Function 10/08/18 Range/Units 07:31 Total Bilirubin 3.3 H (0.2-1) mg/dl AST 186 H (15-37) U/L ALT 529 H (12-78) U/L Alkaline Phosphatase 185 H (45-117) U/L Albumin 3.6 (3.4-5.0) gm/dl Medications Administered Current Inpatient Medications Acetaminophen (Tylenol) 650 mg PO Q4H PRN PRN Reason: Pain or Fever Stop: 11/07/18 12:49 Allopurinol (Zyloprim) 100 mg PO BID [facility]CTOR Stop: 11/07/18 12:49 Last Admin: 10/08/18 16:58 Dose: 100 mg Documented by: Aspirin (Ecotrin Ectab) 81 mg PO DAILY [facility]CTOR Stop: 11/07/18 12:49 Last Admin: 10/08/18 13:23 Dose: 81 mg Documented by: Budesonide/Formoterol Fumarate (Symbicort 160mcg/4.5mcg) 2 puffs INH BID [facility]ÍCTOR Stop: 11/07/18 20:59 Furosemide 40 mg/ Syringe 4 mls @ 4 mls/min IV [id number] VÍCTOR Stop: 11/07/18 16:59 Last Admin: 10/08/18 16:59 Dose: 4 mls/min Documented by: Levalbuterol HCl (Xopenex 0.63 Mg/3 Ml Neb) 0.63 mg NEB Q6R PRN PRN Reason: Shortness Of Breath Or Wheezin Stop: 11/07/18 12:49 Levothyroxine Sodium (Synthroid) 25 mcg PO DAILYBB [facility] Stop: 11/08/18 06:29 Magnesium Oxide (Mag-Ox) 400 mg PO DAILY V[facility]CTOR Stop: 11/08/18 08:59 Metoprolol Succinate (Toprol Xl) 50 mg PO BID [facility]CTOR Stop: 11/07/18 11:29 Last Admin: 10/08/18 11:38 Dose: 50 mg Documented by: Miscellaneous (Order Awaiting Action) 1 ea N/A QS [facility] Stop: 11/07/18 15:59 Last Admin: 10/08/18 16:58 Dose: Not Given Documented by: Multivitamins (Multivitamin Tab) 1 tab PO DAILY [facility]CTOR Stop: 11/08/18 08:59 Pantoprazole Sodium (Protonix) 40 mg PO DAILY [facility] Stop: 11/07/18 13:29 Last Admin: 10/08/18 16:57 Dose: 40 mg Documented by: Polyethylene Glycol (Miralax Powder Packet) 17 gm PO DAILY PRN PRN Reason: Constipation Stop: 11/07/18 12:49 Sennosides (Senokot) 8.6 mg PO BID [facility] Stop: 11/07/18 20:59 Vitamin D (Vitamin D3) 4,000 units PO DAILY [facility] Stop: 11/08/18 08:59 Warfarin Sodium (Coumadin) 5 mg PO [email or web address] [facility] Stop: 11/08/18 15:59 Warfarin Sodium (Coumadin) 7.5 mg PO [email or web address] [facility] Stop: 11/07/18 15:59 Last Admin: 10/08/18 16:58 Dose: 7.5 mg Documented by:
[2018-10-08] MEDS ORDERED: BUDESONIDE/FORMOTEROL FUMARATE 160/4.5 60 PUFFS/INHALER INH SCH (21:00)
[2018-10-08] MEDS ORDERED: SENNA 8.6 MG TAB PO SCH (21:00)
[2018-10-09] MEDS ORDERED: LEVOTHYROXINE SODIUM 25 MCG TABLET PO SCH (06:30)
--- NOTE | 2018-10-09 07:20 | Emergency Department Note ---
Entered by Sol Gore acting as a scribe for History of Present Illness General Chief complaint: Abdominal Pain Stated complaint: Left Abd Pain, SOB Time Seen by Provider: 10/08/18 08:03 Source: patient Mode of arrival: EMS Limitations: no limitations History of Present Illness Provider complaint: PEARL Onset (ago): day(s) 4 Location: chest Pain Consistency: + other (persistent) Quality: + other (SOB) Exacerbated By: + other (exertion) Associated symptoms: + chest pain and + other (abd pain) The patient is a 72 year old male who presents to the ER with complaints of a persistent shortness of breath that began 4 days ago. The patient reports that his symptoms are worsened with exertion. He explains that he was evaluated for t he same about a month ago and that he was doing better after discharge, but that his symptoms returned 4 days ago. He states that he does have an intermittent left-sided chest pain as well as left-sided abdominal pain. He notes that he was placed on Amiodarone yesterday. He also reports that he does have a cardiac procedure scheduled next Sunday with Dr. Ambrosio. The patient states that he uses nasal cannula oxygen �only when he needs it.� He notes that he is currently on Coumadin secondary to his pacemaker. Home Medications Home Medications Medication Instructions Recorded Confirmed Type Symbicort 2 puff INHALATION BID 09/21/18 10/08/18 History albuterol sulfate 2 puff INHALATION Q6H PRN 09/21/18 10/08/18 History allopurinol 100 mg PO BID 09/21/18 10/08/18 History aspirin [Aspirin Low Dose] 81 mg PO DAILY 09/21/18 10/08/18 History atorvastatin 20 mg PO DAILY 09/21/18 10/08/18 History cholecalciferol (vitamin D3) 4,000 unit PO DAILY 09/21/18 10/08/18 History [Vitamin D3] levothyroxine 25 mcg PO DAILY 09/21/18 10/08/18 History magnesium oxide 400 mg PO DAILY 09/21/18 10/08/18 History metoprolol succinate 50 mg PO BID 09/21/18 10/08/18 History multivitamin 1 tab PO DAILY 09/21/18 10/08/18 History nitroglycerin 0.4 mg SUBLINGUAL DIRECTED 09/21/18 10/08/18 History omeprazole 40 mg PO DAILY 09/21/18 10/08/18 History sennosides [senna] 8.6 mg PO BID 09/21/18 10/08/18 History torsemide 20 mg PO DAILY 09/21/18 10/08/18 History warfarin [Jantoven] 5 mg PO UD 09/21/18 10/08/18 History amiodarone 400 mg PO BID 14 Days #56 tab 10/05/18 10/08/18 Rx Vitron-C 1 tab PO DAILY 10/08/18 10/08/18 History metolazone 5 mg PO UD 10/08/18 10/08/18 History Allergies Allergy/AdvReac Type Severity Reaction Status Date / Time promethazine AdvReac Intermediate DELIRIUM Verified 10/08/18 08:26 Past Med/Surg History Medical History Atrial fibrillation (Chronic) Biventricular cardiac pacemaker in situ (Chronic) Systolic heart failure, ACC/AHA stage D (Chronic) Syncope (Resolved) MAXIM (acute kidney injury) (Resolved) Chronic combined systolic and diastolic CHF (congestive heart failure) (Chronic) "echo 05/03/16 - EF 27%, moderate - severe mitral regurgitation, grade I diastolic dysfunction" On 11/22/14 15:23 Sharmaine Barton wrote "echo 10/2014 - EF 25-25%, severe mitral regurgitation, moderate tricuspid regurgitation" On 10/29/14 10:44 Rosalie Joseph wrote "EF 15-20%, grade III diastolic dysfunction, by echo 06/2014" On 10/29/14 10:34 Rosalie Joseph wrote "EF 15-20%" Nonischemic cardiomyopathy (Chronic) "s/p AICD placement EF as low as 15% in the past, on echo 05/03/16 EF 27%" On 11/22/14 15:22 Sharmaine Barton wrote "s/p AICD placement" On 10/29/14 10:54 Rosalie Joseph wrote "EF 15-20%, s/p ICD placement" On 10/29/14 10:44 Rosalie Joseph wrote On 10/29/14 10:35 Rosalie Joseph wrote "EF 15-20%" Severe mitral regurgitation (Chronic) On 10/29/14 10:44 Rosalie Joseph wrote "by echo 06/2014" Pulmonary hypertension (Chronic) Hypertension (Chronic) Frequent PVCs (Chronic) Dyslipidemia (Chronic) History of DVT (deep vein thrombosis) (Chronic) GERD (gastroesophageal reflux disease) (Chronic) Esophageal dysmotility (Chronic) Non-ischemic cardiomyopathy (Chronic) Pulmonary HTN (Chronic) "on echo from 10/2014" SOB (shortness of breath) Effusion of left knee joint (Resolved) Left knee pain (Resolved) Syncope (Resolved) Surgical History Hx of cardiac cath (Chronic) "01/2013- non obstructive CAD" History of implantable cardioverter-defibrillator (ICD) placement (Chronic) "Biventricular ICD placed 05/07/2013, with revisions in 12/2013 and 01/2014" On 10/29/14 10:33 Rosalie Joseph wrote "05/07/2013" S/P cholecystectomy (Chronic) H/O colonoscopy (Chronic) "with polypectomy" S/P lumbar discectomy (Chronic) S/P tendon repair (Chronic) "for ruptured EPL" H/O cardiac radiofrequency ablation (Chronic) "12/2014, for PVCs" Family History Other Cancer Coronary heart disease Diabetes Social History Preferred Language: Chinese Communication Ability: Effective Consulting Solution Manager Required: No Beliefs That Will Affect Care: None marital status: Current Living Situation: Spouse current occupational status: retired Other Information That Helps Us Care for You: No Feels Safe at Home: Yes Safety Concerns: Feels Safe At This Time Smoking Status: Former smoker Do You Dip or Chew Tobacco: No Smoking End Date: 1967 Hx Alcohol Use: No Hx Substance Use: No Review of Systems See HPI for pertinent positives & negatives. and A total of 10 systems reviewed and were otherwise negative Physical Exam Vital Signs Vital Signs - 24 hr 10/08/18 07:59 10/08/18 08:09 10/08/18 08:16 Temperature 36.9 C Temperature Source Oral Sepsis Recent Fever Within 48 Hours No Sepsis New/Unexplained Change in Mental Status No Sepsis Action Taken by Nursing No Action Required Pulse Rate 102 H Pulse Rate [Apical] 101 H Pulse Rhythm [Apical] Irregular Respiratory Rate 25 H 26 H Respiratory Effort / Characteristics Non-Labored Non-Labored Respiratory Depth Normal Normal Respiratory Pattern Regular Regular Blood Pressure 94/66 L Blood Pressure [Right Arm] 113/75 Blood Pressure Mean 75 Blood Pressure Mean [Right Arm] 87 Blood Pressure Position Lying Blood Pressure Position [Right Arm] Lying Pulse Oximetry 97 96 96 Oxygen Delivery Method Room Air Room Air Room Air Oxygen Flow Rate 96 10/08/18 09:14 10/08/18 10:00 10/08/18 10:22 Temperature Temperature Source Sepsis Recent Fever Within 48 Hours Sepsis New/Unexplained Change in Mental Status Sepsis Action Taken by Nursing Pulse Rate Pulse Rate [Apical] 116 H 96 H 105 H Pulse Rhythm [Apical] Irregular Irregular Irregular Respiratory Rate 20 26 H 21 Respiratory Effort / Characteristics Non-Labored Tripoding Respiratory Depth Normal Respiratory Pattern Blood Pressure Blood Pressure [Right Arm] 103/71 95/71 L 103/68 Blood Pressure Mean Blood Pressure Mean [Right Arm] 81 79 79 Blood Pressure Position Blood Pressure Position [Right Arm] Sitting Sitting Sitting Pulse Oximetry 94 95 95 Oxygen Delivery Method Room Air Room Air Room Air Oxygen Flow Rate 10/08/18 10:30 10/08/18 11:07 Temperature Temperature Source Sepsis Recent Fever Within 48 Hours Sepsis New/Unexplained Change in Mental Status Sepsis Action Taken by Nursing Pulse Rate Pulse Rate [Apical] 23 L 103 H Pulse Rhythm [Apical] Regular Respiratory Rate 23 Respiratory Effort / Characteristics Non-Labored Respiratory Depth Normal Respiratory Pattern Regular Blood Pressure Blood Pressure [Right Arm] 107/78 108/76 Blood Pressure Mean Blood Pressure Mean [Right Arm] 87 86 Blood Pressure Position Blood Pressure Position [Right Arm] Sitting Pulse Oximetry 92 92 Oxygen Delivery Method Room Air Room Air Oxygen Flow Rate GENERAL: Awake, alert, well-appearing, in no acute distress HENT: Normocephalic, atraumatic. Oropharynx unremarkable. EYES: Normal conjunctiva. Sclera non-icteric. NECK: Supple. No nuchal rigidity. FROM. No JVD. RESPIRATORY: Clear to auscultation. CARDIAC: Tachycardic and regular. Extremities warm and well perfused. Pulses equal. ABDOMEN: Soft, non-distended. Tenderness to palpation to the left upper qudarant. No rebound or guarding. No masses. RECTAL: Deferred. MUSCULOSKELETAL: Chest examination reveals tenderness in the left upper chest wall. The back is symmetrical on inspection without obvious abnormality. There is no CVA tenderness to palpation. No joint edema. LOWER EXTREMITIES: Calves are equal size bilaterally and non-tender. No edema. No discoloration. NEURO: Normal sensorium. No sensory or motor deficits noted. SKIN: No rash or jaundice noted. Course 0813: Past medical records reviewed. The patient was evaluated in room B2. A complete history and physical examination was performed. 0845: I checked on the patient. He is comfortable and stable. 1016: I discussed the patient's case with Kelly Renee PA-C - [facility]. She, in conjunction with Dr. Mendoza, will evaluate the patient for further management. Administered Medications Discontinued Medications Allopurinol (Zyloprim) 100 mg PO BID VÍCTOR Stop: 11/07/18 12:49 Last Admin: 10/08/18 16:58 Dose: 100 mg Documented by: [id number] Aspirin (Ecotrin Ectab) 81 mg PO DAILY VÍCTOR Stop: 11/07/18 12:49 Last Admin: 10/08/18 13:23 Dose: 81 mg Documented by: [id number] Budesonide/Formoterol Fumarate (Symbicort 160mcg/4.5mcg) 2 puffs INH BID [facility]CTOR Stop: 11/07/18 20:59 Last Admin: 10/08/18 20:39 Dose: 2 puffs Documented by: [id number] Furosemide (Lasix) 40 mg IV NOW STA Stop: 10/08/18 09:35 Last Admin: 10/08/18 10:22 Dose: 40 mg Documented by: [id number] Hydromorphone HCl (Dilaudid) 0.5 mg IV Q15M PRN PRN Reason: Pain Stop: 10/22/18 08:15 Last Admin: 10/08/18 08:24 Dose: 0.5 mg Documented by: [id number] Furosemide 40 mg/ Syringe 4 mls @ 4 mls/min IV [id number] [facility] Stop: 11/07/18 16:59 Last Admin: 10/08/18 16:59 Dose: 4 mls/min Documented by: [id number] Metoprolol Succinate (Toprol Xl) 50 mg PO BID [facility] Stop: 11/07/18 11:29 Last Admin: 10/08/18 20:39 Dose: 50 mg Documented by: [id number] Admin: 10/08/18 11:38 Dose: 50 mg Documented by: [id number] Miscellaneous (Order Awaiting Action) 1 ea N/A QS [facility]ÍCTOR Stop: 11/07/18 15:59 Last Admin: 10/08/18 16:58 Dose: Not Given Documented by: [id number] Pantoprazole Sodium (Protonix) 40 mg PO DAILY [facility] Stop: 11/07/18 13:29 Last Admin: 10/08/18 16:57 Dose: 40 mg Documented by: [id number] Sennosides (Senokot) 8.6 mg PO BID [facility] Stop: 11/07/18 20:59 Last Admin: 10/08/18 20:39 Dose: 8.6 mg Documented by: [id number] Warfarin Sodium (Coumadin) 7.5 mg PO [id number] [facility] Stop: 11/07/18 15:59 Last Admin: 10/08/18 16:58 Dose: 7.5 mg Documented by: [id number] Medical Decision Making Differential Diagnosis Differential diagnosis includes: gastritis, peptic ulcer disease, GERD, gallbladder disease, pancreatitis, small bowel obstruction, acute coronary syndrome, pericarditis, ischemic bowel, irritable bowel disease, irritable bowel syndrome, appendicitis, diverticulitis, malignancy, hernia, urinary tract infection, torsion, perforation, trauma, and infectious. Medical Records Attestation: I reviewed the patient's medical records. Home Medications Current Medication List: was personally reviewed by me Laboratory Data Attestation: I reviewed the patient's lab results. Result diagrams: 10/08/18 07:31 10/08/18 07:31 Lab Results 10/08/18 10/08/18 10/08/18 Range/Units 07:31 07:31 07:31 WBC 7.02 (4.8-10.8) K/uL RBC 4.20 L (4.7-6.1) M/uL Hgb 12.1 L (14.0-18.0) g/dL POC Hgb (14.0-18.0) g/dl Hct 36.7 L (42-52) % POC Hct (42-52) % MCV 87.4 (80-100) fL MCH 28.8 (25-34) pg MCHC 33.0 (32-36) g/dL RDW Std Deviation 55.8 H (36.4-46.3) fL RDW Coeff of Amalia 17.6 H (11.5-14.5) % Plt Count 139 (130-400) K/uL MPV 12.1 H (7.4-10.4) fL Immature Gran % (Auto) 0.3 % Neut % (Auto) 74.3 % Lymph % (Auto) 13.2 % [place] % (Auto) 10.1 % Eos % (Auto) 1.7 % Baso % (Auto) 0.4 % Immature Gran # (Auto) 0.02 (0.00-0.02) K/uL Neut # (Auto) 5.21 (1.4-6.5) K/uL Lymph # (Auto) 0.93 L (1.2-3.4) K/uL T[place] # (Auto) 0.71 H (0.11-0.59) K/uL Eos # (Auto) 0.12 (0-0.5) K/uL Baso # (Auto) 0.03 (0-0.2) K/uL PT 22.2 H (9.0-12.0) Seconds INR 2.3 H (0.9-1.1) POC Sodium (135-144) mEq/L Sodium 140 (136-145) mmol/L POC Potassium (3.3-5.0) mEq/L Potassium 4.4 (3.5-5.1) mmol/L POC Chloride (101-112) mEq/L Chloride 104 (98-107) mmol/L Carbon Dioxide 21 (21-32) mmol/L POC Total CO2 (24-31) mEq/l Anion Gap 14.0 H (3-11) POC Anion Gap (16-25) mmol/L POC BUN (7-18) mg/dl BUN 61 H (7-18) mg/dl Creatinine 2.28 H (0.6-1.4) mg/dl POC Creatinine (0.6-1.3) mg/dl Est Cr Clr Drug Dosing 35.8 ml/min Est GFR ( Amer) 32.0 Est GFR (Non-Af Amer) 27.6 BUN/Creatinine Ratio 26.9 H (10-20) Glucose 129 H (70-99) mg/dl POC Glucose (other) (70-99) mg/dl Calcium 9.3 (8.5-10.1) mg/dl POC Ioniz Calcium Brian (1.12-1.32) mmol/l Total Bilirubin 3.3 H (0.2-1) mg/dl AST 186 H (15-37) U/L ALT 529 H (12-78) U/L Alkaline Phosphatase 185 H (45-117) U/L Total Creatine Kinase 95 (39-308) U/L CK-MB (CK-2) 3.0 (0.5-3.6) ng/ml CK/CKMB % Calc 3.2 H (0-3.0) Troponin I 0.045 (0-0.045) ng/ml NT-Pro-B Natriuret Pep (0-900) pg/ml Total Protein 7.0 (6.4-8.2) gm/dl Albumin 3.6 (3.4-5.0) gm/dl Globulin 3.4 (2.5-4.0) gm/dl Albumin/Globulin Ratio 1.0 (0.9-2) Lipase 119 (73-393) U/L 10/08/18 10/08/18 10/08/18 Range/Units 07:31 08:22 08:29 WBC (4.8-10.8) K/uL RBC (4.7-6.1) M/uL Hgb (14.0-18.0) g/dL POC Hgb 12.9 L 12.2 L (14.0-18.0) g/dl Hct (42-52) % POC Hct 38 L 36 L (42-52) % MCV (80-100) fL MCH (25-34) pg MCHC (32-36) g/dL RDW Std Deviation (36.4-46.3) fL RDW Coeff of Amalia (11.5-14.5) % Plt Count (130-400) K/uL MPV (7.4-10.4) fL Immature Gran % (Auto) % Neut % (Auto) % Lymph % (Auto) % [place] % (Auto) % Eos % (Auto) % Baso % (Auto) % Immature Gran # (Auto) (0.00-0.02) K/uL Neut # (Auto) (1.4-6.5) K/uL Lymph # (Auto) (1.2-3.4) K/uL [place] # (Auto) (0.11-0.59) K/uL Eos # (Auto) (0-0.5) K/uL Baso # (Auto) (0-0.2) K/uL PT (9.0-12.0) Seconds INR (0.9-1.1) POC Sodium 139 139 (135-144) mEq/L Sodium (136-145) mmol/L POC Potassium 4.4 4.4 (3.3-5.0) mEq/L Potassium (3.5-5.1) mmol/L POC Chloride 103 102 (101-112) mEq/L Chloride (98-107) mmol/L Carbon Dioxide (21-32) mmol/L POC Total CO2 19 L 20 L (24-31) mEq/l Anion Gap (3-11) POC Anion Gap 22.0 23.0 (16-25) mmol/L POC BUN 56 H 56 H (7-18) mg/dl BUN (7-18) mg/dl Creatinine (0.6-1.4) mg/dl POC Creatinine 2.2 H 2.2 H (0.6-1.3) mg/dl Est Cr Clr Drug Dosing ml/min Est GFR ( Amer) Est GFR (Non-Af Amer) BUN/Creatinine Ratio (10-20) Glucose (70-99) mg/dl POC Glucose (other) 133 H 123 H (70-99) mg/dl Calcium (8.5-10.1) mg/dl POC Ioniz Calcium Brian 1.14 1.12 (1.12-1.32) mmol/l Total Bilirubin (0.2-1) mg/dl AST (15-37) U/L ALT (12-78) U/L Alkaline Phosphatase (45-117) U/L Total Creatine Kinase (39-308) U/L CK-MB (CK-2) (0.5-3.6) ng/ml CK/CKMB % Calc (0-3.0) Troponin I (0-0.045) ng/ml NT-Pro-B Natriuret Pep 7526 H (0-900) pg/ml Total Protein (6.4-8.2) gm/dl Albumin (3.4-5.0) gm/dl Globulin (2.5-4.0) gm/dl Albumin/Globulin Ratio (0.9-2) Lipase (73-393) U/L Imaging Data Radiologist's Impression: Radiology results as stated below per my review and the radiologist's interpretation: XR chest 1V portable CLINICAL HISTORY: Chest pain and shortness of breath. COMPARISON STUDY: Chest radiograph October 02, 2018. FINDINGS: Left subclavian biventricular pacer/AICD is in place. Marked cardiomegaly is again noted. There is a trace right pleural effusion. No pneumothorax is present. There is minimal left midlung opacity. There is pulmonary vascular congestion. IMPRESSION: 1. Marked cardiomegaly with pulmonary vascular congestion. 2. Trace right pleural effusion. 3. Minimal left midlung opacity. Electronically signed by: Toi Davies M.D. 10/08/2018 8:[address] abd pelvis wo con CLINICAL HISTORY: 72 years-old Male presenting with Pt c/o left sided abd pain, left upper and lower abdominal pain since 6:00 PM yesterday, history of pancreatitis and diverticulitis, history of cardiac arrest. TECHNIQUE: Multidetector CT of the abdomen and pelvis was performed without the use of intravenous contrast. IV contrast: None. One or more dose lowering techniques were used consistent with the principles of ALARA (as low as reasonably achievable), including automatic exposure control, mA or kV adjustment to individual patient size, and/or use of iterative reconstruction. COMPARISON: 10/28/2014. CT DOSE (mGy.cm): The estimated cumulative dose is 1584.62. FINDINGS: Subscription Clerk topogram: Left subclavian implanted cardiac defibrillator with leads to the right atrium, coronary sinus, and right ventricular apex. Epicardial pacing wires may also be present. Cardiomegaly. Cholecystectomy clips. Lung bases: Multichamber enlargement of the heart. Coronary artery calcifica tion. Small right pleural effusion. Dependent groundglass and reticular opacities. Interlobular septal thickening. Added density of the lung parenchyma the lung bases. Liver: Normal morphology. Density consistent with hepatic steatosis. Biliary: No gross biliary ductal dilatation allowing for noncontrast technique. Gallbladder surgically absent. Pancreas: Moderate parenchymal atrophy. Spleen: Round hypodense 3.4 cm lesion in the spleen is new from prior exam. Adrenal glands: Normal noncontrast appearance. Kidneys and ureters: Multiple renal cysts suggested. No nephrolithiasis or hydronephrosis. Nonspecific moderate perinephric fat infiltration. Ureters nondistended. Bladder: Incompletely evaluated secondary to underdistention. Circumferential bladder wall thickening may be present. Pelvic organs: Normal noncontrast appearance. Bowel: Diverticulosis of the sigmoid and descending colon. No wall thickening or pericolonic inflammatory change. The appendix is not visualized. No bowel obstruction. Peritoneal cavity: Small perihepatic ascites, which is grossly simple appearing. Trace ascites in the superior pelvis. No free intraperitoneal gas. Lymph nodes: No gross lymphadenopathy allowing for noncontrast technique. Vasculature: Atherosclerosis of the normal caliber abdominal aorta. Abdominal wall: Mild diffuse body wall edema. Fat-containing inguinal hernias, right greater than left. Musculoskeletal: Degenerative changes of the spine. Old posterior right rib fractures noted. Minimal height loss of L1. Superior endplate concavity of L3. The finding at L1 is unchanged since prior exam. The appearance of the superior plate of L3 is new. IMPRESSION: 1. Interval development of a 3.4 cm lesion in the spleen. Given the history of pancreatitis, one of the primary differential considerations include a pseudocyst. No current evidence of pancreatitis. Benign lesions are largely congenital, and the interval appearance of the lesion is not compatible with these entities. Other differential considerations are significantly less likely, including metastasis if there is a history of malignancy, or lymphoma. 2. Small right pleural effusion. 3. Cardiomegaly with congestive change and mild pulmonary edema at the lung bases. 4. Hepatic steatosis. 5. Small ascites and body wall edema. This likely is a manifestation of volume overload. 6. Diverticulosis coli. No evidence of diverticulitis. 7. Superior endplate compression deformity of L3 new since 2014. Correlate for point tenderness to assess for acuity. Electronically signed by: Akbar Grant M.D. 10/08/2018 10:[address] chest wo con CT DOSE: 1584.62 mGy.cm CLINICAL HISTORY: 72 years-old Male with Pt c/o left sided chest pain. Acute left-sided chest pain TECHNIQUE: Multiaxial CT images of the chest were performed without contrast. A dose lowering technique was utilized adhering to the principles of ALARA. COMPARISON: CT abdomen and pelvis of same day, chest CT 08/16/2016 FINDINGS: No focal thyroid nodule. Enlarged mediastinal and hilar lymph nodes. Right paratracheal lymph node measures 1.5 cm, image 113 series 6, previously 8 mm. 1.9 cm subcarinal lymph node previously measured 1.2 cm. Moderate to extensive multichamber cardiac enlargement. Left subclavian pacer is noted with leads overlying the atria and right ventricle. Coronary arterial calcifications are noted. No thoracic aortic aneurysm. Dilation of the pulmonary arteries suggestive arterial hypertension. Trace left and small right pleural effusions. Azygos lobe and fissure. No pneumothorax. Subpleural reticular opacities bilaterally are suggestive of chronic fibrosis, not significantly changed from comparison. Mild bilateral bronchial wall thickening. Mild bilateral mosaic attenuation. Mild bilateral tracheobronchial secretions with subsegmental bibasilar atelectasis. No lobar airspace consolidation to suggest pneumonia. Mild intralobular septal thickening. Suggested hepatic steatosis. Trace. Hepatic ascites. Mild generalized body wall edema. Bones appear to be intact. Subscapularis lipoma on the left, 4.7 x 3.7 x 6.2 cm. IMPRESSION: 1. Cardiomegaly with suggestion of mild pulmonary edema. 2. Small right and trace left pleural effusions with minimal subsegmental bibasilar atelectasis. 3. Suggested pulmonary arterial hypertension. 4. Subpleural bilateral reticular opacities are unchanged suggestive of chronic fibrosis. 5. Nonspecific mediastinal adenopathy, progressed from comparison. 6. Additional findings as above. Electronically signed by: Arian Amador M.D. 10/08/2018 10:14 AM ECG Data Attestation: I personally reviewed and interpreted this ECG as follows: Indication: SOB/dyspnea Rate (beats per minute): 115 Findings: + paced rhythm; no ST depression and no ST elevation Blood Pressure Blood Pressure Findings: Normal blood pressure Blood Pressure Disposition: did not require urgent referral MDM Narrative This is a 72-year-old male who presents emergency department complaining of hypoxia. Patient was recently discharged from the hospital. On physical examination he appears to be in volume overload. I will note that the patient has an ejection fraction of 15%. In addition the patient has an elevation in h is liver enzymes. Due to his chest and abdominal pain he was sent for CAT scan of the chest and abdomen. IV contrast was not used due to the patient's kidney status. CAT scans are concerning for volume overload. I did discuss the case with the hospitalist service who agreed to admit the patient. Patient was in agreement with the treatment plan. Impression & Plan CHF exacerbation Discharge Plan Visit Data *Final* Discharge Date/Time: 10/08/18 12:22 Chief Complaint: Abdominal Pain Stated Complaint: Left Abd Pain, SOB ED Provider: Caesar Aguilera Discharge Problem: CHF exacerbation Patient Disposition: Admitted As Inpatient Condition: Serious Discharge Instructions Interventions: ED Discharge Assessment Last Done: 10/08/18 12:22 Discharge Problem: CHF exacerbation Qualifiers: Heart failure type: unspecified Qualified Code(s): I50.9 - Heart failure, unspecified The scribe's documentation has been prepared under my direction and personally reviewed by me in its entirety. I confirm that the note above accurately reflects all work, treatment, procedures, and medical decision making performed by me.
[2018-10-09] MEDS ORDERED: CHOLECALCIFEROL 1,000 UNITS TAB PO SCH (09:00)
[2018-10-09] MEDS ORDERED: MAGNESIUM OXIDE 400 MG TAB PO SCH (09:00)
[2018-10-09] MEDS ORDERED: MULTIVITAMIN TAB PO SCH (09:00)
[2018-10-09] MEDS ORDERED: WARFARIN SOD 5 MG TAB PO SCH (16:00)
== END 2018-10-08 21:00 | disposition short-term general hospital (02) | DRG 292 ==
LOC: ED 07:52 → 2N 11:25 → 2E 12:22

== ENCOUNTER 2018-11-04 16:25 | Inpatient (IN) ==
[2018-11-04] MEDS ORDERED: BUMETANIDE 1 MG in SYRINGE 0 ML IV SCH (17:00)
[2018-11-04 17:20] LABS: Basophils # (auto) 0.04 K/uL (0-0.2); Basophils % (auto) 0.6 %; Eosinophils # (auto) 0.14 K/uL (0-0.5); Hematocrit (blood only) 35.4 % (42-52); Hemoglobin 11.3 g/dL (14.0-18.0); Immature Granulocytes # (auto) 0.01 K/uL (0.00-0.02); Immature Granulocytes % (auto) 0.1 %; Lymphocytes # (auto) 0.49 K/uL (1.2-3.4); Lymphocytes % (auto) 6.9 %; Mean Corpuscular Hgb Conc 31.9 g/dL (32-36); Mean Corpuscular Volume 90.1 fL (80-100); Mean Platelet Volume 11.7 fL (7.4-10.4); Monocytes # (auto) 0.58 K/uL (0.11-0.59); Monocytes % (auto) 8.1 %; Neutrophils # (auto) 5.89 K/uL (1.4-6.5); Neutrophils % (auto) 82.3 %; Platelet Count 137 K/uL (130-400); RDW Coefficient of Variation 18.4 % (11.5-14.5); RDW Standard Deviation 60.1 fL (36.4-46.3); Red Blood Count 3.93 M/uL (4.7-6.1); White Blood Count 7.15 K/uL (4.8-10.8)
[2018-11-04 17:33] LABS: INR 2.8 (0.9-1.1); Partial Thromboplastin Ratio 1.1; Partial Thromboplastin Time 30.4 Seconds (21.0-31.0)
[2018-11-04 17:47] LABS: Albumin Level 3.5 gm/dl (3.4-5.0); BUN Creatinine Ratio 23.8 (10-20); Calcium 9.2 mg/dl (8.5-10.1); Creatinine Clr Calc Pharmacy 30.7 ml/min; Est GFR (African American) 25.8; Est GFR (Non-African American) 22.2; Potassium 3.9 mmol/L (3.5-5.1)
[2018-11-04 17:52] LABS: Bilirubin,Total 2.8 mg/dl (0.2-1); Globulin 3.5 gm/dl (2.5-4.0); Troponin I 0.026 ng/ml (0-0.045)
--- NOTE | 2018-11-04 18:03 | XRay Report ---
XR chest 1V portable CLINICAL HISTORY: Chest Pain COMPARISON STUDY: Chest CT October 08, 2018. Chest radiograph October 30, 2018. FINDINGS: Biventricular left subclavian pacer is in place. Marked cardiomegaly is unchanged. Left cos tophrenic angle was not included. Interstitial thickening and bilateral opacities have slightly incre ased. IMPRESSION: 1. Mild increase in interstitial thickening and bilateral opacities which favor pulmonary edema. Pneu monia could appear similar although is considered less likely. 2. Suspected small bilateral pleural effusions. Electronically signed by: Toi Davies M.D. 11/04/2018 6:02 PM
--- NOTE | 2018-11-04 20:15 | History & Physical Report ---
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: (2) History of implantable cardioverter-defibrillator (ICD) placement: (3) Biventricular cardiac pacemaker in situ: (4) Non-ischemic cardiomyopathy: -Admit to telemetry -Patient presenting by referral of outpatient cardiology office for evaluation of volume overload in the setting of acute on chronic end-stage systolic heart failure -Patient with recent, recurrent admissions for the same; recently admitted to [facility] 10/08 through 10/18 where patient was treated with IV diuretics and milrinone and also underwent AV junctional ablation and BiV ICD reprogramming, patient was discharged on spironolactone 25 mg daily and torsemide 100 mg twice daily; at some point, digoxin, Entresto, metolazone have all been discontinued; amiodarone also recently discontinued due to concerns of possible hepatic toxicity -EF <15% -In the ED, patient has remained hemodynamically stable and he is saturating well on room air -He received Bumex 1 mg IV in the ED -Case was discussed with Dr. Jain by ED physician who recommended admission and to resume all home medications after IV Bumex -Patient appears to be end-stage and prognosis is likely poor -Appreciate cardiology's recommendations in the morning (5) Atrial fibrillation: -Currently in a paced rhythm -Rate controlled on metoprolol, will continue -Amiodarone recently discontinued as above -Anticoagulated on Coumadin, INR 2.8 -continue Coumadin and dose according to INR (6) Elevated LFTs: -Patient noted to have elevated LFTs last month, felt to be possibly secondary to amiodarone which has been subsequently discontinued -Bilirubin remains elevated at 2.8, AST, ALT, alk phos have normalized/improving -Continue to monitor LFTs (7) Hypothyroidism: -Continue levothyroxine (8) GERD (gastroesophageal reflux disease): -Continue PPI (9) DVT prophylaxis: -Anticoagulated on Coumadin, INR 2.8 History of Present Illness Chief Complaint: Shortness of breath, lower extremity edema Primary Care Provider: Jose Parra DO 72-year-old male who presents to the ED with lower extremity edema and shortness of breath. Patient with recurrent admissions for acute on chronic systolic CHF. Most recently admitted to [facility] 10/08 he was subsequently transferred to [facility] where he was admitted until 10/18. During that admission, patient underwent AV junctional ablation and BiV ICD reprogramming and was treated with IV diuretics and milrinone. Patient was discharged on torsemide 100 mg twice daily and spironolactone 25 mg daily. Amiodarone had been discontinued due to concerns for possible hepatic toxicity. Patient reports that since returning home, he has had increasing shortness of breath as well as lower extremity edema. Over the past 2 days, he has had a 10 pound weight gain and has noted weeping from his lower extremities. Patient denies chest pain. No lightheadedness, dizziness, diaphoresis, syncopal events. He denies abdominal pain, nausea, vomiting, diarrhea. No fevers or chills. He denies any urinary symptoms. Patient was seen by his outpatient pile trimmer provider today and was referred to the ER for further evaluation. In the ED, patient's BPs are noted to be borderline low (at baseline for patient), labs are unremarkable/at baseline. Patient was given Bumex 1 mg IV. ED discussed the case with Dr. Jain who recommended admission and resumption of prior home medications after IV Bumex. Allergies Allergy/AdvReac Type Severity Reaction Status Date / Time promethazine AdvReac Intermediate DELIRIUM Verified 11/04/18 17:23 Home Medications Home Medications Medication Instructions Recorded Confirmed Type Symbicort 2 puff INHALATION BID 09/21/18 11/04/18 History albuterol sulfate 2 puff INHALATION Q6H PRN 09/21/18 11/04/18 History allopurinol 100 mg PO BID 09/21/18 11/04/18 History aspirin [Aspirin Low Dose] 81 mg PO QAM 09/21/18 11/04/18 History atorvastatin [Lipitor] 20 mg PO PM 09/21/18 11/04/18 History cholecalciferol (vitamin D3) 4,000 unit PO QAM 09/21/18 11/04/18 History [Vitamin D3] levothyroxine 25 mcg PO QAM 09/21/18 11/04/18 History magnesium oxide 400 mg PO QAM 09/21/18 11/04/18 History metoprolol succinate 50 mg PO BID 09/21/18 11/04/18 History multivitamin 1 tab PO QAM 09/21/18 11/04/18 History nitroglycerin 0.4 mg SUBLINGUAL DIRECTED 09/21/18 11/04/18 History omeprazole 40 mg PO QAM 09/21/18 11/04/18 History sennosides [senna] 8.6 mg PO DIRECTED PRN 09/21/18 11/04/18 History ferrous sulfate 325 mg PO Q OTHER DAY 10/30/18 11/04/18 History iron,carbonyl-vitamin C [Vitron-C] 1 tab PO Q OTHER DAY 10/30/18 11/04/18 History potassium chloride 20 meq PO QAM 10/30/18 11/04/18 History spironolactone 25 mg PO QAM 10/30/18 11/04/18 History torsemide 100 mg PO BID 11/04/18 11/04/18 History trazodone 25 mg PO HS 11/04/18 11/04/18 History warfarin [Jantoven] 2.5 mg PO 2XWK 11/04/18 11/04/18 History Past Med/Surg History Medical History Hypothyroidism (Chronic) Lesion of spleen (Chronic) Atrial fibrillation (Chronic) Dysphagia (Chronic) Biventricular cardiac pacemaker in situ (Chronic) Systolic heart failure, ACC/AHA stage D (Chronic) Chronic combined systolic and diastolic CHF (congestive heart failure) (Chronic) Nonischemic cardiomyopathy (Chronic) Severe mitral regurgitation (Chronic) Pulmonary hypertension (Chronic) Hypertension (Chronic) Frequent PVCs (Chronic) Dyslipidemia (Chronic) History of DVT (deep vein thrombosis) (Chronic) GERD (gastroesophageal reflux disease) (Chronic) Esophageal dysmotility (Chronic) Non-ischemic cardiomyopathy (Chronic) Pulmonary HTN (Chronic) Surgical History Hx of cardiac cath (Chronic) "01/2013- non obstructive CAD" History of implantable cardioverter-defibrillator (ICD) placement (Chronic) S/P cholecystectomy (Chronic) H/O colonoscopy (Chronic) "with polypectomy" S/P lumbar discectomy (Chronic) S/P tendon repair (Chronic) "for ruptured EPL" H/O cardiac radiofrequency ablation (Chronic) "12/2014, for PVCs" Family History Other Cancer Coronary heart disease Diabetes Social History Preferred Language: Hungarian Communication Ability: Effective Estimator And Drafter Required: No Beliefs That Will Affect Care: None marital status: Current Living Situation: Spouse current occupational status: retired Other Information That Helps Us Care for You: No Feels Safe at Home: Yes Safety Concerns: Feels Safe At This Time Smoking Status: Former smoker Hx Alcohol Use: No Hx Substance Use: No Review of Systems Review of Systems: ROS per HPI, all other systems reviewed and negative Physical Exam Constitutional: WD/WN, vitals as above Eyes: PERRL, conjunctivae normal, anicteric sclerae ENMT: external ear and nose normal, oropharynx normal Respiratory: normal respiratory effort; no respiratory distress Auscultati on: + crackles (Bilateral, mid to lower lung morley) Cardiovascular: Rate/Rhythm: regular rate and regular rhythm Vessels: normal peripheral pulses Extremities: + edema (+4 pitting edema extending up to the hips and abdomen) Gastrointestinal (Abdomen): normal bowel sounds, soft, nontender, no hepatosplenomegaly Inspection/Auscultation: + abdomen distended and + abdominal edema (Pitting) Musculoskeletal: no cyanosis or clubbing, extremities motor strength 5/5 Skin: no rashes Feet are cool to touch, weeping noted BLLE Neurologic: PERRL, EOMI, accommodation nl, no face palsy, no dysarthria Psychiatric: A+Ox3, euthymic affect Results & Data Vital Signs (Past 12 Hours) Vital Signs Temp Pulse Pulse Resp BP BP Pulse Ox 11/04/18 19:20 96 H 20 89/62 L 96 11/04/18 18:36 92 H 19 90/65 L 99 11/04/18 18:10 94 H 18 99 11/04/18 18:00 95 H 18 94/65 L 99 11/04/18 17:50 91 H 22 100 11/04/18 17:40 94 H 19 98 11/04/18 17:30 91 H 17 92/73 L 98 11/04/18 17:20 91 H 17 95 11/04/18 17:18 90 90 16 91/64 L 91/64 L 97 11/04/18 17:10 90 15 100 11/04/18 17:00 90 13 99 11/04/18 16:50 89 19 98 11/04/18 16:41 89 16 98 11/04/18 16:38 36.7 C 11/04/18 16:37 89 22 97 11/04/18 16:28 20 97/55 L Laboratory Results Short CBC 11/04/18 Range/Units 17:10 WBC 7.15 (4.8-10.8) K/uL Hgb 11.3 L (14.0-18.0) g/dL Hct 35.4 L (42-52) % Plt Count 137 (130-400) K/uL BMP 11/04/18 17:10 Sodium 135 L Potassium 3.9 Chloride 96 L Carbon Dioxide 28 BUN 65 H Creatinine 2.73 H Glucose 170 H Calcium 9.2 Cardiac Enzymes 11/04/18 Range/Units 17:10 Troponin I 0.026 (0-0.045) ng/ml Liver Function 11/04/18 Range/Units 17:10 Total Bilirubin 2.8 H (0.2-1) mg/dl AST 37 (15-37) U/L ALT 51 (12-78) U/L Alkaline Phosphatase 126 H (45-117) U/L Albumin 3.5 (3.4-5.0) gm/dl Diagnostic Findings CXR IMPRESSION: 1. Mild increase in interstitial thickening and bilateral opacities which favor pulmonary edema. Pneumonia could appear similar although is considered less likely. 2. Suspected small bilateral pleural effusions. Code Status & VTE Plan Code Status Patient is a full code as per my discussion with him. VTE Prophylaxis Plan VTE Prophylaxis will be ordered: Yes Supervising Physician Co-Signing Physician Notes Patient is a 72-year-old male with complex medical history--history of systolic and diastolic CHF, chronic atrial fibrillation on anticoagulation, hypothyroidism, history of cardiorenal syndrome, severe mitral regurgitation, splenic lesion, history of transaminitis likely secondary to amiodarone, on chronic oxygen at home as needed and other problems presents with history of worsening shortness of breath, lower extremity edema and increased weight gain of about 10 pounds in 2 days. Patient admits to taking his medications regul shania. Patient was recently admitted and gets abdominal and had AV junctional ablation. His amiodarone was recently discontinued secondary to possible hepatic toxicity. Please review HPI for complete details of presentation. On exam patient is chronically appearing, no apparent distress, normocephalic atraumatic, lungs normal breath sounds, basilar crackles, S1-S2, +murmur, significant lower extremity edema, abdomen soft, distended, left-sided tenderness, bowel sounds are present, grossly no focal neurological deficits. Patient was noted to have a relatively low blood pressure with systolic pressures pressure in the 90s. His INR is therapeutic at 2.8. Renal function is at baseline. Chest x-ray suggestive of small bilateral pleural effusions, pulmonary edema. Patient is admitted for management of acute on chronic CHF. Patient received IV diuretics in ED. His last known EF is less than 15%. Agree with diuretics, I's and O's, daily weight, low-salt diet, fluid restriction. Cardiology consulted for further recommendations. Very poor prognosis. Culture palliative care evaluation to address goals of care patient agrees. Continue Coumadin for anticoagulation. His heart rate is controlled. Continue metoprolol. Continue home inhalers for COPD. No signs of exacerbation of COPD. I personally reviewed the record. Patient is interviewed and examined at bedside. Patient's care is coordinated with Sharmaine Barton SHOP ROUTER. Please refer to the documentation above for details of patient's presentation and for discussion of other issues.
[2018-11-04] MEDS ORDERED: NON-FORMULARY MEDICATION (Iron,Carbonyl-Vitamin C [Vitron-C] 1 TAB) PO SCH (20:29)
[2018-11-04] MEDS: METOPROLOL SUCC 50MG EXT REL TAB PO SCH (21:16)
[2018-11-04] MEDS: TRAZODONE HCL 50 MG TAB PO SCH (21:16)
[2018-11-04] MEDS: ATORVASTATIN 20 MG TAB PO SCH (21:16)
[2018-11-04] MEDS: ALLOPURINOL 100 MG TAB PO SCH (21:17)
[2018-11-04] MEDS: BUDESONIDE/FORMOTEROL FUMARATE 160/4.5 60 PUFFS/INHALER INH SCH (21:17)
[2018-11-05] MEDS: LEVOTHYROXINE SODIUM 25 MCG TABLET PO SCH (05:41)
[2018-11-05 06:25] LABS: Hematocrit (blood only) 33.2 % (42-52); Hemoglobin 10.6 g/dL (14.0-18.0); Mean Corpuscular Hgb Conc 31.9 g/dL (32-36); Mean Corpuscular Volume 88.3 fL (80-100); Mean Platelet Volume 10.8 fL (7.4-10.4); Platelet Count 131 K/uL (130-400); RDW Coefficient of Variation 18.3 % (11.5-14.5); RDW Standard Deviation 57.7 fL (36.4-46.3); Red Blood Count 3.76 M/uL (4.7-6.1); White Blood Count 5.81 K/uL (4.8-10.8)
[2018-11-05 06:36] LABS: INR 2.7 (0.9-1.1); Prothrombin Time 25.8 Seconds (9.0-12.0)
[2018-11-05 06:58] LABS: Albumin Level 3.2 gm/dl (3.4-5.0); BUN Creatinine Ratio 23.5 (10-20); Bilirubin Direct 1.1 mg/dl (0-0.2); Calcium 8.5 mg/dl (8.5-10.1); Creatinine Clr Calc Pharmacy 29.7 ml/min; Est GFR (Non-African American) 22.4; Potassium 3.7 mmol/L (3.5-5.1)
[2018-11-05 07:01] LABS: Bilirubin,Total 2.4 mg/dl (0.2-1); Total Protein 6.4 gm/dl (6.4-8.2)
[2018-11-05] MEDS ORDERED: TORSEMIDE 100 MG TAB PO SCH (09:00)
[2018-11-05] MEDS: CHOLECALCIFEROL 1,000 UNITS TAB PO SCH (09:26)
[2018-11-05] MEDS: PANTOprazole 40 MG TAB PO SCH (09:26)
[2018-11-05] MEDS: MULTIVITAMIN TAB PO SCH (09:26)
[2018-11-05] MEDS: SPIRONOLACTONE 25 MG TAB PO SCH (09:26)
[2018-11-05] MEDS: MAGNESIUM OXIDE 400 MG TAB PO SCH (09:26)
[2018-11-05] MEDS: POTASSIUM CHLORIDE 20 MEQ TABCR PO SCH (09:27)
[2018-11-05] MEDS: ASPIRIN 81 MG ECTAB PO SCH (09:27)
[2018-11-05] MEDS: BUDESONIDE/FORMOTEROL FUMARATE 160/4.5 60 PUFFS/INHALER INH SCH ×2 (09:27→20:06)
[2018-11-05] MEDS: FERROUS SULFATE 325 MG TAB PO SCH (09:27)
[2018-11-05] MEDS: ALLOPURINOL 100 MG TAB PO SCH ×2 (09:27→20:05)
[2018-11-05] MEDS: METOPROLOL SUCC 50MG EXT REL TAB PO SCH ×2 (09:30→20:05)
--- NOTE | 2018-11-05 10:31 | Hospitalist Progress Note ---
Date of Service November 05, 2018 Assessment & Plan (1) Acute on chronic end-stage systolic heart failure: Cont with intermittent intravenous diuresis as directed by Cardiology. (2) History of implantable cardioverter-defibrillator (ICD) placement: (3) Biventricular cardiac pacemaker in situ: (4) Non-ischemic cardiomyopathy: Recent, recurrent admissions for HF; recently admitted to [facility] 10/08 through 10/18 where patient was treated with IV diuretics and milrinone and also underwent AV junctional ablation and BiV ICD reprogramming, patient was discharged on spironolactone 25 mg daily and torsemide 100 mg twice daily; at some point, digoxin, Entresto, metolazone have all been discontinued; amiodarone also recently discontinued due to concerns of possible hepatic toxicity -EF <15% (5) Atrial fibrillation: Cont metoprolol for rate control Amiodarone recently discontinued as above Anticoagulated on Coumadin, INR therapeutic (6) Elevated LFTs: -Patient noted to have elevated LFTs last month, felt to be possibly secondary to amiodarone which has been subsequently discontinued -Bilirubin remains elevated at 2.8, AST, ALT, alk phos have normalized/i mproving, 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 role -Continue to monitor LFTs (7) Hypothyroidism: -Continue levothyroxine (8) GERD (gastroesophageal reflux disease): -Continue PPI, and gave Ranitidine PRN for breakthrough heartburn (9) DVT prophylaxis: coumadin dispo-pending clinical improvement Mary Underwood DO [facility] Hospitalist Subjective p/w acute swelling of LE and SOB at rest wrose over the past 4 days. He reports feeling improved with diuresis overnight. Fluid restriction is a little tough for him but he is compliant. He denies any chest pain or other issues outside of the breathing and swelling. Review of Systems Review of Systems: All systems reviewed & are unremarkable except as noted in HPI & below Physical Exam Physical Exam: CONSTITUTIONAL: WNWD, vitals as above, generally well- appearing EYES: normal conjunctivae, no scleral icterus ENT: MMM NECK: trachea midline RESPIRATORY: crackles at lung bases R>L, no wheezing, normal respiratory effort CARDIOVASCULAR: regular rate and rhythm, 3/6 MAHI at LSB, 3+ pitting edema in bilateral lower extremities. GASTROINTESTINAL: normal bowel sounds, soft, nontender, nondistended MUSCULOSKELETAL: strength 5/5 throughout, head is normocephalic and atraumatic SKIN: warm and dry NEUROLOGIC: CN 2-12 grossly intact, no gross focal deficits. PSYCHIATRIC: alert cooperative and oriented to person, place and time. Results & Data Vital Signs (Past 12 Hours) Vital Signs Temp Pulse Pulse Resp BP BP Pulse Ox 11/05/18 09:30 91 H 102/69 11/05/18 07:25 36.5 C 90 17 90/59 L 96 11/05/18 04:00 36.4 C L 102 H 19 85/67 L 100 11/05/18 01:55 90 11/04/18 23:33 35.7 C L 91 H 19 92/61 L 97 Laboratory Results Short CBC 11/04/18 11/05/18 Range/Units 17:10 06:10 WBC 7.15 5.81 (4.8-10.8) K/uL Hgb 11.3 L 10.6 L (14.0-18.0) g/dL Hct 35.4 L 33.2 L (42-52) % Plt Count 137 131 (130-400) K/uL BMP 11/04/18 11/05/18 17:10 06:10 Sodium 135 L 136 Potassium 3.9 3.7 Chloride 96 L 97 L Carbon Dioxide 28 28 BUN 65 H 64 H Creatinine 2.73 H 2.71 H Glucose 170 H 103 H Calcium 9.2 8.5 Cardiac Enzymes 11/04/18 Range/Units 17:10 Troponin I 0.026 (0-0.045) ng/ml Liver Function 11/04/18 11/05/18 Range/Units 17:10 06:10 Total Bilirubin 2.8 H 2.4 H (0.2-1) mg/dl Direct Bilirubin 1.1 H (0-0.2) mg/dl AST 37 37 (15-37) U/L ALT 51 55 (12-78) U/L Alkaline Phosphatase 126 H 117 (45-117) U/L Albumin 3.5 3.2 L (3.4-5.0) gm/dl Medications Administered Current Inpatient Medications Acetaminophen (Tylenol) 650 mg PO Q4H PRN PRN Reason: Pain or Fever Stop: 12/04/18 20:28 Allopurinol (Zyloprim) 100 mg PO BID VÍCTOR Stop: 12/04/18 20:59 Last Admin: 11/05/18 09:27 Dose: 100 mg Documented by: Aspirin (Ecotrin Ectab) 81 mg PO QAM [facility] Stop: 12/05/18 08:59 Last Admin: 11/05/18 09:27 Dose: 81 mg Documented by: Atorvastatin Calcium (Lipitor) 20 mg PO PM [facility] Stop: 12/04/18 20:59 Last Admin: 11/04/18 21:16 Dose: 20 mg Documented by: Budesonide/Formoterol Fumarate (Symbicort 160mcg/4.5mcg) 2 puffs INH BID [facility] Stop: 12/04/18 20:59 Last Admin: 11/05/18 09:27 Dose: 2 puffs Documented by: Ferrous Sulfate (Feosol) 325 mg PO Q2D@0900 [facility] Stop: 12/05/18 08:59 Last Admin: 11/05/18 09:27 Dose: 325 mg Documented by: Levothyroxine Sodium (Synthroid) 25 mcg PO DAILYBB [facility] Stop: 12/05/18 06:29 Last Admin: 11/05/18 05:41 Dose: 25 mcg Documented by: Magnesium [facility] (Mag-Ox) [facility] [place] Stop: 12/05/18 08:59 Last Admin: 11/05/18 09:26 Dose: 400 mg Documented by: Metoprolol Succinate (Toprol Xl) 50 mg PO BID [facility] Stop: 12/04/18 20:59 Last Admin: 11/05/18 09:30 Dose: 50 mg Documented by: Multivitamins (Multivitamin Tab) 1 tab [facility] [place] Stop: 12/05/18 08:59 Last Admin: 11/05/18 09:26 Dose: 1 tab Documented by: Pantoprazole Sodium (Protonix) 40 mg [facility] [place] Stop: 12/05/18 08:59 Last Admin: 11/05/18 09:26 Dose: 40 mg Documented by: Potassium Chloride (Klor-Con M20) 20 meq PO QAM [facility] Stop: 12/05/18 08:59 Last Admin: 11/05/18 09:27 Dose: 20 meq Documented by: Spironolactone (Aldactone) 25 mg PO QAM [facility] Stop: 12/05/18 08:59 Last Admin: 11/05/18 09:26 Dose: 25 mg Documented by: Torsemide (Demadex) 100 mg PO BID17 [facility] Stop: 12/05/18 08:59 Last Admin: 11/05/18 09:27 Dose: 100 mg Documented by: Trazodone HCl (Desyrel) 25 mg PO HS [facility] Stop: 12/04/18 20:59 Last Admin: 11/04/18 21:16 Dose: 25 mg Documented by: Vitamin D (Vitamin D3) 4,000 units [facility] [place] Stop: 12/05/18 08:59 Last Admin: 11/05/18 09:26 Dose: 4,000 units Documented by: Warfarin Sodium (Coumadin) 2.5 mg PO DAILY@1600 [facility] Stop: 12/05/18 15:59
--- NOTE | 2018-11-05 12:10 | Cardiology Consultation ---
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 Markedly volume overloaded on exam. per review of outpatient records and inpatient records from [place] [facility] [place], he required high dose IV Lasix at 120 mg, intermittent Lasix gtt, metolazone, and milrinone for volume status to improve. He received one dose IV Bumex on admission. Questionable if I+O's are accurate since admission Close monitoring of I+Os recommended. 1500 ml Fluid restriction recommended Initiate metolazone 5 mg x 1 dose, furosemide 80 mg IV x 1 dose, and potassium 20 mEq now. Monitor renal function/electrolytes in AM. Patient previously on Entresto and Digoxin (discontinued during [facility] hospitalization). May not tolerate Entresto given borderline low BP. Consider resuming low dose digoxin. Case discussed with Dr. Leon. Will follow Present on Admission?: Yes (2) Atrial fibrillation: s/p AV myke ablation in September 2018 BIV Device set at 90 bpm to be reduced after 4-8 weeks per discharge guidelines. Consider reduction to 80 bpm during hospitalization. Consider adding digoxin continue metoprolol (3) CKD (chronic kidney disease) stage 4, GFR 15-29 ml/min: Monitor renal function/electrolytes closely consider nephrology consult (4) Nonischemic cardiomyopathy: (5) Biventricular cardiac pacemaker in situ: Supervising Physician Co-Signing Physician Notes I have reviewed the chart, discussed the case with Julianna Renetta, interviewed and examined the patient. He is a difficult patient with end-stage heart disease. His overall prognosis is poor. We will try to do the best we can with diuretics to improve his quality of life. It will be difficult because he runs a low blood pressure and is developing cardiorenal syndrome. I agree with the interpretation and management so far. History of Present Illness Reason for Consultation: CHF Requesting Physician: Dr. Underwood Attending Physician: Dr. Leon History of Present Illness Patient is a complex 72 year old male, known to [facility], with complex history including dilated/non ischemic cardiomyopathy with LVEF 15%, BIV AICD inplanted, history of frquent PVC's s/p ablation, symtpomatic PAF with difficult to control rates/rhythm, amiodarone toxicity, and AV junction abalation in September 2018 following recurrent CHF exacerbation. last month he pressented [facility] in October 02, 2018 to October 08, 2018 with acute decompensated systolic congestive heart failure felt to be secondary to recurrent atrial fibrillation with a rapid ventricular response with resultant significant reduction in biventricular pacemaker function. He was ultimately transferred to [facility] were he was hospitalized from October 08, 2018 to October 18, 2018. At [facility] he was treated with IV diuretics and Milrinone. On October 14, 2018 he underwent AV myke ablation and BiV ICD reprogramming; basal pacing rate was increased to 90 bpm with recommendations to reduce the basal rate somewhere between 4 and 8 weeks post ablation. Entresto and digoxin were discontinued at some point. Patient ultimately discharged on torsemide 100 mg twice per day along with spironolactone 25 mg/day and 10 mEq's potassium chloride. Unfortunately over the next several weeks patient developed worsening shortness of breath with lower extremity edema and progressive weight gain with fluid retention consistent with acute decompensated systolic heart failure exacerbation. He presented to cardiology clinic yesterday with complaints of worsening shortness of breath, fatigue and significant volume overload. Patient's and daughter reportedly or unable to care for him at home in current state. It was recommended he proceed to the emergency department for evaluation and treatment. Upon arrival to the emergency department he was treated with 1 dose IV Bumex. Oral torsemide was initiated this morning as usual. At time of consult patient reports he feels improved compared to office visit yesterday. He notes interval improvement in lower extremity edema and his shortness of breath. He is currently sitting in his chair comfortably eating his lunch. He denies acute respiratory distress or shortness of breath at rest. He does admit to significant dyspnea with minimal exertion. He denies chest pain currently. He denies dizziness, syncope or near-syncope. He denies symptoms of palpitations or tachy palpitations. Allergies Allergy/AdvReac Type Severity Reaction Status Date / Time promethazine AdvReac Intermediate DELIRIUM Verified 11/04/18 17:23 Home Medications Home Medications Medication Instructions Recorded Confirmed Type Symbicort 2 puff INHALATION BID 09/21/18 11/04/18 History albuterol sulfate 2 puff INHALATION Q6H PRN 09/21/18 11/04/18 History allopurinol 100 mg PO BID 09/21/18 11/04/18 History aspirin [Aspirin Low Dose] 81 mg PO QAM 09/21/18 11/04/18 History atorvastatin [Lipitor] 20 mg PO PM 09/21/18 11/04/18 History cholecalciferol (vitamin D3) 4,000 unit PO QAM 09/21/18 11/04/18 History [Vitamin D3] levothyroxine 25 mcg PO QAM 09/21/18 11/04/18 History magnesium oxide 400 mg PO QAM 09/21/18 11/04/18 History metoprolol succinate 50 mg PO BID 09/21/18 11/04/18 History multivitamin 1 tab PO QAM 09/21/18 11/04/18 History nitroglycerin 0.4 mg SUBLINGUAL DIRECTED 09/21/18 11/04/18 History omeprazole 40 mg PO QAM 09/21/18 11/04/18 History sennosides [senna] 8.6 mg PO DIRECTED PRN 09/21/18 11/04/18 History ferrous sulfate 325 mg PO Q OTHER DAY 10/30/18 11/04/18 History iron,carbonyl-vitamin C [Vitron-C] 1 tab PO Q OTHER DAY 10/30/18 11/04/18 History potassium chloride 20 meq PO QAM 10/30/18 11/04/18 History spironolactone 25 mg PO QAM 10/30/18 11/04/18 History torsemide 100 mg PO BID 11/04/18 11/04/18 History trazodone 25 mg PO HS 11/04/18 11/04/18 History warfarin [Jantoven] 2.5 mg PO 2XWK 11/04/18 11/04/18 History Patient History Medical History Hypothyroidism (Chronic) Lesion of spleen (Chronic) Atrial fibrillation (Chronic) Dysphagia (Chronic) Biventricular cardiac pacemaker in situ (Chronic) Systolic heart failure, ACC/AHA stage D (Chronic) Chronic combined systolic and diastolic CHF (congestive heart failure) (Chronic) Nonischemic cardiomyopathy (Chronic) Severe mitral regurgitation (Chronic) Pulmonary hypertension (Chronic) Hypertension (Chronic) Frequent PVCs (Chronic) Dyslipidemia (Chronic) History of DVT (deep vein thrombosis) (Chronic) GERD (gastroesophageal reflux disease) (Chronic) Esophageal dysmotility (Chronic) Non-ischemic cardiomyopathy (Chronic) Pulmonary HTN (Chronic) Surgical History Hx of cardiac cath (Chronic) "01/2013- non obstructive CAD" History of implantable cardioverter-defibrillator (ICD) placement (Chronic) S/P cholecystectomy (Chronic) H/O colonoscopy (Chronic) "with polypectomy" S/P lumbar discectomy (Chronic) S/P tendon repair (Chronic) "for ruptured EPL" H/O cardiac radiofrequency ablation (Chronic) "12/2014, for PVCs" Family History Other Cancer Coronary heart disease Diabetes Social History Preferred Language: Burkinan Communication Ability: Effective 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 Beliefs That Will Affect Care: None marital status: Current Living Situation: Spouse current occupational status: retired Other Information That Helps Us Care for You: No Feels Safe at Home: Yes Safety Concerns: Feels Safe At This Time Smoking Status: Former smoker Hx Alcohol Use: No Hx Substance Use: No Review of Systems Review of Systems: All systems reviewed & are unremarkable except as noted in HPI & below Physical Exam Constitutional: WD/WN, vitals as above average body habitus Eyes: PERRL, conjunctivae normal, anicteric sclerae Neck: trachea midline, no thyromegaly normal visual inspection Respiratory: Auscultation: + diminished lung sounds and + crackles Cardiovascular: Rate/Rhythm: regular rate and regular rhythm Heart Sounds: + murmur Vessels: + JVD Extremities: + edema (2-3+ to hips) Gastrointestinal (Abdomen): normal bowel sounds, soft, nontender, no hepatosplenomegaly Neurologic: PERRL, EOMI, accommodation nl, no face palsy, no dysarthria Psychiatric: A+Ox3, euthymic affect Results & Data Vital Signs (Past 12 Hours) Vital Signs Temp Pulse Pulse Resp BP BP Pulse Ox 11/05/18 09:30 91 H 102/69 11/05/18 07:25 36.5 C 90 17 90/59 L 96 11/05/18 04:00 36.4 C L 102 H 19 85/67 L 100 11/05/18 01:55 90 Laboratory Results 11/05/18 11/05/18 11/05/18 Range/Units 06:10 06:10 06:10 WBC 5.81 (4.8-10.8) K/uL RBC 3.76 L (4.7-6.1) M/uL Hgb 10.6 L (14.0-18.0) g/dL Hct 33.2 L (42-52) % MCV 88.3 (80-100) fL MCH 28.2 (25-34) pg MCHC 31.9 L (32-36) g/dL RDW Std Deviation 57.7 H (36.4-46.3) fL RDW Coeff of Amalia 18.3 H (11.5-14.5) % Plt Count 131 (130-400) K/uL MPV 10.8 H (7.4-10.4) fL Immature Gran % (Auto) % Neut % (Auto) % Lymph % (Auto) % [place] % (Auto) % Eos % (Auto) % Baso % (Auto) % Immature Gran # (Auto) (0.00-0.02) K/uL Neut # (Auto) (1.4-6.5) K/uL Lymph # (Auto) (1.2-3.4) K/uL [place] # (Auto) (0.11-0.59) K/uL Eos # (Auto) (0-0.5) K/uL Baso # (Auto) (0-0.2) K/uL PT 25.8 H (9.0-12.0) Seconds INR 2.7 H (0.9-1.1) APTT (21.0-31.0) Seconds PTT Ratio Sodium 136 (136-145) mmol/L Potassium 3.7 (3.5-5.1) mmol/L Chloride 97 L (98-107) mmol/L Carbon Dioxide 28 (21-32) mmol/L Anion Gap 11.0 (3-11) BUN 64 H (7-18) mg/dl Creatinine 2.71 H (0.6-1.4) mg/dl Est Cr Clr Drug Dosing 29.7 ml/min Est GFR ( Amer) 26.0 Est GFR (Non-Af Amer) 22.4 BUN/Creatinine Ratio 23.5 H (10-20) Glucose 103 H (70-99) mg/dl Calcium 8.5 (8.5-10.1) mg/dl Total Bilirubin 2.4 H (0.2-1) mg/dl Direct Bilirubin 1.1 H (0-0.2) mg/dl AST 37 (15-37) U/L ALT 55 (12-78) U/L Alkaline Phosphatase 117 (45-117) U/L Troponin I (0-0.045) ng/ml NT-Pro-B Natriuret Pep (0-900) pg/ml Total Protein 6.4 (6.4-8.2) gm/dl Albumin 3.2 L (3.4-5.0) gm/dl Globulin (2.5-4.0) gm/dl Albumin/Globulin Ratio (0.9-2) Lipase (73-393) U/L 11/04/18 11/04/18 11/04/18 Range/Units 17:10 17:10 17:10 WBC 7.15 (4.8-10.8) K/uL RBC 3.93 L (4.7-6.1) M/uL Hgb 11.3 L (14.0-18.0) g/dL Hct 35.4 L (42-52) % MCV 90.1 (80-100) fL MCH 28.8 (25-34) pg MCHC 31.9 L (32-36) g/dL RDW Std Deviation 60.1 H (36.4-46.3) fL RDW Coeff of Amalia 18.4 H (11.5-14.5) % Plt Count 137 (130-400) K/uL MPV 11.7 H (7.4-10.4) fL Immature Gran % (Auto) 0.1 % Neut % (Auto) 82.3 % Lymph % (Auto) 6.9 % [place] % (Auto) 8.1 % Eos % (Auto) 2.0 % Baso % (Auto) 0.6 % Immature Gran # (Auto) 0.01 (0.00-0.02) K/uL Neut # (Auto) 5.89 (1.4-6.5) K/uL Lymph # (Auto) 0.49 L (1.2-3.4) K/uL [place] # (Auto) 0.58 (0.11-0.59) K/uL Eos # (Auto) 0.14 (0-0.5) K/uL Baso # (Auto) 0.04 (0-0.2) K/uL PT 27.0 H (9.0-12.0) Seconds INR 2.8 H (0.9-1.1) APTT 30.4 (21.0-31.0) Seconds PTT Ratio 1.1 Sodium 135 L (136-145) mmol/L Potassium 3.9 (3.5-5.1) mmol/L Chloride 96 L (98-107) mmol/L Carbon Dioxide 28 (21-32) mmol/L Anion Gap 11.0 (3-11) BUN 65 H (7-18) mg/dl Creatinine 2.73 H (0.6-1.4) mg/dl Est Cr Clr Drug Dosing 30.7 ml/min Est GFR ( Amer) 25.8 Est GFR (Non-Af Amer) 22.2 BUN/Creatinine Ratio 23.8 H (10-20) Glucose 170 H (70-99) mg/dl Calcium 9.2 (8.5-10.1) mg/dl Total Bilirubin 2.8 H (0.2-1) mg/dl Direct Bilirubin (0-0.2) mg/dl AST 37 (15-37) U/L ALT 51 (12-78) U/L Alkaline Phosphatase 126 H (45-117) U/L Troponin I 0.026 (0-0.045) ng/ml NT-Pro-B Natriuret Pep 7032 H (0-900) pg/ml Total Protein 7.0 (6.4-8.2) gm/dl Albumin 3.5 (3.4-5.0) gm/dl Globulin 3.5 (2.5-4.0) gm/dl Albumin/Globulin Ratio 1.0 (0.9-2) Lipase 129 (73-393) U/L Diagnostic Findings Chest xray on admission, report reviewed: IMPRESSION: 1. Mild increase in interstitial thickening and bilateral opacities which favor pulmonary edema. Pneumonia could appear similar although is considered less likely. 2. Suspected small bilateral pleural effusions. Telemetry reviewed: Pacing about 90 bpm, with intermittent non sustained runs of VT x2, lasting 8 beats. No symptoms Medications Administered Current Inpatient Medications Acetaminophen (Tylenol) 650 mg PO Q4H PRN PRN Reason: Pain or Fever Stop: 12/04/18 20:28 Allopurinol (Zyloprim) 100 mg PO BID [facility] Stop: 12/04/18 20:59 Last Admin: 11/05/18 09:27 Dose: 100 mg Documented by: Aspirin (Ecotrin Ectab) 81 mg PO QAM [facility] Stop: 12/05/18 08:59 Last Admin: 11/05/18 09:27 Dose: 81 mg Documented by: Atorvastatin Calcium (Lipitor) 20 mg PO PM [facility] Stop: 12/04/18 20:59 Last Admin: 11/04/18 21:16 Dose: 20 mg Documented by: Budesonide/Formoterol Fumarate (Symbicort 160mcg/4.5mcg) 2 puffs INH BID [facility] Stop: 12/04/18 20:59 Last Admin: 11/05/18 09:27 Dose: 2 puffs Documented by: Ferrous Sulfate (Feosol) 325 mg PO Q2D@0900 [facility] Stop: 12/05/18 08:59 Last Admin: 11/05/18 09:27 Dose: 325 mg Documented by: Levothyroxine Sodium (Synthroid) 25 mcg PO DAILYBB [facility] Stop: 12/05/18 06:29 Last Admin: 11/05/18 05:41 Dose: 25 mcg Documented by: Magnesium Oxide (Mag-Ox) 400 mg PO QAM [facility] Stop: 12/05/18 08:59 Last Admin: 11/05/18 09:26 Dose: 400 mg Documented by: Metoprolol Succinate (Toprol Xl) 50 mg PO BID [facility] Stop: 12/04/18 20:59 Last Admin: 11/05/18 09:30 Dose: 50 mg Documented by: [facility]ivitamins (Multivitamin Tab) [facility] Stop: 12/05/18 08:59 Last Admin: 11/05/18 09:26 Dose: 1 tab Documented by: Nystatin (Mycostatin) 1 appln EXT BID [facility] Stop: 12/05/18 11:44 Last Admin: 11/05/18 12:32 Dose: 1 appln Documented by: Pantoprazole Sodium (Protonix) 40 mg PO QAM [facility] Stop: 12/05/18 08:59 Last Admin: 11/05/18 09:26 Dose: 40 mg Documented by: Potassium Chloride (Klor-Con M20) [address] [facility] Stop: 12/05/18 08:59 Last Admin: 11/05/18 09:27 Dose: 20 meq Documented by: Ranitidine HCl (Zantac) 150 mg PO BID PRN PRN Reason: breakthrough heartburn Stop: 12/05/18 11:44 Last Admin: 11/05/18 12:32 Dose: 150 mg Documented by: Spironolactone (Aldactone) [address] [facility] Stop: 12/05/18 08:59 Last Admin: 11/05/18 09:26 Dose: 25 mg Documented by: Trazodone HCl (Desyrel) 25 mg PO [facility] Stop: 12/04/18 20:59 Last Admin: 11/04/18 21:16 Dose: 25 mg Documented by: Vitamin D (Vitamin D3) 4,[address] [facility] Stop: 12/05/18 08:59 Last Admin: 11/05/18 09:26 Dose: 4,000 units Documented by: Warfarin Sodium (Coumadin) 2.5 mg PO DAILY@1600 [facility] Stop: 12/05/18 15:59 (1) Atrial fibrillation Atrial fibrillation type: paroxysmal Qualified Code(s): I48.0 - Paroxysmal atrial fibrillation
[2018-11-05] MEDS ORDERED: FUROSEMIDE 80 MG in SYRINGE 0 ML IV ONE (12:15)
[2018-11-05] MEDS: POTASSIUM CHLORIDE 20 MEQ TABCR PO ONE ×2 (12:32→14:30)
[2018-11-05] MEDS: NYSTATIN POWDER 15GM BTL EXT SCH ×2 (12:32→20:06)
[2018-11-05] MEDS: metOLazone 5 MG TABLET PO ONE ×2 (12:33→14:30)
--- NOTE | 2018-11-05 12:39 | Emergency Department Note ---
Entered by Julianna Galaviz acting as a scribe for History of Present Illness General Chief complaint: Referred by Doctor Stated complaint: CONGESTED HEART FAILURE - FILLED W/ FLUID Time Seen by Provider: 11/04/18 16:33 Source: patient History of Present Illness Provider complaint: Lower extremity swelling Onset (ago): day(s) 2 Location: lower extremity Pain Consistency: + other (episode) Quality: + other (swelling) Associated symptoms: + other (lower extremity pain, 15lb weight gain over 2 days) Treatments prior to arrival: none The patient is a 72 year old white male w/ PMHx of palliative care encounter, cardiorenal syndrome, atrial fibrillation, DVT, dysphagia, biventricular cardiac pacemaker in situ, NYHA class 4 acute on chronic systolic heart failure, systolic heart failure, hypotension, chronic combined systolic and diastolic CHF, nom-ischemia cardiomyopathy, severe mitral regurgitation, ICD placement, cardiac cath, and cardiac radiofrequency ablation who presents to the ED w/ CC of an episode of lower extremity swelling beginning 2 days ago. The patient states that the bilateral swelling is very painful. The patient notes that he has gained 15 pounds in the past 2 days. The patient denies any treatment prior to arrival. Recent transfer to [facility] on 10/04/2018 for persistent atrial fibrillation and heart failure. Home Medications Home Medications Medication Instructions Recorded Confirmed Type Symbicort 2 puff INHALATION BID 09/21/18 11/04/18 History albuterol sulfate 2 puff INHALATION Q6H PRN 09/21/18 11/04/18 History allopurinol 100 mg PO BID 09/21/18 11/04/18 History aspirin [Aspirin Low Dose] 81 mg PO QAM 09/21/18 11/04/18 History atorvastatin [Lipitor] 20 mg PO PM 09/21/18 11/04/18 History cholecalciferol (vitamin D3) 4,000 unit PO QAM 09/21/18 11/04/18 History [Vitamin D3] levothyroxine 25 mcg PO QAM 09/21/18 11/04/18 History magnesium oxide 400 mg PO QAM 09/21/18 11/04/18 History metoprolol succinate 50 mg PO BID 09/21/18 11/04/18 History multivitamin 1 tab PO QAM 09/21/18 11/04/18 History nitroglycerin 0.4 mg SUBLINGUAL DIRECTED 09/21/18 11/04/18 History omeprazole 40 mg PO QAM 09/21/18 11/04/18 History sennosides [senna] 8.6 mg PO DIRECTED PRN 09/21/18 11/04/18 History ferrous sulfate 325 mg PO Q OTHER DAY 10/30/18 11/04/18 History iron,carbonyl-vitamin C [Vitron-C] 1 tab PO Q OTHER DAY 10/30/18 11/04/18 History potassium chloride 20 meq PO QAM 10/30/18 11/04/18 History spironolactone 25 mg PO QAM 10/30/18 11/04/18 History torsemide 100 mg PO BID 11/04/18 11/04/18 History trazodone 25 mg PO HS 11/04/18 11/04/18 History warfarin [Jantoven] 2.5 mg PO 2XWK 11/04/18 11/04/18 History Allergies Allergy/AdvReac Type Severity Reaction Status Date / Time promethazine AdvReac Intermediate DELIRIUM Verified 11/04/18 17:23 Past Med/Surg History Medical History Hypothyroidism (Chronic) Lesion of spleen (Chronic) Atrial fibrillation (Chronic) Dysphagia (Chronic) Biventricular cardiac pacemaker in situ (Chronic) Systolic heart failure, ACC/AHA stage D (Chronic) Chronic combined systolic and diastolic CHF (congestive heart failure) (Chronic) Nonischemic cardiomyopathy (Chronic) Severe mitral regurgitation (Chronic) Pulmonary hypertension (Chronic) Hypertension (Chronic) Frequent PVCs (Chronic) Dyslipidemia (Chronic) History of DVT (deep vein thrombosis) (Chronic) GERD (gastroesophageal reflux disease) (Chronic) Esophageal dysmotility (Chronic) Non-ischemic cardiomyopathy (Chronic) Pulmonary HTN (Chronic) Surgical History Hx of cardiac cath (Chronic) "01/2013- non obstructive CAD" History of implantable cardioverter-defibrillator (ICD) placement (Chronic) S/P cholecystectomy (Chronic) H/O colonoscopy (Chronic) "with polypectomy" S/P lumbar discectomy (Chronic) S/P tendon repair (Chronic) "for ruptured EPL" H/O cardiac radiofrequency ablation (Chronic) "12/2014, for PVCs" Family History Other Cancer Coronary heart disease Diabetes Social History Preferred Language: American Communication Ability: Effective Painter And Decorator Required: No Beliefs That Will Affect Care: None marital status: Current Living Situation: Spouse current occupational status: retired Other Information That Helps Us Care for You: No Feels Safe at Home: Yes Safety Concerns: Feels Safe At This Time Smoking Status: Former smoker Hx Alcohol Use: No Hx Substance Use: No Review of Systems See HPI for pertinent positives & negatives. and A total of 10 systems reviewed and were otherwise negative Physical Exam Vital Signs Vital Signs - 24 hr 11/04/18 16:28 11/04/18 16:37 11/04/18 16:38 Temperature 36.7 C Temperature Source Axillary Sepsis Recent Fever Within 48 Hours No Sepsis Action Taken by Nursing No Action Required Pulse Rate Pulse Rate [Apical] 89 Pulse Rate from SpO2 Sensor Respiratory Rate 20 22 Respiratory Effort / Characteristics Non-Labored Respiratory Depth Normal Blood Pressure 97/55 L Blood Pressure [Right Arm] Blood Pressure Mean 69 Blood Pressure Mean [Right Arm] Pulse Oximetry 97 Oxygen Delivery Method Room Air Room Air 11/04/18 16:41 11/04/18 16:50 11/04/18 17:00 Temperature Temperature Source Sepsis Recent Fever Within 48 Hours Sepsis Action Taken by Nursing Pulse Rate 89 89 90 Pulse Rate [Apical] Pulse Rate from SpO2 Sensor 89 90 92 H Respiratory Rate 16 19 13 Respiratory Effort / Characteristics Respiratory Depth Blood Pressure Blood Pressure [Right Arm] Blood Pressure Mean Blood Pressure Mean [Right Arm] Pulse Oximetry 98 98 99 Oxygen Delivery Method Room Air Room Air Room Air 11/04/18 17:10 11/04/18 17:18 11/04/18 17:20 Temperature Temperature Source Sepsis Recent Fever Within 48 Hours Sepsis Action Taken by Nursing Pulse Rate 90 90 91 H Pulse Rate [Apical] 90 Pulse Rate from SpO2 Sensor 89 87 91 H Respiratory Rate 15 16 17 Respiratory Effort / Characteristics Respiratory Depth Blood Pressure 91/64 L Blood Pressure [Right Arm] 91/64 L Blood Pressure Mean 73 Blood Pressure Mean [Right Arm] 73 Pulse Oximetry 100 97 95 Oxygen Delivery Method Room Air Room Air Room Air 11/04/18 17:30 11/04/18 17:40 11/04/18 17:50 Temperature Temperature Source Sepsis Recent Fever Within 48 Hours Sepsis Action Taken by Nursing Pulse Rate 91 H 94 H 91 H Pulse Rate [Apical] Pulse Rate from SpO2 Sensor 88 91 H 88 Respiratory Rate 17 19 22 Respiratory Effort / Characteristics Respiratory Depth Blood Pressure 92/73 L Blood Pressure [Right Arm] Blood Pressure Mean 79 Blood Pressure Mean [Right Arm] Pulse Oximetry 98 98 100 Oxygen Delivery Method Room Air Room Air Room Air 11/04/18 18:00 11/04/18 18:10 11/04/18 18:36 Temperature Temperature Source Sepsis Recent Fever Within 48 Hours Sepsis Action Taken by Nursing Pulse Rate 95 H 94 H Pulse Rate [Apical] 92 H Pulse Rate from SpO2 Sensor 90 89 Respiratory Rate 18 18 19 Respiratory Effort / Characteristics Respiratory Depth Blood Pressure 94/65 L Blood Pressure [Right Arm] 90/65 L Blood Pressure Mean 74 Blood Pressure Mean [Right Arm] 73 Pulse Oximetry 99 99 99 Oxygen Delivery Method Room Air Room Air Room Air GENERAL: Chronically ill appearing, well nourished, non-toxic. EYE EXAM: Normal conjunctiva. PERRL, no anisocoria and EOM's grossly intact w/o pain. OROPHARYNX: Moist mucous membranes. Grossly normal dentition. NECK: Supple, no nuchal rigidity, no adenopathy, non-tender. No signs of meningismus. HEART: NSR, no MRG. LUNGS: Bibasilar crackles. Normal chest wall mechanics. CHEST: Device in L chest. ABDOMEN: Abdomen soft, non-tender, normo-active bowel sounds, no masses, no rebound or guarding. BACK: No CVA TTP. SKIN: No rashes and no bruising. UPPER EXTREMITIES: Upper extremities are grossly normal. LOWER EXTREMITIES: 4+ pitting edema, serious drainage, no crepitus, compartment soft. NEURO EXAM: A&O x3, cranial nerves II-XII grossly intact, normal speech, moves all 4 extremities on command w/o issue. Course 163: Past medical records reviewed. The patient was evaluated in room C12. A complete history and physical exam was performed. 1741: I discussed the patient's case with Dr. Jain- Cardiology. He agrees for admission. 1813: I discussed the patient's case with RAIN Erazo. She will evaluate the patient for further management. Consultations Consultation #1: I discussed the patient's case with Dr. Jain- Cardiology. He agrees for admission. Time: 17:42 Consultation #2: I discussed the patient's case with RAIN Erazo. She will evaluate the patient for further management. Time: 18:14 Administered Medications Allopurinol (Zyloprim) 100 mg PO BID [facility] Stop: 12/04/18 20:59 Last Admin: 11/05/18 09:27 Dose: 100 mg Documented by: [id number] Admin: 11/04/18 21:17 Dose: 100 mg Documented by: [id number] Aspirin (Ecotrin Ectab) 81 mg PO QAM [facility] Stop: 12/05/18 08:59 Last Admin: 11/05/18 09:27 Dose: 81 mg Documented by: [id number] Atorvastatin Calcium (Lipitor) 20 mg PO PM [facility] Stop: 12/04/18 20:59 Last Admin: 11/04/18 21:16 Dose: 20 mg Documented by: [id number] Budesonide/Formoterol Fumarate (Symbicort 160mcg/4.5mcg) 2 puffs INH BID [facility] Stop: 12/04/18 20:59 Last Admin: 11/05/18 09:27 Dose: 2 puffs Documented by: [id number] Admin: 11/04/18 21:17 Dose: 2 puffs Documented by: [id number] Ferrous Sulfate (Feosol) 325 mg PO Q2D@0900 [facility] Stop: 12/05/18 08:59 Last Admin: 11/05/18 09:27 Dose: 325 mg Documented by: [id number] Levothyroxine Sodium (Synthroid) 25 mcg PO DAILYBB [facility] Stop: 12/05/18 06:29 Last Admin: 11/05/18 05:41 Dose: 25 mcg Documented by: [id number] Magnesium Oxide (Mag-Ox) 400 mg PO QAM [facility] Stop: 12/05/18 08:59 Last Admin: 11/05/18 09:26 Dose: 400 mg Documented by: [id number] Metoprolol Succinate (Toprol Xl) 50 mg PO BID [facility] Stop: 12/04/18 20:59 Last Admin: 11/05/18 09:30 Dose: 50 mg Documented by: [id number] Admin: 11/04/18 21:16 Dose: 50 mg Documented by: [id number] Multivitamins (Multivitamin Tab) 1 tab PO QAM [facility] Stop: 12/05/18 08:59 Last Admin: 11/05/18 09:26 Dose: 1 tab Documented by: [id number] Nystatin (Mycostatin) 1 appln EXT BID [facility] Stop: 12/05/18 11:44 Last Admin: 11/05/18 12:32 Dose: 1 appln Documented by: [id number] Pantoprazole Sodium (Protonix) 40 mg PO [facility] Stop: 12/05/18 08:59 Last Admin: 11/05/18 09:26 Dose: 40 mg Documented by: [id number] Potassium Chloride (Klor-Con M20) 20 meq PO [facility] Stop: 12/05/18 08:59 Last Admin: 11/05/18 09:27 Dose: 20 meq Documented by: [id number] Ranitidine HCl (Zantac) 150 mg PO BID PRN PRN Reason: breakthrough heartburn Stop: 12/05/18 11:44 Last Admin: 11/05/18 12:32 Dose: 150 mg Documented by: [id number] Spironolactone (Aldactone) 25 mg PO [facility] Stop: 12/05/18 08:59 Last Admin: 11/05/18 09:26 Dose: 25 mg Documented by: [id number] Trazodone HCl (Desyrel) 25 mg PO [facility] Stop: 12/04/18 20:59 Last Admin: 11/04/18 21:16 Dose: 25 mg Documented by: [id number] Vitamin D (Vitamin D3) 4,000 units PO [facility] Stop: 12/05/18 08:59 Last Admin: 11/05/18 09:26 Dose: 4,000 units Documented by: [id number] Discontinued Medications Bumetanide 1 mg/ Syringe 4 mls @ 4 mls/min IV NOW [facility] Stop: 12/04/18 16:59 Last Admin: 11/04/18 19:18 Dose: 4 mls/min Documented by: [id number] Metolazone (Zaroxolyn) 5 mg PO NOW ONE Stop: 11/05/18 12:00 Last Admin: 11/05/18 12:33 Dose: 5 mg Documented by: [id number] Potassium Chloride (Klor-Con M20) 20 meq PO NOW ONE Stop: 11/05/18 12:02 Last Admin: 11/05/18 12:32 Dose: 20 meq Documented by: [id number] Torsemide (Demadex) 100 mg PO BID17 [facility] Stop: 12/05/18 08:59 Last Admin: 11/05/18 09:27 Dose: 100 mg Documented by: [id number] Medical Decision Making Medical Records Attestation: I reviewed the patient's medical records. Home Medications Current Medication List: was personally reviewed by me Laboratory Data Attestation: I reviewed the patient's lab results. Result diagrams: 11/05/18 06:10 11/05/18 06:10 Lab Results 11/04/18 11/04/18 11/04/18 Range/Units 17:10 17:10 17:10 WBC 7.15 (4.8-10.8) K/uL RBC 3.93 L (4.7-6.1) M/uL Hgb 11.3 L (14.0-18.0) g/dL Hct 35.4 L (42-52) % MCV 90.1 (80-100) fL MCH 28.8 (25-34) pg MCHC 31.9 L (32-36) g/dL RDW Std Deviation 60.1 H (36.4-46.3) fL RDW Coeff of Amalia 18.4 H (11.5-14.5) % Plt Count 137 (130-400) K/uL MPV 11.7 H (7.4-10.4) fL Immature Gran % (Auto) 0.1 % Neut % (Auto) 82.3 % Lymph % (Auto) 6.9 % [place] % (Auto) 8.1 % Eos % (Auto) 2.0 % Baso % (Auto) 0.6 % Immature Gran # (Auto) 0.01 (0.00-0.02) K/uL Neut # (Auto) 5.89 (1.4-6.5) K/uL Lymph # (Auto) 0.49 L (1.2-3.4) K/uL [place] # (Auto) 0.58 (0.11-0.59) K/uL Eos # (Auto) 0.14 (0-0.5) K/uL Baso # (Auto) 0.04 (0-0.2) K/uL PT 27.0 H (9.0-12.0) Seconds INR 2.8 H (0.9-1.1) APTT 30.4 (21.0-31.0) Seconds PTT Ratio 1.1 Sodium 135 L (136-145) mmol/L Potassium 3.9 (3.5-5.1) mmol/L Chloride 96 L (98-107) mmol/L Carbon Dioxide 28 (21-32) mmol/L Anion Gap 11.0 (3-11) BUN 65 H (7-18) mg/dl Creatinine 2.73 H (0.6-1.4) mg/dl Est Cr Clr Drug Dosing 30.7 ml/min Est GFR ( Amer) 25.8 Est GFR (Non-Af Amer) 22.2 BUN/Creatinine Ratio 23.8 H (10-20) Glucose 170 H (70-99) mg/dl Calcium 9.2 (8.5-10.1) mg/dl Total Bilirubin 2.8 H (0.2-1) mg/dl AST 37 (15-37) U/L ALT 51 (12-78) U/L Alkaline Phosphatase 126 H (45-117) U/L Troponin I 0.026 (0-0.045) ng/ml NT-Pro-B Natriuret Pep 7032 H (0-900) pg/ml Total Protein 7.0 (6.4-8.2) gm/dl Albumin 3.5 (3.4-5.0) gm/dl Globulin 3.5 (2.5-4.0) gm/dl Albumin/Globulin Ratio 1.0 (0.9-2) Lipase 129 (73-393) U/L Imaging Data Radiologist's Impression: Radiology results as stated below per my review and the radiologist's interpretation: XR chest 1V portable CLINICAL HISTORY: Chest Pain COMPARISON STUDY: Chest CT October 08, 2018. Chest radiograph October 30, 2018. FINDINGS: Biventricular left subclavian pacer is in place. Marked cardiomegaly is unchanged. Left costophrenic angle was not included. Interstitial thickening and bilateral opacities have slightly increased. IMPRESSION: 1. Mild increase in interstitial thickening and bilateral opacities which favor pulmonary edema. Pneumonia could appear similar although is considered less likely. 2. Suspected small bilateral pleural effusions. Electronically signed by: Toi Davies M.D. 11/04/2018 6:02 PM ECG Data Attestation: I personally reviewed and interpreted this ECG as follows: Indication: bradycardia and SOB/dyspnea Rate (beats per minute): 90 Rhythm: other (v-paced rhythm) Findings: + other (wide QRS, abnormal axis) and + PVC Blood Pressure Blood Pressure Findings: Low blood pressure Blood Pressure Disposition: further management by hospitalist JEFFREY Tracy The patient is a 72 year old white male w/ PMHx of palliative care encounter, cardiorenal syndrome, atrial fibrillation, DVT, dysphagia, biventricular cardiac pacemaker in situ, NYHA class 4 acute on chronic systolic heart failure, systolic heart failure, hypotension, chronic combined systolic and diastolic CHF, nom-ischemia cardiomyopathy, severe mitral regurgitation, ICD placement, cardiac cath, and cardiac radiofrequency ablation who presents to the ED w/ CC of an episode of lower extremity swelling beginning 2 days ago. Differential diagnosis: Etiologies such as infections, reactive airway disease, COPD, pneumonia, pleural effusion, pulmonary edema, ARDS, pneumothorax, CHF, cardiac ischemia, cardiac tamponade, dysrhythmia, anemia, pulmonary embolism, musculoskeletal, gastrointestinal process, as well as others were entertained. Patient was seen and evaluated the bedside. The patient was complaining of some mild worsening shortness of breath and associated worsening lower extremity edema. The patient did have a recent transfer in September to [facility] for chronic A. fib with concern for inability to do additional medications given lower blood pressure and end-stage heart failure issues. The patient is curr ently chronically on appearance but no acute distress. The patient is satting well. The patient does have fair amount of lower extremity edema. Patient's chest x-ray and BNP further confirm such. Patient's INR is therapeutic. I did speak with the on-call hospitalist and then I did further discuss the patient with the on-call paper pattern inspector to admit her history but the patient and stated that he had followed his most recent transfer but the patient likely did have an AV myke ablation. Patient is not to be put on dobutamine or other inotropic support as this may precipitate V. tach. The patient is also had issues with amnio toxicity so this is also not a good medication for him. The patient has not been started on any digoxin either. Impression & Plan Acute on chronic clinical systolic heart failure, CKD (chronic kidney disease) stage 4, GFR 15-29 ml/min, Cardiac volume overload, Dyspnea Discharge Plan Visit Data *Final* Discharge Date/Time: 11/04/18 20:12 Chief Complaint: Referred by Doctor Stated Complaint: CONGESTED HEART FAILURE - FILLED W/ FLUID ED Provider: Leopoldo De Anda Discharge Problem: Acute on chronic clinical systolic heart failure, CKD (chronic kidney disease) stage 4, GFR 15-29 ml/min, Cardiac volume overload, Dyspnea Patient Disposition: Admitted As Inpatient Discharge Instructions Interventions: ED Discharge Assessment Last Done: 11/04/18 20:12 Discharge Problem: Dyspnea Qualifiers: Dyspnea type: shortness of breath Qualified Code(s): R06.02 - Shortness of breath The scribe's documentation has been prepared under my direction and personally reviewed by me in its entirety. I confirm that the note above accurately reflects all work, treatment, procedures, and medical decision making performed by me.
[2018-11-05] MEDS: ACETAMINOPHEN 325 MG TAB PO PRN ×2 (14:33→21:03)
[2018-11-05] MEDS: WARFARIN SOD 2.5 MG TAB PO SCH (16:19)
[2018-11-05] MEDS: TRAZODONE HCL 50 MG TAB PO SCH (20:05)
[2018-11-05] MEDS: ATORVASTATIN 20 MG TAB PO SCH (20:05)
[2018-11-06] MEDS: LEVOTHYROXINE SODIUM 25 MCG TABLET PO SCH (05:52)
[2018-11-06] MEDS: ACETAMINOPHEN 325 MG TAB PO PRN ×3 (06:12→22:28)
[2018-11-06 06:37] LABS: INR 2.6 (0.9-1.1); Prothrombin Time 24.5 Seconds (9.0-12.0)
[2018-11-06 08:43] LABS: Albumin Level 2.7 gm/dl (3.4-5.0); BUN Creatinine Ratio 22.5 (10-20); Calcium 8.7 mg/dl (8.5-10.1); Creatinine Clr Calc Pharmacy 24.9 ml/min; Est GFR (African American) 21.1; Est GFR (Non-African American) 18.2; Magnesium 2.5 mg/dl (1.8-2.4); Potassium 3.4 mmol/L (3.5-5.1)
[2018-11-06 08:44] LABS: Hematocrit (blood only) 30.8 % (42-52); Hemoglobin 9.9 g/dL (14.0-18.0); Mean Corpuscular Hgb Conc 32.1 g/dL (32-36); Mean Corpuscular Volume 89.3 fL (80-100); Mean Platelet Volume 11.9 fL (7.4-10.4); Platelet Count 112 K/uL (130-400); RDW Coefficient of Variation 18.1 % (11.5-14.5); RDW Standard Deviation 58.2 fL (36.4-46.3); Red Blood Count 3.45 M/uL (4.7-6.1); White Blood Count 8.61 K/uL (4.8-10.8)
[2018-11-06] MEDS: BUDESONIDE/FORMOTEROL FUMARATE 160/4.5 60 PUFFS/INHALER INH SCH ×2 (08:44→20:22)
[2018-11-06] MEDS: MULTIVITAMIN TAB PO SCH (08:44)
[2018-11-06] MEDS: PANTOprazole 40 MG TAB PO SCH (08:44)
[2018-11-06] MEDS: CHOLECALCIFEROL 1,000 UNITS TAB PO SCH (08:44)
[2018-11-06] MEDS: METOPROLOL SUCC 50MG EXT REL TAB PO SCH ×2 (08:44→20:21)
[2018-11-06 08:46] LABS: Bilirubin,Total 1.9 mg/dl (0.2-1); Globulin 2.8 gm/dl (2.5-4.0); Total Protein 5.5 gm/dl (6.4-8.2)
[2018-11-06] MEDS: NYSTATIN POWDER 15GM BTL EXT SCH ×2 (08:46→20:21)
[2018-11-06] MEDS: POTASSIUM CHLORIDE 20 MEQ TABCR PO SCH (08:46)
[2018-11-06] MEDS: SPIRONOLACTONE 25 MG TAB PO SCH (08:46)
[2018-11-06] MEDS: MAGNESIUM OXIDE 400 MG TAB PO SCH (08:46)
[2018-11-06] MEDS: ASPIRIN 81 MG ECTAB PO SCH (08:46)
[2018-11-06] MEDS: ALLOPURINOL 100 MG TAB PO SCH ×2 (08:46→20:21)
[2018-11-06] MEDS ORDERED: POTASSIUM CHLORIDE 10 MEQ TABCR PO ONE (11:13)
--- NOTE | 2018-11-06 12:09 | Cardiology Progress Note ---
Date of Service November 06, 2018 Assessment & Plan (1) Acute on chronic end-stage systolic heart failure: Patient with recurrent acute decompensated systolic HF exacerbation despite high dose diuretics as an outpatient. Markedly volume overloaded on exam. per review of outpatient records and inpatient records from admission at [facility] in September 2018, he required high dose IV Lasix at 120 mg, intermittent Lasix gtt, metolazone, and milrinone for volume status to improve. He received one dose IV Bumex on admission and one dose metolazone with IV lasix yesterday. Notes interval improvement in his symptoms, but remains volume overloaded on exam. Unfortunately worsening renal dysfunction noted. Questionable if I+O's are accurate since admission Close monitoring of I+Os recommended. 1500 ml Fluid restriction recommended Given one dose IV furosemide 80mg today. Continue spironolactone. Continue potassium wiht one additional tablet. Monitor renal function/electrolytes in AM. Patient previously on Entresto and Digoxin (discontinued during [facility] hospitalization). May not tolerate Entresto given borderline low BP. will resume digoxin, low dose to aid with contractility. Case discussed with Dr. Leon. Will follow (2) Atrial fibrillation: s/p AV myke ablation in September 2018 BIV Device set at 90 bpm to be reduced after 4-8 weeks per discharge guidelines. [employer] rep checked device. unfortunately only BIV pacing at 90% with HR set at 90. Will not reduce at this time. Continue metoprolol. Add digoxin 125 mcg M/W/F. (3) CKD (chronic kidney disease) stage 4, GFR 15-29 ml/min: Monitor renal function/electrolytes closely nephrology consult (4) Nonischemic cardiomyopathy: (5) Biventricular cardiac pacemaker in situ: Supervising Physician Co-Signing Physician Notes I have reviewed the chart, discussed the case with Elmer, interviewed and examined the patient. He is reaching end-stage heart disease with hypotension and cardiorenal syndrome. Unfortunately, he is very difficult to manage due to his severe cardiac disease. We will continue to diurese him as best we can and provide as much quality of life as possible. Subjective Patient starting to feel better since admission. Dyspnea with exertion improving. No SOB at rest. He reports edema has improved. Remains present. Unfortuantely renal function has declined. Nephrology consulted Review of Systems Review of Systems: All systems reviewed & are unremarkable except as noted in HPI & below Physical Exam Constitutional: WD/WN, vitals as above + ill appearing and average body habitus; no acute distress Respiratory: Auscultation: + diminished lung sounds and + rales Cardiovascular: Rate/Rhythm: regular rate and regular rhythm Heart Sounds: + murmur Vessels: + JVD Extremities: + edema Gastrointestinal (Abdomen): normal bowel sounds, soft, nontender, no hepatosplenomegaly Neurologic: PERRL, EOMI, accommodation nl, no face palsy, no dysarthria Psychiatric: A+Ox3, euthymic affect Results & Data Vital Signs (Past 12 Hours) Vital Signs Temp Pulse Pulse Resp BP Pulse Ox 11/06/18 10:38 36.5 C 93 H 18 91/52 L 100 11/06/18 08:15 36.4 C L 92 H 18 91/60 L 98 11/06/18 04:39 36.5 C 89 20 90/59 L 98 11/06/18 00:34 89 Laboratory Results 11/06/18 11/06/18 11/06/18 Range/Units 05:51 05:51 05:51 WBC 8.61 (4.8-10.8) K/uL RBC 3.45 L (4.7-6.1) M/uL Hgb 9.9 L (14.0-18.0) g/dL Hct 30.8 L (42-52) % MCV 89.3 (80-100) fL MCH 28.7 (25-34) pg MCHC 32.1 (32-36) g/dL RDW Std Deviation 58.2 H (36.4-46.3) fL RDW Coeff of Amalia 18.1 H (11.5-14.5) % Plt Count 112 L (130-400) K/uL MPV 11.9 H (7.4-10.4) fL PT 24.5 H (9.0-12.0) Seconds INR 2.6 H (0.9-1.1) Sodium 137 (136-145) mmol/L Potassium 3.4 L (3.5-5.1) mmol/L Chloride 98 (98-107) mmol/L Carbon Dioxide 28 (21-32) mmol/L Anion Gap 11.0 (3-11) BUN 73 H (7-18) mg/dl Creatinine 3.22 H D (0.6-1.4) mg/dl Est Cr Clr Drug Dosing 24.9 ml/min Est GFR ( Amer) 21.1 Est GFR (Non-Af Amer) 18.2 BUN/Creatinine Ratio 22.5 H (10-20) Glucose 91 (70-99) mg/dl Calcium 8.7 (8.5-10.1) mg/dl Magnesium 2.5 H (1.8-2.4) mg/dl Total Bilirubin 1.9 H (0.2-1) mg/dl AST 33 (15-37) U/L ALT 53 (12-78) U/L Alkaline Phosphatase 103 (45-117) U/L Total Protein 5.5 L (6.4-8.2) gm/dl Albumin 2.7 L (3.4-5.0) gm/dl Globulin 2.8 (2.5-4.0) gm/dl Albumin/Globulin Ratio 1.0 (0.9-2) Diagnostic Findings Device interrogation completed with [employer] rep - 90% BIV pacing, basal rate at 90 bpm, PVC's and non sustained VT noted (1) Atrial fibrillation Atrial fibrillation type: paroxysmal Qualified Code(s): I48.0 - Paroxysmal atrial fibrillation
[2018-11-06] MEDS ORDERED: FUROSEMIDE 100 MG in SYRINGE 0 ML IV ONE (12:25)
--- NOTE | 2018-11-06 12:25 | Nephrology Consultation ---
Date of Consultation November 06, 2018 Assessment & Plan (1) MAXIM (acute kidney injury): Patient with acute kidney injury on CKD likely due to cardiorenal syndrome. Baseline creatinine of 2.5. Admission creatinine was 2.7 and up to 3.2 today. Patient with declining renal function over the past 1 year in setting of very low EF. He is grossly volume overload. Electrolytes are stable. I discussed with the patient that these high likelihood of worsening renal function in setting of cardiomyopathy and diuresis. We also discussed the fact that renal replacement therapy would be a big challenge given his end-stage CHF. Patient understands that he would probably not do well. I would not recommend dialysis even if his kidneys failed. Recommend diuresis with the Lasix drip. Monitor renal function with daily BMP. Avoid nephrotoxins unless lifesaving. (2) Acute on chronic clinical systolic heart failure: Patient with ischemic cardiomyopathy and decompensated CHF. He was net -1 L yesterday. Recommend IV Lasix 100 mg bolus and Lasix drip at 20 mg/h. Monitor input output and daily standing weight. (3) Anemia in CKD (chronic kidney disease): Hemoglobin of 9.9 today which is close to target. No need for JOSE. If hemoglobin continues to decline we will check iron stores and consider JOSE History of Present Illness Reason for Consultation: Acute kidney injury on CKD Requesting Physician: Juju Bah MD Attending Physician: Juju Bah MD History of Present Illness This is a 72 year old male with complex history including dilated/non ischemic cardiomyopathy with LVEF 15%, BIV AICD, symptomatic PAF with difficult to control rates/rhythm, amiodarone toxicity, AV junction ablation in September 2018 following recurrent CHF exacerbation and CKD stage III with baseline creatinine of 2.5. His renal function has declined over the past 1 year in setting of worsening cardiac function. He [place] [facility] [place] to October 18, [place]. [place] [facility] [place] was treated with IV diuretics and Milrinone. On October 14, 2018 he underwent AV myke ablation and BiV ICD reprogramming. Entresto and digoxin were discontinued. Patient ultimately discharged on torsemide 100 mg twice per day along with spironolactone 25 mg/day and 10 mEq's potassium chloride. His creatinine has been in the mid twos. He was now admitted on 11/05/2018 with a creatinine of 2.7 and up to 3.2 today. He has been having progressively worsening shortness of breath over the past few weeks. No NSAID use. He reports adherence to his diuretics. He is complaining of lower extremity swelling. No urinary symptoms. He has shortness of breath worse with ambulation. He ambulates with a cane or walker. His blood pressure is always on the lower side. He received torsemide 100 mg, metolazone 5 mg and Lasix IV 80 mg yesterday with a urine output of 1.3 L and net -950 mL. Allergies Allergy/AdvReac Type Severity Reaction Status Date / Time promethazine AdvReac Intermediate DELIRIUM Verified 11/04/18 17:23 Home Medications Home Medications Medication Instructions Recorded Confirmed Type Symbicort 2 puff INHALATION BID 09/21/18 11/04/18 History albuterol sulfate 2 puff INHALATION Q6H PRN 09/21/18 11/04/18 History allopurinol 100 mg PO BID 09/21/18 11/04/18 History aspirin [Aspirin Low Dose] 81 mg PO QAM 09/21/18 11/04/18 History atorvastatin [Lipitor] 20 mg PO PM 09/21/18 11/04/18 History cholecalciferol (vitamin D3) 4,000 unit PO QAM 09/21/18 11/04/18 History [Vitamin D3] levothyroxine 25 mcg PO QAM 09/21/18 11/04/18 History magnesium oxide 400 mg PO QAM 09/21/18 11/04/18 History metoprolol succinate 50 mg PO BID 09/21/18 11/04/18 History multivitamin 1 tab PO QAM 09/21/18 11/04/18 History nitroglycerin 0.4 mg SUBLINGUAL DIRECTED 09/21/18 11/04/18 History omeprazole 40 mg PO QAM 09/21/18 11/04/18 History sennosides [senna] 8.6 mg PO DIRECTED PRN 09/21/18 11/04/18 History ferrous sulfate 325 mg PO Q OTHER DAY 10/30/18 11/04/18 History iron,carbonyl-vitamin C [Vitron-C] 1 tab PO Q OTHER DAY 10/30/18 11/04/18 History potassium chloride 20 meq PO QAM 10/30/18 11/04/18 History spironolactone 25 mg PO QAM 10/30/18 11/04/18 History torsemide 100 mg PO BID 11/04/18 11/04/18 History trazodone 25 mg PO HS 11/04/18 11/04/18 History warfarin [Jantoven] 2.5 mg PO 2XWK 11/04/18 11/04/18 History Patient History Medical History Hypothyroidism (Chronic) Lesion of spleen (Chronic) Atrial fibrillation (Chronic) Dysphagia (Chronic) Biventricular cardiac pacemaker in situ (Chronic) Systolic heart failure, ACC/AHA stage D (Chronic) Chronic combined systolic and diastolic CHF (congestive heart failure) (Chronic) Nonischemic cardiomyopathy (Chronic) Severe mitral regurgitation (Chronic) Pulmonary hypertension (Chronic) Hypertension (Chronic) Frequent PVCs (Chronic) Dyslipidemia (Chronic) History of DVT (deep vein thrombosis) (Chronic) GERD (gastroesophageal reflux disease) (Chronic) Esophageal dysmotility (Chronic) Non-ischemic cardiomyopathy (Chronic) Pulmonary HTN (Chronic) Surgical History Hx of cardiac cath (Chronic) "01/2013- non obstructive CAD" History of implantable cardioverter-defibrillator (ICD) placement (Chronic) S/P cholecystectomy (Chronic) H/O colonoscopy (Chronic) "with polypectomy" S/P lumbar discectomy (Chronic) S/P tendon repair (Chronic) "for ruptured EPL" H/O cardiac radiofrequency ablation (Chronic) "12/2014, for PVCs" Family History Other Cancer Coronary heart disease Diabetes Social History Preferred Language: Trinidadian Communication Ability: Effective Fur Polisher Required: No Beliefs That Will Affect Care: None marital status: Current Living Situation: Spouse current occupational status: retired Other Information That Helps Us Care for You: No Feels Safe at Home: Yes Safety Concerns: Feels Safe At This Time Smoking Status: Former smoker Hx Alcohol Use: No Hx Substance Use: No Review of Systems Review of Systems: All systems reviewed & are unremarkable except as noted in HPI & below Physical Exam Physical Exam: General exam: Patient appears ill, weak but no respiratory distress. He is off oxygen HEENT: Pupils are equal and reactive to light Neck: Distended neck veins, neck is supple trachea is midline Respiratory system: Crackles bilaterally. Gastrointestinal: Abdomen is soft, non distended, non tender, bowel sounds are present CVS: Regular rate and rhythm. No murmurs, rubs or gallops Musculoskeletal: No joint or muscle tenderness Extremities: Non tender, 2+ edema, peripheral pulses are present Neuro: Oriented, no tremors, no focal neurological deficits Skin: No rashes Results & Data Vital Signs (Past 12 Hours) Vital Signs Temp Pulse Pulse Resp BP Pulse Ox 11/06/18 10:38 36.5 C 93 H 18 91/52 L 100 11/06/18 08:15 36.4 C L 92 H 18 91/60 L 98 11/06/18 04:39 36.5 C 89 20 90/59 L 98 11/06/18 00:34 89 Laboratory Results Laboratory Results - last 24 hr 11/06/18 11/06/18 11/06/18 05:51 05:51 05:51 WBC 8.61 RBC 3.45 L Hgb 9.9 L Hct 30.8 L MCV 89.3 MCH 28.7 MCHC 32.1 RDW Std Deviation 58.2 H RDW Coeff of Amalia 18.1 H Plt Count 112 L MPV 11.9 H PT 24.5 H INR 2.6 H Sodium 137 Potassium 3.4 L Chloride 98 Carbon Dioxide 28 Anion Gap 11.0 BUN 73 H Creatinine 3.22 H D Est Cr Clr Drug Dosing 24.9 Est GFR ( Amer) 21.1 Est GFR (Non-Af Amer) 18.2 BUN/Creatinine Ratio 22.5 H Glucose 91 Calcium 8.7 Magnesium 2.5 H Total Bilirubin 1.9 H AST 33 ALT 53 Alkaline Phosphatase 103 Total Protein 5.5 L Albumin 2.7 L Globulin 2.8 Albumin/Globulin Ratio 1.0
[2018-11-06] MEDS: DIGOXIN 0.125 MG TAB PO SCH (13:07)
[2018-11-06] MEDS: FUROSEMIDE 100 MG in DEXTROSE 5% 90 ML IV SCH ×3 (13:07→21:38)
[2018-11-06] MEDS: WARFARIN SOD 2.5 MG TAB PO SCH (16:20)
--- NOTE | 2018-11-06 16:21 | Hospitalist Progress Note ---
Date of Service November 06, 2018 Assessment & Plan (1) Acute on chronic end-stage systolic heart failure: Cont with intermittent intravenous diuresis as directed by Cardiology. Clinically improves but bilateral leg edema worsens Intravenous Lasix drip was started today Need to monitor day or 2 more before discharge (2) MAXIM (acute kidney injury): Has chronic kidney disease with creatinine around 2 Creatinine noted to be more than 3 as of today Appreciate nephrology input and recommendation He has been put on intravenous Lasix drip (3) History of implantable cardioverter-defibrillator (ICD) placement: (4) Biventricular cardiac pacemaker in situ: (5) Non-ischemic cardiomyopathy: Recent, recurrent admissions for HF; recently admitted to [facility] 10/08 through 10/18 where patient was treated with IV diuretics and milrinone and also underwent AV junctional ablation and BiV ICD reprogramming, patient was discharged on spironolactone 25 mg daily and torsemide 100 mg twice daily; At some point, digoxin, Entresto, metolazone have all been discontinued; amiodarone also recently discontinued due to concerns of possible hepatic toxicity EF <15% (6) Atrial fibrillation: Cont metoprolol for rate control Amiodarone recently discontinued as above Anticoagulated on Coumadin, INR therapeutic Denies any acute symptoms (7) Elevated LFTs: -Patient noted to have elevated LFTs last month, felt to be possibly secondary to amiodarone which has been subsequently discontinued -Bilirubin remains elevated at 2.8, AST, ALT, alk phos have normalized/improving, 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 role -Continue to monitor LFTs (8) Hypothyroidism: -Continue levothyroxine (9) GERD (gastroesophageal reflux disease): -Continue PPI, and gave Ranitidine PRN for breakthrough heartburn (10) DVT prophylaxis: coumadin dispo-pending clinical improvement Subjective 11/06 The patient was seen and examined in the telemetry unit This is a 72 year old male with complex history including dilated/non ischemic cardiomyopathy with LVEF 15%, BIV AICD, symptomatic PAF with difficult to control rates/rhythm, amiodarone toxicity, AV junction ablation in September 2018 following recurrent CHF exacerbation and CKD stage III with baseline creatinine of 2.5. His renal function has declined over the past 1 year in setting of worsening cardiac function. He was hospitalized at [facility] from October 08, 2018 to October 18, 2018. Has been getting intravenous Lasix with improvement of symptoms but kidney function has been worsening Denies any chest pain and/or palpitation Bilateral leg swelling seems to be worse Review of Systems Review of Systems: All systems reviewed and are unremarkable except as noted. Constitutional: + malaise and + weakness Respiratory: no cough and no dyspnea (At rest) Cardiovascular: + edema (2-3+ bilateral lower extremity edema); no chest pain Gastrointestinal: + bloating Neurologic: Alert, awake and oriented x3. Generally weak and lethargic Physical Exam Physical Exam: Sitting on the bed without any acute distress Constitutional: well developed, well nourished, + ill appearing and + obese Eyes: PERRL, conjunctivae normal, anicteric sclerae ENMT: external ear and nose normal, oropharynx normal Neck: trachea midline, no thyromegaly Respiratory: normal respiratory effort; no respiratory distress Auscultation: + diminished lung sounds and + crackles (Bilateral, mid to lower lung morley) Cardiovascular: Rate/Rhythm: regular rate and regular rhythm Vessels: normal peripheral pulses Extremities: + edema (+4 pitting edema extending up to the hips and abdomen) Gastrointestinal (Abdomen): Inspection/Auscultation: + abdomen distended and + abdominal edema (Pitting) Percussion/Palpation: abdomen soft; abdomen nontender Musculoskeletal: no cyanosis or clubbing, extremities motor strength 5/5 No acute arthritis in any joint Skin: no rashes Neurologic: PERRL, EOMI, accommodation nl, no face palsy, no dysarthria Psychiatric: A+Ox3, euthymic affect Lymphatic: no cervical or axillary lymphadenopathy Results & Data Vital Signs (Past 12 Hours) Vital Signs Temp Pulse Pulse Resp BP BP Pulse Ox 11/06/18 15:45 36.6 C 64 18 85/54 L 99 11/06/18 13:07 91 H 11/06/18 10:38 36.5 C 93 H 18 91/52 L 100 11/06/18 08:15 36.4 C L 92 H 18 91/60 L 98 11/06/18 04:39 36.5 C 89 20 90/59 L 98 Laboratory Results Short CBC 11/06/18 Range/Units 05:51 WBC 8.61 (4.8-10.8) K/uL Hgb 9.9 L (14.0-18.0) g/dL Hct 30.8 L (42-52) % Plt Count 112 L (130-400) K/uL BMP 11/06/18 05:51 Sodium 137 Potassium 3.4 L Chloride 98 Carbon Dioxide 28 BUN 73 H Creatinine 3.22 H D Glucose 91 Calcium 8.7 Liver Function 11/06/18 Range/Units 05:51 Total Bilirubin 1.9 H (0.2-1) mg/dl AST 33 (15-37) U/L ALT 53 (12-78) U/L Alkaline Phosphatase 103 (45-117) U/L Albumin 2.7 L (3.4-5.0) gm/dl Medications Administered Current Inpatient Medications Acetaminophen (Tylenol) 650 mg PO Q4H PRN PRN Reason: Pain or Fever Stop: 12/04/18 20:28 Last Admin: 11/06/18 13:40 Dose: 650 mg Documented by: Allopurinol (Zyloprim) 100 mg PO BID [facility] Stop: 12/04/18 20:59 Last Admin: 11/06/18 08:46 Dose: 100 mg Documented by: Aspirin (Ecotrin Ectab) 81 mg PO QAM [facility] Stop: 12/05/18 08:59 Last Admin: 11/06/18 08:46 Dose: 81 mg Documented by: Atorvastatin Calcium (Lipitor) 20 mg PO PM [facility] Stop: 12/04/18 20:59 Last Admin: 11/05/18 20:05 Dose: 20 mg Documented by: Budesonide/Formoterol Fumarate (Symbicort 160mcg/4.5mcg) 2 puffs INH BID [facility] Stop: 12/04/18 20:59 Last Admin: 11/06/18 08:44 Dose: 2 puffs Documented by: Digoxin (Lanoxin) 0.125 mg PO MoWeFr@0900 [facility] Stop: 12/06/18 11:14 Last Admin: 11/06/18 13:07 Dose: 0.125 mg Documented by: Ferrous Sulfate (Feosol) 325 mg PO Q2D@0900 [facility] Stop: 12/05/18 08:59 Last Admin: 11/05/18 09:27 Dose: 325 mg Documented by: Furosemide 100 mg/ Dextrose 100 mls @ 20 mls/hr IV .Q5H [facility] Stop: 12/06/18 12:29 Last Admin: 11/06/18 13:07 Dose: 20 mg/hr, 20 mls/hr Documented by: Levothyroxine Sodium (Synthroid) 25 mcg PO DAILYBB [facility] Stop: 12/05/18 06:29 Last Admin: 11/06/18 05:52 Dose: 25 mcg Documented by: [facility]esium [facility] (Mag-Ox) [facility] Stop: 12/05/18 08:59 Last Admin: 11/06/18 08:46 Dose: 400 mg Documented by: Metoprolol Succinate (Toprol Xl) 50 mg PO BID [facility] Stop: 12/04/18 20:59 Last Admin: 11/06/18 08:44 Dose: 50 mg Documented by: Multivitamins (Multivitamin Tab) 1 tab PO [facility] Stop: 12/05/18 08:59 Last Admin: 11/06/18 08:44 Dose: 1 tab Documented by: Nystatin (Mycostatin) 1 appln EXT BID [facility] Stop: 12/05/18 11:44 Last Admin: 11/06/18 08:46 Dose: 1 appln Documented by: Pantoprazole Sodium (Protonix) 40 mg PO [facility] Stop: 12/05/18 08:59 Last Admin: 11/06/18 08:44 Dose: 40 mg Documented by: Potassium Chloride (Klor-Con M20) 20 meq PO [facility] Stop: 12/05/18 08:59 Last Admin: 11/06/18 08:46 Dose: 20 meq Documented by: Ranitidine HCl (Zantac) 150 mg PO BID PRN PRN Reason: breakthrough heartburn Stop: 12/05/18 11:44 Last Admin: 11/05/18 12:32 Dose: 150 mg Documented by: Spironolactone (Aldactone) 25 mg PO [facility] Stop: 12/05/18 08:59 Last Admin: 11/06/18 08:46 Dose: 25 mg Documented by: Trazodone HCl (Desyrel) 25 mg PO [facility] Stop: 12/04/18 20:59 Last Admin: 11/05/18 20:05 Dose: 25 mg Documented by: Vitamin D (Vitamin D3) 4,000 units [facility] Stop: 12/05/18 08:59 Last Admin: 11/06/18 08:44 Dose: 4,000 units Documented by: Warfarin Sodium (Coumadin) 2.5 mg PO DAILY@1600 [facility] Stop: 12/05/18 15:59 Last Admin: 11/05/18 16:19 Dose: 2.5 mg Documented by: (1) Atrial fibrillation Atrial fibrillation type: paroxysmal Qualified Code(s): I48.0 - Paroxysmal atrial fibrillation
[2018-11-06] MEDS: ATORVASTATIN 20 MG TAB PO SCH (20:21)
[2018-11-06] MEDS: TRAZODONE HCL 50 MG TAB PO SCH (20:21)
[2018-11-07] MEDS ORDERED: ALBUMIN 25% 50 ML IV ONE ×2 (00:25→01:37)
[2018-11-07] MEDS ORDERED: POTASSIUM CHLORIDE 20 MEQ TABCR PO STA (00:27)
[2018-11-07 00:52] LABS: Basophils # (auto) 0.03 K/uL (0-0.2); Basophils % (auto) 0.3 %; Eosinophils # (auto) 0.29 K/uL (0-0.5); Eosinophils % (auto) 2.5 %; Hematocrit (blood only) 33.2 % (42-52); Hemoglobin 10.6 g/dL (14.0-18.0); Immature Granulocytes # (auto) 0.03 K/uL (0.00-0.02); Immature Granulocytes % (auto) 0.3 %; Lymphocytes # (auto) 0.96 K/uL (1.2-3.4); Lymphocytes % (auto) 8.2 %; Mean Corpuscular Hgb Conc 31.9 g/dL (32-36); Mean Platelet Volume 11.1 fL (7.4-10.4); Monocytes # (auto) 0.78 K/uL (0.11-0.59); Monocytes % (auto) 6.7 %; Platelet Count 115 K/uL (130-400); RDW Coefficient of Variation 18.2 % (11.5-14.5); RDW Standard Deviation 58.8 fL (36.4-46.3); Red Blood Count 3.73 M/uL (4.7-6.1); White Blood Count 11.69 K/uL (4.8-10.8)
[2018-11-07 01:05] LABS: INR 3.1 (0.9-1.1); Prothrombin Time 29.1 Seconds (9.0-12.0)
[2018-11-07 01:09] LABS: BUN Creatinine Ratio 21.7 (10-20); Calcium 8.2 mg/dl (8.5-10.1); Creatinine Clr Calc Pharmacy 22.7 ml/min; Est GFR (African American) 18.9; Est GFR (Non-African American) 16.3; Magnesium 2.5 mg/dl (1.8-2.4); Phosphorus 4.6 mg/dl (2.5-4.9); Potassium 3.7 mmol/L (3.5-5.1)
--- NOTE | 2018-11-07 01:38 | Hospitalist Progress Note ---
Date of Service November 07, 2018 Subjective Made aware by RN of SBP 90s. Patient complaining not feeling well as per RN. AP Hypotension secondary to overdiuresis from Lasix drip. Hold Lasix drip for now. Will relay to AM provider. Results & Data Vital Signs (Past 12 Hours) Vital Signs Temp Pulse Pulse Pulse Pulse Resp BP 11/07/18 00:20 87 94/70 L 11/07/18 00:00 91 H 11/06/18 23:55 36.7 C 87 17 76/58 L 11/06/18 22:58 91 H 11/06/18 19:28 36.5 C 89 18 90/61 L 11/06/18 16:00 92 H 11/06/18 15:45 36.6 C 64 18 BP Pulse Ox 11/07/18 00:20 11/07/18 00:00 88/57 L 11/06/18 23:55 96 11/06/18 22:58 11/06/18 19:28 96 11/06/18 16:00 11/06/18 15:45 85/54 L 99
[2018-11-07 06:25] LABS: Calcium 8.7 mg/dl (8.5-10.1); Est GFR (African American) 20.2; Est GFR (Non-African American) 17.4; Potassium 3.4 mmol/L (3.5-5.1)
[2018-11-07] MEDS: LEVOTHYROXINE SODIUM 25 MCG TABLET PO SCH (06:27)
[2018-11-07] MEDS: ALLOPURINOL 100 MG TAB PO SCH ×2 (08:42→21:06)
[2018-11-07] MEDS: CHOLECALCIFEROL 1,000 UNITS TAB PO SCH (08:42)
[2018-11-07] MEDS: PANTOprazole 40 MG TAB PO SCH (08:43)
[2018-11-07] MEDS: POTASSIUM CHLORIDE 20 MEQ TABCR PO SCH (08:43)
[2018-11-07] MEDS: SPIRONOLACTONE 25 MG TAB PO SCH (08:43)
[2018-11-07] MEDS: MAGNESIUM OXIDE 400 MG TAB PO SCH (08:43)
[2018-11-07] MEDS: FERROUS SULFATE 325 MG TAB PO SCH (08:43)
[2018-11-07] MEDS: MULTIVITAMIN TAB PO SCH (08:43)
[2018-11-07] MEDS: NYSTATIN POWDER 15GM BTL EXT SCH ×2 (08:44→21:58)
[2018-11-07] MEDS: METOPROLOL SUCC 50MG EXT REL TAB PO SCH ×2 (08:44→21:07)
[2018-11-07] MEDS: ASPIRIN 81 MG ECTAB PO SCH (08:44)
[2018-11-07] MEDS: BUDESONIDE/FORMOTEROL FUMARATE 160/4.5 60 PUFFS/INHALER INH SCH ×2 (08:44→21:06)
[2018-11-07] MEDS: ACETAMINOPHEN 325 MG TAB PO PRN ×2 (08:48→16:19)
[2018-11-07] MEDS ORDERED: POTASSIUM CHLORIDE 20 MEQ TABCR PO SCH (09:30)
[2018-11-07] MEDS ORDERED: FUROSEMIDE 40 MG/4 ML VIAL IV STA (10:57)
--- NOTE | 2018-11-07 10:57 | Cardiology Progress Note ---
Date of Service November 07, 2018 Assessment & Plan (1) Acute on chronic end-stage systolic heart failure: Patient with recurrent acute decompensated systolic HF exacerbation despite high dose diuretics as an outpatient. Markedly volume overloaded on exam. per review of outpatient records and [place] [facility] [place], he required high dose IV Lasix at 120 mg, intermittent Lasix gtt, metolazone, and milrinone for volume status to improve. Notes interval improvement in his symptoms, but remains volume overloaded on exam. Lasix bolus and gtt resulted in hypotension yesterday. Unfortunately worsening renal dysfunction also noted. Close monitoring of I+Os recommended. 1500 ml Fluid restriction recommended IF BP allows, recommend continued IV lasix Monitor renal function/electrolytes in AM. Patient previously on Entresto and Digoxin (discontinued during [facility] [place] May not tolerate Entresto given borderline low BP. will resume digoxin, low dose to aid with contractility. Case discussed with Dr. Leon. Will follow (2) Atrial fibrillation: s/p AV myke ablation in September 2018 BIV Device set at 90 bpm to be reduced after 4-8 weeks per discharge guidelines. [employer] rep checked device. unfortunately only BIV pacing at 90% with HR set at 90. Will not reduce at this time. Continue metoprolol and digoxin 125 mcg M/W/F. (3) CKD (chronic kidney disease) stage 4, GFR 15-29 ml/min: Monitor renal function/electrolytes closely nephrology consult (4) Nonischemic cardiomyopathy: (5) Biventricular cardiac pacemaker in situ: Supervising Physician Co-Signing Physician Notes I have reviewed the chart, discussed the case with Ms. Payne, interviewed and examined the patient. The Lasix drip has been restarted by nephrology. The patient is also more willing to discuss options with palliative care. He is difficult to manage with diuretics because of low blood pressure and worsening renal failure. We will try to manage him the best we can. Subjective Patient reports he feels better compared to admission. Denies chest pain. SOB improving. Unfortunately, he remains markedly volume overloaded on exam findings. Trial of lasix gtt yesterday resulted in hypotension. BP borderline. He is asymptomatic in terms of dizziness, lightheadedness, near syncope. No sense of palpitations. Review of Systems Review of Systems: All systems reviewed & are unremarkable except as noted in HPI & below Physical Exam Constitutional: WD/WN, vitals as above + ill appearing and average body habitus; no acute distress Eyes: PERRL, conjunctivae normal, anicteric sclerae Neck: trachea midline, no thyromegaly normal visual inspection Respiratory: Auscultation: + diminished lung sounds, + crackles and + rales Cardiovascular: Rate/Rhythm: regular rate and regular rhythm Heart Sounds: + murmur Vessels: + JVD Extremities: + edema Gastrointestinal (Abdomen): normal bowel sounds, soft, nontender, no hepatosplenomegaly Neurologic: PERRL, EOMI, accommodation nl, no face palsy, no dysarthria Psychiatric: A+Ox3, euthymic affect Results & Data Vital Signs (Past 12 Hours) Vital Signs Temp Pulse Pulse Pulse Pulse Resp BP 11/07/18 07:28 36.5 C 83 16 86/56 L 11/07/18 04:15 89/59 L 11/07/18 04:07 36.9 C 88 16 11/07/18 01:55 90 91/58 L 11/07/18 00:20 87 94/70 L 11/07/18 00:00 91 H 11/06/18 23:55 36.7 C 87 17 76/58 L 11/06/18 22:58 91 H BP Pulse Ox 11/07/18 07:28 97 11/07/18 04:15 11/07/18 04:07 91/60 L 98 11/07/18 01:55 11/07/18 00:20 11/07/18 00:00 88/57 L 11/06/18 23:55 96 11/06/18 22:58 Laboratory Results 11/07/18 11/07/18 11/07/18 Range/Units 05:26 05:26 00:41 WBC (4.8-10.8) K/uL RBC (4.7-6.1) M/uL Hgb (14.0-18.0) g/dL Hct (42-52) % MCV (80-100) fL MCH (25-34) pg MCHC (32-36) g/dL RDW Std Deviation (36.4-46.3) fL RDW Coeff of Amalia (11.5-14.5) % Plt Count (130-400) K/uL MPV (7.4-10.4) fL Immature Gran % (Auto) % Neut % (Auto) % Lymph % (Auto) % Citrus % (Auto) % Eos % (Auto) % Baso % (Auto) % Immature Gran # (Auto) (0.00-0.02) K/uL Neut # (Auto) (1.4-6.5) K/uL Lymph # (Auto) (1.2-3.4) K/uL Citrus # (Auto) (0.11-0.59) K/uL Eos # (Auto) (0-0.5) K/uL Baso # (Auto) (0-0.2) K/uL PT (9.0-12.0) Seconds INR (0.9-1.1) Sodium 136 (136-145) mmol/L Potassium 3.4 L (3.5-5.1) mmol/L Chloride 97 L (98-107) mmol/L Carbon Dioxide 29 (21-32) mmol/L Anion Gap 10.0 (3-11) BUN 80 H (7-18) mg/dl Creatinine 3.34 H (0.6-1.4) mg/dl Est Cr Clr Drug Dosing 24.0 ml/min Est GFR ( Amer) 20.2 Est GFR (Non-Af Amer) 17.4 BUN/Creatinine Ratio 24.0 H (10-20) Glucose 108 H (70-99) mg/dl Lactate 1.6 (0.4-2.0) mmol/L Calcium 8.7 (8.5-10.1) mg/dl Phosphorus (2.5-4.9) mg/dl Magnesium (1.8-2.4) mg/dl Digoxin 0.3 L (0.8-2.0) ng/ml 11/07/18 11/07/18 11/07/18 Range/Units 00:41 00:41 00:41 WBC 11.69 H (4.8-10.8) K/uL RBC 3.73 L (4.7-6.1) M/uL Hgb 10.6 L (14.0-18.0) g/dL Hct 33.2 L (42-52) % MCV 89.0 (80-100) fL MCH 28.4 (25-34) pg MCHC 31.9 L (32-36) g/dL RDW Std Deviation 58.8 H (36.4-46.3) fL RDW Coeff of Amalia 18.2 H (11.5-14.5) % Plt Count 115 L (130-400) K/uL MPV 11.1 H (7.4-10.4) fL Immature Gran % (Auto) 0.3 % Neut % (Auto) 82.0 % Lymph % (Auto) 8.2 % Citrus % (Auto) 6.7 % Eos % (Auto) 2.5 % Baso % (Auto) 0.3 % Immature Gran # (Auto) 0.03 H (0.00-0.02) K/uL Neut # (Auto) 9.60 H (1.4-6.5) K/uL Lymph # (Auto) 0.96 L (1.2-3.4) K/uL Citrus # (Auto) 0.78 H (0.11-0.59) K/uL Eos # (Auto) 0.29 (0-0.5) K/uL Baso # (Auto) 0.03 (0-0.2) K/uL PT 29.1 H (9.0-12.0) Seconds INR 3.1 H (0.9-1.1) Sodium 135 L (136-145) mmol/L Potassium 3.7 (3.5-5.1) mmol/L Chloride 96 L (98-107) mmol/L Carbon Dioxide 29 (21-32) mmol/L Anion Gap 10.0 (3-11) BUN 77 H (7-18) mg/dl Creatinine 3.52 H D (0.6-1.4) mg/dl Est Cr Clr Drug Dosing 22.7 ml/min Est GFR ( Amer) 18.9 Est GFR (Non-Af Amer) 16.3 BUN/Creatinine Ratio 21.7 H (10-20) Glucose 122 H (70-99) mg/dl Lactate (0.4-2.0) mmol/L Calcium 8.2 L (8.5-10.1) mg/dl Phosphorus 4.6 (2.5-4.9) mg/dl Magnesium 2.5 H (1.8-2.4) mg/dl Digoxin (0.8-2.0) ng/ml Medications Administered Current Inpatient Medications Acetaminophen (Tylenol) 650 mg PO Q4H PRN PRN Reason: Pain or Fever Stop: 12/04/18 20:28 Last Admin: 11/07/18 08:48 Dose: 650 mg Documented by: Allopurinol (Zyloprim) 100 mg PO BID [facility] Stop: 12/04/18 20:59 Last Admin: 11/07/18 08:42 Dose: 100 mg Documented by: Aspirin (Ecotrin Ectab) 81 mg PO QAM [facility] Stop: 12/05/18 08:59 Last Admin: 11/07/18 08:44 Dose: 81 mg Documented by: Atorvastatin Calcium (Lipitor) 20 mg PO PM [facility] Stop: 12/04/18 20:59 Last Admin: 11/06/18 20:21 Dose: 20 mg Documented by: Budesonide/Formoterol Fumarate (Symbicort 160mcg/4.5mcg) 2 puffs INH BID [facility] Stop: 12/04/18 20:59 Last Admin: 11/07/18 08:44 Dose: 2 puffs Documented by: Digoxin (Lanoxin) 0.125 mg PO MoWeFr@0900 [facility] Stop: 12/06/18 11:14 Last Admin: 11/06/18 13:07 Dose: 0.125 mg Documented by: Ferrous Sulfate (Feosol) 325 mg PO Q2D@0900 [facility] Stop: 12/05/18 08:59 Last Admin: 11/07/18 08:43 Dose: 325 mg Documented by: Furosemide (Lasix) 40 mg IV NOW STA Stop: 11/07/18 10:58 Furosemide 100 mg/ Dextrose 100 mls @ 15 mls/hr IV .Q6H40M [facility] Stop: 12/06/18 12:29 Last Infusion: 11/07/18 00:31 Dose: 0 mg/hr, 0 mls/hr Documented by: Levothyroxine Sodium (Synthroid) 25 mcg PO DAILYBB [facility] Stop: 12/05/18 06:29 Last Admin: 11/07/18 06:27 Dose: 25 mcg Documented by: Magnesium Oxide (Mag-Ox) 400 mg PO QAM [facility] Stop: 12/05/18 08:59 Last Admin: 11/07/18 08:43 Dose: 400 mg Documented by: Metoprolol Succinate (Toprol Xl) 50 mg PO BID [facility] Stop: 12/04/18 20:59 Last Admin: 11/07/18 08:44 Dose: Not Given Documented by: [facility]ivit[facility] ([facility]ivitamin Tab) [facility] [place] Stop: 12/05/18 08:59 Last Admin: 11/07/18 08:43 Dose: 1 tab Documented by: Nystatin (Mycostatin) 1 appln EXT BID [facility] Stop: 12/05/18 11:44 Last Admin: 11/07/18 08:44 Dose: 1 appln Documented by: Pantoprazole Sodium (Protonix) [facility] [place] Stop: 12/05/18 08:59 Last Admin: 11/07/18 08:43 Dose: 40 mg Documented by: Potassium Chloride (Klor-Con M20) 20 meq PO [facility] Stop: 12/05/18 08:59 Last Admin: 11/07/18 08:43 Dose: 20 meq Documented by: Ranitidine HCl (Zantac) 150 mg PO BID PRN PRN Reason: breakthrough heartburn Stop: 12/05/18 11:44 Last Admin: 11/05/18 12:32 Dose: 150 mg Documented by: Spironolactone (Aldactone) 25 mg PO [facility] Stop: 12/05/18 08:59 Last Admin: 11/07/18 08:43 Dose: 25 mg Documented by: Trazodone HCl (Desyrel) 25 mg PO HS [facility] Stop: 12/04/18 20:59 Last Admin: 11/06/18 20:21 Dose: 25 mg Documented by: Vitamin D (Vitamin D3) 4,000 units PO [facility] Stop: 12/05/18 08:59 Last Admin: 11/07/18 08:42 Dose: 4,000 units Documented by: Warfarin Sodium (Coumadin) 2.5 mg PO DAILY@1600 [facility] Stop: 12/05/18 15:59 Last Admin: 11/06/18 16:20 Dose: 2.5 mg Documented by: (1) Atrial fibrillation Atrial fibrillation type: paroxysmal Qualified Code(s): I48.0 - Paroxysmal atrial fibrillation
[2018-11-07] MEDS ORDERED: FUROSEMIDE 40 MG in SYRINGE 0 ML IV ONE (11:00)
[2018-11-07] MEDS: FUROSEMIDE 100 MG in DEXTROSE 5% 90 ML IV SCH ×3 (11:36→22:44)
--- NOTE | 2018-11-07 16:08 | Palliative Care Consultation ---
Date of Consultation November 07, 2018 Assessment & Plan (1) Palliative care encounter: Patient is a 72-year-old male with end-stage systolic CHF-patient is known to us from his previous hospitalization on October 08. This is patient's third hospitalization in 1 month, he also had an ER visit on October 30. Patient is followed by Dr. Leon. He has chronic systolic heart failure, A. fib-status post myke ablation in September 2018, biventricular pacer-on metoprolol and digoxin. He also has CKD stage IV-his prior baseline creatinine was 2.28-is 3.52 today with a BUN of 77. His estimated GFR is now 17. Patient also with a low albumin level as well as anemia's associated with chronic kidney disease. Patient presented to the hospital on 10/05 with increasing lower extremity edema- despite high-dose diuretics at home. Patient reports that the onset of edema was rather rapid-occurred over approximately 2 days. Patient received IV Lasix along with IV Bumex, IV metolazone and IV torsemide in the emergency room-he was started on a Lasix drip. Lasix drip has been held due to patient's worsening r enal function and then restarted per nephrology. Patient states his edema is markedly improved-he continues to have low blood pressures, on exam blood pressure was 91/59-patient reported no symptoms while sitting on the side of the bed. Patient reports he has been told that there is not much more they can do to treat him-discussed with his goals of care were as well as the option of having hospice care at home. When discussing CODE STATUS- patient stated "what ever it takes to keep me going". Patient states he has a living well and advanced directives-asked him to discuss with his and his children regarding more details regarding future care including prolonged ventilation, trach placement, etc. Patient states prior to onset of increased edema he was able to ambulate 50 feet at home before needing to rest, he now is able to only ambulate about 25 feet. -CODE STATUS-patient stated he wishes to remain a full code -even in light of being told there is not much more that can be done to manage his heart failure -Acute on chronic end-stage systolic heart failure-echo in September of this year had an EF of less than 15%. Patient failing outpatient management with high-dose diuretics -A. fib-status post myke ablation in September 2018, biventricular paced at a rate of 90, on metoprolol and digoxin M/W/F -CKD stage IV-worsening renal function with aggressive diuresis. Baseline creatinine 2.28-creatinine this a.m. 3.52 with a BUN of 77. Continue aggressive diuresis as tolerated by renal function and blood pressure. Patient would likely be a poor dialysis candidate given his already low blood pressures. Patient awaiting further input from nephrology -Hypotension-patient tolerating systolic blood pressure in the low 90s. Will continue to follow and discuss further goals of care as well as CODE STATUS after patient has a chance to speak with his and children. (2) Acute on chronic clinical systolic heart failure: (3) CKD (chronic kidney disease) stage 4, GFR 15-29 ml/min: (4) Cardiac volume overload: (5) Atrial fibrillation: Atrial fibrillation type: paroxysmal Qualified Code(s): I48.0 - Paroxysmal atrial fibrillation History of Present Illness Reason for Consultation: Address goals of care as well as CODE STATUS Requesting Physician: Dr. Bah Attending Physician: Juju Bah MD History of Present Illness Patient seen and examined in his room-no friends or family at bedside. Patient alert and oriented x4. Patient is a 72-year-old male with end-stage systolic CHF-patient is known to us from his previous hospitalization on October 08. This is patient's third hospitalization in 1 month, he also had an ER visit on October 30. Patient is followed by Dr. Leon. He has chronic systolic heart failure, A. fib-status post myke ablation in September 2018, biventricular pacer-on metoprolol and digoxin. He also has CKD stage IV-his prior baseline creatinine was 2.28-is 3.52 today with a BUN of 77. His estimated GFR is now 17. Patient also with a low albumin level as well as anemia's associated with chronic kidney disease. Patient presented to the hospital on 10/05 with increasing lower extremity edema- despite high-dose diuretics at home. Patient reports that the onset of edema was rather rapid-occurred over approximately 2 days. Patient received IV Lasix along with IV Bumex, IV metolazone and IV torsemide in the emergency room-he was started on a Lasix drip. Lasix drip has been held due to patient's worsening renal function and then restarted per nephrology. Patient states his edema is markedly improved-he continues to have low blood pressures, on exam blood pressure was 91/59-patient reported no symptoms while sitting on the side of the bed. Patient reports he has been told that there is not much more they can do to treat him-discussed with his goals of care were as well as the option of having hospice care at home. When discussing CODE STATUS- patient stated "what ever it takes to keep me going". Patient states he has a living well and advanced directives-asked him to discuss with his and his children regarding more details regarding future care including prolonged ventilation, trach placement, etc. Patient states prior to onset of increased edema he was able to ambulate 50 feet at home before needing to rest, he now is able to only ambulate about 25 feet. Allergies Allergy/AdvReac Type Severity Reaction Status Date / Time promethazine AdvReac Intermediate DELIRIUM Verified 11/04/18 17:23 Home Medications Home Medications Medication Instructions Recorded Confirmed Type Symbicort 2 puff INHALATION BID 09/21/18 11/04/18 History albuterol sulfate 2 puff INHALATION Q6H PRN 09/21/18 11/04/18 History allopurinol 100 mg PO BID 09/21/18 11/04/18 History aspirin [Aspirin Low Dose] 81 mg PO QAM 09/21/18 11/04/18 History atorvastatin [Lipitor] 20 mg PO PM 09/21/18 11/04/18 History cholecalciferol (vitamin D3) 4,000 unit PO QAM 09/21/18 11/04/18 History [Vitamin D3] levothyroxine 25 mcg PO QAM 09/21/18 11/04/18 History magnesium oxide 400 mg PO QAM 09/21/18 11/04/18 History metoprolol succinate 50 mg PO BID 09/21/18 11/04/18 History multivitamin 1 tab PO QAM 09/21/18 11/04/18 History nitroglycerin 0.4 mg SUBLINGUAL DIRECTED 09/21/18 11/04/18 History omeprazole 40 mg PO QAM 09/21/18 11/04/18 History sennosides [senna] 8.6 mg PO DIRECTED PRN 09/21/18 11/04/18 History ferrous sulfate 325 mg PO Q OTHER DAY 10/30/18 11/04/18 History iron,carbonyl-vitamin C [Vitron-C] 1 tab PO Q OTHER DAY 10/30/18 11/04/18 History potassium chloride 20 meq PO QAM 10/30/18 11/04/18 History spironolactone 25 mg PO QAM 10/30/18 11/04/18 History torsemide 100 mg PO BID 11/04/18 11/04/18 History trazodone 25 mg PO HS 11/04/18 11/04/18 History warfarin [Jantoven] 2.5 mg PO 2XWK 11/04/18 11/04/18 History Patient History Medical History Hypothyroidism (Chronic) Lesion of spleen (Chronic) Atrial fibrillation (Chronic) Dysphagia (Chronic) Biventricular cardiac pacemaker in situ (Chronic) Systolic heart failure, ACC/AHA stage D (Chronic) Chronic combined systolic and diastolic CHF (congestive heart failure) (Chronic) Nonischemic cardiomyopathy (Chronic) Severe mitral regurgitation (Chronic) Pulmonary hypertension (Chronic) Hypertension (Chronic) Frequent PVCs (Chronic) Dyslipidemia (Chronic) History of DVT (deep vein thrombosis) (Chronic) GERD (gastroesophageal reflux disease) (Chronic) Esophageal dysmotility (Chronic) Non-ischemic cardiomyopathy (Chronic) Pulmonary HTN (Chronic) Surgical History Hx of cardiac cath (Chronic) "01/2013- non obstructive CAD" History of implantable cardioverter-defibrillator (ICD) placement (Chronic) S/P cholecystectomy (Chronic) H/O colonoscopy (Chronic) "with polypectomy" S/P lumbar discectomy (Chronic) S/P tendon repair (Chronic) "for ruptured EPL" H/O cardiac radiofrequency ablation (Chronic) "12/2014, for PVCs" Family History Other Cancer Coronary heart disease Diabetes Social History Preferred Language: Lao Communication Ability: Effective Phlebotomy Lab Assistant Required: No Beliefs That Will Affect Care: None marital status: Current Living Situation: Spouse current occupational status: retired Other Information That Helps Us Care for You: No Feels Safe at Home: Yes Safety Concerns: Feels Safe At This Time Smoking Status: Former smoker Hx Alcohol Use: No Hx Substance Use: No Review of Systems Review of Systems: Patient denies fever, chills, chest pain, increased shortness of breath, or abdominal pain. Lower extremity edema improving since admission. Physical Exam Physical Exam: PE: Patient appears comfortable, sitting on side of bed HEENT: EOMI, hearing within normal limits Respiratory: Lungs clear on exam, unlabored, on room air CV: Rate controlled, 3+ pitting edema to just below the knees bilaterally Abdomen: Soft, nontender Extremities: Full range of motion, mild generalized weakness Neuro: Alert and oriented x4 Results & Data Vital Signs (Past 12 Hours) Vital Signs Temp Pulse Pulse Pulse Resp BP BP 11/07/18 15:15 90 19 88/58 L 11/07/18 13:54 91/59 L 11/07/18 11:23 97.9 F 89 20 93/60 L 11/07/18 07:28 97.7 F 83 16 86/56 L 11/07/18 04:15 89/59 L 11/07/18 04:07 98.4 F 88 16 91/60 L Pulse Ox 11/07/18 15:15 11/07/18 13:54 11/07/18 11:23 98 11/07/18 07:28 97 11/07/18 04:15 11/07/18 04:07 98 PG Care Time/CCT Total # of Minutes Spent Total Time Spent with Patient: Total time spent is greater than 50% in co ordination of care (as documented) at patient's floor/unit and/or counseling patient: Time Spent Attending Total time spent 60 minutes with greater than 50% of the time spent at bedside discussing patient's current condition as well as goals of care and CODE STATUS.
[2018-11-07] MEDS: WARFARIN SOD 2.5 MG TAB PO SCH (16:16)
--- NOTE | 2018-11-07 16:41 | Hospitalist Progress Note ---
Date of Service November 07, 2018 Assessment & Plan (1) Acute on chronic end-stage systolic heart failure: Cont with intermittent intravenous diuresis as directed by Cardiology. Clinically improves but bilateral leg edema worsens Intravenous Lasix drip was started on 11/06 and discontinued last night due to hypotension with symptoms Lasix drip with reducing dose has been started this morning by the certified wellness program coordinator Discussed with the patient and palliative consult requested Appreciate palliative care input and recommendation (2) MAXIM (acute kidney injury): Has chronic kidney disease with creatinine around 2 Creatinine noted to be more than 3 as of today Appreciate nephrology input and recommendation He has been put on intravenous Lasix drip Lasix drip will be continued with reducing dose (3) History of implantable cardioverter-defibrillator (ICD) placement: No acute cardiac symptoms (4) Biventricular cardiac pacemaker in situ: (5) Non-ischemic cardiomyopathy: Recent, recurrent admissions for HF; recently admitted to [facility] 10/08 through 10/18 where patient was treated with IV diuretics and milrinone and also underwent AV junctional ablation and BiV ICD reprogramming, patient was discharged on spironolactone 25 mg daily and torsemide 100 mg twice daily; At some point, digoxin, Entresto, metolazone have all been discontinued; amiodarone also recently discontinued due to concerns of possible hepatic toxicity EF <15% Remains asymptomatic at rest (6) Atrial fibrillation: Cont metoprolol for rate control Amiodarone recently discontinued as above Anticoagulated on Coumadin, INR therapeutic Denies any acute symptoms (7) Elevated LFTs: -Patient noted to have elevated LFTs last month, felt to be possibly secondary to amiodarone which has been subsequently discontinued -Bilirubin remains elevated at 2.8, AST, ALT, alk phos have normalized/improving, 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 role -Continue to monitor LFTs (8) Hypothyroidism: -Continue levothyroxine (9) GERD (gastroesophageal reflux disease): -Continue PPI, and gave Ranitidine PRN for breakthrough heartburn (10) DVT prophylaxis: coumadin dispo-pending clinical improvement Discussed with the patient in detail regarding current management Will ask for PT and OT evaluation We agreed to have palliative care input He remains a full code with very poor prognosis We will discuss CODE STATUS with the patient tomorrow Subjective 11/06 The patient was seen and examined in the telemetry unit This is a 72 year old male with complex history including dilated/non ischemic cardiomyopathy with LVEF 15%, BIV AICD, symptomatic PAF with difficult to control rates/rhythm, amiodarone toxicity, AV junction ablation in September 2018 following recurrent CHF exacerbation and CKD stage III with baseline creatinine of 2.5. His renal function has declined over the past 1 year in setting of worsening cardiac function. He was hospitalized at [facility] from October 08, 2018 to October 18, 2018. Has been getting intravenous Lasix with improvement of symptoms but kidney function has been worsening Denies any chest pain and/or palpitation Bilateral leg swelling seems to be worse 11/07 Patient was seen and examined in the telemetry unit He has had hypotension with dizziness last night Denies any symptoms today His blood pressure has been improving Review of Systems Review of Systems: All systems reviewed and are unremarkable except as noted. Constitutional: + malaise and + weakness Cardiovascular: + edema (2-3+ bilateral lower extremity edema); no chest pain Gastrointestinal: + bloating Neurologic: Alert, awake and oriented x3. Generally weak and lethargic Physical Exam Physical Exam: Sitting on the age of the bed without any acute symptoms Constitutional: well developed, well nourished, + ill appearing and + obese Eyes: PERRL, conjunctivae normal, anicteric sclerae ENMT: external ear and nose normal, oropharynx normal Neck: trachea midline, no thyromegaly Respiratory: normal respiratory effort; no respiratory distress Auscultation: + diminished lung sounds and + crackles (Bilateral, mid to lower lung morley) Cardiovascular: Rate/Rhythm: regular rate and regular rhythm Vessels: normal peripheral pulses Extremities: + edema (+4 pitting edema extending up to the hips and abdomen) Gastrointestinal (Abdomen): Inspection/Auscultation: + abdomen distended and + abdominal edema (Pitting) Percussion/Palpation: abdomen soft; abdomen nontender Musculoskeletal: no cyanosis or clubbing, extremities motor strength 5/5 Skin: no rashes Neurologic: Alert, awake and oriented x3. Generally weak but no focal neuro deficit Psychiatric: A+Ox3, euthymic affect Lymphatic: no cervical or axillary lymphadenopathy Results & Data Vital Signs (Past 12 Hours) Vital Signs Temp Pulse Pulse Resp BP Pulse Ox 11/07/18 15:15 90 19 88/58 L 11/07/18 13:54 91/59 L 11/07/18 11:23 36.6 C 89 20 93/60 L 98 11/07/18 07:28 36.5 C 83 16 86/56 L 97 Laboratory Results Short CBC 11/07/18 Range/Units 00:41 WBC 11.69 H (4.8-10.8) K/uL Hgb 10.6 L (14.0-18.0) g/dL Hct 33.2 L (42-52) % Plt Count 115 L (130-400) K/uL BMP 11/07/18 11/07/18 00:41 05:26 Sodium 135 L 136 Potassium 3.7 3.4 L Chloride 96 L 97 L Carbon Dioxide 29 29 BUN 77 H 80 H Creatinine 3.52 H D 3.34 H Glucose 122 H 108 H Calcium 8.2 L 8.7 Medications Administered Current Inpatient Medications Acetaminophen (Tylenol) 650 mg PO Q4H PRN PRN Reason: Pain or Fever Stop: 12/04/18 20:28 Last Admin: 11/07/18 16:19 Dose: 650 mg Documented by: Allopurinol (Zyloprim) 100 mg PO BID [facility] Stop: 12/04/18 20:59 Last Admin: 11/07/18 08:42 Dose: 100 mg Documented by: Aspirin (Ecotrin Ectab) 81 mg PO QAM [facility] Stop: 12/05/18 08:59 Last Admin: 11/07/18 08:44 Dose: 81 mg Documented by: Atorvastatin Calcium (Lipitor) 20 mg PO PM [facility] Stop: 12/04/18 20:59 Last Admin: 11/06/18 20:21 Dose: 20 mg Documented by: Budesonide/Formoterol Fumarate (Symbicort 160mcg/4.5mcg) 2 puffs INH BID [facility] Stop: 12/04/18 20:59 Last Admin: 11/07/18 08:44 Dose: 2 puffs Documented by: Digoxin (Lanoxin) 0.125 mg PO MoWeFr@0900 [facility] Stop: 12/06/18 11:14 Last Admin: 11/06/18 13:07 Dose: 0.125 mg Documented by: Ferrous Sulfate (Feosol) 325 mg PO Q2D@0900 [facility] Stop: 12/05/18 08:59 Last Admin: 11/07/18 08:43 Dose: 325 mg Documented by: Furosemide 100 mg/ Dextrose 100 mls @ 15 mls/hr IV .Q6H40M [facility] Stop: 12/07/18 15:59 Last Admin: 11/07/18 16:16 Dose: 15 mg/hr, 15 mls/hr Documented by: Levothyroxine Sodium (Synthroid) 25 mcg PO DAILYBB [facility] Stop: 12/05/18 06:29 Last Admin: 11/07/18 06:27 Dose: 25 mcg Documented by: Magnesium Oxide (Mag-Ox) 400 mg PO [facility] Stop: 12/05/18 08:59 Last Admin: 11/07/18 08:43 Dose: 400 mg Documented by: Metoprolol Succinate (Toprol Xl) 50 mg PO BID [facility] Stop: 12/04/18 20:59 Last Admin: 11/07/18 08:44 Dose: Not Given Documented by: Multivitamins (Multivitamin Tab) 1 tab PO [facility] Stop: 12/05/18 08:59 Last Admin: 11/07/18 08:43 Dose: 1 tab Documented by: Nystatin (Mycostatin) 1 appln EXT BID [facility] Stop: 12/05/18 11:44 Last Admin: 11/07/18 08:44 Dose: 1 appln Documented by: Pantoprazole Sodium (Protonix) 40 mg PO [facility] Stop: 12/05/18 08:59 Last Admin: 11/07/18 08:43 Dose: 40 mg Documented by: Potassium Chloride (Klor-Con M20) 20 meq PO [facility] Stop: 12/05/18 08:59 Last Admin: 11/07/18 08:43 Dose: 20 meq Documented by: Ranitidine HCl (Zantac) 150 mg PO BID PRN PRN Reason: breakthrough heartburn Stop: 12/05/18 11:44 Last Admin: 11/05/18 12:32 Dose: 150 mg Documented by: Spironolactone (Aldactone) 25 mg PO [facility] Stop: 12/05/18 08:59 Last Admin: 11/07/18 08:43 Dose: 25 mg Documented by: Trazodone HCl (Desyrel) 25 mg PO [facility] Stop: 12/04/18 20:59 Last Admin: 11/06/18 20:21 Dose: 25 mg Documented by: Vitamin D (Vitamin D3) 4,000 units PO [facility] Stop: 12/05/18 08:59 Last Admin: 11/07/18 08:42 Dose: 4,000 units Documented by: Warfarin Sodium (Coumadin) 2.5 mg PO DAILY@1600 [facility] Stop: 12/05/18 15:59 Last Admin: 11/07/18 16:16 Dose: 2.5 mg Documented by: (1) Atrial fibrillation Atrial fibrillation type: paroxysmal Qualified Code(s): I48.0 - Paroxysmal atrial fibrillation
--- NOTE | 2018-11-07 17:29 | Nephrology Progress Note ---
Date of Service November 07, 2018 Assessment & Plan (1) MAXIM (acute kidney injury): Patient with acute kidney injury on CKD likely due to cardiorenal syndrome. Baseline creatinine of 2.5. Admission creatinine was 2.7 and up to 4 today. Patient with declining renal function over the past 1 year in setting of very low EF. He is grossly volume overload. Electrolytes are stable. I discussed with the patient that these high likelihood of worsening renal function in setting of cardiomyopathy and diuresis. We also discussed the fact that renal replacement therapy would be a big challenge given his end-stage CHF. Patient understands that he would probably not do well. I would not recommend dialysis even if his kidneys failed. Resume diuresis with the Lasix drip. Monitor renal function with daily BMP. Avoid nephrotoxins unless lifesaving. (2) Acute on chronic clinical systolic heart failure: Patient with ischemic cardiomyopathy and decompensated CHF. He was net -1 L yesterday. Recommend IV Lasix 40 mg bolus and Lasix drip at 15 mg/h. Monitor input output and daily standing weight. (3) Anemia in CKD (chronic kidney disease): Hemoglobin is close to target. No need for JOSE. If hemoglobin continues to decline we will check iron stores and consider JOSE Subjective Seen during morning rounds for CKD and volume overload. No SOB but has leg edema. He was negative 400ml on lasix drip but stopped overnight due to low BP. Review of Systems Review of Systems: All systems reviewed & are unremarkable except as noted in HPI & below Physical Exam Physical Exam: General exam: Appears comfortable, no acute distress HEENT: Pupils are equal and reactive to light Neck: No JVD, neck is supple trachea is midline Respiratory system: Clear breath sounds bilaterally. Gastrointestinal: Abdomen is soft, non distended, non tender, bowel sounds are present CVS: Regular rate and rhythm. No murmurs, rubs or gallops Musculoskeletal: No joint or muscle tenderness Extremities: Non tender, 2+ edema, peripheral pulses are present Neuro: Oriented, no tremors, no focal neurological deficits Skin: No rashes Results & Data Vital Signs (Past 12 Hours) Vital Signs Temp Pulse Pulse Pulse Resp BP Pulse Ox 11/07/18 15:15 90 19 88/58 L 11/07/18 14:20 94 H 11/07/18 13:54 91/59 L 11/07/18 11:23 36.6 C 89 20 93/60 L 98 11/07/18 07:28 36.5 C 83 16 86/56 L 97 Laboratory Results Laboratory Results - last 24 hr 11/07/18 11/07/18 11/07/18 00:41 00:41 00:41 WBC 11.69 H RBC 3.73 L Hgb 10.6 L Hct 33.2 L MCV 89.0 MCH 28.4 MCHC 31.9 L RDW Std Deviation 58.8 H RDW Coeff of Amalia 18.2 H Plt Count 115 L MPV 11.1 H Immature Gran % (Auto) 0.3 Neut % (Auto) 82.0 Lymph % (Auto) 8.2 [place] % (Auto) 6.7 Eos % (Auto) 2.5 Baso % (Auto) 0.3 Immature Gran # (Auto) 0.03 H Neut # (Auto) 9.60 H Lymph # (Auto) 0.96 L [place] # (Auto) 0.78 H Eos # (Auto) 0.29 Baso # (Auto) 0.03 PT 29.1 H INR 3.1 H Sodium 135 L Potassium 3.7 Chloride 96 L Carbon Dioxide 29 Anion Gap 10.0 BUN 77 H Creatinine 3.52 H D Est Cr Clr Drug Dosing 22.7 Est GFR ( Amer) 18.9 Est GFR (Non-Af Amer) 16.3 BUN/Creatinine Ratio 21.7 H Glucose 122 H Lactate Calcium 8.2 L Phosphorus 4.6 Magnesium 2.5 H Digoxin 11/07/18 11/07/18 11/07/18 00:41 05:26 05:26 WBC RBC Hgb Hct MCV MCH MCHC RDW Std Deviation RDW Coeff of Amalia Plt Count MPV Immature Gran % (Auto) Neut % (Auto) Lymph % (Auto) [place] % (Auto) Eos % (Auto) Baso % (Auto) Immature Gran # (Auto) Neut # (Auto) Lymph # (Auto) [place] # (Auto) Eos # (Auto) Baso # (Auto) PT INR Sodium 136 Potassium 3.4 L Chloride 97 L Carbon Dioxide 29 Anion Gap 10.0 BUN 80 H Creatinine 3.34 H Est Cr Clr Drug Dosing 24.0 Est GFR ( Amer) 20.2 Est GFR (Non-Af Amer) 17.4 BUN/Creatinine Ratio 24.0 H Glucose 108 H Lactate 1.6 Calcium 8.7 Phosphorus Magnesium Digoxin 0.3 L
[2018-11-07] MEDS: ATORVASTATIN 20 MG TAB PO SCH (21:06)
[2018-11-07] MEDS: TRAZODONE HCL 50 MG TAB PO SCH (21:07)
[2018-11-08] MEDS: FUROSEMIDE 100 MG in DEXTROSE 5% 90 ML IV SCH ×4 (04:38→23:10)
[2018-11-08] MEDS: LEVOTHYROXINE SODIUM 25 MCG TABLET PO SCH (05:35)
[2018-11-08 06:38] LABS: BUN Creatinine Ratio 25.6 (10-20); Calcium 8.8 mg/dl (8.5-10.1); Creatinine Clr Calc Pharmacy 25.3 ml/min; Magnesium 2.3 mg/dl (1.8-2.4); Potassium 3.3 mmol/L (3.5-5.1)
[2018-11-08] MEDS: DIGOXIN 0.125 MG TAB PO SCH (08:18)
[2018-11-08] MEDS: PANTOprazole 40 MG TAB PO SCH (08:18)
[2018-11-08] MEDS: MULTIVITAMIN TAB PO SCH (08:18)
[2018-11-08] MEDS: CHOLECALCIFEROL 1,000 UNITS TAB PO SCH (08:18)
[2018-11-08] MEDS: ASPIRIN 81 MG ECTAB PO SCH (08:19)
[2018-11-08] MEDS: ALLOPURINOL 100 MG TAB PO SCH ×2 (08:19→21:18)
[2018-11-08] MEDS: SPIRONOLACTONE 25 MG TAB PO SCH (08:19)
[2018-11-08] MEDS: METOPROLOL SUCC 50MG EXT REL TAB PO SCH ×2 (08:20→21:20)
[2018-11-08] MEDS: NYSTATIN POWDER 15GM BTL EXT SCH ×2 (08:22→21:18)
[2018-11-08] MEDS: BUDESONIDE/FORMOTEROL FUMARATE 160/4.5 60 PUFFS/INHALER INH SCH ×2 (08:23→21:18)
--- NOTE | 2018-11-08 09:39 | Cardiology Progress Note ---
Date of Service November 08, 2018 Assessment & Plan (1) Acute on chronic end-stage systolic heart failure: Patient with recurrent acute decompensated systolic HF exacerbation despite high dose diuretics as an outpatient. Notes interval improvement in his symptoms, but remains volume overloaded on exam. Lasix gtt resumed. Tolerating. Relatively stable renal function noted today. Close monitoring of I+Os recommended. 1500 ml Fluid restriction recommended IF BP allows, recommend continued lasix gtt today. Supplement potassium and recheck later today. Monitor renal function/electrolytes in AM. Patient previously on Entresto and Digoxin (discontinued during [facility] hospitalization). May not tolerate Entresto given borderline low BP. will resume digoxin, low dose to aid with contractility. Agree with palliative care consult. Overall poor prognosis given cardiorenal syndrome Case discussed with Dr. Leon. Will follow (2) Atrial fibrillation: s/p AV myke ablation in September 2018 BIV Device set at 90 bpm to be reduced after 4-8 weeks per discharge guidelines. [employer] rep checked device. unfortunately only BIV pacing at 90% with HR set at 90. Will not reduce at this time. Continue metoprolol and digoxin 125 mcg M/W/F. (3) CKD (chronic kidney disease) stage 4, GFR 15-29 ml/min: Monitor renal function/electrolytes closely nephrology consult (4) Nonischemic cardiomyopathy: (5) Biventricular cardiac pacemaker in situ: Supervising Physician Co-Signing Physician Notes I have reviewed the chart, discussed the case with Renetta, interviewed and examined the patient. Not much additional to add here. Patient has end-stage heart disease with cardiorenal syndrome and will need additional close diuretic management. Subjective Patient sitting up in bed, feeling ok. Feels his SOB has improved since admission. Edema slowly improving. Persistent cough, unchanged. BP remains low, but stable. Tolerating meds. No dizziness. Review of Systems Review of Systems: All systems reviewed & are unremarkable except as noted in HPI & below Physical Exam Constitutional: WD/WN, vitals as above + ill appearing and average body habitus; no acute distress Eyes: PERRL, conjunctivae normal, anicteric sclerae Neck: trachea midline, no thyromegaly normal visual inspection Respiratory: Auscultation: + diminished lung sounds, + crackles and + rales Cardiovascular: Rate/Rhythm: regular rate and regular rhythm Heart Sounds: + murmur Vessels: + JVD Extremities: + edema Gastrointestinal (Abdomen): normal bowel sounds, soft, nontender, no hepatosplenomegaly Neurologic: PERRL, EOMI, accommodation nl, no face palsy, no dysarthria Psychiatric: A+Ox3, euthymic affect Results & Data Vital Signs (Past 12 Hours) Vital Signs Temp Pulse Pulse Pulse Resp BP Pulse Ox 11/08/18 08:18 92 H 11/08/18 07:31 36.4 C L 89 18 90/43 L 98 11/08/18 03:36 36.6 C 91 H 19 96/61 L 98 11/08/18 00:12 36.5 C 96 H 18 92/65 L 98 11/07/18 22:50 92 H Laboratory Results 11/08/18 Range/Units 05:25 Sodium 135 L (136-145) mmol/L Potassium 3.3 L (3.5-5.1) mmol/L Chloride 95 L (98-107) mmol/L Carbon Dioxide 31 (21-32) mmol/L Anion Gap 9.0 (3-11) BUN 80 H (7-18) mg/dl Creatinine 3.11 H (0.6-1.4) mg/dl Est Cr Clr Drug Dosing 25.3 ml/min Est GFR ( Amer) 22.0 Est GFR (Non-Af Amer) 19.0 BUN/Creatinine Ratio 25.6 H (10-20) Glucose 115 H (70-99) mg/dl Calcium 8.8 (8.5-10.1) mg/dl Magnesium 2.3 (1.8-2.4) mg/dl Medications Administered Current Inpatient Medications Acetaminophen (Tylenol) 650 mg PO Q4H PRN PRN Reason: Pain or Fever Stop: 12/04/18 20:28 Last Admin: 11/07/18 16:19 Dose: 650 mg Documented by: Allopurinol (Zyloprim) 100 mg PO BID [facility] Stop: 12/04/18 20:59 Last Admin: 11/08/18 08:19 Dose: 100 mg Documented by: Aspirin (Ecotrin Ectab) 81 mg PO QAM [facility] Stop: 12/05/18 08:59 Last Admin: 11/08/18 08:19 Dose: 81 mg Documented by: Atorvastatin Calcium (Lipitor) 20 mg PO PM [facility] Stop: 12/04/18 20:59 Last Admin: 11/07/18 21:06 Dose: 20 mg Documented by: Budesonide/Formoterol Fumarate (Symbicort 160mcg/4.5mcg) 2 puffs INH BID [facility] Stop: 12/04/18 20:59 Last Admin: 11/08/18 08:23 Dose: 2 puffs Documented by: Digoxin (Lanoxin) 0.125 mg PO MoWeFr@0900 [facility] Stop: 12/06/18 11:14 Last Admin: 11/08/18 08:18 Dose: 0.125 mg Documented by: Ferrous Sulfate (Feosol) 325 mg PO Q2D@0900 [facility] Stop: 12/05/18 08:59 Last Admin: 11/07/18 08:43 Dose: 325 mg Documented by: Furosemide 100 mg/ Dextrose 100 mls @ 15 mls/hr IV .Q6H40M [facility] Stop: 12/07/18 15:59 Last Admin: 11/08/18 04:38 Dose: 15 mg/hr, 15 mls/hr Documented by: Levothyroxine Sodium (Synthroid) 25 mcg PO DAILYBB [facility] Stop: 12/05/18 06:29 Last Admin: 11/08/18 05:35 Dose: 25 mcg Documented by: Magnesium Oxide (Mag-Ox) [address] [facility] Stop: 12/05/18 08:59 Last Admin: 11/07/18 08:43 Dose: 400 mg Documented by: Metoprolol Succinate (Toprol Xl) 50 mg PO BID [facility] Stop: 12/04/18 20:59 Last Admin: 11/08/18 08:20 Dose: Not Given Documented by: Multivitamins ([facility]itamin Tab) [facility] Stop: 12/05/18 08:59 Last Admin: 11/08/18 08:18 Dose: 1 tab Documented by: Nystatin (Mycostatin) 1 appln EXT BID [facility] Stop: 12/05/18 11:44 Last Admin: 11/08/18 08:22 Dose: 1 appln Documented by: Pantoprazole Sodium (Protonix) 40 mg PO QAM [facility] Stop: 12/05/18 08:59 Last Admin: 11/08/18 08:18 Dose: 40 mg Documented by: Potassium Chloride (Klor-Con M20) 40 meq PO QAM [facility] Stop: 12/08/18 08:59 Ranitidine HCl (Zantac) 150 mg PO BID PRN PRN Reason: breakthrough heartburn Stop: 12/05/18 11:44 Last Admin: 11/05/18 12:32 Dose: 150 mg Documented by: Spironolactone (Aldactone) [facility] Stop: 12/05/18 08:59 Last Admin: 11/08/18 08:19 Dose: 25 mg Documented by: Trazodone HCl (Desyrel) 25 mg PO [facility] Stop: 12/04/18 20:59 Last Admin: 11/07/18 21:07 Dose: 25 mg Documented by: Vitamin D (Vitamin D3) 4,[address] [facility] Stop: 12/05/18 08:59 Last Admin: 11/08/18 08:18 Dose: 4,000 units Documented by: Warfarin Sodium (Coumadin) 2.5 mg PO DAILY@1600 [facility] Stop: 12/05/18 15:59 Last Admin: 11/07/18 16:16 Dose: 2.5 mg Documented by: (1) Atrial fibrillation Atrial fibrillation type: paroxysmal Qualified Code(s): I48.0 - Paroxysmal atrial fibrillation
[2018-11-08] MEDS: POTASSIUM CHLORIDE 20 MEQ TABCR PO SCH (09:44)
[2018-11-08] MEDS: MAGNESIUM OXIDE 400 MG TAB PO SCH (09:44)
--- NOTE | 2018-11-08 09:54 | Nephrology Progress Note ---
Date of Service November 08, 2018 Assessment & Plan (1) MAXIM (acute kidney injury): Patient with acute kidney injury on CKD likely due to cardiorenal syndrome. Baseline creatinine of 2.5. Admission creatinine was 2.7 and 3.1 today. Patient with declining renal function over the past 1 year in setting of very low EF. He is grossly volume overload. Electrolytes are stable. I discussed with the patient that these high likelihood of worsening renal function in setting of cardiomyopathy and diuresis. We also discussed the fact that renal replacement therapy would be a big challenge given his end-stage CHF. Patient understands that he would probably not do well. I would not recommend dialysis even if his kidneys failed. Continue diuresis with the Lasix drip at 15 mg per. Monitor renal function with daily BMP. Avoid nephrotoxins unless lifesaving. (2) Acute on chronic clinical systolic heart failure: Patient with ischemic cardiomyopathy and decompensated CHF. He was net 400 mL yesterday. Continue Lasix drip at 15 mg/h. Monitor input output and daily standing weight. (3) Anemia in CKD (chronic kidney disease): Hemoglobin is close to target. No need for JOSE. If hemoglobin continues to decline we will check iron stores and consider JOSE Subjective Patient seen in follow-up for CKD and volume overload. He is diuresing well with Lasix drip. He was net -400 mL. No shortness of breath. Still has significant lower extremity edema. No vomiting or diarrhea. Review of Systems Review of Systems: All systems reviewed & are unremarkable except as noted in HPI & below Physical Exam Physical Exam: General exam: Appears comfortable, no acute distress HEENT: Pupils are equal and reactive to light Neck: No JVD, neck is supple trachea is midline Respiratory system: Clear breath sounds bilaterally. Gastrointestinal: Abdomen is soft, non distended, non tender, bowel sounds are present CVS: Regular rate and rhythm. No murmurs, rubs or gallops Musculoskeletal: No joint or muscle tenderness Extremities: Non tender, 2+ edema, peripheral pulses are present Neuro: Oriented, no tremors, no focal neurological deficits Skin: No rashes Results & Data Vital Signs (Past 12 Hours) Vital Signs Temp Pulse Pulse Pulse Resp BP Pulse Ox 11/08/18 08:18 92 H 11/08/18 07:31 36.4 C L 89 18 90/43 L 98 11/08/18 03:36 36.6 C 91 H 19 96/61 L 98 11/08/18 00:12 36.5 C 96 H 18 92/65 L 98 11/07/18 22:50 92 H Laboratory Results Laboratory Results - last 24 hr 11/08/18 05:25 Sodium 135 L Potassium 3.3 L Chloride 95 L Carbon Dioxide 31 Anion Gap 9.0 BUN 80 H Creatinine 3.11 H Est Cr Clr Drug Dosing 25.3 Est GFR ( Amer) 22.0 Est GFR (Non-Af Amer) 19.0 BUN/Creatinine Ratio 25.6 H Glucose 115 H Calcium 8.8 Magnesium 2.3
[2018-11-08] MEDS: WARFARIN SOD 2.5 MG TAB PO SCH (15:49)
--- NOTE | 2018-11-08 16:19 | Hospitalist Progress Note ---
Date of Service November 08, 2018 Assessment & Plan (1) Acute on chronic end-stage systolic heart failure: Cont with intermittent intravenous diuresis as directed by Cardiology. Clinically improves but bilateral leg edema worsens Intravenous Lasix drip was started on 11/06 and discontinued last night due to hypotension with symptoms Lasix drip with reducing dose has been started this morning by the wastewater analyst Discussed with the patient and palliative consult requested Appreciate palliative care input and recommendation We will continue Lasix drip for today Plan to get PT and OT evaluation Today steps O2 saturation prior to program discharge tomorrow (2) MAXIM (acute kidney injury): Has chronic kidney disease with creatinine around 2 Creatinine noted to be more than 3 as of today Appreciate nephrology input and recommendation He has been put on intravenous Lasix drip Lasix drip will be continued with reducing dose Renal function is worsening Monitor PRP (3) History of implantable cardioverter-defibrillator (ICD) placement: No acute cardiac symptoms (4) Biventricular cardiac pacemaker in situ: (5) Non-ischemic cardiomyopathy: Recent, recurrent admissions for HF; recently admitted to [facility] 10/08 through 10/18 where patient was treated with IV diuretics and milrinone and also underwent AV junctional ablation and BiV ICD reprogramming, patient was discharged on spironolactone 25 mg daily and torsemide 100 mg twice daily; At some point, digoxin, Entresto, metolazone have all been discontinued; amiodarone also recently discontinued due to concerns of possible hepatic toxicity EF <15% Remains asymptomatic at rest (6) Atrial fibrillation: Cont metoprolol for rate control Amiodarone recently discontinued as above Anticoagulated on Coumadin, INR therapeutic Denies any acute symptoms (7) Elevated LFTs: -Patient noted to have elevated LFTs last month, felt to be possibly secondary to amiodarone which has been subsequently discontinued -Bilirubin remains elevated at 2.8, AST, ALT, alk phos have normalized/improving, 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 role -Continue to monitor LFTs (8) Hypothyroidism: -Continue levothyroxine (9) GERD (gastroesophageal reflux disease): -Continue PPI, and gave Ranitidine PRN for breakthrough heartburn (10) DVT prophylaxis: coumadin dispo-pending clinical improvement Discussed with the patient in detail regarding current management Will ask for PT and OT evaluation We agreed to have palliative care input He remains a full code with very poor prognosis We will discuss CODE STATUS with the patient tomorrow PT and OT evaluation Subjective 11/06 The patient was seen and examined in the telemetry unit This is a 72 year old male with complex history including dilated/non ischemic cardiomyopathy with LVEF 15%, BIV AICD, symptomatic PAF with difficult to control rates/rhythm, amiodarone toxicity, AV junction ablation in September 2018 following recurrent CHF exacerbation and CKD stage III with baseline creatinine of 2.5. His renal function has declined over the past 1 year in setting of worsening cardiac function. He was hospitalized at [facility] from October 08, 2018 to October 18, 2018. Has been getting intravenous Lasix with improvement of symptoms but kidney function has been worsening Denies any chest pain and/or palpitation Bilateral leg swelling seems to be worse 11/07 Patient was seen and examined in the telemetry unit He has had hypotension with dizziness last night Denies any symptoms today His blood pressure has been improving 11/08 Patient was seen and examined in telemetry unit He remains stable at rest and has bilateral leg swelling as before He has been tolerating intravenous Lasix drip Review of Systems Review of Systems: All systems reviewed and are unremarkable except as noted. Constitutional: + malaise and + weakness Cardiovascular: + edema (2-3+ bilateral lower extremity edema); no chest pain Gastrointestinal: + bloating Neurologic: Alert, awake and oriented x3. Generally weak and lethargic Physical Exam Physical Exam: Sitting on the edge of the bed without any symptoms Constitutional: well developed, well nourished, + ill appearing and + obese Eyes: PERRL, conjunctivae normal, anicteric sclerae ENMT: external ear and nose normal, oropharynx normal Neck: trachea midline, no thyromegaly Respiratory: normal respiratory effort; no respiratory distress Auscultation: + diminished lung sounds and + crackles (Bilateral, mid to lower lung morley) Cardiovascular: Rate/Rhythm: regular rate and regular rhythm Vessels: normal peripheral pulses Extremities: + edema (+4 pitting edema extending up to the hips and abdomen) Gastrointestinal (Abdomen): Inspection/Auscultation: + abdomen distended and + abdominal edema (Pitting) Percussion/Palpation: abdomen soft; abdomen nontender Musculoskeletal: no cyanosis or clubbing, extremities motor strength 5/5 No acute arthritis in any of the joints Skin: no rashes Neurologic: Alert, awake and oriented x3. Generally weak Psychiatric: A+Ox3, euthymic affect Lymphatic: no cervical or axillary lymphadenopathy Results & Data Vital Signs (Past 12 Hours) Vital Signs Temp Pulse Pulse Resp BP Pulse Ox 11/08/18 15:05 36.6 C 90 19 98/65 L 93 11/08/18 11:05 36.8 C 91 H 19 87/65 L 91 11/08/18 08:18 92 H 11/08/18 07:31 36.4 C L 89 18 90/43 L 98 11/08/18 07:00 94 H Laboratory Results BMP 11/08/18 11/08/18 05:25 13:00 Sodium 135 L Potassium 3.3 L 3.2 L Chloride 95 L Carbon Dioxide 31 BUN 80 H Creatinine 3.11 H Glucose 115 H Calcium 8.8 Medications Administered Current Inpatient Medications Acetaminophen (Tylenol) 650 mg PO Q4H PRN PRN Reason: Pain or Fever Stop: 12/04/18 20:28 Last Admin: 11/07/18 16:19 Dose: 650 mg Documented by: Allopurinol (Zyloprim) 100 mg PO BID [facility] Stop: 12/04/18 20:59 Last Admin: 11/08/18 08:19 Dose: 100 mg Documented by: Aspirin (Ecotrin Ectab) 81 mg PO QAM [facility] Stop: 12/05/18 08:59 Last Admin: 11/08/18 08:19 Dose: 81 mg Documented by: Atorvastatin Calcium (Lipitor) 20 mg PO PM [facility] Stop: 12/04/18 20:59 Last Admin: 11/07/18 21:06 Dose: 20 mg Documented by: Budesonide/Formoterol Fumarate (Symbicort 160mcg/4.5mcg) 2 puffs INH BID [facility] Stop: 12/04/18 20:59 Last Admin: 11/08/18 08:23 Dose: 2 puffs Documented by: Digoxin (Lanoxin) 0.125 mg PO MoWeFr@0900 [facility] Stop: 12/06/18 11:14 Last Admin: 11/08/18 08:18 Dose: 0.125 mg Documented by: Ferrous Sulfate (Feosol) 325 mg PO Q2D@0900 [facility] Stop: 12/05/18 08:59 Last Admin: 11/07/18 08:43 Dose: 325 mg Documented by: Furosemide 100 mg/ Dextrose 100 mls @ 15 mls/hr IV .Q6H40M [facility] Stop: 12/07/18 15:59 Last Admin: 11/08/18 11:10 Dose: 15 mg/hr, 15 mls/hr Documented by: Levothyroxine Sodium (Synthroid) 25 mcg PO DAILYBB [facility] Stop: 12/05/18 06:29 Last Admin: 11/08/18 05:35 Dose: 25 mcg Documented by: Magnesium Oxide (Mag-Ox) 400 mg PO [facility] Stop: 12/05/18 08:59 Last Admin: 11/08/18 09:44 Dose: 400 mg Documented by: Metoprolol Succinate (Toprol Xl) 50 mg PO BID [facility] Stop: 12/04/18 20:59 Last Admin: 11/08/18 08:20 Dose: Not Given Documented by: Multivitamins (Multivitamin Tab) 1 tab PO [facility] Stop: 12/05/18 08:59 Last Admin: 11/08/18 08:18 Dose: 1 tab Documented by: Nystatin (Mycostatin) 1 appln EXT BID [facility] Stop: 12/05/18 11:44 Last Admin: 11/08/18 08:22 Dose: 1 appln Documented by: Pantoprazole Sodium (Protonix) 40 mg PO [facility] Stop: 12/05/18 08:59 Last Admin: 11/08/18 08:18 Dose: 40 mg Documented by: Potassium Chloride (Klor-Con M20) 40 meq PO [facility] Stop: 12/08/18 08:59 Last Admin: 11/08/18 09:44 Dose: 40 meq Documented by: Ranitidine HCl (Zantac) 150 mg PO BID PRN PRN Reason: breakthrough heartburn Stop: 12/05/18 11:44 Last Admin: 11/05/18 12:32 Dose: 150 mg Documented by: Spironolactone (Aldactone) 25 mg PO [facility] Stop: 12/05/18 08:59 Last Admin: 11/08/18 08:19 Dose: 25 mg Documented by: Trazodone HCl (Desyrel) 25 mg PO [facility] Stop: 12/04/18 20:59 Last Admin: 11/07/18 21:07 Dose: 25 mg Documented by: Vitamin D (Vitamin D3) 4,000 units PO [facility] Stop: 12/05/18 08:59 Last Admin: 11/08/18 08:18 Dose: 4,000 units Documented by: Warfarin Sodium (Coumadin) 2.5 mg PO DAILY@1600 [facility] Stop: 12/05/18 15:59 Last Admin: 11/08/18 15:49 Dose: 2.5 mg Documented by: (1) Atrial fibrillation Atrial fibrillation type: paroxysmal Qualified Code(s): I48.0 - Paroxysmal atrial fibrillation
[2018-11-08] MEDS: ATORVASTATIN 20 MG TAB PO SCH (21:19)
[2018-11-08] MEDS: TRAZODONE HCL 50 MG TAB PO SCH (21:23)
[2018-11-09] MEDS: FUROSEMIDE 100 MG in DEXTROSE 5% 90 ML IV SCH ×2 (05:55→12:10)
[2018-11-09] MEDS: LEVOTHYROXINE SODIUM 25 MCG TABLET PO SCH (05:57)
[2018-11-09] MEDS: MULTIVITAMIN TAB PO SCH (07:50)
[2018-11-09] MEDS: ALLOPURINOL 100 MG TAB PO SCH ×2 (07:50→20:53)
[2018-11-09] MEDS: CHOLECALCIFEROL 1,000 UNITS TAB PO SCH (07:50)
[2018-11-09] MEDS: FERROUS SULFATE 325 MG TAB PO SCH (07:51)
[2018-11-09] MEDS: METOPROLOL SUCC 50MG EXT REL TAB PO SCH ×2 (07:51→20:53)
[2018-11-09] MEDS: PANTOprazole 40 MG TAB PO SCH (07:51)
[2018-11-09] MEDS: SPIRONOLACTONE 25 MG TAB PO SCH (07:52)
[2018-11-09] MEDS: MAGNESIUM OXIDE 400 MG TAB PO SCH (07:52)
[2018-11-09] MEDS: ASPIRIN 81 MG ECTAB PO SCH (07:52)
[2018-11-09] MEDS: POTASSIUM CHLORIDE 20 MEQ TABCR PO SCH (07:53)
[2018-11-09] MEDS: BUDESONIDE/FORMOTEROL FUMARATE 160/4.5 60 PUFFS/INHALER INH SCH ×2 (07:53→20:53)
[2018-11-09] MEDS: NYSTATIN POWDER 15GM BTL EXT SCH ×2 (07:53→20:53)
[2018-11-09 08:24] LABS: Hematocrit (blood only) 33.3 % (42-52); Hemoglobin 10.6 g/dL (14.0-18.0); Mean Corpuscular Hgb Conc 31.8 g/dL (32-36); Mean Corpuscular Volume 89.8 fL (80-100); Mean Platelet Volume 11.7 fL (7.4-10.4); Platelet Count 119 K/uL (130-400); RDW Coefficient of Variation 18.2 % (11.5-14.5); RDW Standard Deviation 59.5 fL (36.4-46.3); Red Blood Count 3.71 M/uL (4.7-6.1); White Blood Count 9.44 K/uL (4.8-10.8)
[2018-11-09 08:59] LABS: BUN Creatinine Ratio 26.8 (10-20); Calcium 9.4 mg/dl (8.5-10.1); Est GFR (African American) 26.3; Est GFR (Non-African American) 22.7; Potassium 3.1 mmol/L (3.5-5.1)
[2018-11-09] MEDS ORDERED: POTASSIUM CHLORIDE 20 MEQ TABCR PO STA (09:06)
--- NOTE | 2018-11-09 09:54 | Cardiology Progress Note ---
Date of Service November 09, 2018 Assessment & Plan (1) Acute on chronic end-stage systolic heart failure: Patient with recurrent acute decompensated systolic HF exacerbation despite high dose diuretics as an outpatient. Notes interval improvement in his symptoms, but remains volume overloaded on exam. Lasix gtt resumed. Tolerating. Relatively stable renal function noted today. Close monitoring of I+Os recommended. 1500 ml Fluid restriction recommended IF BP allows, recommend continued lasix gtt today. Supplement potassium and recheck later today. Monitor renal function/electrolytes in AM. Patient previously on Entresto and Digoxin (discontinued during [facility] hospitalization). May not tolerate Entresto given borderline low BP. will resume digoxin, low dose to aid with contractility. Agree with palliative care consult. Overall poor prognosis given cardiorenal syndrome Renal function is actually improved slightly today. I would continue diuresis for another 24 hours and then consider discharge. (2) Atrial fibrillation: s/p AV myke ablation in September 2018 BIV Device set at 90 bpm to be reduced after 4-8 weeks per discharge guidelines. [employer] rep checked device. unfortunately only BIV pacing at 90% with HR set at 90. Will not reduce at this time. Continue metoprolol and digoxin 125 mcg M/W/F. (3) CKD (chronic kidney disease) stage 4, GFR 15-29 ml/min: Monitor renal function/electrolytes closely nephrology consult (4) Nonischemic cardiomyopathy: (5) Biventricular cardiac pacemaker in situ: Subjective The patient had an uneventful night. His weight is down about 8 kg since admission. He continues to have a good diuresis. Review of Systems Review of Systems: All systems reviewed & are unremarkable except as noted in HPI & below Nothing additional Physical Exam Physical Exam: General: no acute distress and stated age Head: normocephalic, no masses, lesions, tenderness or abnormalities Eyes: conjunctiva are pink and non-injected, sclera clear Neck: supple, no adenopathy, no bruits, normal jugular venous pulse, no hepatojugular reflux Chest: normal shape and normal respiratory effort Lungs: clear to auscultation and percussion Cardiac Exam: - irregular rate & rhythm, no murmurs gallops or rubs - normal S1, normal S2 Pulses: 2(+) throughout Abdomen: abdomen soft, non-tender, no abnormal masses and no hepatosplenomegaly Musculoskeletal: no gait disturbance, no joint inflammation, no deforming arthritis Extremities: Chronic edema of the lower extremities Neuro: grossly normal exam Results & Data Vital Signs (Past 12 Hours) Vital Signs Temp Pulse Resp BP BP Pulse Ox 11/09/18 07:34 36.6 C 89 18 89/50 L 99 11/09/18 04:00 36.3 C L 90 16 77/50 L 98 11/08/18 23:11 36.8 C 90 20 79/48 L 95 Laboratory Results Laboratory Results - last 24 hr 11/08/18 11/09/18 11/09/18 13:00 06:24 06:24 WBC 9.44 RBC 3.71 L Hgb 10.6 L Hct 33.3 L MCV 89.8 MCH 28.6 MCHC 31.8 L RDW Std Deviation 59.5 H RDW Coeff of Amalia 18.2 H Plt Count 119 L MPV 11.7 H Sodium Potassium 3.2 L Chloride Carbon Dioxide Anion Gap BUN Creatinine Est Cr Clr Drug Dosing Est GFR ( Amer) Est GFR (Non-Af Amer) BUN/Creatinine Ratio Glucose Calcium Digoxin 0.4 L 11/09/18 06:24 WBC RBC Hgb Hct MCV MCH MCHC RDW Std Deviation RDW Coeff of Amalia Plt Count MPV Sodium 137 Potassium 3.1 L Chloride 93 L Carbon Dioxide 34 H Anion Gap 10.0 BUN 72 H Creatinine 2.68 H D Est Cr Clr Drug Dosing 29.0 Est GFR ( Amer) 26.3 Est GFR (Non-Af Amer) 22.7 BUN/Creatinine Ratio 26.8 H Glucose 114 H Calcium 9.4 Digoxin Medications Administered Current Inpatient Medications Acetaminophen (Tylenol) 650 mg PO Q4H PRN PRN Reason: Pain or Fever Stop: 12/04/18 20:28 Last Admin: 11/07/18 16:19 Dose: 650 mg Documented by: Allopurinol (Zyloprim) 100 mg PO BID [facility] Stop: 12/04/18 20:59 Last Admin: 11/09/18 07:50 Dose: 100 mg Documented by: Aspirin (Ecotrin Ectab) 81 mg PO QAM [facility] Stop: 12/05/18 08:59 Last Admin: 11/09/18 07:52 Dose: 81 mg Documented by: Atorvastatin Calcium (Lipitor) 20 mg PO PM [facility] Stop: 12/04/18 20:59 Last Admin: 11/08/18 21:19 Dose: 20 mg Documented by: Budesonide/Formoterol Fumarate (Symbicort 160mcg/4.5mcg) 2 puffs INH BID [facility] Stop: 12/04/18 20:59 Last Admin: 11/09/18 07:53 Dose: 2 puffs Documented by: Digoxin (Lanoxin) 0.125 mg PO MoWeFr@0900 [facility] Stop: 12/06/18 11:14 Last Admin: 11/08/18 08:18 Dose: 0.125 mg Documented by: Ferrous Sulfate (Feosol) 325 mg PO Q2D@0900 [facility] Stop: 12/05/18 08:59 Last Admin: 11/09/18 07:51 Dose: 325 mg Documented by: Furosemide 100 mg/ Dextrose 100 mls @ 15 mls/hr IV .Q6H40M [facility] Stop: 12/07/18 15:59 Last Admin: 11/09/18 05:55 Dose: 15 mg/hr, 15 mls/hr Documented by: Levothyroxine Sodium (Synthroid) 25 mcg PO DAILYBB [facility] Stop: 12/05/18 06:29 Last Admin: 11/09/18 05:57 Dose: 25 mcg Documented by: [facility] (Mag[facility]) [facility] Stop: 12/05/18 08:59 Last Admin: 11/09/18 07:52 Dose: 400 mg Documented by: Metoprolol Succinate (Toprol Xl) 50 mg PO BID [facility] Stop: 12/04/18 20:59 Last Admin: 11/09/18 07:51 Dose: Not Given Documented by: Multivitamins (Multivitamin Tab) [facility] Stop: 12/05/18 08:59 Last Admin: 11/09/18 07:50 Dose: 1 tab Documented by: Nystatin (Mycostatin) 1 appln EXT BID [facility] Stop: 12/05/18 11:44 Last Admin: 11/09/18 07:53 Dose: 1 appln Documented by: Pantoprazole Sodium (Protonix) 40 mg PO QAM [facility] Stop: 12/05/18 08:59 Last Admin: 11/09/18 07:51 Dose: 40 mg Documented by: Potassium Chloride (Klor-Con M20) 40 meq PO QAM [facility] Stop: 12/08/18 08:59 Last Admin: 11/09/18 07:53 Dose: 40 meq Documented by: Ranitidine HCl (Zantac) 150 mg PO BID PRN PRN Reason: breakthrough heartburn Stop: 12/05/18 11:44 Last Admin: 11/05/18 12:32 Dose: 150 mg Documented by: Spironolactone (Aldactone) [facility] Stop: 12/05/18 08:59 Last Admin: 11/09/18 07:52 Dose: 25 mg Documented by: Trazodone HCl (Desyrel) 25 mg PO [facility] Stop: 12/04/18 20:59 Last Admin: 11/08/18 21:23 Dose: 25 mg Documented by: Vitamin D (Vitamin D3) 4,000 units PO [facility] Stop: 12/05/18 08:59 Last Admin: 11/09/18 07:50 Dose: 4,000 units Documented by: Warfarin Sodium (Coumadin) 2.5 mg PO DAILY@1600 [facility] Stop: 12/05/18 15:59 Last Admin: 11/08/18 15:49 Dose: 2.5 mg Documented by: (1) Atrial fibrillation Atrial fibrillation type: paroxysmal Qualified Code(s): I48.0 - Paroxysmal atrial fibrillation
--- NOTE | 2018-11-09 13:54 | Hospitalist Progress Note ---
Date of Service November 09, 2018 Assessment & Plan (1) Acute on chronic end-stage systolic heart failure: Cont with intermittent intravenous diuresis as directed by Cardiology. Clinically improves but bilateral leg edema worsens Intravenous Lasix drip was started on 11/06 and discontinued last night due to hypotension with symptoms Lasix drip with reducing dose has been started this morning by the human services worker Discussed with the patient and palliative consult requested Appreciate palliative care input and recommendation Plan to get PT and OT evaluation Continues to have intravenous Lasix infusion with ongoing improvement Likely to start oral Lasix from tomorrow and possible discharge on Sunday after PT and OT evaluation (2) MAXIM (acute kidney injury): Has chronic kidney disease with creatinine around 2 Creatinine noted to be more than 3 as of today Appreciate nephrology input and recommendation He has been put on intravenous Lasix drip Lasix drip will be continued with reducing dose Renal function is worsening Monitor PRP-kidney function seems to be improving (3) History of implantable cardioverter-defibrillator (ICD) placement: No acute cardiac symptoms (4) Biventricular cardiac pacemaker in situ: (5) Non-ischemic cardiomyopathy: Recent, recurrent admissions for HF; recently admitted to [facility] 10/08 through 10/18 where patient was treated with IV diuretics and milrinone and also underwent AV junctional ablation and BiV ICD reprogramming, patient was discharged on spironolactone 25 mg daily and torsemide 100 mg twice daily; At some point, digoxin, Entresto, metolazone have all been discontinued; amiodarone also recently discontinued due to concerns of possible hepatic toxicity EF <15% Remains asymptomatic at rest (6) Atrial fibrillation: Cont metoprolol for rate control Amiodarone recently discontinued as above Anticoagulated on Coumadin, INR therapeutic Denies any acute symptoms (7) Elevated LFTs: -Patient noted to have elevated LFTs last month, felt to be possibly secondary to amiodarone which has been subsequently discontinued -Bilirubin remains elevated at 2.8, AST, ALT, alk phos have normalized/improving, 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 role -Continue to monitor LFTs (8) Hypothyroidism: -Continue levothyroxine (9) GERD (gastroesophageal reflux disease): -Continue PPI, and gave Ranitidine PRN for breakthrough heartburn (10) DVT prophylaxis: coumadin-INR remains therapeutic dispo-pending clinical improvement Discussed with the patient in detail regarding current management Will ask for PT and OT evaluation We agreed to have palliative care input He remains a full code with very poor prognosis Possible transition to oral furosemide tomorrow and to a step O2 saturation on Sunday prior to discharge Subjective 11/06 The patient was seen and examined in the telemetry unit This is a 72 year old male with complex history including dilated/non ischemic cardiomyopathy with LVEF 15%, BIV AICD, symptomatic PAF with difficult to control rates/rhythm, amiodarone toxicity, AV junction ablation in September 2018 following recurrent CHF exacerbation and CKD stage III with baseline creatinine of 2.5. His renal function has declined over the past 1 year in setting of worsening cardiac function. He was hospitalized at [facility] from October 08, 2018 to October 18, 2018. Has been getting intravenous Lasix with improvement of symptoms but kidney function has been worsening Denies any chest pain and/or palpitation Bilateral leg swelling seems to be worse 11/07 Patient was seen and examined in the telemetry unit He has had hypotension with dizziness last night Denies any symptoms today His blood pressure has been improving 11/08 Patient was seen and examined in telemetry unit He remains stable at rest and has bilateral leg swelling as before He has been tolerating intravenous Lasix drip 11/09 The patient was seen and examined in telemetry unit He remains a stable point he is not doing anything Denies any symptoms whatsoever except bilateral leg heaviness secondary to edema Review of Systems Review of Systems: All systems reviewed and are unremarkable except as noted. Constitutional: + malaise and + weakness Cardiovascular: + edema (2+ edema bilaterally-slightly improved); no chest pain Gastrointestinal: + bloating Neurologic: Alert, awake and oriented x3. Generally weak and lethargic Physical Exam Physical Exam: Sitting at the age of the bed without any acute symptoms Constitutional: well developed, well nourished, + ill appearing and + obese Eyes: PERRL, conjunctivae normal, anicteric sclerae ENMT: external ear and nose normal, oropharynx normal Neck: trachea midline, no thyromegaly Respiratory: normal respiratory effort; no respiratory distress Auscultation: + diminished lung sounds and + crackles (Bilateral, mid to lower lung morley) Cardiovascular: Rate/Rhythm: regular rate and regular rhythm Extremities: + edema (2+ edema bilateral-has improved a lot) Gastrointestinal (Abdomen): Inspection/Auscultation: + abdomen distended and + abdominal edema (Pitting) Percussion/Palpation: abdomen soft; abdomen nontender Musculoskeletal: no cyanosis or clubbing, extremities motor strength 5/5 Skin: no rashes Neurologic: PERRL, EOMI, accommodation nl, no face palsy, no dysarthria Psychiatric: A+Ox3, euthymic affect Lymphatic: no cervical or axillary lymphadenopathy Results & Data Vital Signs (Past 12 Hours) Vital Signs Temp Pulse Resp BP BP Pulse Ox 11/09/18 11:31 36.7 C 88 19 94/60 L 99 11/09/18 07:34 36.6 C 89 18 89/50 L 99 11/09/18 04:00 36.3 C L 90 16 77/50 L 98 Laboratory Results Short CBC 11/09/18 Range/Units 06:24 WBC 9.44 (4.8-10.8) K/uL Hgb 10.6 L (14.0-18.0) g/dL Hct 33.3 L (42-52) % Plt Count 119 L (130-400) K/uL BMP 11/09/18 06:24 Sodium 137 Potassium 3.1 L Chloride 93 L Carbon Dioxide 34 H BUN 72 H Creatinine 2.68 H D Glucose 114 H Calcium 9.4 Medications Administered Current Inpatient Medications Acetaminophen (Tylenol) 650 mg PO Q4H PRN PRN Reason: Pain or Fever Stop: 12/04/18 20:28 Last Admin: 11/07/18 16:19 Dose: 650 mg Documented by: Allopurinol (Zyloprim) 100 mg PO BID [facility] Stop: 12/04/18 20:59 Last Admin: 11/09/18 07:50 Dose: 100 mg Documented by: Aspirin (Ecotrin Ectab) 81 mg PO QAM [facility] Stop: 12/05/18 08:59 Last Admin: 11/09/18 07:52 Dose: 81 mg Documented by: Atorvastatin Calcium (Lipitor) 20 mg PO PM [facility] Stop: 12/04/18 20:59 Last Admin: 11/08/18 21:19 Dose: 20 mg Documented by: Budesonide/Formoterol Fumarate (Symbicort 160mcg/4.5mcg) 2 puffs INH BID [facility] Stop: 12/04/18 20:59 Last Admin: 11/09/18 07:53 Dose: 2 puffs Documented by: Digoxin (Lanoxin) 0.125 mg PO MoWeFr@0900 [facility] Stop: 12/06/18 11:14 Last Admin: 11/08/18 08:18 Dose: 0.125 mg Documented by: Ferrous Sulfate (Feosol) 325 mg PO Q2D@0900 [facility] Stop: 12/05/18 08:59 Last Admin: 11/09/18 07:51 Dose: 325 mg Documented by: Furosemide 100 mg/ Dextrose 100 mls @ 15 mls/hr IV .Q6H40M [facility] Stop: 12/07/18 15:59 Last Admin: 11/09/18 12:10 Dose: 15 mg/hr, 15 mls/hr Documented by: Levothyroxine Sodium (Synthroid) 25 mcg PO DAILYBB [facility] Stop: 12/05/18 06:29 Last Admin: 11/09/18 05:57 Dose: 25 mcg Documented by: Magnesium Oxide (Mag-Ox) 400 mg PO [facility] Stop: 12/05/18 08:59 Last Admin: 11/09/18 07:52 Dose: 400 mg Documented by: Metoprolol Succinate (Toprol Xl) 50 mg PO BID [facility] Stop: 12/04/18 20:59 Last Admin: 11/09/18 07:51 Dose: Not Given Documented by: Multivitamins (Multivitamin Tab) 1 tab PO [facility] Stop: 12/05/18 08:59 Last Admin: 11/09/18 07:50 Dose: 1 tab Documented by: Nystatin (Mycostatin) 1 appln EXT BID [facility] Stop: 12/05/18 11:44 Last Admin: 11/09/18 07:53 Dose: 1 appln Documented by: Pantoprazole Sodium (Protonix) 40 mg PO [facility] Stop: 12/05/18 08:59 Last Admin: 11/09/18 07:51 Dose: 40 mg Documented by: Potassium Chloride (Klor-Con M20) 40 meq PO [facility] Stop: 12/08/18 08:59 Last Admin: 11/09/18 07:53 Dose: 40 meq Documented by: Ranitidine HCl (Zantac) 150 mg PO BID PRN PRN Reason: breakthrough heartburn Stop: 12/05/18 11:44 Last Admin: 11/05/18 12:32 Dose: 150 mg Documented by: [facility] ([facility]) [facility] Stop: 12/05/18 08:59 Last Admin: 11/09/18 07:52 Dose: 25 mg Documented by: Trazodone HCl (Desyrel) 25 mg PO [facility] Stop: 12/04/18 20:59 Last Admin: 11/08/18 21:23 Dose: 25 mg Documented by: Vitamin D (Vitamin D3) 4,000 [facility] [place] Stop: 12/05/18 08:59 Last Admin: 11/09/18 07:50 Dose: 4,000 units Documented by: Warfarin Sodium (Coumadin) 2.5 mg PO DAILY@1600 [facility] Stop: 12/05/18 15:59 Last Admin: 11/08/18 15:49 Dose: 2.5 mg Documented by: (1) Atrial fibrillation Atrial fibrillation type: paroxysmal Qualified Code(s): I48.0 - Paroxysmal atrial fibrillation
[2018-11-09] MEDS: WARFARIN SOD 2.5 MG TAB PO SCH (15:54)
--- NOTE | 2018-11-09 18:55 | Nephrology Progress Note ---
Date of Service November 09, 2018 Assessment & Plan (1) MAXIM (acute kidney injury): Patient with acute kidney injury on CKD likely due to cardiorenal syndrome. Baseline creatinine of 2.5. Admission creatinine was 2.7 and peak 3.5. Patient with declining renal function over the past 1 year in setting of very low EF. He is grossly volume overloaded. K supplemented today 11/09. Not a dialysis candidate. will change lasix gtt to resume torsemide 100 mg bid (OP regimen) and add 2.5 mg daily metolazone as well. Monitor renal function with daily BMP. Avoid nephrotoxins unless lifesaving. (2) Acute on chronic clinical systolic heart failure: Patient with ischemic cardiomyopathy and decompensated CHF. He was net negative 2500 mL yesterday. change diuretics as above Monitor input output and daily standing weight. (3) Anemia in CKD (chronic kidney disease): Hemoglobin is close to target. No need for JOSE at this time Subjective seen on rounds this am 0900; pt still feeling weak but better as long as he does not move much. worried about getting home to address legal issues. feels edema improved but LLE especially is still swollen Review of Systems Review of Systems: All systems reviewed & are unremarkable except as noted in HPI & below Respiratory: + dyspnea on exertion Cardiovascular: + edema Genitourinary: no dysuria and no decreased urination Physical Exam Constitutional: well developed and well nourished on RA maneuvers w/ care but independently for exam Eyes: EOM intact bilaterally ENMT: Ears: no external ear abnormality Nose: no external nose abnormality Mouth: + dry oral mucous membranes Neck: no nuchal rigidity Respiratory: normal respiratory effort Auscultation: + diminished lung sounds and + crackles (1/[address] BL) Cardiovascular: Rate/Rhythm: regular rate and regular rhythm Heart Sounds: + murmur Extremities: + edema (4+ LLE and 2-3 + RLE) Gastrointestinal (Abdomen): Inspection/Auscultation: normal bowel sounds Percussion/Palpation: abdomen soft; abdomen nontender Musculoskeletal: Extremities: strength 5/5 throughout arce Skin: no rashes, warm and dry Neurologic: arce, fluent speech, no tremor Psychiatric: A+Ox3, euthymic affect Results & Data Vital Signs (Past 12 Hours) Vital Signs Temp Pulse Resp BP BP Pulse Ox 11/09/18 15:39 36.7 C 87 18 93/68 L 98 11/09/18 11:31 36.7 C 88 19 94/60 L 99 11/09/18 07:34 36.6 C 89 18 89/50 L 99 Laboratory Results Abnormal lab results 11/09/18 11/09/18 11/09/18 Range/Units 06:24 06:24 06:24 RBC 3.71 L (4.7-6.1) M/uL Hgb 10.6 L (14.0-18.0) g/dL Hct 33.3 L (42-52) % MCHC 31.8 L (32-36) g/dL RDW Std Deviation 59.5 H (36.4-46.3) fL RDW Coeff of Amalia 18.2 H (11.5-14.5) % Plt Count 119 L (130-400) K/uL MPV 11.7 H (7.4-10.4) fL Potassium 3.1 L (3.5-5.1) mmol/L Chloride 93 L (98-107) mmol/L Carbon Dioxide 34 H (21-32) mmol/L BUN 72 H (7-18) mg/dl Creatinine 2.68 H D (0.6-1.4) mg/dl BUN/Creatinine Ratio 26.8 H (10-20) Glucose 114 H (70-99) mg/dl Digoxin 0.4 L (0.8-2.0) ng/ml
[2018-11-09] MEDS: ATORVASTATIN 20 MG TAB PO SCH (20:53)
[2018-11-09] MEDS: TRAZODONE HCL 50 MG TAB PO SCH (20:53)
[2018-11-10] MEDS: LEVOTHYROXINE SODIUM 25 MCG TABLET PO SCH (05:44)
[2018-11-10 08:38] LABS: Prothrombin Time 19.3 Seconds (9.0-12.0)
[2018-11-10 09:22] LABS: Calcium 9.2 mg/dl (8.5-10.1); Creatinine Clr Calc Pharmacy 29.6 ml/min; Est GFR (African American) 27.3; Est GFR (Non-African American) 23.6; Magnesium 2.1 mg/dl (1.8-2.4); Potassium 3.6 mmol/L (3.5-5.1)
[2018-11-10] MEDS: METOPROLOL SUCC 50MG EXT REL TAB PO SCH ×2 (09:42→20:34)
[2018-11-10] MEDS: MULTIVITAMIN TAB PO SCH (09:42)
[2018-11-10] MEDS: CHOLECALCIFEROL 1,000 UNITS TAB PO SCH (09:42)
[2018-11-10] MEDS: PANTOprazole 40 MG TAB PO SCH (09:42)
[2018-11-10] MEDS: TORSEMIDE 100 MG TAB PO SCH ×2 (09:43→17:26)
[2018-11-10] MEDS: metOLazone 2.5 MG TABLET PO SCH (09:43)
[2018-11-10] MEDS: POTASSIUM CHLORIDE 20 MEQ TABCR PO SCH (09:43)
[2018-11-10] MEDS: ALLOPURINOL 100 MG TAB PO SCH ×2 (09:43→20:33)
[2018-11-10] MEDS: MAGNESIUM OXIDE 400 MG TAB PO SCH (09:43)
[2018-11-10] MEDS: ASPIRIN 81 MG ECTAB PO SCH (09:43)
[2018-11-10] MEDS: BUDESONIDE/FORMOTEROL FUMARATE 160/4.5 60 PUFFS/INHALER INH SCH ×2 (09:44→20:33)
[2018-11-10] MEDS: SPIRONOLACTONE 25 MG TAB PO SCH (09:44)
[2018-11-10] MEDS: NYSTATIN POWDER 15GM BTL EXT SCH ×2 (09:44→20:33)
--- NOTE | 2018-11-10 11:27 | Cardiology Progress Note ---
Date of Service November 10, 2018 Assessment & Plan (1) Acute on chronic end-stage systolic heart failure: Patient with recurrent acute decompensated systolic HF exacerbation despite high dose diuretics as an outpatient. Notes interval improvement in his symptoms, but remains volume overloaded on exam. Lasix gtt resumed. Tolerating. Relatively stable renal function noted today. Close monitoring of I+Os recommended. 1500 ml Fluid restriction recommended IF BP allows, recommend continued lasix gtt today. Supplement potassium and recheck later today. Monitor renal function/electrolytes in AM. Patient previously on Entresto and Digoxin (discontinued during [facility] hospitalization). May not tolerate Entresto given borderline low BP. will resume digoxin, low dose to aid with contractility. Agree with palliative care consult. Overall poor prognosis given cardiorenal syndrome Renal function is actually improved slightly today. I would continue diuresis for another 24 hours and then consider discharge. (2) Atrial fibrillation: s/p AV myke ablation in September 2018 BIV Device set at 90 bpm to be reduced after 4-8 weeks per discharge guidelines. [employer] rep checked device. unfortunately only BIV pacing at 90% with HR set at 90. Will not reduce at this time. Continue metoprolol and digoxin 125 mcg M/W/F. (3) CKD (chronic kidney disease) stage 4, GFR 15-29 ml/min: Monitor renal function/electrolytes closely nephrology consult (4) Nonischemic cardiomyopathy: (5) Biventricular cardiac pacemaker in situ: Subjective The patient had an uneventful night. He continues to diuresis. He is I believe almost to dry weight. Review of Systems Review of Systems: All systems reviewed & are unremarkable except as noted in HPI & below Nothing additional to add Physical Exam Physical Exam: General: no acute distress and stated age Head: normocephalic, no masses, lesions, tenderness or abnormalities Eyes: conjunctiva are pink and non-injected, sclera clear Neck: supple, no adenopathy, no bruits, normal jugular venous pulse, no hepatojugular reflux Chest: normal shape and normal respiratory effort Lungs: clear to auscultation and percussion Cardiac Exam: - regular rate & rhythm, no murmurs gallops or rubs - normal S1, normal S2 Pulses: 2(+) throughout Abdomen: abdomen soft, non-tender, no abnormal masses and no hepatosplenomegaly Musculoskeletal: no gait disturbance, no joint inflammation, no deforming arthritis Extremities: Edema is markedly improved Neuro: grossly normal exam Results & Data Vital Signs (Past 12 Hours) Vital Signs Temp Pulse Pulse Resp BP BP Pulse Ox 11/10/18 11:06 11/10/18 10:54 36.7 C 90 20 82/51 L 100 11/10/18 07:21 36.3 C L 84 16 90/55 L 97 11/10/18 07:13 93 H 11/10/18 03:39 36.4 C L 111 H 19 93/61 L 94 Pulse Ox 11/10/18 11:06 95 11/10/18 10:54 11/10/18 07:21 11/10/18 07:13 11/10/18 03:39 Laboratory Results Laboratory Results - last 24 hr 11/10/18 11/10/18 08:19 08:19 PT 19.3 H INR 2.0 H Sodium 133 L Potassium 3.6 D Chloride 92 L Carbon Dioxide 34 H Anion Gap 7.0 BUN 70 H Creatinine 2.60 H Est Cr Clr Drug Dosing 29.6 Est GFR ( Amer) 27.3 Est GFR (Non-Af Amer) 23.6 BUN/Creatinine Ratio 27.0 H Glucose 176 H Calcium 9.2 Magnesium 2.1 Medications Administered Current Inpatient Medications Acetaminophen (Tylenol) 650 mg PO Q4H PRN PRN Reason: Pain or Fever Stop: 12/04/18 20:28 Last Admin: 11/07/18 16:19 Dose: 650 mg Documented by: Allopurinol (Zyloprim) 100 mg PO BID [facility] Stop: 12/04/18 20:59 Last Admin: 11/10/18 09:43 Dose: 100 mg Documented by: Aspirin (Ecotrin Ectab) 81 mg PO QAM [facility] Stop: 12/05/18 08:59 Last Admin: 11/10/18 09:43 Dose: 81 mg Documented by: Atorvastatin Calcium (Lipitor) 20 mg PO PM [facility] Stop: 12/04/18 20:59 Last Admin: 11/09/18 20:53 Dose: 20 mg Documented by: Budesonide/Formoterol Fumarate (Symbicort 160mcg/4.5mcg) 2 puffs INH BID [facility] Stop: 12/04/18 20:59 Last Admin: 11/10/18 09:44 Dose: 2 puffs Documented by: Digoxin (Lanoxin) 0.125 mg PO MoWeFr@0900 [facility] Stop: 12/06/18 11:14 Last Admin: 11/08/18 08:18 Dose: 0.125 mg Documented by: Ferrous Sulfate (Feosol) 325 mg PO Q2D@0900 [facility] Stop: 12/05/18 08:59 Last Admin: 11/09/18 07:51 Dose: 325 mg Documented by: Levothyroxine Sodium (Synthroid) 25 mcg PO DAILYBB [facility] Stop: 12/05/18 06:29 Last Admin: 11/10/18 05:44 Dose: 25 mcg Documented by: Magnesium Oxide (Mag-Ox) [address] [facility] Stop: 12/05/18 08:59 Last Admin: 11/10/18 09:43 Dose: 400 mg Documented by: Metolazone (Zaroxolyn) 2.[address] [facility] Stop: 12/10/18 08:59 Last Admin: 11/10/18 09:43 Dose: 2.5 mg Documented by: Metoprolol Succinate (Toprol Xl) 50 mg PO BID [facility] Stop: 12/04/18 20:59 Last Admin: 11/10/18 09:42 Dose: 50 mg Documented by: Multivitamins (Multivitamin Tab) [address] [facility] Stop: 12/05/18 08:59 Last Admin: 11/10/18 09:42 Dose: 1 tab Documented by: Nystatin (Mycostatin) 1 appln EXT BID [facility] Stop: 12/05/18 11:44 Last Admin: 11/10/18 09:44 Dose: 1 appln Documented by: Pantoprazole Sodium (Protonix) [address] [facility] Stop: 12/05/18 08:59 Last Admin: 11/10/18 09:42 Dose: 40 mg Documented by: Potassium Chloride (Klor-Con M20) [address] [facility] Stop: 12/08/18 08:59 Last Admin: 11/10/18 09:43 Dose: 40 meq Documented by: Ranitidine HCl (Zantac) 150 mg PO BID PRN PRN Reason: breakthrough heartburn Stop: 12/05/18 11:44 Last Admin: 11/05/18 12:32 Dose: 150 mg Documented by: [facility]act[facility] ([facility]) [facility] [place]: 12/05/18 08:59 Last Admin: 11/10/18 09:44 Dose: 25 mg Documented by: Torsemide (Demadex) 100 mg PO BID17 [facility] Stop: 12/10/18 08:59 Last Admin: 11/10/18 09:43 Dose: 100 mg Documented by: Trazodone HCl (Desyrel) 25 mg PO HS [facility] Stop: 12/04/18 20:59 Last Admin: 11/09/18 20:53 Dose: 25 mg Documented by: Vitamin D (Vitamin D3) 4,000 units PO QAM [facility] Stop: 12/05/18 08:59 Last Admin: 11/10/18 09:42 Dose: 4,000 units Documented by: Warfarin Sodium (Coumadin) 2.5 mg PO DAILY@1600 [facility] Stop: 12/05/18 15:59 Last Admin: 11/09/18 15:54 Dose: 2.5 mg Documented by: (1) Atrial fibrillation Atrial fibrillation type: paroxysmal Qualified Code(s): I48.0 - Paroxysmal atrial fibrillation
--- NOTE | 2018-11-10 13:02 | Hospitalist Progress Note ---
Date of Service November 10, 2018 Assessment & Plan (1) Acute on chronic end-stage systolic heart failure: Cont with intermittent intravenous diuresis as directed by Cardiology. Clinically improves but bilateral leg edema worsens Intravenous Lasix drip was started on 11/06 and discontinued last night due to hypotension with symptoms Lasix drip with reducing dose has been started this morning by the detention attendant Discussed with the patient and palliative consult requested Appreciate palliative care input and recommendation Plan to get PT and OT evaluation Continues to have intravenous Lasix infusion with ongoing improvement Likely to start oral Lasix from tomorrow and possible discharge on Sunday after PT and OT evaluation Clinically much better without any symptoms at rest Plan to do a 12-step O2 saturation test tomorrow and send home He will have PT and OT evaluation before discharge (2) MAXIM (acute kidney injury): Has chronic kidney disease with creatinine around 2 Creatinine noted to be more than 3 as of today Appreciate nephrology input and recommendation He has been put on intravenous Lasix drip Lasix drip will be continued with reducing dose Renal function is worsening Monitor PRP-kidney function seems to be improving His creatinine is at 2.60 today Will need potassium supplement on discharge (3) History of implantable cardioverter-defibrillator (ICD) placement: No acute cardiac symptoms (4) Biventricular cardiac pacemaker in situ: (5) Non-ischemic cardiomyopathy: Recent, recurrent admissions for HF; recently admitted to [facility] through 10/18 where patient was treated with IV diuretics and milrinone and also underwent AV junctional ablation and BiV ICD reprogramming, patient was discharged on spironolactone 25 mg daily and torsemide 100 mg twice daily; At some point, digoxin, Entresto, metolazone have all been discontinued; amiodarone also recently discontinued due to concerns of possible hepatic toxicity EF <15% Remains asymptomatic at rest (6) Atrial fibrillation: Cont metoprolol for rate control Amiodarone recently discontinued as above Anticoagulated on Coumadin, INR therapeutic Denies any acute symptoms (7) Elevated LFTs: -Patient noted to have elevated LFTs last month, felt to be possibly secondary to amiodarone which has been subsequently discontinued -Bilirubin remains elevated at 2.8, AST, ALT, alk phos have normalized/improving, 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 role -Continue to monitor LFTs (8) Hypothyroidism: -Continue levothyroxine (9) GERD (gastroesophageal reflux disease): -Continue PPI, and gave Ranitidine PRN for breakthrough heartburn (10) DVT prophylaxis: coumadin-INR remains therapeutic dispo-pending clinical improvement Discussed with the patient in detail regarding current management Will ask for PT and OT evaluation We agreed to have palliative care input He remains a full code with very poor prognosis Possible transition to oral furosemide tomorrow and to a step O2 saturation on Sunday prior to discharge Subjective 11/06 The patient was seen and examined in the telemetry unit This is a 72 year old male with complex history including dilated/non ischemic cardiomyopathy with LVEF 15%, BIV AICD, symptomatic PAF with difficult to control rates/rhythm, amiodarone toxicity, AV junction ablation in September 2018 following recurrent CHF exacerbation and CKD stage III with baseline creatinine of 2.5. His renal function has declined over the past 1 year in setting of worsening cardiac function. He was hospitalized at [facility] from October 08, 2018 to October 18, 2018. Has been getting intravenous Lasix with improvement of symptoms but kidney function has been worsening Denies any chest pain and/or palpitation Bilateral leg swelling seems to be worse 11/07 Patient was seen and examined in the telemetry unit He has had hypotension with dizziness last night Denies any symptoms today His blood pressure has been improving 11/08 Patient was seen and examined in telemetry unit He remains stable at rest and has bilateral leg swelling as before He has been tolerating intravenous Lasix drip 11/09 The patient was seen and examined in telemetry unit He remains a stable point he is not doing anything Denies any symptoms whatsoever except bilateral leg heaviness secondary to edema 11/10 The patient was seen and examined in telemetry unit He has been lying in bed without any complaints He has had physical therapy His leg swelling has improved a lot Review of Systems Review of Systems: All systems reviewed and are unremarkable except as noted. Constitutional: + malaise and + weakness Cardiovascular: + edema (1+ edema bilaterally-slightly improved); no chest pain Gastrointestinal: + bloating Neurologic: Alert, awake and oriented x3. Generally weak and lethargic Physical Exam Physical Exam: Lying in bed comfortably Constitutional: well developed, well nourished, + ill appearing and + obese Eyes: PERRL, conjunctivae normal, anicteric sclerae ENMT: external ear and nose normal, oropharynx normal Neck: trachea midline, no thyromegaly Respiratory: normal respiratory effort; no respiratory distress Ausc ultation: + diminished lung sounds and + crackles (Bilateral, mid to lower lung morley) Cardiovascular: Rate/Rhythm: regular rate and regular rhythm Vessels: normal peripheral pulses Extremities: + edema (1+ edema bilateral-has improved a lot) Gastrointestinal (Abdomen): Inspection/Auscultation: + abdomen distended and + abdominal edema (Pitting) Percussion/Palpation: abdomen soft; abdomen nonten yolanda Musculoskeletal: no cyanosis or clubbing, extremities motor strength 5/5 Skin: no rashes Neurologic: PERRL, EOMI, accommodation nl, no face palsy, no dysarthria Psychiatric: A+Ox3, euthymic affect Lymphatic: no cervical or axillary lymphadenopathy Results & Data Vital Signs (Past 12 Hours) Vital Signs Temp Pulse Pulse Resp BP BP Pulse Ox 11/10/18 11:06 11/10/18 10:54 36.7 C 90 20 82/51 L 100 11/10/18 07:21 36.3 C L 84 16 90/55 L 97 11/10/18 07:13 93 H 11/10/18 03:39 36.4 C L 111 H 19 93/61 L 94 Pulse Ox 11/10/18 11:06 95 11/10/18 10:54 11/10/18 07:21 11/10/18 07:13 11/10/18 03:39 Laboratory Results [facility] 11/10/18 08:19 Sodium 133 L Potassium 3.6 D Chloride 92 L Carbon Dioxide 34 H BUN 70 H Creatinine 2.60 H Glucose 176 H Calcium 9.2 Medications Administered Current Inpatient Medications Acetaminophen (Tylenol) 650 mg PO Q4H PRN PRN Reason: Pain or Fever Stop: 12/04/18 20:28 Last Admin: 11/07/18 16:19 Dose: 650 mg Documented by: Allopurinol (Zyloprim) 100 mg PO BID [facility] Stop: 12/04/18 20:59 Last Admin: 11/10/18 09:43 Dose: 100 mg Documented by: Aspirin (Ecotrin Ectab) 81 mg PO QAM [facility] Stop: 12/05/18 08:59 Last Admin: 11/10/18 09:43 Dose: 81 mg Documented by: Atorvastatin Calcium (Lipitor) 20 mg PO PM [facility] Stop: 12/04/18 20:59 Last Admin: 11/09/18 20:53 Dose: 20 mg Documented by: Budesonide/Formoterol Fumarate (Symbicort 160mcg/4.5mcg) 2 puffs INH BID [facility] Stop: 12/04/18 20:59 Last Admin: 11/10/18 09:44 Dose: 2 puffs Documented by: Digoxin (Lanoxin) 0.125 mg PO MoWeFr@0900 [facility] Stop: 12/06/18 11:14 Last Admin: 11/08/18 08:18 Dose: 0.125 mg Documented by: Ferrous Sulfate (Feosol) 325 mg PO Q2D@0900 [facility] Stop: 12/05/18 08:59 Last Admin: 11/09/18 07:51 Dose: 325 mg Documented by: Levothyroxine Sodium (Synthroid) 25 mcg PO DAILYBB [facility] Stop: 12/05/18 06:29 Last Admin: 11/10/18 05:44 Dose: 25 mcg Documented by: Magnesium Oxide (Mag-Ox) 400 mg PO QAM [facility] Stop: 12/05/18 08:59 Last Admin: 11/10/18 09:43 Dose: 400 mg Documented by: Metolazone (Zaroxolyn) 2.5 mg PO QAM [facility] Stop: 12/10/18 08:59 Last Admin: 11/10/18 09:43 Dose: 2.5 mg Documented by: Metoprolol Succinate (Toprol Xl) 50 mg PO BID [facility] Stop: 12/04/18 20:59 Last Admin: 11/10/18 09:42 Dose: 50 mg Documented by: Multivitamins (Multivitamin Tab) [facility] Stop: 12/05/18 08:59 Last Admin: 11/10/18 09:42 Dose: 1 tab Documented by: Nystatin (Mycostatin) 1 appln EXT BID [facility] Stop: 12/05/18 11:44 Last Admin: 11/10/18 09:44 Dose: 1 appln Documented by: Pantoprazole Sodium (Protonix) 40 mg PO QAM [facility] Stop: 12/05/18 08:59 Last Admin: 11/10/18 09:42 Dose: 40 mg Documented by: Potassium Chloride (Klor-Con M20) 40 meq PO QAM [facility] Stop: 12/08/18 08:59 Last Admin: 11/10/18 09:43 Dose: 40 meq Documented by: Ranitidine HCl (Zantac) 150 mg PO BID PRN PRN Reason: breakthrough heartburn Stop: 12/05/18 11:44 Last Admin: 11/05/18 12:32 Dose: 150 mg Documented by: Spironolactone (Aldactone) 25 mg PO QAM [facility] Stop: 12/05/18 08:59 Last Admin: 11/10/18 09:44 Dose: 25 mg Documented by: Torsemide (Demadex) 100 mg PO BID17 [facility] Stop: 12/10/18 08:59 Last Admin: 11/10/18 09:43 Dose: 100 mg Documented by: Trazodone HCl (Desyrel) 25 mg PO HS [facility] Stop: 12/04/18 20:59 Last Admin: 11/09/18 20:53 Dose: 25 mg Documented by: Vitamin D (Vitamin D3) 4,000 units PO QAM [facility] Stop: 12/05/18 08:59 Last Admin: 11/10/18 09:42 Dose: 4,000 units Documented by: Warfarin Sodium (Coumadin) 2.5 mg PO DAILY@1600 [facility] Stop: 12/05/18 15:59 Last Admin: 11/09/18 15:54 Dose: 2.5 mg Documented by: (1) Atrial fibrillation Atrial fibrillation type: paroxysmal Qualified Code(s): I48.0 - Paroxysmal atrial fibrillation
[2018-11-10] MEDS: WARFARIN SOD 2.5 MG TAB PO SCH (15:42)
[2018-11-10] MEDS: ATORVASTATIN 20 MG TAB PO SCH (20:33)
[2018-11-10] MEDS: TRAZODONE HCL 50 MG TAB PO SCH (20:33)
[2018-11-11] MEDS: LEVOTHYROXINE SODIUM 25 MCG TABLET PO SCH (05:37)
[2018-11-11 06:50] LABS: Basophils # (auto) 0.03 K/uL (0-0.2); Basophils % (auto) 0.4 %; Eosinophils # (auto) 0.25 K/uL (0-0.5); Eosinophils % (auto) 3.6 %; Hemoglobin 10.5 g/dL (14.0-18.0); Immature Granulocytes # (auto) 0.02 K/uL (0.00-0.02); Immature Granulocytes % (auto) 0.3 %; Lymphocytes # (auto) 0.77 K/uL (1.2-3.4); Mean Corpuscular Hgb Conc 31.8 g/dL (32-36); Mean Corpuscular Volume 88.7 fL (80-100); Mean Platelet Volume 11.2 fL (7.4-10.4); Monocytes # (auto) 0.58 K/uL (0.11-0.59); Monocytes % (auto) 8.3 %; Neutrophils # (auto) 5.36 K/uL (1.4-6.5); Neutrophils % (auto) 76.4 %; Platelet Count 116 K/uL (130-400); RDW Coefficient of Variation 18.2 % (11.5-14.5); RDW Standard Deviation 58.6 fL (36.4-46.3); Red Blood Count 3.72 M/uL (4.7-6.1); White Blood Count 7.01 K/uL (4.8-10.8)
[2018-11-11 07:24] LABS: BUN Creatinine Ratio 27.9 (10-20); Calcium 8.7 mg/dl (8.5-10.1); Creatinine Clr Calc Pharmacy 28.7 ml/min; Est GFR (African American) 26.3; Est GFR (Non-African American) 22.7; Magnesium 2.1 mg/dl (1.8-2.4); Potassium 3.4 mmol/L (3.5-5.1)
[2018-11-11] MEDS: DIGOXIN 0.125 MG TAB PO SCH (08:00)
[2018-11-11] MEDS: METOPROLOL SUCC 50MG EXT REL TAB PO SCH (08:01)
[2018-11-11] MEDS: ALLOPURINOL 100 MG TAB PO SCH (08:01)
[2018-11-11] MEDS: PANTOprazole 40 MG TAB PO SCH (08:02)
[2018-11-11] MEDS: MULTIVITAMIN TAB PO SCH (08:02)
[2018-11-11] MEDS: POTASSIUM CHLORIDE 20 MEQ TABCR PO SCH (08:02)
[2018-11-11] MEDS: FERROUS SULFATE 325 MG TAB PO SCH (08:03)
[2018-11-11] MEDS: ASPIRIN 81 MG ECTAB PO SCH (08:03)
[2018-11-11] MEDS: metOLazone 2.5 MG TABLET PO SCH (08:03)
[2018-11-11] MEDS: SPIRONOLACTONE 25 MG TAB PO SCH (08:03)
[2018-11-11] MEDS: CHOLECALCIFEROL 1,000 UNITS TAB PO SCH (08:03)
[2018-11-11] MEDS: TORSEMIDE 100 MG TAB PO SCH (08:04)
[2018-11-11] MEDS: MAGNESIUM OXIDE 400 MG TAB PO SCH (08:04)
[2018-11-11] MEDS: BUDESONIDE/FORMOTEROL FUMARATE 160/4.5 60 PUFFS/INHALER INH SCH (08:05)
[2018-11-11] MEDS: NYSTATIN POWDER 15GM BTL EXT SCH (08:05)
--- NOTE | 2018-11-11 09:28 | Nephrology Progress Note ---
Date of Service November 11, 2018 Assessment & Plan (1) MAXIM (acute kidney injury): Patient with acute kidney injury on CKD likely due to cardiorenal syndrome. Baseline creatinine of 2.5. Admission creatinine was 2.7 and peak 3.5. Patient with declining renal function over the past 1 year in setting of very low EF. He is grossly volume overloaded but improved relative to admission on volume status; renal function near baseline w/ creat today 2.7. on daily 40 mEq K supplement as of 11/08; K still low this am. Not a dialysis candidate. on 11/09, changed lasix gtt to resume torsemide 100 mg bid (OP regimen) and added 2.5 mg daily metolazone as well>he continues to diurese and to lose wt. Monitor renal function with daily BMP. Avoid nephrotoxins unless lifesaving. -give additional 20 mEq K w/ 1700 diuretics -discharge diuretic/K supplement recs>> 100 mg torsemide bid17; 2.5 mg daily metolazone; K 40 mEq AM/ 20 mEq 1700; spironolactone 25 mg qAM -bmp on 11/18 -keep 01/14 CKD clinic appt w/ me for now; will work at getting him appt in November w/ us < we will contact pt (2) Acute on chronic clinical systolic heart failure: Patient with ischemic cardiomyopathy and decompensated CHF. He was net negative 300 mL yesterday; is down 9.8 kg since admission (believe 103.6, not 112 kg is true admission wt). -cont FR 1.5L at d/c -cont <2 gm Na at d/c -cont daily wt at d/c and f/u w/ HF nurse; defer to cardiology for diuretic /wt change protocol -continue close cardiology follow up (3) Anemia in CKD (chronic kidney disease): Hemoglobin is close to target. No need for JOSE at this time Subjective seen on rounds this am 0930; notes ongoing marked LLE edema; otherwise feels edema controlled; has itchy lesions base of posterior neck, some improvement w/ salve. anxious for d/c home. sob ok at rest, a bit improved compared to admission w/ moving about but still significant Review of Systems Review of Systems: All systems reviewed & are unremarkable except as noted in HPI & below Constitutional: + fatigue and + weakness Respiratory: as per Subjective / HPI Cardiovascular: as per Subjective / HPI and + edema Genitourinary: + urinary frequency (on diuretics); no dysuria Integumentary: as per Subjective / HPI and + lesions Physical Exam Constitutional: well developed and well nourished lying flat on RA Eyes: EOM intact bilaterally ENMT: Ears: no external ear abnormality Nose: no external nose abnormality Mouth: + dry oral mucous membranes Neck: no nuchal rigidity excoriated scabbed area base posterior neck Respiratory: normal respiratory effort Auscultation: + diminished lung sounds and + crackles (1/[address] BL) Cardiovascular: Rate/Rhythm: regular rate and regular rhythm Heart Sounds: + murmur Extremities: + edema (4+ LLE and 2-3 + RLE) Gastrointestinal (Abdomen): Inspection/Auscultation: normal bowel sounds Percussion/Palpation: abdomen soft; abdomen nontender Musculoskeletal: Extremities: strength 5/5 throughout Skin: + lesion (base posterior neck w/ scabs); no rashes Neurologic: arce, fluent speech, no tremor Psychiatric: A+Ox3, euthymic affect Results & Data Vital Signs (Past 12 Hours) Vital Signs Temp Pulse Pulse Resp BP Pulse Ox 11/11/18 08:00 93 H 11/11/18 07:24 36.3 C L 86 20 99/61 L 92 11/11/18 02:55 36.4 C L 94 H 18 93/62 L 98 11/10/18 23:40 36.4 C L 92 H 16 98/60 L 96 Laboratory Results Abnormal lab results 11/11/18 11/11/18 Range/Units 06:38 06:38 RBC 3.72 L (4.7-6.1) M/uL Hgb 10.5 L (14.0-18.0) g/dL Hct 33.0 L (42-52) % MCHC 31.8 L (32-36) g/dL RDW Std Deviation 58.6 H (36.4-46.3) fL RDW Coeff of Amalia 18.2 H (11.5-14.5) % Plt Count 116 L (130-400) K/uL MPV 11.2 H (7.4-10.4) fL Lymph # (Auto) 0.77 L (1.2-3.4) K/uL Potassium 3.4 L (3.5-5.1) mmol/L Chloride 92 L (98-107) mmol/L Carbon Dioxide 34 H (21-32) mmol/L BUN 75 H (7-18) mg/dl Creatinine 2.68 H (0.6-1.4) mg/dl BUN/Creatinine Ratio 27.9 H (10-20) Glucose 114 H (70-99) mg/dl
--- NOTE | 2018-11-11 10:09 | Cardiology Progress Note ---
Date of Service November 11, 2018 Assessment & Plan (1) Acute on chronic end-stage systolic heart failure: (2) Nonischemic cardiomyopathy: (3) Severe mitral regurgitation: (4) Biventricular cardiac pacemaker in situ: (5) Atrial fibrillation: (6) CKD (chronic kidney disease) stage 4, GFR 15-29 ml/min: Patient with chronic symptoms of low cardiac output including cardiorenal syndrome and relative hypotension. He is status post AV junction ablation for recurrent atrial fibrillation, having been performed in September,. He has an extremely complex cardiac history dating back to 2012 when his nonischemic cardia myopathy was initially diagnosed. Most recent echocardiogram studies have revealed severe left ventricular systolic dysfunction with LVEF in the range of 15%, with severe mitral regurgitation, severe tricuspid regurgitation. His admitting dose of torsemide was 100 mg p.o. twice daily. He has lost approximately 10 kg with admission weight of 103.6 kg, and weight today 93.8 kg having been on intermittent IV furosemide (dose limited by relative hypotension). His creatinine peaked at 3.52 and is back to 2.68 which is his typical baseline. Potassium has been supplemented. Case discussed with Dr. Montgomery of nephrology. Will plan for the following outpatient regimen: 100 mg torsemide bid17 2.5 mg daily metolazone(new addition) K 40 mEq AM/ 20 mEq 1700(dose adjusted compared to admission) spironolactone 25 mg qAM 7 beat sloan of NSVT noted last evening on cardiac monitor technician. Patient does have biventricular pacemaker AICD. We will continue prior to hospital dose of metoprolol succinate. Patient is not a candidate for amiodarone, previously stopped due to concerns of Amiodarone related lung toxicity. As discussed by multiple providers this admission , prognosis is poor. Pt stable for discharge from cardiology standpoint. -I have contacted my office to request heart failure follow-up visit within 1 week. His electrolytes will need to be followed closely. We are in the process of finding an appointment, and I will added to his chart once available. Subjective Chief complaint: Follow-up generalized fatigue, shortness of breath Subjective: Patient states he is feeling improved overall. He is frustrated about remaining in the hospital and is eager for discharge. Telemetry reveals predominant rhythm of ventricular pacing at 90 bpm. He did have a 7 beat run of nonsustained ventricular tachycardia on 11/10/2018 at 1958. Review of Systems Review of Systems: All systems reviewed & are unremarkable except as noted in HPI & below Physical Exam Physical Exam: Temp Pulse Resp BP Pulse Ox 36.3 C L 93 H 20 99/61 L 92 11/11/18 07:24 11/11/18 08:00 11/11/18 07:24 11/11/18 07:24 11/11/18 07:24 Constitutional: WD/WN, vitals as above Respiratory: normal respiratory effort, lungs clear to auscultation Cardiovascular: Rate/Rhythm: regular rate Heart Sounds: + murmur (I/mineral 6 systolic murmur) Vessels: + JVD Extremities: + edema (Trace lower extremity edema, left lower leg slightly more prominent than the right lower leg edema) Results & Data Laboratory Results Laboratory studies today 11/11/2018: INR =2 Hemoglobin: 10.5 Hematocrit 33 Platelet count 116 Sodium: 136 Potassium: 3.4 Chloride: 92 CO2: 34 Blood urea nitrogen: 75 Creatinine 2.68 Medications Administered Current Inpatient Medications Acetaminophen (Tylenol) 650 mg PO Q4H PRN PRN Reason: Pain or Fever Stop: 12/04/18 20:28 Last Admin: 11/07/18 16:19 Dose: 650 mg Documented by: Allopurinol (Zyloprim) 100 mg PO BID [facility] Stop: 12/04/18 20:59 Last Admin: 11/11/18 08:01 Dose: 100 mg Documented by: Aspirin (Ecotrin Ectab) 81 mg PO QAM [facility] Stop: 12/05/18 08:59 Last Admin: 11/11/18 08:03 Dose: 81 mg Documented by: Atorvastatin Calcium (Lipitor) 20 mg PO PM [facility] Stop: 12/04/18 20:59 Last Admin: 11/10/18 20:33 Dose: 20 mg Documented by: Budesonide/Formoterol Fumarate (Symbicort 160mcg/4.5mcg) 2 puffs INH BID [facility] Stop: 12/04/18 20:59 Last Admin: 11/11/18 08:05 Dose: 2 puffs Documented by: Digoxin (Lanoxin) 0.125 mg PO MoWeFr@0900 [facility] Stop: 12/06/18 11:14 Last Admin: 11/11/18 08:00 Dose: 0.125 mg Documented by: Ferrous Sulfate (Feosol) 325 mg PO Q2D@0900 [facility] Stop: 12/05/18 08:59 Last Admin: 11/11/18 08:03 Dose: 325 mg Documented by: Levothyroxine Sodium (Synthroid) 25 mcg PO DAILYBB [facility] Stop: 12/05/18 06:29 Last Admin: 11/11/18 05:37 Dose: 25 mcg Documented by: Magnesium Oxide (Mag-Ox) [facility] Stop: 12/05/18 08:59 Last Admin: 11/11/18 08:04 Dose: 400 mg Documented by: Metolazone (Zaroxolyn) 2.5 [facility] Stop: 12/10/18 08:59 Last Admin: 11/11/18 08:03 Dose: 2.5 mg Documented by: Metoprolol Succinate (Toprol Xl) 50 mg PO BID [facility] Stop: 12/04/18 20:59 Last Admin: 11/11/18 08:01 Dose: 50 mg Documented by: Multivitamins (Multivitamin Tab) 1 tab PO [facility] Stop: 12/05/18 08:59 Last Admin: 11/11/18 08:02 Dose: 1 tab Documented by: Nystatin (Mycostatin) 1 appln EXT BID [facility] Stop: 12/05/18 11:44 Last Admin: 11/11/18 08:05 Dose: 1 appln Documented by: Pantoprazole Sodium (Protonix) [facility] Stop: 12/05/18 08:59 Last Admin: 11/11/18 08:02 Dose: 40 mg Documented by: Potassium Chloride (Klor-Con M20) 40 meq PO [facility] Stop: 12/08/18 08:59 Last Admin: 11/11/18 08:02 Dose: 40 meq Documented by: Ranitidine HCl (Zantac) 150 mg PO BID PRN PRN Reason: breakthrough heartburn Stop: 12/05/18 11:44 Last Admin: 11/05/18 12:32 Dose: 150 mg Documented by: Spironolactone (Aldactone) 25 mg PO QAM [facility] Stop: 12/05/18 08:59 Last Admin: 11/11/18 08:03 Dose: 25 mg Documented by: Torsemide (Demadex) 100 mg PO BID17 [facility] Stop: 12/10/18 08:59 Last Admin: 11/11/18 08:04 Dose: 100 mg Documented by: Trazodone HCl (Desyrel) 25 mg PO [facility] Stop: 12/04/18 20:59 Last Admin: 11/10/18 20:33 Dose: 25 mg Documented by: Vitamin D (Vitamin D3) 4,000 units [facility] Stop: 12/05/18 08:59 Last Admin: 11/11/18 08:03 Dose: 4,000 units Documented by: Warfarin Sodium (Coumadin) 2.5 mg PO DAILY@1600 [facility] Stop: 12/05/18 15:59 Last Admin: 11/10/18 15:42 Dose: 2.5 mg Documented by: (1) Atrial fibrillation Atrial fibrillation type: paroxysmal Qualified Code(s): I48.0 - Paroxysmal atrial fibrillation
--- NOTE | 2018-11-11 15:14 | Palliative Care Progress Note ---
Date of Service November 11, 2018 Assessment & Plan (1) Palliative care encounter: Patient is a 72-year-old male with end-stage systolic CHF-patient is known to us from his previous hospitalization on October 08. This is patient's third hospitalization in 1 month, he also had an ER visit on October 30. Patient is followed by Dr. Leon. He has chronic systolic heart failure, A. fib-status post myke ablation in September 2018, biventricular pacer-on metoprolol and digoxin. He also has CKD stage IV-his prior baseline creatinine was 2.28-is 3.52 today with a BUN of 77. His estimated GFR is now 17. Patient also with a low albumin level as well as anemia's associated with chronic kidney disease. Jorge guzmán presented to the hospital on 10/05 with increasing lower extremity edema- despite high-dose diuretics at home. Patient reports that the onset of edema was rather rapid-occurred over approximately 2 days. Patient received IV Lasix along with IV Bumex, IV metolazone and IV torsemide in the emergency room-he was started on a Lasix drip. Lasix drip has been held due to patient's worsening renal function and then restarted per nephrology. Patient states his edema is markedly improved-he continues to have low blood pressures, on exam blood pressure was 103/68-patient reported no symptoms while sitting on the side of the bed. Patient reports he has been told that there is not much more they can do to treat him-discussed with his goals of care were as well as the option of having hospice care at home. When discussing CODE STATUS- patient stated "what ever it takes to keep me going". Patient states he has a living well and advanced directives and that his and children are aware of his wishes. Patient able to ambulate on the floor without increased shortness of breath -CODE STATUS-patient stated he wishes to remain a full code -even in light of being told there is not much more that can be done to manage his heart failure -Acute on chronic end-stage systolic heart failure-echo in September of this year had an EF of less than 15%. Patient failing outpatient management with high-dose diuretics -A. fib-status post myke ablation in September 2018, biventricular paced at a rate of 90, on metoprolol and digoxin M/W/F -CKD stage IV-worsening renal function with aggressive diuresis. Baseline creatinine 2.28-creatinine this a.m. 2.68. Patient responded well to aggressive diuresis as tolerated by renal function and blood pressure. Patient would likely be a poor dialysis candidate given his already low blood pressures. Patient awaiting further input from nephrology . Patient reiterates he wishes to be a full code and that everything be done possible to "keep him going". Will sign off for now-please reconsult if condition changes. (2) Acute on chronic clinical systolic heart failure: (3) CKD (chronic kidney disease) stage 4, GFR 15-29 ml/min: (4) Cardiac volume overload: (5) Atrial fibrillation: Subjective Patient awake alert, no acute distress. No family or friends at bedside. Patient just returned from ambulating on the floor with walker and PT-patient was not short of breath on exam Review of Systems Review of Systems: Patient denies fever, chills, chest pain, increased shortness of breath, or abdominal pain Physical Exam Physical Exam: PE: NAD HEENT: EOMI, hearing within normal limits Respirations: Unlabored, clear breath sounds CV: Mild tachycardia after ambulation, markedly decreased edema Abdomen: Soft, nontender Extremities: Full range of motion, generalized weakness Results & Data Vital Signs (Past 12 Hours) Vital Signs Temp Pulse Pulse Pulse Pulse Pulse Pulse 11/11/18 14:18 96.6 F L 90 91 H 87 11/11/18 13:40 88 90 11/11/18 11:16 96.6 F L 11/11/18 08:00 93 H 11/11/18 07:24 97.3 F L Pulse Pulse Resp Resp Resp Resp BP 11/11/18 14:18 109 H 20 103/68 11/11/18 13:40 80 18 18 18 11/11/18 11:16 109 H 20 103/68 11/11/18 08:00 11/11/18 07:24 86 20 BP Pulse Ox Pulse Ox Pulse Ox Pulse Ox 11/11/18 14:18 99/61 L 93 11/11/18 13:40 98 99 97 11/11/18 11:16 93 11/11/18 08:00 11/11/18 07:24 99/61 L 92 PG Care Time/CCT Total # of Minutes Spent Total Time Spent with Patient: Total time spent is greater than 50% in coordination of care (as documented) at patient's floor/unit and/or counseling patient: Time Spent Attending Total time spent 25 minutes with greater than 50% of the time spent at bedside assessing patient's current status and readdressing CODE STATUS. (1) Atrial fibrillation Atrial fibrillation type: paroxysmal Qualified Code(s): I48.0 - Paroxysmal atrial fibrillation
[2018-11-12] MEDS ORDERED: POTASSIUM CHLORIDE 20 MEQ TABCR PO SCH (17:00)
--- NOTE | 2018-11-12 20:09 | Hospitalist Progress Note ---
Date of Service date of service 11/12/18 November 12, 2018 Assessment & Plan (1) Acute on chronic end-stage systolic heart failure: per Dr. Bah's notes: Acute on Chronic End Stage Systolic Heart Failure Cardiology consulted placed on Lasix drip transitioned to Lasix PO ff up with Cardiology Clinic (2) MAXIM (acute kidney injury): Digital Strategy Manager consulted crea increased to 3.5 on Lasix IV improved to 2.6 additional K ordered (3) History of implantable cardioverter-defibrillator (ICD) placement: No acute cardiac symptoms (4) Biventricular cardiac pacemaker in situ: (5) Non-ischemic cardiomyopathy: Recent, recurrent admissions for HF; recently admitted to [facility] 10/08 through 10/18 where patient was treated with IV diuretics and milrinone and also underwent AV junctional ablation and BiV ICD reprogramming, patient was discharged on spironolactone 25 mg daily and torsemide 100 mg twice daily; At some point, digoxin, Entresto, metolazone have all been discontinued; amiodarone also recently discontinued due to concerns of possible hepatic toxicity EF <15% Remains asymptomatic at rest (6) Atrial fibrillation: Cont metoprolol for rate control Amiodarone recently discontinued as above Anticoagulated on Coumadin, INR therapeutic (7) Elevated LFTs: -Patient noted to have elevated LFTs last month, felt to be possibly secondary to amiodarone which has been subsequently discontinued -Bilirubin remains elevated at 2.8, AST, ALT, alk phos have normalized/improving, 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 role (8) Hypothyroidism: -Continue levothyroxine (9) GERD (gastroesophageal reflux disease): -Continue PPI, and gave Ranitidine PRN for breakthrough heartburn (10) DVT prophylaxis: coumadin-INR remains therapeutic dispo-pending clinical improvement Discharge to home ff up with PCP, Cardiology as outlined in Discharge Instructions Subjective ff up for CHF seen resting in bed, comfortable denies shortness of breath, chest pain, dizziness no other symptoms states he is ready and would like to be discharged Chief complaint: Follow-up generalized fatigue, shortness of breath Subjective: Patient states he is feeling improved overall. He is frustrated about remaining in the hospital and is eager for discharge. Telemetry reveals predominant rhythm of ventricular pacing at 90 bpm. He did have a 7 beat run of nonsustained ventricular tachycardia on 11/10/2018 at 1958. Review of Systems Review of Systems: All systems reviewed & are unremarkable except as noted in HPI & below Physical Exam Physical Exam: General- oriented x 3, not in distress, speaks in sentences with no effort or accessory muscle use Eyes- anicteric Neck- no JVD Lungs- clear breath sounds bilaterally, no rales/wheezes Heart- normal rate, regular rhythm; no murmurs Abdomen- normal bowel sounds, nondistended, soft, nontender Extremities- no pretibial edema, no calf tenderness Neuro- alert, oriented x 3; no gross focal neurologic deficits Skin- warm & dry (1) Atrial fibrillation Atrial fibrillation type: paroxysmal Qualified Code(s): I48.0 - Paroxysmal atrial fibrillation
--- NOTE | 2018-11-12 20:09 | Discharge Summary ---
Date of Service November 12, 2018 Admission HPI Per Admitting Provider 72-year-old male who presents to the ED with lower extremity edema and shortness of breath. Patient with recurrent admissions for acute on chronic systolic CHF. Most recently admitted to [facility] 10/08 he was subsequently transferred to [facility] where he was admitted until 10/18. During that admission, patient underwent AV junctional ablation and BiV ICD reprogramming and was treated with IV diuretics and milrinone. Patient was discharged on torsemide 100 mg twice daily and spironolactone 25 mg daily. Amiodarone had been discontinued due to concerns for possible hepatic toxicity. Patient reports that since returning home, he has had increasing shortness of breath as well as lower extremity edema. Over the past 2 days, he has had a 10 pound weight gain and has noted weeping from his lower extremities. Patient denies chest pain. No lightheadedness, dizziness, diaphoresis, syncopal events. He denies abdominal pain, nausea, vomiting, diarrhea. No fevers or chills. He denies any urinary symptoms. Patient was seen by his outpatient security operations specialist provider today and was referred to the ER for further evaluation. In the ED, patient's BPs are noted to be borderline low (at baseline for patient), labs are unremarkable/at baseline. Patient was given Bumex 1 mg IV. ED discussed the case with Dr. Jain who recommended admission and resumption of prior home medications after IV Bumex. Admission Exam Per Admitting Provider Constitutional: WD/WN, vitals as above Eyes: PERRL, conjunctivae normal, anicteric sclerae ENMT: external ear and nose normal, oropharynx normal Respiratory: normal respiratory effort; no respiratory distress Auscultation: + crackles (Bilateral, mid to lower lung morley) Cardiovascular: Rate/Rhythm: regular rate and regular rhythm Vessels: normal peripheral pulses Extremities: + edema (+4 pitting edema extending up to the hips and abdomen) Gastrointestinal (Abdomen): normal bowel sounds, soft, nontender, no hepatosplenomegaly Inspection/Auscultation: + abdomen distended and + abdominal edema (Pitting) Musculoskeletal: no cyanosis or clubbing, extremities motor strength 5/5 Skin: no rashes Feet are cool to touch, weeping noted BLLE Neurologic: PERRL, EOMI, accommodation nl, no face palsy, no dysarthria Psychiatric: A+Ox3, euthymic affect Principal Diagnosis ACUTE ON CHRONIC CHF EXACERBATION Discharge Exam General- oriented x 3, not in distress, speaks in sentences with no effort or accessory muscle use Eyes- anicteric Neck- no JVD Lungs- clear breath sounds bilaterally, no rales/wheezes Heart- normal rate, regular rhythm; no murmurs Abdomen- normal bowel sounds, nondistended, soft, nontender Extremities- no pretibial edema, no calf tenderness Neuro- alert, oriented x 3; no gross focal neurologic deficits Skin- warm & dry Discharge Data Allergies Allergy/AdvReac Type Severity Reaction Status Date / Time promethazine AdvReac Intermediate DELIRIUM Verified 11/04/18 17:23 Consultations 11/04/18 18:34 ED Decision to Admit Stat 11/04/18 20:29 Consult Cardiology Routine Consult Case Management - Discharge Planning Routine 11/06/18 10:28 Consult Nephrology Routine 11/07/18 09:54 Consult Palliative Care Routine Hospital Course (1) Acute on chronic congestive heart failure: (1) Acute on chronic end-stage systolic heart failure: per Dr. Bah's notes: Acute on Chronic End Stage Systolic Heart Failure Cardiology consulted placed on Lasix drip transitioned to Lasix PO ff up with Cardiology Clinic (2) MAXIM (acute kidney injury): Wood Setter consulted crea increased to 3.5 on Lasix IV improved to 2.6 additional K ordered (3) History of implantable cardioverter-defibrillator (ICD) placement: No acute cardiac symptoms (4) Biventricular cardiac pacemaker in situ: (5) Non-ischemic cardiomyopathy: Recent, recurrent admissions for HF; recently admitted to [facility] 10/08 through 10/18 where patient was treated with IV diuretics and milrinone and also underwent AV junctional ablation and BiV ICD reprogramming, patient was discharged on spironolactone 25 mg daily and torsemide 100 mg twice daily; At some point, digoxin, Entresto, metolazone have all been discontinued; amiodarone also recently discontinued due to concerns of possible hepatic toxicity EF <15% Remains asymptomatic at rest (6) Atrial fibrillation: Cont metoprolol for rate control Amiodarone recently discontinued as above Anticoagulated on Coumadin, INR therapeutic (7) Elevated LFTs: -Patient noted to have elevated LFTs last month, felt to be possibly secondary to amiodarone which has been subsequently discontinued -Bilirubin remains elevated at 2.8, AST, ALT, alk phos have normalized/improving, 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 role (8) Hypothyroidism: -Continue levothyroxine (9) GERD (gastroesophageal reflux disease): -Continue PPI, and gave Ranitidine PRN for breakthrough heartburn (10) DVT prophylaxis: coumadin-INR remains therapeutic dispo-pending clinical improvement Discharge to home ff up with PCP, Cardiology as outlined in Discharge Instructions Total Time Total Time Spent Total Time Spent (In Minutes): 40 MINS Discharge Plan Discharge Items Patient Disposition: Home - Home Health Services Reason For Visit: CHF Discharge Diagnosis: ACUTE ON CHRONIC CONGESTIVE HEART FAILURE Discharge Goals: Diagnostic testing and Therapeutic intervention Activity: As commented below Activity Comment: RESUME ACTIVITY GRADUALLY TOLERATED Lifting: Wait until after follow-up appointment Exercise/Sports: Wait until after follow-up appointment Driving/Machine Use Comment: NO DRIVING Non-emergency contact: Primary Care Provider and Pattern Data Operator Call non-emergency contact if: you have any medication questions, your symptoms worsen and you have a fever Follow-up/Referrals: Yon Leon DO [Pattern Data Operator] - 11/19/18 10:15 am Jose Parra DO [Primary Care Provider] - 11/18/18 10:55 am Diet: Heart Healthy and Low Sodium (2gm) Fluids: 1500ml (6 cups) Addtl Provider Instructions: PLEASE REVIEW YOUR NEW MEDICATION LIST AND FOLLOW INSTRUCTIONS CAREFULLY. CALL PRIMARY CARE PHYSICIAN OR RETURN TO THE ER IMMEDIATELY IF WITH WORSENING OF SYMPTOMS. Call 911 and go to the Emergency Room if: * You have tightness or pain in your chest that does not go away with rest or Nitroglycerin * You are very short of breath even with rest Call your doctor if any of the following symptoms or problems start or get worse: * Shortness of breath or difficulty breathing * Wake up at night short of breath * Chest pain * Cough * Swelling of your hands, fee, or legs * More fatigued or tired with your normal activity * Palpitations - sudden fast heart beats WEIGHT * Weigh yourself every morning after using the bathroom. * Use the same scale. * Wear the same amount of clothing. * Write your weight down on your chart. * Call your doctor if you gain more than 2-3 pounds in 1-2 days. MEDICATIONS * Use this discharge instruction sheet for instructions. * Take your medications at the time your doctor ordered. * Do not skip a dose of your medicines. * If you miss a dose of medicine, take as soon as possible, but DO NOT DOUBLE A DOSE. * Read your medicine information when you get home. * Know all of the side effects of your medicine. * Call your doctor's office if you have any side effects. * Be sure all of your doctors know what medicine and herbs you take (including cold, flu, and herbal medicine). * Pain Medicine: If you do not get relief from your pain, please call your doctor for help. Take the following with you to your follow-up doctor appointments: * Weight Chart * Medication List * List of questions Do not drink excessive alcohol, beer or wine. Prescriptions: New warfarin [Coumadin] 2.5 mg Tablet 2.5 mg PO DAILY@1600 Qty: 30 RF: 0 metolazone 2.5 mg Tablet 2.5 mg PO QAM 30 Days Qty: 30 RF: 2 potassium chloride [Klor-Con M20] 20 mEq Tablet,Er Particles/Crystals 40 meq PO QAM 30 Days Qty: 60 RF: 2 digoxin 125 mcg Tablet 0.125 mg PO MoWeFr@0900 30 Days Qty: 12 RF: 2 potassium chloride [Klor-Con M20] 20 mEq Tablet,Er Particles/Crystals 20 meq PO DAILY@1700 30 Days Qty: 30 RF: 2 Continued multivitamin Tablet 1 tab PO QAM RF: 0 sennosides [senna] 8.6 mg Tablet 8.6 mg PO DIRECTED PRN (Reason: Constipation) RF: 0 atorvastatin [Lipitor] 20 mg Tablet 20 mg PO PM RF: 0 metoprolol succinate 50 mg Tablet Extended Release 24 Hr 50 mg PO BID RF: 0 allopurinol 100 mg Tablet 100 mg PO BID RF: 0 omeprazole 40 mg Capsule,Delayed Release(Dr/Ec) 40 mg PO QAM RF: 0 aspirin [Aspirin Low Dose] 81 mg Tablet,Delayed Release (Dr/Ec) 81 mg PO QAM RF: 0 levothyroxine 25 mcg Tablet 25 mcg PO QAM RF: 0 nitroglycerin 0.4 mg Tablet, Sublingual 0.4 mg sublingual DIRECTED RF: 0 albuterol sulfate 90 mcg/actuation Hfa Aerosol Inhaler 2 puff INHALATION Q6H PRN (Reason: Shortness Of Breath) RF: 0 Symbicort 160-4.5 mcg/actuation Hfa Aerosol Inhaler 2 puff INHALATION BID RF: 0 cholecalciferol (vitamin D3) [Vitamin D3] 2,000 unit Capsule 4,000 unit PO QAM RF: 0 magnesium oxide 400 mg magnesium Tablet 400 mg PO QAM RF: 0 spironolactone 25 mg tablet 25 mg PO QAM RF: 0 ferrous sulfate 325 mg (65 mg iron) Tablet 325 mg PO Q OTHER DAY RF: 0 Vitron-C 65 mg iron- 125 mg Tablet,Delayed Release (Dr/Ec) 1 tab PO Q OTHER DAY RF: 0 trazodone 50 mg tablet 25 mg PO HS RF: 0 torsemide 100 mg Tablet 100 mg PO BID RF: 0 warfarin [Jantoven] 5 mg Tablet 2.5 mg PO 2XWK RF: 0 Discontinued potassium chloride 10 mEq tablet extended release 20 meq PO QAM RF: 0 Stand-Alone Forms: [facility] Discharge Orders: Discharge Order (Routine); Ordered 11/11/18 Ordered By: Atul Pro Admission Data Admit Date/Time: 11/04/18 19:06 Attending Provider: Atul Pro Admit Provider: Manuel Mendoza Primary Care Provider: Jose Parra Other Providers: Yon Leon ; Nellie Suresh ; Lani Solomon Service: Telemetry Other Interventions: Discharge Summary Assessment (RN) Last Done: 11/11/18 14:18 DC Date/Time DO NOT enter until pt leaves facility: 11/11/18 15:00
== END 2018-11-11 15:00 | disposition home health service (06) | DRG 291 ==
LOC: ED 16:25 → 2S 19:06 → SUATTDRO 19:06 → 2S 20:12
DX: I95.2 Hypotension due to drugs; Z79.82 Long term (current) use of aspirin; Z88.8 Allergy status to other drugs, medicaments and biological substances; D63.1 Anemia in chronic kidney disease; I13.0 Hypertensive heart and chronic kidney disease with heart failure and stage 1 through stage 4 chronic kidney disease, or unspecified chronic kidney disease; T50.1X5A Adverse effect of loop [high-ceiling] diuretics, initial encounter; N17.9 Acute kidney failure, unspecified; J44.9 Chronic obstructive pulmonary disease, unspecified; Z79.01 Long term (current) use of anticoagulants; E78.5 Hyperlipidemia, unspecified; Z86.718 Personal history of other venous thrombosis and embolism; I42.9 Cardiomyopathy, unspecified; K21.9 Gastro-esophageal reflux disease without esophagitis; R79.89 Other specified abnormal findings of blood chemistry; E87.6 Hypokalemia; I50.23 Acute on chronic systolic (congestive) heart failure; Z51.81 Encounter for therapeutic drug level monitoring; Z87.891 Personal history of nicotine dependence; Z95.810 Presence of automatic (implantable) cardiac defibrillator; E03.9 Hypothyroidism, unspecified; Z79.899 Other long term (current) drug therapy; I48.2 Chronic atrial fibrillation; Z82.49 Family history of ischemic heart disease and other diseases of the circulatory system; I50.32 Chronic diastolic (congestive) heart failure; I27.20 Pulmonary hypertension, unspecified; N18.4 Chronic kidney disease, stage 4 (severe); I50.84 End stage heart failure